=== PATIENT | male | born 1985 | race Hispanic/Latino ===

== ENCOUNTER 2019-10-17 06:56 | Emergency (ER) | payer SELFPAY ==
[2019-10-17 07:05] VITALS: BP 206/115; PULSE 88; RESP 15; TEMP 36.9; O2SAT 97; BMI 40.3
--- NOTE | 2019-10-17 07:18 | ED.DENTAL ---
HPI - Dental/Oral General Chief complaint: Dental/Oral Stated complaint: GUM INFECTION Time Seen by Provider: 10/17/19 07:00 Source: patient Mode of arrival: Ambulatory Limitations: no limitations History of Present Illness HPI Narrative: 34M nonsmoker, non drinker with history of dental problems with days to weeks of left posterior dental pain and perception of facial swelling. He has no fever or chills nor trouble swallowing or breathing. No N/V/D. Related Data Previous Rx's Medication Instructions Recorded amoxicillin 875 mg-potassium 1 tab PO BID #20 tab 07/20/19 clavulanate 125 mg tablet chlorhexidine gluconate 0.12 % 15 ml BUCCAL BID #118 ml 07/20/19 mouthwash amoxicillin-pot clavulanate 1 tab PO BID #20 tab 10/17/19 [Augmentin] ketorolac 10 mg PO Q6H PRN #14 tab 10/17/19 Allergies Allergy/AdvReac Type Severity Reaction Status Date / Time No Known Drug Allergies Allergy Verified 07/20/19 10:03 Review of Systems Constitutional Constitutional: Denies chills, Denies fatigue, Denies fever(s), Denies frequent falls, Denies lethargy and Denies weakness Eyes Eyes: Denies change in vision, Denies eye discharge, Denies irritation and Denies loss of vision ENT Ears, Nose, Mouth, and Throat: Denies change in voice, Reports dental pain, Denies dizziness, Denies neck pain, Denies sore throat and Denies throat swelling Cardiovascular Cardiovascular: Denies chest pain, Denies irregular heart rhythm, Denies lightheadedness, Denies palpitations, Denies dyspnea, Denies dyspnea on exertion and Denies orthopnea Respiratory Respiratory: Denies cough, Denies dyspnea, Denies dyspnea on exertion and Denies wheezing Gastrointestinal Gastrointestinal: Denies abdominal pain, Denies change in bowel habits, Denies diarrhea, Denies nausea and Denies vomiting Genitourinary Genitourinary: Denies hematuria, Denies flank pain, Denies urinary incontinence and Denies urinary urgency Musculoskeletal Musculoskeletal: Denies back pain, Denies muscle weakness, Denies neck pain, Denies numbness and Denies tingling Integumentary/Breasts Skin/Breast: Denies pruritus, Denies erythema, Denies rash and Denies wounds Neurologic Neurologic: Denies behavioral changes, Denies confusion, Denies dizziness, Denies frequent falls, Denies loss of vision, Denies numbness, Denies tingling and Denies weakness Psychiatric Psychiatric: Denies anxiety, Denies behavioral changes, Denies confusion, Denies depression, Denies homicidal ideation and Denies suicidal ideation Endocrine Endocrine: Denies fatigue, Denies flushing and Denies palpitations Hematologic/Lymphatic Hematologic/Lymphatic: Denies easy bruising Allergic/Immunologic Allergic/Immunologic: Denies urticaria, Denies throat swelling and Denies wheezing Patient History Social History Smoking Status: Never smoker Exam Narrative Exam Narrative: GEN: AOx3 and in mild distress, rubbing his left side jaw, and pain EYES: Pupils are equal, round, and reactive to light and accommodation. Extraoccular muscles are intact bilaterally. There is no subconjunctival hemorrhage or exudate. HEAD/FACE: No obvious swelling. Poor dentition throughout, NO fluctuance or induration. No obvious swelling. Partially fractured left lower molar. CHEST: Lungs are clear to auscultation bilaterally and free of wheezes, rales, or rhonchi. Heart rate is regular rhythm, there are no murmurs, clicks, rubs, or gallops. There is no chest wall tenderness. ABD: Abdomen is soft and nontender. There is no guarding or rebound. Bowel sounds are normal in all 4 quadrants. There is no mass or organomegaly. EXT: Full painless ROM of all extremities with no loss of sensation or strength. SKIN: Warm, pink, and dry. No erythema or rash Initial Vital Signs Initial Vital Signs: Vital Signs Temperature 98.4 F 10/17/19 07:05 Pulse Rate 88 10/17/19 07:05 Respiratory Rate 15 10/17/19 07:05 Blood Pressure 206/115 H 10/17/19 07:05 Pulse Oximetry 97 10/17/19 07:05 Procedures Nerve Block Nerve Block 1: Time out performed: Yes Local Anesthetic: bupivacaine 0.25% and with epi Side: left Intraoral Nerve Block: inferior alveolar Procedure Successful: Yes Patient Tolerated Procedure: Well Complications: none Course Orders Ordered: Discontinued Medications Bupivacaine HCl/Epinephrine Bitart (Sensorcaine 0.5% W/ Epi (Pf)) 5 ml SUBCUT NOW ONE Stop: 10/17/19 07:28 Last Admin: 10/17/19 07:39 Dose: 5 ml Documented by: BTONER Vital Signs Vital signs: Vital Signs - 8 hr 10/17/19 07:05 10/17/19 07:30 10/17/19 07:51 Temperature 98.4 F Pulse Rate 88 73 72 Respiratory Rate 15 14 15 Blood Pressure 206/115 H Blood Pressure [Left Arm] 177/97 H 159/93 H Pulse Oximetry 97 98 Discharge Plan Departure Patient Disposition: Home Clinical Impression: Toothache, Dental caries, Dental abscess Discharge Date/Time: 10/17/19 07:53 Instructions: DI for Dental Pain Activity Restrictions/Additional Instructions: *You have been diagnosed with [dental pain from early abscess] *What to do: *Take medications as directed *Follow up with your primary care provider in 2-3 days, call for an appointment. Let them know you were seen in the Emergency Department and that we ask that you be seen in follow up *Return to ER if you should have any new, worsening or concerning symptoms Prescriptions: New ketorolac 10 mg tablet 10 mg PO Q6H PRN (Reason: pain) Qty: 14 RF: 0 amoxicillin-pot clavulanate [Augmentin] 875-125 mg tablet 1 tab PO BID Qty: 20 RF: 0 No Action amoxicillin-pot clavulanate [Augmentin] 875-125 mg tablet 1 tab PO BID Qty: 20 RF: 0 chlorhexidine gluconate 0.12 % mouthwash 15 ml BUCCAL BID Qty: 118 RF: 0 ED Sign-out Cosign ED Attending Cosignature Attestation: I was immediately available in the department for consultation. This documentation has been reviewed and I agree with assessment and plan. Supervised by Michel Steve DO
[2019-10-17 07:30] VITALS: BP 177/97; PULSE 73; RESP 14
[2019-10-17] MEDS: BUPIVACAINE 0.5% W/ EPI (PF) 30 ML VIAL 5 ML SUBCUT (07:39)
[2019-10-17 07:51] VITALS: BP 159/93; PULSE 72; RESP 15; O2SAT 98
== END 2019-10-17 07:53 | disposition home or self-care (01) ==
PROVIDERS: Emergency Provider Emergency Medicine
DX: K04.7 Periapical abscess without sinus (principal); K08.89 Other specified disorders of teeth and supporting structures; K02.9 Dental caries, unspecified
CPT/HCPCS: 64450; 99281; 99283

== ENCOUNTER → 2020-05-23 08:55 | Outpatient (CLI) | payer OTHER, SELFPAY | PROVIDERS: Referring Provider Internal Medicine; Visit Provider Internal Medicine | DX: Z23 Encounter for immunization (principal) | CPT/HCPCS: 90471; 90686 ==

== ENCOUNTER 2021-03-15 23:55 | Emergency (ER) | payer OTHER, SELFPAY ==
[2021-03-16 00:31] VITALS: BP 159/103; PULSE 101; RESP 20; TEMP 36.3; O2SAT 97; BMI 41.1
--- NOTE | 2021-03-16 02:10 | ED.EXTPRO ---
HPI - Extremity Problem General Chief complaint: Extremity Problem,Nontraumatic Stated complaint: right foot pain Time Seen by Provider: 03/16/21 01:40 Source: patient Mode of arrival: Ambulatory Limitations: no limitations History of Present Illness HPI Narrative: The patient is a healthy 35-year-old male who presents with right heel pain ongoing for 1 week. His he states that it he can sleep okay but it does hurt while walking. It is in 1 spot at the base of his heel where the Achilles tendon inserts. He denies any calf pain no popping sensation. He is able to flex and extend his foot without difficulty. He says it does hurt when he flexes his foot. He has been taking ibuprofen 600 mg every 12 hours. 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 He works Friday through Friday and has been walking a lot. Related Data Previous Rx's Medication Instructions Recorded amoxicillin 875 mg-potassium 1 tab PO BID #20 tab 07/20/19 clavulanate 125 mg tablet (Augmentin) chlorhexidine gluconate 0.12 % 15 ml BUCCAL BID #118 ml 07/20/19 mouthwash amoxicillin 875 mg-potassium 1 tab PO BID #20 tab 10/17/19 clavulanate 125 mg tablet (Augmentin) ketorolac 10 mg tablet 10 mg PO Q6H PRN #14 tab 10/17/19 Allergies Allergy/AdvReac Type Severity Reaction Status Date / Time No Known Drug Allergies Allergy Verified 07/20/19 10:03 Review of Systems Review of Systems Narrative: GENERAL: Denies chills,fever HEENT: Denies throat pain RESPIRATORY: Denies dyspnea, cough, wheezing CARDIOVASCULAR: Denies chest pain, palpitations GASTROINTESTINAL: Denies nausea, vomiting MUSCULOSKELETAL see HPI SKIN: No rash, no laceration, no pruritus NEUROLOGIC: Denies weakness, dizziness, headache, numbness 8 point review of systems is negative except for those stated above and HPI Patient History Social History Smoking Status: Never smoker Smoking Status: Never smoker alcohol intake frequency: holidays/special occasions only Substance Use Type: does not use Exam Initial Vital Signs Initial Vital Signs: Vital Signs Temperature 97.3 F L 03/16/21 00:31 Pulse Rate 101 H 03/16/21 00:31 Respiratory Rate 20 03/16/21 00:31 Blood Pressure 159/103 H 03/16/21 00:31 Pulse Oximetry 97 03/16/21 00:31 GENERAL: Alert well-appearing 35-year-old male CARDIOVASCULAR: peripheral pulses in tact, cap refill <2 sec RESPIRATORY: No respiratory distress, speaks in full sentences without difficulty EXTREMITIES: Normal range of motion, no clubbing or edema. Neurovascularly intact Right lower extremity Achilles tendon intact calf is soft able flex and extend foot without difficulty. Tender right around insertion of Achilles tendon. Calf is soft NEUROLOGICAL: Cranial nerves II through XII grossly intact. Normal gait and speech. SKIN: Warm, dry, no petechiae, no rashes or lesions. Course Orders Ordered: Discontinued Medications Ibuprofen (Ibuprofen 400 Mg Tablet) 800 mg PO NOW ONE Stop: 03/16/21 02:20 Last Admin: 03/16/21 02:31 Dose: 800 mg Documented by: MAGDA Vital Signs Vital signs: Vital Signs - 8 hr 03/16/21 00:31 03/16/21 02:36 Temperature 97.3 F L Pulse Rate 101 H 68 Respiratory Rate 20 16 Blood Pressure 159/103 H 165/101 H Pulse Oximetry 97 99 MDM - Extremity (Nontraumatic) MDM Narrative Medical decision making narrative: Patient has signs symptoms are most consistent with an Achilles tendinopathy. No sign of rupture. Not consistent with a plantar fasciitis. At this time recommend Motrin more frequently and rest from work. Discharge Plan Departure Patient Disposition: Home Clinical Impression: Achilles tendinitis Qualifiers: Laterality: right Qualified Code(s): M76.61 - Achilles tendinitis, right leg Instructions: DI for Tendinitis Activity Restrictions/Additional Instructions: *You have been diagnosed with Achilles tendon *What to do: At this time you likely have inflammation of your Achilles tendon. A few days of rest and ibuprofen should help improve your symptoms. *Continue to take medications as directed Motrin 600 mg every 6 hours for the next 1 week with food do not take antibiotics including ciprofloxacin or levofloxacin, this can increase risk of rupture *Follow up with your primary care provider in 2-3 days *Return to ER if you should have increasing pain, worsening symptoms, rupture or pop or any new, worsening or concerning symptoms Prescriptions: No Action amoxicillin-pot clavulanate [Augmentin] 875-125 mg tablet 1 tab PO BID Qty: 20 RF: 0 chlorhexidine gluconate 0.12 % mouthwash 15 ml BUCCAL BID Qty: 118 RF: 0 ketorolac 10 mg tablet 10 mg PO Q6H PRN (Reason: pain) Qty: 14 RF: 0 amoxicillin-pot clavulanate [Augmentin] 875-125 mg tablet 1 tab PO BID Qty: 20 RF: 0 Referrals: [facility] [Outside] Stand Alone Forms: Work Release Note
[2021-03-16] MEDS: IBUPROFEN 400 MG TABLET 800 MG PO (02:31)
[2021-03-16 02:36] VITALS: BP 165/101; PULSE 68; RESP 16; O2SAT 99
== END 2021-03-16 02:37 | disposition home or self-care (01) ==
PROVIDERS: Emergency Provider Emergency Medicine
DX: M76.61 Achilles tendinitis, right leg (principal)
CPT/HCPCS: 99282; 99283

== ENCOUNTER 2021-09-02 17:00 | Emergency (ER) | payer OTHER, SELFPAY ==
[2021-09-02 17:11] VITALS: BP 191/105; PULSE 105; RESP 18; TEMP 36.7; O2SAT 96; BMI 37.9
--- NOTE | 2021-09-02 17:31 | ED_ITS ---
HPI - Dental/Oral <Garcia Hernandez PA-C - Last Filed: 09/02/21 19:58> General Chief complaint: Dental/Oral Stated complaint: Gum Infection Time Seen by Provider: 09/02/21 17:10 Source: patient Mode of arrival: Ambulatory History of Present Illness HPI Narrative: Patient is a 35-year-old male presenting to the emergency department today for evaluation a gingival infection. Patient states that he has an appointment on Friday with his dentist, however he is concerned that his appointment will be canceled if he is not on an antibiotic for his current infection. He states that he has had these infections in the past and his dentist as required that he be on an antibiotic prior to any procedure all work. Patient states that he has experiences infection for the past couple of days. No fever, chills, chest pain, cough, shortness of breath, nausea, vomiting, diarrhea, abdominal pain, dysuria, hematuria, sore throat, earache, or any other concerning symptoms reported. No further concerns were voiced at this time. Related Data Previous Rx's Medication Instructions Recorded amoxicillin 875 mg-potassium 1 tab PO BID #20 tab 07/20/19 clavulanate 125 mg tablet (Augmentin) chlorhexidine gluconate 0.12 % 15 ml BUCCAL BID #118 ml 07/20/19 mouthwash amoxicillin 875 mg-potassium 1 tab PO BID #20 tab 10/17/19 clavulanate 125 mg tablet (Augmentin) ketorolac 10 mg tablet 10 mg PO Q6H PRN #14 tab 10/17/19 amoxicillin 500 mg tablet 500 mg PO BID #14 tab 09/02/21 Allergies Allergy/AdvReac Type Severity Reaction Status Date / Time No Known Drug Allergies Allergy Verified 07/20/19 10:03 Review of Systems <Garcia Hernandez PA-C - Last Filed: 09/02/21 19:58> Constitutional Constitutional: Denies chills, Denies fatigue, Denies fever(s), Denies frequent falls, Denies lethargy and Denies weakness ENT Ears, Nose, Mouth, and Throat: Denies change in voice, Denies dizziness, Denies neck pain, Denies sore throat, Denies throat swelling and Reports other (Digital swelling, infection) Cardiovascular Cardiovascular: Denies chest pain, Denies irregular heart rhythm, Denies lightheadedness, Denies palpitations, Denies dyspnea, Denies dyspnea on exertion and Denies orthopnea Respiratory Respiratory: Denies cough, Denies dyspnea, Denies dyspnea on exertion and Denies wheezing Gastrointestinal Gastrointestinal: Denies abdominal pain, Denies change in bowel habits, Denies diarrhea, Denies nausea and Denies vomiting Genitourinary Genitourinary: Denies hematuria, Denies flank pain, Denies urinary incontinence and Denies urinary urgency Musculoskeletal Musculoskeletal: Denies back pain, Denies muscle weakness, Denies neck pain, Denies numbness and Denies tingling Integumentary/Breasts Skin/Breast: Denies pruritus, Denies erythema, Denies rash and Denies wounds Neurologic Neurologic: Denies dizziness, Denies frequent falls, Denies numbness, Denies tingling and Denies weakness Endocrine Endocrine: Denies fatigue and Denies palpitations Allergic/Immunologic Allergic/Immunologic: Denies throat swelling and Denies wheezing Patient History <Garcia Hernandez PA-C - Last Filed: 09/02/21 19:58> Social History Smoking Status: Never smoker Smoking Status: Never smoker alcohol intake frequency: holidays/special occasions only Substance Use Type: does not use Exam <Garcia Hernandez PA-C - Last Filed: 09/02/21 19:58> Narrative Exam Narrative: GENERAL: 35 year old patient appears stated age. Well-developed patient, in no acute distress. HEAD: Atraumatic. Normocephalic. EYES: Pupils equal round and reactive. Extraocular motions intact. No scleral icterus. No injection or drainage. ENT: Nose without bleeding, purulent drainage. Throat without erythema, tonsillar hypertrophy or exudate. Airway patent. Left lower molar with surrounding gingival inflammation and erythema. No appreciable abscess formation noted. Borderline dentition. NECK: Trachea midline. Non tender CARDIOVASCULAR: Regular rate and rhythm without murmurs, gallops, or rubs. RESPIRATORY: Clear to auscultation. Breath sounds equal bilaterally. No wheezes, rales, or rhonchi. GASTROINTESTINAL: Abdomen soft, non-tender, nondistended. EXTREMITIES: No edema or joint tenderness. BACK: Nontender without deformity or crepitance. No flank tenderness. NEURO: AOx3. SKIN: No rash or erythema of visible areas Initial Vital Signs Initial Vital Signs: Vital Signs Temperature 98.0 F 09/02/21 17:11 Pulse Rate 105 H 09/02/21 17:11 Respiratory Rate 18 09/02/21 17:11 Blood Pressure 191/105 H 09/02/21 17:11 Pulse Oximetry 96 09/02/21 17:11 <Maria E Joseph DO - Last Filed: 09/03/21 07:50> Initial Vital Signs Initial Vital Signs: Vital Signs Temperature 98.0 F 09/02/21 17:11 Pulse Rate 105 H 09/02/21 17:11 Respiratory Rate 18 09/02/21 17:11 Blood Pressure 191/105 H 09/02/21 17:11 Pulse Oximetry 96 09/02/21 17:11 Course <Garcia Hernandez PA-C - Last Filed: 09/02/21 19:58> Course Course Narrative: 500 mg amoxicillin administered in the emergency department. Orders Ordered: Discontinued Medications Amoxicillin (Amoxicillin 250 Mg Capsule) 500 mg PO NOW ONE Stop: 09/02/21 17:35 Last Admin: 09/02/21 17:46 Dose: 500 mg Documented by: LUBA Vital Signs Vital signs: Vital Signs - 8 hr 09/02/21 17:11 09/02/21 17:51 Temperature 98.0 F Pulse Rate 105 H 100 H Respiratory Rate 18 18 Blood Pressure 191/105 H 195/102 H Pulse Oximetry 96 97 <Maria E Joseph DO - Last Filed: 09/03/21 07:50> Orders Ordered: Discontinued Medications Amoxicillin (Amoxicillin 250 Mg Capsule) 500 mg PO NOW ONE Stop: 09/02/21 17:35 Last Admin: 09/02/21 17:46 Dose: 500 mg Documented by: LUBA Vital Signs Vital signs: Vital Signs - 8 hr 09/02/21 17:11 09/02/21 17:51 Temperature 98.0 F Pulse Rate 105 H 100 H Respiratory Rate 18 18 Blood Pressure 191/105 H 195/102 H Pulse Oximetry 96 97 MDM - Dental/Oral <Garcia Hernandez PA-C - Last Filed: 09/02/21 19:58> MDM Narrative Medical decision making narrative: To consider dental abscess versus dental caries versus peritonsillar abscess versus retropharyngeal abscess. Overall, physical examination history reassuring. Patient was administered 500 mg of amoxicillin in the emergency department with remaining course sent to his preferred pharmacy. Discussed this plan with the patient he agrees. Patient states he will follow-up with his dentist on Friday for further evaluation. At this time patient states he feels comfortable being discharged home and is stable for discharge. Strict return precautions were discussed prior to discharge. Patient states that his blood pressure and heart rate are chronically high despite previous treatment. Discussed with patient options regarding treatment, however he states that he does not want to pursue treatment options at this time. I urged the importance of following up with his primary care provider to seek resolution for his hypertension and chronic tachycardia. Discharge Plan Departure Patient Disposition: Home Clinical Impression: Toothache, Dental abscess Instructions: DI for Dental Pain Activity Restrictions/Additional Instructions: *You have been diagnosed with toothache, dental abscess *What to do: *Please continue to take your regular medications as directed. [X] New medication prescriptions sent to your pharmacy: [facility] - Amoxicllin [ ] New medication written as a paper prescription [ ] No new medications given A course amoxicillin has been sent to your preferred pharmacy. Please take this antibiotic as directed and complete the full course. It is reassuring that you have an appointment with your dentist on this upcoming Friday. I recommend following up with the primary care provider within the week for further evalua tion. Do not hesitate to return to the emergency department if you experience worsening pain, swelling, fever, or any other concerning symptoms. *Please follow up with your primary care provider in 2-3 days, call for an appointment. Let them know you were seen in the Emergency Department and that we ask that you be seen in follow up. We will electronically transmit a record of today's note if your PCP is in our system *If you do not have a primary care provider please contact the [facility] Resource line at [phone]. They will ask some questions about your medical history and help get you set up with a doctor in the community. *Return to Emergency Department if you should have any new, worsening or concerning symptoms, such as fever greater than 101 F, shaking chills, worsening pain, persistent vomiting or other bothersome symptoms. Prescriptions: New amoxicillin 500 mg tablet 500 mg PO BID Qty: 14 0RF No Action amoxicillin-pot clavulanate [Augmentin] 875-125 mg tablet 1 tab PO BID Qty: 20 0RF chlorhexidine gluconate 0.12 % mouthwash 15 ml BUCCAL BID Qty: 118 0RF ketorolac 10 mg tablet 10 mg PO Q6H PRN (Reason: pain) Qty: 14 0RF amoxicillin-pot clavulanate [Augmentin] 875-125 mg tablet 1 tab PO BID Qty: 20 0RF <Maria E Joseph DO - Last Filed: 09/03/21 07:50> Cosign ED Attending Cosissaature Attestation: I was immediately available in the department for consultation. Documentation has been reviewed.
[2021-09-02] MEDS: AMOXICILLIN 250 MG CAPSULE 500 MG PO (17:46)
[2021-09-02 17:51] VITALS: BP 195/102; PULSE 100; RESP 18; O2SAT 97
--- NOTE | 2021-09-02 17:51 | PC.NURSE ---
Spoke with pt re: his BP 195/105. Pt states his blood pressure typically runs very high. He sought care for BP 10+ yrs ago but unsuccessful in maintaining meds for improvement.
== END 2021-09-02 17:53 | disposition home or self-care (01) ==
PROVIDERS: Emergency Provider Physician Assistant
DX: K04.7 Periapical abscess without sinus (principal); K08.89 Other specified disorders of teeth and supporting structures
CPT/HCPCS: 99283

== ENCOUNTER 2021-11-14 10:18 | Emergency (ER) | payer OTHER, SELFPAY ==
[2021-11-14 10:20] VITALS: BP 178/106; PULSE 117; RESP 15; TEMP 37; O2SAT 98; BMI 40.7
--- NOTE | 2021-11-14 10:44 | DI.US.S_ITS ---
PROCEDURE: US SCROTUM INDICATIONS: Suspect scrotal abscess TECHNIQUE: Real-time scanning was performed of the scrotum and testicles, with image documentation. Color and pulse Doppler interrogation was performed of both testicles. COMPARISON: None. FINDINGS: Right: Testicle is normal in size at 4.9 x 2.5 x 2.9 cm, and homogenous in echotexture. A few scattered echogenic foci are seen, compatible with microlithiasis. Hypoechoic lesions within the epididymis, measuring up to 4.1 mm, compatible with cysts. Epididymis is otherwise normal in overall size and morphology. No hydrocele or varicoceles. Overlying scrotal skin is normal in thickness. A 1.2 x 2.3 x 1.1 cm hypoechoic lesion with internal echoes is seen within the scrotum, which may reflect phlegmon. Left: Testicle is normal in size at 4.8 x 2.8 x 3 cm, and homogeneous in echotexture. The epididymis is not well seen. No hydrocele or varicoceles. Thickening of the scrotal skin. Doppler: Color and pulse Doppler demonstrate normal and symmetric arterial flow in both testicles. IMPRESSION: 1. Right microlithiasis. 2. Thickening of the left scrotum with hypoechoic lesion, which may reflect phlegmon. Dictated by: Tacos Saravia M.D. on 11/14/2021 at 11:41 Approved by: Tacos Saravia M.D. on 11/14/2021 at 11:46
--- NOTE | 2021-11-14 10:45 | ED.SKABFB ---
HPI - Skin/Abscess/Foreign Bdy General Chief complaint: Skin/Abscess/Foreign Body Stated complaint: spider bites on genital Time Seen by Provider: 11/14/21 10:37 Source: patient Mode of arrival: Ambulatory Limitations: no limitations History of Present Illness HPI narrative: The patient developed pain and swelling to the left hemiscrotum 3 days ago. The amount of swelling has increased a bit. There is no drainage from the site. He has think he may have been bitten by spider, he did not see a spider. He has no associated dysuria or hematuria. He has thickening to the left hemiscrotum. There is slight swelling. He has pain in the left inguinal region. He is borderline diabetic. Related Data Previous Rx's Medication Instructions Recorded amoxicillin 875 mg-potassium 1 tab PO BID #20 tab 07/20/19 clavulanate 125 mg tablet (Augmentin) chlorhexidine gluconate 0.12 % 15 ml BUCCAL BID #118 ml 07/20/19 mouthwash amoxicillin 875 mg-potassium 1 tab PO BID #20 tab 10/17/19 clavulanate 125 mg tablet (Augmentin) ketorolac 10 mg tablet 10 mg PO Q6H PRN #14 tab 10/17/19 amoxicillin 500 mg tablet 500 mg PO BID #14 tab 09/02/21 doxycycline hyclate 100 mg tablet 100 mg PO BID 10 Days #20 tab 11/14/21 Allergies Allergy/AdvReac Type Severity Reaction Status Date / Time No Known Drug Allergies Allergy Verified 11/14/21 10:26 Review of Systems Constitutional Constitutional: Denies chills and Denies fever(s) ENT Ears, Nose, Mouth, and Throat: Denies vertigo and Denies dizziness Gastrointestinal Gastrointestinal: Denies abdominal pain and Denies nausea Comments: Left inguinal pain. Genitourinary Genitourinary: Reports as per HPI Musculoskeletal Musculoskeletal: Denies arthralgias and Denies back pain Integumentary/Breasts Comments: Skin changes on the scrotum as noted in HPI. Neurologic Neurologic: Denies abnormal movements, Denies confusion, Denies vertigo and Denies dizziness Psychiatric Psychiatric: Denies confusion Hematologic/Lymphatic On Anticoagulants: No Patient History Medical History (Updated 11/14/21 @ 12:16 by Ladarius Washburn MD) Prediabetes Social History Smoking Status: Never smoker Smoking Status: Never smoker alcohol intake frequency: holidays/special occasions only Substance Use Type: does not use Exam Initial Vital Signs Initial Vital Signs: Vital Signs Temperature 98.6 F 11/14/21 10:20 Pulse Rate 117 H 11/14/21 10:20 Respiratory Rate 15 11/14/21 10:20 Blood Pressure 178/106 H 11/14/21 10:20 Pulse Oximetry 98 11/14/21 10:20 Const General: cooperative, healthy appearing and comfortable [facility] [place] Head: normocephalic and atraumatic GI Palpation: soft Other: Nontender other than left inguinal adenopathy. Penis: normal penis Other: Two small areas of erythema and warmth on the left hemiscrotum, with some continues induration, no fluctuance. Testes are normal in size without masses. Back/Spine/Pelvis Back: No CVA tenderness Course Course Course Narrative: Ultrasound revealed a phlegmon on the scrotal wall, no abscess. Testicles were normal, there were no other significant findings. The patient was started on doxycycline. A follow-up urology appointment has been made prior to disposition. Orders Ordered: ED Orders 11/14/21 10:44 US scrotum Stat Vital Signs Vital signs: Vital Signs - 8 hr 11/14/21 10:20 Temperature 98.6 F Pulse Rate 117 H Respiratory Rate 15 Blood Pressure 178/106 H Pulse Oximetry 98 MDM - Skin/Abscess/Foreign Bdy Imaging Data Scrotal ultrasound: Radiologist's Impression: [address] [address] Ultrasound Report Signed Patient: Dom Wise MR#: [id number] : 1985 Acct:[id number] Age/Sex: 36 / M Date of Service: 11/14/21 Loc: ED Accession Number: [id number] ?? Procedure: US scrotum Ordering Provider: Ladarius Washburn MD PROCEDURE:? US SCROTUM ? INDICATIONS:? Suspect scrotal abscess ? TECHNIQUE:? Real-time scanning was performed of the scrotum and testicles, with image documentation.? Color and pulse Doppler interrogation was performed of both testicles.? ? COMPARISON:? None. ? FINDINGS:? ? Right:? Testicle is normal in size at 4.9 x 2.5 x 2.9 cm, and homogenous in echotexture.? A few scattered echogenic foci are seen, compatible with microlithiasis.? Hypoechoic lesions within the epididymis, measuring up to 4.1 mm, compatible with cysts.? Epididymis is otherwise normal in overall size and morphology.? No hydrocele or varicoceles.? Overlying scrotal skin is normal in thickness.? A 1.2 x 2.3 x 1.1 cm hypoechoic lesion with internal echoes is seen within the scrotum, which may reflect phlegmon. ? Left:? Testicle is normal in size at 4.8 x 2.8 x 3 cm, and homogeneous in echotexture.? The epididymis is not well seen.? No hydrocele or varicoceles.? Thickening of the scrotal skin.? ? Doppler:? Color and pulse Doppler demonstrate normal and symmetric arterial flow in both testicles.? ? IMPRESSION:? 1. Right microlithiasis. 2. Thickening of the left scrotum with hypoechoic lesion, which may reflect phlegmon.? ? ? Dictated by: Tacos Saravia M.D. on 11/14/2021 at 11:41 ? ? Approved by: Tacos Saravia M.D. on 11/14/2021 at 11:46?? Discharge Plan Departure Patient Disposition: Home Clinical Impression: Phlegmon Instructions: DI for Skin Abscess Activity Restrictions/Additional Instructions: You have a skin infection on the surface the scrotum. The internal contents of the scrotum are okay. Doxycycline 2 times daily for 10 days. Follow-up with Urology, I will give you contact information for Dr. Narvaez. We caught in an appointment 11/29/21 at 12:30 PM. Prescriptions: New doxycycline hyclate 100 mg tablet 100 mg PO BID 10 Days Qty: 20 0RF No Action amoxicillin-pot clavulanate [Augmentin] 875-125 mg tablet 1 tab PO BID Qty: 20 0RF chlorhexidine gluconate 0.12 % mouthwash 15 ml BUCCAL BID Qty: 118 0RF ketorolac 10 mg tablet 10 mg PO Q6H PRN (Reason: pain) Qty: 14 0RF amoxicillin-pot clavulanate [Augmentin] 875-125 mg tablet 1 tab PO BID Qty: 20 0RF amoxicillin 500 mg tablet 500 mg PO BID Qty: 14 0RF Referrals: Marsha Narvaez MD [Physician] - Stand Alone Forms: Work Release Note
[2021-11-14 12:34] VITALS: BP 161/98; PULSE 111; RESP 18; O2SAT 95
== END 2021-11-14 12:35 | disposition home or self-care (01) ==
PROVIDERS: Emergency Provider Emergency Medicine
DX: N49.2 Inflammatory disorders of scrotum (principal)
CPT/HCPCS: 76870; 99281; 99283

== ENCOUNTER 2021-11-16 21:37 | Inpatient (IN) | payer OTHER, SELFPAY ==
[2021-11-16 21:41] VITALS: BP 185/99; PULSE 133; RESP 24; TEMP 38; O2SAT 96; BMI 40.7
[2021-11-16 22:15] LABS: INR 1.2 (0.9-1.3); Prothrombin Time 13.9 SECONDS (10.1-12.7)
[2021-11-16 22:18] LABS: PTT Partial Thromboplastin Tim 36 SECONDS (26.4-36.2)
[2021-11-16 22:19] LABS: Add Manual Diff / Slide Review NO; Basophils Absolute Auto 100 /uL (0-100); Basophils Percent Auto 0.5 % (0-2); Eosinophils Absolute Auto 100 /uL (0-450); Eosinophils Percent Auto 0.3 % (2-4); Hematocrit 45.3 % (41-53); Hemoglobin 15.4 g/dL (13.5-17.5); Lactate (Lactic Acid) 2.8 mmol/L (0.7-2.1); Lymphocytes Absolute Auto 2000 /uL (1100-4500); Lymphocytes Percent Auto 12.7 % (25-40); Mean Corpuscular Hemoglobin 26.1 PG (26-34); Mean Corpuscular Volume 76.8 fL (80-100); Monocytes Absolute Auto 1400 /uL (0-900); Monocytes Percent Auto 8.8 % (3-14); Neutrophils Absolute Auto 12500 /uL (1500-7000); Neutrophils Percent Auto 77.7 % (50-75); Platelet Count 228 X10^3/uL (150-400); Red Cell Distribution Width 13.7 % (11.6-14.8)
[2021-11-16 22:20] LABS: Alanine Aminotransferase 23 IU/L (<50); Albumin Globulin Ratio 1.1 (1.0-2.8); Alkaline Phosphatase 74 U/L (38-126); Aspartate Aminotransferase 18 IU/L (17-59); BUN Creatinine Ratio 13.6 (6-22); Bilirubin Total 0.8 mg/dL (0.2-1.3); Blood Urea Nitrogen 11 mg/dL (9-20); Calcium 9.1 mg/dL (8.4-10.2); Carbon Dioxide 25 mmol/L (22-32); Chloride 98 mmol/L (98-107); Estimated Glomerular Filt Rate > 60 mL/min (>60); Globulin 3.6 g/dL (1.7-4.1); Glucose 440 mg/dL (70-100); HEMOLYSIS < 15 (0-50); Lipase 117 U/L (23-300); Sodium 135 mmol/L (137-145); Total Protein 7.6 g/dL (6.3-8.2)
[2021-11-16 22:37] LABS: Procalcitonin 0.32 ng/mL (<0.5)
--- NOTE | 2021-11-16 22:40 | DI.US.S_ITS ---
PROCEDURE: US SCROTUM INDICATIONS: eval for abscess TECHNIQUE: Real-time scanning was performed of the scrotum and testicles, with image documentation. Color and pulse Doppler interrogation was performed of both testicles. COMPARISON: [facility], , US SCROTUM, 11/14/2021, 10:56. FINDINGS: Right: Testicle is normal in size at 5.1 x 2.8 x 2.4 cm, and homogenous in echotexture. Microlithiasis. Epididymis is normal in overall size and morphology. No hydrocele or varicoceles. Overlying scrotal skin is normal in thickness. Left: Testicle is normal in size at 4.7 x 2.9 x 2.3 cm, and homogeneous in echotexture. Epididymis is normal in overall size and morphology. No hydrocele or varicoceles. Scrotal wall thickening with an irregular hypoechoic area measuring 4.7 x 3.5 x 1.7 cm (previously 2.3 x 1.2 x 1.1 cm on 11/14/2021). There is surrounding hyperemia. This does not appear liquid at this time. Doppler: Color and pulse Doppler demonstrate normal and symmetric arterial flow in both testicles. IMPRESSION: 1. Marked left scrotal wall thickening with a large irregular hypoechoic area with surrounding hyperemia measuring 4.7 cm which is increased in size in the short-term interval. This is concerning for phlegmon or developing abscess or hematoma. 2. No testicular mass. Incidental right microlithiasis. 3. No hydrocele. No varicocele. Dictated by: Ayan Zuniga M.D. on 11/17/2021 at 0:07 Approved by: Ayan Zuniga M.D. on 11/17/2021 at 0:13
[2021-11-16] MEDS: VANCOMYCIN 1,000 MG/200 ML PIGGYBACK 200 MG IV (22:45)
[2021-11-16] MEDS: SODIUM CHLORIDE 0.9% 1,000 ML 1000 ML IV (22:45)
--- NOTE | 2021-11-16 22:49 | ED.GENADULT ---
HPI - General Adult General Chief complaint: Urogenital-Male Stated complaint: Infection Time Seen by Provider: 11/16/21 22:39 Source: patient and family Mode of arrival: Ambulatory History of Present Illness HPI narrative: 36-year-old male. Was seen here in the emergency department a couple days ago for redness and swelling of his testicle. Had an ultrasound performed. No abscess was identified. Was sent home on doxycycline. He has been taking his medication as directed however since that time he reports increased redness and pain and generally feeling very poorly. He denies any urinary symptoms. No abdominal pain. Related Data Previous Rx's Medication Instructions Recorded amoxicillin 875 mg-potassium 1 tab PO BID #20 tab 07/20/19 clavulanate 125 mg tablet (Augmentin) chlorhexidine gluconate 0.12 % 15 ml BUCCAL BID #118 ml 07/20/19 mouthwash amoxicillin 875 mg-potassium 1 tab PO BID #20 tab 10/17/19 clavulanate 125 mg tablet (Augmentin) ketorolac 10 mg tablet 10 mg PO Q6H PRN #14 tab 10/17/19 amoxicillin 500 mg tablet 500 mg PO BID #14 tab 09/02/21 doxycycline hyclate 100 mg tablet 100 mg PO BID 10 Days #20 tab 11/14/21 Allergies Allergy/AdvReac Type Severity Reaction Status Date / Time No Known Drug Allergies Allergy Verified 11/14/21 10:26 Review of Systems Review of Systems ROS Unobtainable: All systems reviewed & are unremarkable except as noted in HPI and below Patient History Medical History Prediabetes Social History Smoking Status: Current every day smoker Smoking Status: Current every day smoker tobacco type: vaping alcohol intake frequency: holidays/special occasions only Substance Use Type: does not use Exam Initial Vital Signs Initial Vital Signs: Vital Signs Temperature 100.4 F H 11/16/21 21:41 Pulse Rate 133 H 11/16/21 21:41 Respiratory Rate 24 11/16/21 21:41 Blood Pressure 185/99 H 11/16/21 21:41 Pulse Oximetry 96 11/16/21 21:41 Const General: cooperative, comfortable and well developed HENIN Head: normal to inspection and normocephalic Resp Effort & Inspection: normal respiratory effort Auscultation: clear to auscultation bilaterally Cardio Rate: tachycardic Rhythm: regular rhythm GI Inspection: normal to inspection Other: Patient with a red addendum a scrotum. Left appears worse than right. Uncircumcised penis unremarkable. No vesicles. No pustules. Tender to palpation. Given the extent of the swelling unable to palpate testicles secondary to discomfort as well. Skin Other: Redness of the scrotum. Left being greater than right. No swelling/redness on the inner thighs. Swelling does not extend up into the abdomen. There is no crepitus felt. Neuro General: patient alert, patient awake and moves all extremities Extrem General: normal to inspection and capillary refill normal Psych Appearance: grossly normal Course Orders Ordered: ED Orders 11/16/21 22:00 Complete Blood Count AUTO DIFF Stat Comprehensive Metabolic Panel Stat Lactate (Lactic Acid) Stat Lipase Stat Partial Thromboplastin Time Stat Procalcitonin Stat Prothrombin Time INR Stat 11/16/21 22:08 EKG-12 Lead Stat RT Consult Eval and Treat NOW 11/16/21 22:25 Blood Culture Stat 11/16/21 22:40 US scrotum Stat 11/16/21 23:30 Urine Microscopic Stat 11/17/21 01:54 CT pelvis w con Stat 11/17/21 04:40 Wound Culture and Gram Stain Stat Acetaminophen (Acetaminophen 325 Mg Tablet) 650 mg PO Q6HR HANG Dextrose (Dextrose 50 % In Water 25 Gm/50 Ml Syringe) 25 gm IV PRN PRN PRN Reason: Hypoglycemia Docusate Sodium (Docusate 100 Mg Capsule) 100 mg PO BID [facility] Enoxaparin Sodium (Enoxaparin 40 Mg/0.4 Ml Syringe) 40 mg SUBCUT DAILY [facility] Ceftriaxone Sodium 1,000 mg/ (Sodium Chloride) 100 mls @ 200 mls/hr IV Q24H [facility] Insulin Human Lispro (Insulin Lispro 100 Unit/Ml 3ml Vial) 0 unit SUBCUT ACHS HNAG; Protocol Morphine Sulfate (Morphine 2 Mg/Ml Inj) 2 mg IV Q3H PRN PRN Reason: Breakthrough pain only (8-10) Naloxone HCl (Naloxone 0.4 Mg/Ml Vial) 0.2 mg IV Q2MIN PRN PRN Reason: Opiate Reversal Ondansetron HCl (Ondansetron 4 Mg/2 Ml Inj) 4 mg IV Q6HR PRN PRN Reason: Nausea And Vomiting Oxycodone HCl (Oxycodone Ir 10 Mg Tablet) 10 mg PO Q4HR PRN PRN Reason: Pain, Severe (7-10) Tramadol HCl (Tramadol 50 Mg Tablet) 50 mg PO Q4H PRN PRN Reason: Pain, Moderate (4-6) Vancomycin HCl (Vancomycin Per Pharmacy) 1 request MISC NOW ONE Stop: 11/17/21 05:03 Discontinued Medications Acetaminophen (Acetaminophen 325 Mg Tablet) 650 mg PO NOW ONE Stop: 11/17/21 02:27 Last Admin: 11/17/21 02:38 Dose: 650 mg Documented by: ERLINDA Sodium Chloride (Normal Saline 0.9%) 1,000 mls @ 1,000 mls/hr IV BOLUS ONE Stop: 11/16/21 23:07 Last Infusion: 11/17/21 00:08 Dose: 0 mls/hr Documented by: Admin: 11/16/21 22:45 Dose: 1,000 mls/hr Documented by: ERLINDA Ceftriaxone Sodium 1,000 mg/ (Sodium Chloride) 100 mls @ 200 mls/hr IV NOW ONE Stop: 11/16/21 22:40 Last Infusion: 11/17/21 00:57 Dose: 0 mls/hr Documented by: Admin: 11/17/21 00:09 Dose: 200 mls/hr Documented by: ERLINDA Vancomycin HCl (Vancomycin) 1,000 mg in 200 mls @ 200 mls/hr IV NOW ONE Stop: 11/16/21 23:38 Last Infusion: 11/17/21 00:08 Dose: 0 mls/hr Documented by: Admin: 11/16/21 22:45 Dose: 200 mls/hr Documented by: ERLINDA Morphine Sulfate (Morphine 4 Mg/Ml Inj) 4 mg IV NOW ONE Stop: 11/16/21 22:50 Last Admin: 11/16/21 23:10 Dose: 4 mg Documented by: ERLINDA Morphine Sulfate (Morphine 4 Mg/Ml Inj) 4 mg IV NOW ONE Stop: 11/17/21 02:28 Last Admin: 11/17/21 02:39 Dose: 4 mg Documented by: ERLINDA Vital Signs Vital signs: Vital Signs - 8 hr 11/16/21 21:41 11/17/21 02:23 11/17/21 02:24 Temperature 100.4 F H 102.3 F H Pulse Rate 133 H 118 H Respiratory Rate 24 Blood Pressure 185/99 H 158/88 H Pulse Oximetry 96 96 11/17/21 02:42 11/17/21 02:43 11/17/21 03:00 Temperature Pulse Rate 119 H 119 H 125 H Respiratory Rate Blood Pressure 146/82 H Pulse Oximetry 96 93 93 11/17/21 03:30 11/17/21 03:32 11/17/21 04:00 Temperature 101.1 F H 101.1 F H Pulse Rate 119 H 116 H Respiratory Rate Blood Pressure Pulse Oximetry 94 90 L 11/17/21 04:30 Temperature Pulse Rate 111 H Respiratory Rate Blood Pressure Pulse Oximetry 91 Medical Decision Making Lab Data Lab results reviewed: Yes I reviewed the patient's lab results. Result diagrams: 11/16/21 22:00 11/16/21 22:00 Labs: Lab Results 11/16/21 11/16/21 11/16/21 Range/Units 22:00 22:00 22:00 WBC 16.0 H (4.5-11.0) X10^3/uL RBC 5.90 (4.5-5.9) X10^6/uL Hgb 15.4 (13.5-17.5) g/dL Hct 45.3 (41-53) % MCV 76.8 L (80-100) fL MCH 26.1 (26-34) PG MCHC 34.0 (30-36) % RDW 13.7 (11.6-14.8) % Plt Count 228 (150-400) X10^3/uL Neut % (Auto) 77.7 H (50-75) % Lymph % (Auto) 12.7 L (25-40) % [place] % (Auto) 8.8 (3-14) % Eos % (Auto) 0.3 L (2-4) % Baso % (Auto) 0.5 (0-2) % Neut # (Auto) 34273 H (8884-3551) /uL Lymph # (Auto) 2000 (0260-1850) /uL [place] # (Auto) 1400 H (0-900) /uL Eos # (Auto) 100 (0-450) /uL Baso # (Auto) 100 (0-100) /uL PT 13.9 H (10.1-12.7) SECONDS INR 1.2 (0.9-1.3) APTT 36 (26.4-36.2) SECONDS Sodium 135 L (137-145) mmol/L Potassium 4.0 (3.4-5.1) mmol/L Chloride 98 (98-107) mmol/L Carbon Dioxide 25 (22-32) mmol/L BUN 11 (9-20) mg/dL Creatinine 0.81 (0.66-1.25) mg/dL Estimated GFR > 60 (>60) mL/min BUN/Creatinine Ratio 13.6 (6-22) Glucose 440 H (70-100) mg/dL Lactate (0.7-2.1) mmol/L Calcium 9.1 (8.4-10.2) mg/dL Total Bilirubin 0.8 (0.2-1.3) mg/dL AST 18 (17-59) IU/L ALT 23 (<50) IU/L Alkaline Phosphatase 74 (38-126) U/L Total Protein 7.6 (6.3-8.2) g/dL Albumin 4.0 (3.5-5.0) g/dL Globulin 3.6 (1.7-4.1) g/dL Albumin/Globulin Ratio 1.1 (1.0-2.8) Lipase 117 (23-300) U/L Procalcitonin 0.32 (<0.5) ng/mL Urine RBC (0-5/HPF) Urine WBC (0-5/HPF) Urine Bacteria (None) Ur Culture Indicated? 11/16/21 11/16/21 11/17/21 Range/Units 22:00 23:30 00:20 WBC (4.5-11.0) X10^3/uL RBC (4.5-5.9) X10^6/uL Hgb (13.5-17.5) g/dL Hct (41-53) % MCV (80-100) fL MCH (26-34) PG MCHC (30-36) % RDW (11.6-14.8) % Plt Count (150-400) X10^3/uL Neut % (Auto) (50-75) % Lymph % (Auto) (25-40) % [place] % (Auto) (3-14) % Eos % (Auto) (2-4) % Baso % (Auto) (0-2) % Neut # (Auto) (2847-7282) /uL Lymph # (Auto) (0614-1856) /uL [place] # (Auto) (0-900) /uL Eos # (Auto) (0-450) /uL Baso # (Auto) (0-100) /uL PT (10.1-12.7) SECONDS INR (0.9-1.3) APTT (26.4-36.2) SECONDS Sodium (137-145) mmol/L Potassium (3.4-5.1) mmol/L Chloride (98-107) mmol/L Carbon Dioxide (22-32) mmol/L BUN (9-20) mg/dL Creatinine (0.66-1.25) mg/dL Estimated GFR (>60) mL/min BUN/Creatinine Ratio (6-22) Glucose (70-100) mg/dL Lactate 2.8 H 1.6 (0.7-2.1) mmol/L Calcium (8.4-10.2) mg/dL Total Bilirubin (0.2-1.3) mg/dL AST (17-59) IU/L ALT (<50) IU/L Alkaline Phosphatase (38-126) U/L Total Protein (6.3-8.2) g/dL Albumin (3.5-5.0) g/dL Globulin (1.7-4.1) g/dL Albumin/Globulin Ratio (1.0-2.8) Lipase (23-300) U/L Procalcitonin (<0.5) ng/mL Urine RBC 0-1/hpf (0-5/HPF) Urine WBC None seen (0-5/HPF) Urine Bacteria None seen (None) Ur Culture Indicated? Cult not indicated Urine Dip Bedside Urine Glucose 1000 mg/dl Bedside Urine Bilirubin - Negative Bedside Urine Ketone - Negative Urine Specific [place] 1.015 Bedside Urine Occult Blood +/- Bedside Urine pH 6.0 Bedside Urine Protein ++ 100 Bedside Urine Urobilinogen - Negative Bedside Urine Nitrite - Negative Bedside Urine Leukocytes - Negative Esterase Point of care testing: Urine Dip Bedside Urine Glucose 1000 mg/dl Bedside Urine Bilirubin - Negative Bedside Urine Ketone - Negative Urine Specific [place] 1.015 Bedside Urine Occult Blood +/- Bedside Urine pH 6.0 Bedside Urine Protein ++ 100 Bedside Urine Urobilinogen - Negative Bedside Urine Nitrite - Negative Bedside Urine Leukocytes - Negative Esterase Imaging Data Scrotal ultrasound: Radiologist's Impression: [address] [address] Ultrasound Report Signed Patient: Dom Wise MR#: [id number] : 1985 Acct:[id number] Age/Sex: 36 / M Date of Service: 11/16/21 Loc: ED Accession Number: [id number] ?? Procedure: US scrotum Ordering Provider: Santino Shaw D.O. PROCEDURE:? US SCROTUM ? INDICATIONS:? eval for abscess ? TECHNIQUE:? Real-time scanning was performed of the scrotum and testicles, with image documentation.? Color and pulse Doppler interrogation was performed of both testicles.? ? COMPARISON:? [facility], , US SCROTUM, 11/14/2021, 10:56. ? FINDINGS:? ? Right:? Testicle is normal in size at 5.1 x 2.8 x 2.4 cm, and homogenous in echotexture.? Microlithiasis.? Epididymis is normal in overall size and morphology.? No hydrocele or varicoceles.? Overlying scrotal skin is normal in thickness.? ? Left:? Testicle is normal in size at 4.7 x 2.9 x 2.3 cm, and homogeneous in echotexture.? Epididymis is normal in overall size and morphology.? No hydrocele or varicoceles.? ? Scrotal wall thickening with an irregular hypoechoic area measuring 4.7 x 3.5 x 1.7 cm (previously 2.3 x 1.2 x 1.1 cm on 11/14/2021).? There is surrounding hyperemia.? This does not appear liquid at this time. ? Doppler:? Color and pulse Doppler demonstrate normal and symmetric arterial flow in both testicles.? ? IMPRESSION:? 1. Marked left scrotal wall thickening with a large irregular hypoechoic area with surrounding hyperemia measuring 4.7 cm which is increased in size in the short-term interval.? This is concerning for phlegmon or developing abscess or hematoma. ? 2. No testicular mass.? Incidental right microlithiasis. ? 3. No hydrocele.? No varicocele.? ? Dictated by: Ayan Zuniga M.D. on 11/17/2021 at 0:07 ? ? Approved by: Ayan Zuniga M.D. on 11/17/2021 at 0:13?? Pelvis CT: Radiologist's Impression: Bilateral scrotal hydroceles. The hydroceles larger on the left than the right. Bilateral testicles are visualized and are homogeneous in density. No air identified within the scrotal sac. He see accompanying scrotal ultrasound to exclude abscess. No extensive scrotal skin thickening. MDM Narrative Medical decision making narrative: Patient arrives febrile tachycardic. Does have leukocytosis. Antibiotics administered upon my initial evaluation when the patient arrived to the exam room. Blood cultures obtained. 30 cc/kilogram of fluid not administered secondary to patient not being dehydrated, tolerating oral fluids, not being hypotensive. Lactate improved with the above-stated therapies. Ultrasound repeated today did not show any signs of abscess. Also no signs of testicular torsion. Patient has no crepitus over the area. Given his elevated blood sugar there is concern about Hailee's. CT scan of the pelvis ordered shows no free air and again no abscess. The cellulitis appears to be isolated to the scrotum and it does not extend into the upper inner thighs or into the abdomen. Upon evaluation when the patient was being admitted to the hospital there was spontaneous drainage from a small area on the left side of the scrotum. I was able to express a small amount of purulent material from this area. Culture was obtained. Discussed the case with LUPE Rhodes the [facility] provider who will admit for further evaluation and treatment. I did discuss the need for admission with the patient secondary to failure of outpatient therapy. He expressed understanding and agreement. Discharge Plan Departure Patient Disposition: Admitted as Observation Clinical Impression: Cellulitis Admit Date/Time: 11/17/21 04:54 Admit Provider: Amanda Rhodes
[2021-11-16] MEDS: MORPHINE 4 MG/ML INJ IV (23:10)
[2021-11-17] VITALS (29 sets, daily range): BP systolic 103–158; BP diastolic 65–94; PULSE 94–125; RESP 14–25; TEMP 36.8–39.1; O2SAT 90–100; BMI 40.7; BMI 39.8
--- NOTE | 2021-11-17 | PATH_ITS ---
[facility] Accession Number: [id number] . 01 Material submitted: . scrotum - SCROTAL TISSUE . 01 Diagnosis: Scrotal, Excision: Abscess with surrounding reactive changes and inflammation. . Note: The findings are nonspecific. PAS stain is negative for fungal hyphae. However, special stains are not sensitive. Tissue cultures may be of help if infection is a persistent clinical concern. Clinicopathological correlation is advised. [facility] 11/26/2021 1547 Local . 01 Comment: The histologic material was reviewed with Dr. Kasia Villalobos, who concurs. . 01 Electronically signed: . Erica Polk MD, Dermatopathologist NPI- [id number] . 01 Gross description: . The specimen is received in formalin, labeled scrotal tissue, and consists of four unoriented excisions of skin ranging in size from 0.8 x 0.5 cm, excised to a depth of 0.3 cm, to 2.2 x 0.9 cm, excised to a depth of 1.0 cm. The tissue is sectioned and entirely submitted as follows: A1: One skin fragment, serially sectioned (not inked). A2: One skin fragment, serially sectioned (inked blue). A3: One skin fragment, serially sectioned (inked green). A4-A5: One skin fragment, serially sectioned (inked black). ([id number]) /CÉSAR 11/26/2021 1750 Local . 01 Pathologist provided ICD-10: L98.9 . 01 CPT . 176534, [id number] Specimen Comment: A courtesy copy of this report has been sent to [phone] Performed at: 01 [facility] [address] [id number] MD Terry Bentley MD Phone: [phone]
[2021-11-17] MEDS: cefTRIAXone 1,000 MG in SODIUM CHLORIDE 0.9% 100 ML 200 ML IV (00:09)
[2021-11-17 00:10] LABS: Reflexed Lactate in 2 Hours Y
[2021-11-17 00:44] LABS: Lactate 2HR (Lactic Acid Rflx) 1.6 mmol/L (0.7-2.1)
[2021-11-17 01:01] LABS: Bacteria Urine None Seen; Culture Indicated Urine Cult Not Indicated; RBC Urine 0-1/HPF (0-5/HPF); WBC Urine None Seen (0-5/HPF)
--- NOTE | 2021-11-17 01:54 | DI.CT.S_ITS ---
PROCEDURE: CT PELVIS W CON INDICATIONS: scrotal infection eval for deep infection/fee air TECHNIQUE: After the administration of intravenous contrast, 5 mm thick sections acquired from the iliac crests to the symphysis. 5 mm coronal and sagittal reformats were acquired. For radiation dose reduction, the following was used: automated exposure control, adjustment of mA and/or kV according to patient size. COMPARISON: None. FINDINGS: Image quality: Excellent. Peritoneum and bowel: Bowel loops demonstrate normal wall thickness and caliber. No free fluid or air. Genitourinary: Bladder wall thickness is normal. Nodes and vessels: No iliac, pelvic, or inguinal adenopathy by size criteria. Iliac vessels demonstrate normal size and enhancement. Bones: No suspicious bony lesions. Miscellaneous: Bilateral scrotal hydroceles. No evidence of soft tissue air. Incidental right inguinal hernia containing fat without bowel involvement IMPRESSION: Bilateral scrotal hydroceles. No evidence of soft tissue air Note: Final report is concordant with preliminary interpretation by [employer] Approved by: Simon Hinkle M.D. on 11/17/2021 at 6:18
--- NOTE | 2021-11-17 02:00 | PC.NURSE ---
no change in condition
[2021-11-17] MEDS: ACETAMINOPHEN 325 MG TABLET 650 MG PO ×2 (02:38→08:18)
[2021-11-17] MEDS: MORPHINE 4 MG/ML INJ IV (02:39)
--- NOTE | 2021-11-17 03:30 | PC.NURSE ---
pt resting on stretcher without any c/o at this time
--- NOTE | 2021-11-17 05:05 | P.HP_ITS ---
History of Present Illness History of Present Illness Date Patient Seen: 11/17/21 Time Patient Seen: 05:05 Chief complaint: Scrotal infection Narrative: Dom Wise is a 36 y.o. male with pre-diabetes that developed a painful scrotum that he initially thought was a spider bite. He was initially seen on 11/14, diagnosed with a phlegmon found on ultrasound and discharged on doxycyline. He returned today with fevers and chills and continued pain and swelling of his scrotum. He is now having a headache, still sweating, denies nausea or vomiting, abdominal pain, he does endorse when he urinates, it puts pressure on his testicles and scrotum worsening the pain, denies diarrhea or constipation. Denies any numbing or tingling of his upper or lower extremities. Ultrasound indicated: 1. Marked left scrotal wall thickening with a large irregular hypoechoic area with surrounding hyperemia measuring 4.7 cm which is increased in size in the short-term interval.? This is concerning for phlegmon or developing abscess or hematoma.. CT of the pelvis noted bilateral hydroceles, left larger than right, did not identify fluid or air collections. Patient's T-max was 102.3? and it is currently 101.1, blood pressure 142/82, heart rate 111, respiratory rate 24, oxygen saturation of 91% on room air, he weighs 111 kg with a BMI of 40.8. WBC is markedly elevated at 16, has a left shift, sodium 135, glucose is 440, lactate was 2.8 and is now 1.6, procalcitonin 0.32, A1c is pending, COVID-19 PCR is pending. Blood and wound cultures are pending. Patient History Medical History Prediabetes Family & Social History Family history unavailable: Yes (Raised in foster care and children's home) Safety & Behavioral: Feels Safe in Current Yes Environment Been Physically Hurt or No Threatened By a Person Tobacco & Substance use: Smoking Status Current every day smoker, vapes daily alcohol intake frequency holiday/special occasion Substance Use Type does not use Meds Home Medications and Allergies Home Medications Medication Instructions Recorded Confirmed Type amoxicillin 875 mg-potassium 1 tab PO BID #20 tab 12/24/19 12/24/19 Rx clavulanate 125 mg tablet (Augmentin) chlorhexidine gluconate 0.12 % 15 ml BUCCAL BID #118 ml 07/20/19 07/20/19 Rx mouthwash amoxicillin 875 mg-potassium 1 tab PO BID #20 tab 10/17/19 Rx clavulanate 125 mg tablet (Augmentin) ketorolac 10 mg tablet 10 mg PO Q6H PRN #14 tab 10/17/19 Rx amoxicillin 500 mg tablet 500 mg PO BID #14 tab 09/02/21 Rx doxycycline hyclate 100 mg tablet 100 mg PO BID 10 Days #20 tab 11/14/21 Rx Allergies Allergy/AdvReac Type Severity Reaction Status Date / Time No Known Drug Allergies Allergy Verified 11/14/21 10:26 Review of Systems Review of Systems ROS: Yes All systems reviewed with the patient and are negative except as otherw ise documented Exam Vital Signs (past 8 hours): - 11/16/21 21:41 11/17/21 02:23 11/17/21 02:24 Temperature 100.4 F H 102.3 F H Pulse Rate 133 H 118 H Respiratory Rate 24 Blood Pressure 185/99 H 158/88 H Pulse Oximetry 96 96 11/17/21 02:42 11/17/21 02:43 11/17/21 03:00 Temperature Pulse Rate 119 H 119 H 125 H Respiratory Rate Blood Pressure 146/82 H Pulse Oximetry 96 93 93 11/17/21 03:30 11/17/21 03:32 11/17/21 04:00 Temperature 101.1 F H 101.1 F H Pulse Rate 119 H 116 H Respiratory Rate Blood Pressure Pulse Oximetry 94 90 L 11/17/21 04:30 Temperature Pulse Rate 111 H Respiratory Rate Blood Pressure Pulse Oximetry 91 Oxygen Delivery Method Room Air Narrative Exam Narrative: Gen: Alert, oriented, morbidly obese 36 y.o. male, sleeping but arousable HEENT: normocephalic, atraumatic, conjunctiva clear, sclera non-icteric, oral mucosa pink and moist Neck: supple, full ROM, no JVD, trachea is midline Resp: Lungs CTA, non-labored breathing CV: tachy, no murmur or rubs Abd: soft, non-tender, normoactive BTs : Testicle is markedly swollen, has an open tract initially draining white discharge and followed by blood Skin: no lesions or rashes, dry and intact Neuro: Alert and oriented X 4 w/no focal deficits. Speech clear and coherent. Extremities: moves all 4 extremities, is ambulatory, negative Maxim?s sign Psyche: normal mood and affect. Objective Labs Result Diagrams: 11/17/21 06:05 11/17/21 06:05 Labs: Laboratory Results - last 24 hr 11/16/21 11/16/21 11/16/21 22:00 22:00 22:00 WBC 16.0 H RBC 5.90 Hgb 15.4 Hct 45.3 MCV 76.8 L MCH 26.1 MCHC 34.0 RDW 13.7 Plt Count 228 Neut % (Auto) 77.7 H Lymph % (Auto) 12.7 L [place] % (Auto) 8.8 Eos % (Auto) 0.3 L Baso % (Auto) 0.5 Neut # (Auto) 09417 H Lymph # (Auto) 2000 [place] # (Auto) 1400 H Eos # (Auto) 100 Baso # (Auto) 100 PT 13.9 H INR 1.2 APTT 36 Sodium 135 L Potassium 4.0 Chloride 98 Carbon Dioxide 25 BUN 11 Creatinine 0.81 Estimated GFR > 60 BUN/Creatinine Ratio 13.6 Glucose 440 H Lactate Calcium 9.1 Total Bilirubin 0.8 AST 18 ALT 23 Alkaline Phosphatase 74 Total Protein 7.6 Albumin 4.0 Globulin 3.6 Albumin/Globulin Ratio 1.1 Lipase 117 Procalcitonin 0.32 Urine RBC Urine WBC Urine Bacteria Ur Culture Indicated? 11/16/21 11/16/21 11/17/21 22:00 23:30 00:20 WBC RBC Hgb Hct MCV MCH MCHC RDW Plt Count Neut % (Auto) Lymph % (Auto) [place] % (Auto) Eos % (Auto) Baso % (Auto) Neut # (Auto) Lymph # (Auto) [place] # (Auto) Eos # (Auto) Baso # (Auto) PT INR APTT Sodium Potassium Chloride Carbon Dioxide BUN Creatinine Estimated GFR BUN/Creatinine Ratio Glucose Lactate 2.8 H 1.6 Calcium Total Bilirubin AST ALT Alkaline Phosphatase Total Protein Albumin Globulin Albumin/Globulin Ratio Lipase Procalcitonin Urine RBC 0-1/hpf Urine WBC None seen Urine Bacteria None seen Ur Culture Indicated? Cult not indicated Assessment & Plan Assessment & Plan narrative: Dom Wise is placed into observation for further antibiotic treatment of a scrotal abscess. 1. Sepsis associated with scrotal abscess, acute, present on admission * Patient presents with a fever, elevated heart rate, and elevated lactate on admission * He received one dose of IV ceftriaxone and vancomycin which will be continued * Scheduled tylenol for fever until fever curve comes down * PO tramadol, oxycodone and IV morphine for pain control 2. History of pre-diabetes, now diabetic with an A1c of 12.5 * Patient's current blood glucose is 440 * Initiate glargine 10 units now with medium dose insulin correctional scale and carb control diet. * He will need diabetic education. 3. Morbid obesity with a BMI of 41 * Patient was previously over 150kg and has lost approximately 25 kg * He will need dietary counseling along with diabetic education VTE Prophylaxis: Wells risk score 1.5 Enoxaparin 40 mg subQ once daily Bilateral SCDs Patient is placed into observation as his stay is not expected to exceed 2 midnights. FEN: IV fluids: saline lock, diet: carb controlled diet, labs: CBC, C/BMP, liver enzymes, Mag, PT/INR Consultants None. May require urology consult Dispo: eventual d/c to home Code status: Full code as discussed with the patient. [X] I have utilized all available immediate resources to obtain, update, or review of the patient's current medications COVID-19 COVID-19 status: Negative Result date/Date tested (Pos, Neg/Pending): 11/17/21 Scores Wells' Criteria for PE Clinical signs and symptoms of DVT: No PE is #1 Dx or equally likely: No Heart rate > 100: Yes Immobilization at least 3 days or surg in previous 4 weeks: No History of PE or DVT: No Hemoptysis: No Malignancy w/Treatment within 6 months or palliative: No Wells' PE Score total: 1.5 Quality VTE Deep Vein Thrombosis/Pulmonary Embolism Present on Admission: No MIPS - Admit I confirm the patient?s Advance Care Plan is present, Code status is documented, Surrogate decision maker is in patient?s record [If Yes, STOP here]: Yes MIPS - DC The patient has current or prior documentation of left ventricular ejection fraction (LVEF) less than 40%, or moderate or severely depressed left v entricular systolic function.: No
[2021-11-17 05:41] LABS: Hemoglobin A1C% w Est Avg Glu 12.5 % (4.0-6.0)
[2021-11-17 06:22] LABS: Add Manual Diff / Slide Review NO; Basophils Absolute Auto 100 /uL (0-100); Basophils Percent Auto 0.4 % (0-2); Eosinophils Absolute Auto 0 /uL (0-450); Eosinophils Percent Auto 0.2 % (2-4); Hematocrit 42.4 % (41-53); Hemoglobin 14.1 g/dL (13.5-17.5); Lymphocytes Absolute Auto 2300 /uL (1100-4500); Lymphocytes Percent Auto 14.7 % (25-40); Mean Corpuscular HGB Conc 33.2 % (30-36); Mean Corpuscular Hemoglobin 25.7 PG (26-34); Mean Corpuscular Volume 77.3 fL (80-100); Monocytes Absolute Auto 1800 /uL (0-900); Monocytes Percent Auto 11.2 % (3-14); Neutrophils Absolute Auto 11600 /uL (1500-7000); Neutrophils Percent Auto 73.5 % (50-75); Platelet Count 214 X10^3/uL (150-400); Red Blood Cell Count 5.48 X10^6/uL (4.5-5.9); Red Cell Distribution Width 13.4 % (11.6-14.8); White Blood Cell Count 15.9 X10^3/uL (4.5-11.0)
[2021-11-17 06:27] LABS: BUN Creatinine Ratio 14.1 (6-22); Blood Urea Nitrogen 10 mg/dL (9-20); Calcium 8.4 mg/dL (8.4-10.2); Carbon Dioxide 23 mmol/L (22-32); Chloride 101 mmol/L (98-107); Estimated Glomerular Filt Rate > 60 mL/min (>60); Glucose 305 mg/dL (70-100); HEMOLYSIS < 15 (0-50); Potassium 3.6 mmol/L (3.4-5.1); Sodium 135 mmol/L (137-145)
[2021-11-17 06:28] LABS: Alanine Aminotransferase 18 IU/L (<50); Albumin 3.3 g/dL (3.5-5.0); Albumin Globulin Ratio 1.1 (1.0-2.8); Alkaline Phosphatase 64 U/L (38-126); Aspartate Aminotransferase 26 IU/L (17-59); Bilirubin Total 0.6 mg/dL (0.2-1.3); Bilirubin Unconjugated 0.6 mg/dL (0.0-1.1); Globulin 2.9 g/dL (1.7-4.1); HEMOLYSIS 26 (0-50); Total Protein 6.2 g/dL (6.3-8.2)
[2021-11-17 06:46] LABS: COVID19 -Nasal RAPID Negative (Negative)
[2021-11-17] MEDS: VANCOMYCIN 1,500 MG/300 ML PIGGYBACK 150 MG IV (08:32)
[2021-11-17] MEDS: MORPHINE 2 MG/ML INJ IV (08:33)
--- NOTE | 2021-11-17 08:43 | PC.NURSE ---
patient refused insulin. Education is being given to him about the importance of insulin in relation to blood sugar. No medication given.
--- NOTE | 2021-11-17 08:54 | P.CONS_ITS ---
History of Present Illness Consult details Date Patient Seen: 11/17/21 Time Patient Seen: 08:55 Chief complaint: Scrotal infection Narrative: Dom is a 36-year-old man who is borderline diabetic who presents with about a week of scrotal erythema and inflammation. About 3 days ago he was seen and prescribed doxycycline but his inflammation and edema only continued to intensify. He has some pain but not substantial amount pain. When he came to the ER last night a small area on the left hemiscrotum started drain some purulent fluid. He has been told he was ?prediabetic? has been on metformin. Meds Home Medications and Allergies Home Medications Medication Instructions Recorded Confirmed Type amoxicillin 875 mg-potassium 1 tab PO BID #20 tab 07/20/19 07/20/19 Rx clavulanate 125 mg tablet (Augmentin) chlorhexidine gluconate 0.12 % 15 ml BUCCAL BID #118 ml 07/20/19 07/20/19 Rx mouthwash amoxicillin 875 mg-potassium 1 tab PO BID #20 tab 10/17/19 Rx clavulanate 125 mg tablet (Augmentin) ketorolac 10 mg tablet 10 mg PO Q6H PRN #14 tab 10/17/19 Rx amoxicillin 500 mg tablet 500 mg PO BID #14 tab 09/02/21 Rx doxycycline hyclate 100 mg tablet 100 mg PO BID 10 Days #20 tab 11/14/21 Rx Allergies Allergy/AdvReac Type Severity Reaction Status Date / Time No Known Drug Allergies Allergy Verified 11/14/21 10:26 Exam Vital Signs (past 8 hours): - 11/17/21 02:23 11/17/21 02:24 11/17/21 02:42 Temperature 102.3 F H Pulse Rate 118 H 119 H Blood Pressure 158/88 H Pulse Oximetry 96 96 11/17/21 02:43 11/17/21 03:00 11/17/21 03:30 Temperature 101.1 F H Pulse Rate 119 H 125 H 119 H Blood Pressure 146/82 H Pulse Oximetry 93 93 94 11/17/21 03:32 11/17/21 04:00 11/17/21 04:30 Temperature 101.1 F H Pulse Rate 116 H 111 H Blood Pressure Pulse Oximetry 90 L 91 Oxygen Delivery Method Room Air Const Orientation: alert and awake Resp Effort & Inspection: normal respiratory effort GI Palpation: soft Other: The skin of the entire scrotum is moderately erythematous and edematous. There is a pinpoint open wound of the anterior left hemiscrotum which drains a small amount of clear to slightly purulent fluid. There is moderate tenderness to palpation. There is no visible necrotic tissue Objective Labs Result Diagrams: 11/17/21 06:05 11/17/21 06:05 Labs: Laboratory Results - last 24 hr 11/16/21 11/16/21 11/16/21 22:00 22:00 22:00 WBC 16.0 H RBC 5.90 Hgb 15.4 Hct 45.3 MCV 76.8 L MCH 26.1 MCHC 34.0 RDW 13.7 Plt Count 228 Neut % (Auto) 77.7 H Lymph % (Auto) 12.7 L [place] % (Auto) 8.8 Eos % (Auto) 0.3 L Baso % (Auto) 0.5 Neut # (Auto) 21406 H Lymph # (Auto) 2000 [place] # (Auto) 1400 H Eos # (Auto) 100 Baso # (Auto) 100 PT 13.9 H INR 1.2 APTT 36 Sodium 135 L Potassium 4.0 Chloride 98 Carbon Dioxide 25 BUN 11 Creatinine 0.81 Estimated GFR > 60 BUN/Creatinine Ratio 13.6 Glucose 440 H Hemoglobin A1c Lactate Calcium 9.1 Total Bilirubin 0.8 Conjugated Bilirubin Unconjugated Bilirubin AST 18 ALT 23 Alkaline Phosphatase 74 Total Protein 7.6 Albumin 4.0 Globulin 3.6 Albumin/Globulin Ratio 1.1 Lipase 117 Procalcitonin 0.32 Urine RBC Urine WBC Urine Bacteria Ur Culture Indicated? SARS-CoV-2 (PCR) 11/16/21 11/16/21 11/16/21 22:00 22:00 23:30 WBC RBC Hgb Hct MCV MCH MCHC RDW Plt Count Neut % (Auto) Lymph % (Auto) [place] % (Auto) Eos % (Auto) Baso % (Auto) Neut # (Auto) Lymph # (Auto) [place] # (Auto) Eos # (Auto) Baso # (Auto) PT INR APTT Sodium Potassium Chloride Carbon Dioxide BUN Creatinine Estimated GFR BUN/Creatinine Ratio Glucose Hemoglobin A1c 12.5 H Lactate 2.8 H Calcium Total Bilirubin Conjugated Bilirubin Unconjugated Bilirubin AST ALT Alkaline Phosphatase Total Protein Albumin Globulin Albumin/Globulin Ratio Lipase Procalcitonin Urine RBC 0-1/hpf Urine WBC None seen Urine Bacteria None seen Ur Culture Indicated? Cult not indicated SARS-CoV-2 (PCR) 11/17/21 11/17/21 11/17/21 00:20 06:05 06:05 WBC 15.9 H RBC 5.48 Hgb 14.1 Hct 42.4 MCV 77.3 L MCH 25.7 L MCHC 33.2 RDW 13.4 Plt Count 214 Neut % (Auto) 73.5 Lymph % (Auto) 14.7 L [place] % (Auto) 11.2 Eos % (Auto) 0.2 L Baso % (Auto) 0.4 Neut # (Auto) 26326 H Lymph # (Auto) 2300 [place] # (Auto) 1800 H Eos # (Auto) 0 Baso # (Auto) 100 PT INR APTT Sodium 135 L Potassium 3.6 Chloride 101 Carbon Dioxide 23 BUN 10 Creatinine 0.71 Estimated GFR > 60 BUN/Creatinine Ratio 14.1 Glucose 305 H D Hemoglobin A1c Lactate 1.6 Calcium 8.4 Total Bilirubin Conjugated Bilirubin Unconjugated Bilirubin AST ALT Alkaline Phosphatase Total Protein Albumin Globulin Albumin/Globulin Ratio Lipase Procalcitonin Urine RBC Urine WBC Urine Bacteria Ur Culture Indicated? SARS-CoV-2 (PCR) 11/17/21 11/17/21 06:05 06:05 WBC RBC Hgb Hct MCV MCH MCHC RDW Plt Count Neut % (Auto) Lymph % (Auto) [place] % (Auto) Eos % (Auto) Baso % (Auto) Neut # (Auto) Lymph # (Auto) [place] # (Auto) Eos # (Auto) Baso # (Auto) PT INR APTT Sodium Potassium Chloride Carbon Dioxide BUN Creatinine Estimated GFR BUN/Creatinine Ratio Glucose Hemoglobin A1c Lactate Calcium Total Bilirubin 0.6 Conjugated Bilirubin 0.0 Unconjugated Bilirubin 0.6 AST 26 ALT 18 Alkaline Phosphatase 64 Total Protein 6.2 L Albumin 3.3 L Globulin 2.9 Albumin/Globulin Ratio 1.1 Lipase Procalcitonin Urine RBC Urine WBC Urine Bacteria Ur Culture Indicated? SARS-CoV-2 (PCR) Negative [facility] Medical History Prediabetes Tobacco & Substance Use Smoking Status: Current every day smoker Assessment & Plan Assessment and plan (1) Scrotal abscess: Status: Acute Plan Based on examination there is a draining scrotal abscess which is a source for his sepsis. There is no evidence for a necrotizing soft tissue infection however his white blood cell count, sodium, lactate and glucose levels are concerning for a severe infection. Recommend incision and drainage in the operating room, possible debridement. If the infection continues to worsen he would benefit from a transfer to a facility with emergency urology services. He has been started on vancomycin and ceftriaxone in the ER. He was resistant to receiving insulin for his blood sugar but he appears to have consented to insulin treatment for now. Time Spent With Patient Critical Care time: I spent a total of [] minutes of critical care time on this patient's care today; this time is exclusive of procedural time.
[2021-11-17] MEDS: INSULIN LISPRO 100 UNIT/ML 3ML VIAL SUBCUT ×2 (09:03→10:50)
--- NOTE | 2021-11-17 09:05 | PC.NURSE ---
Error in note. Admitting DrSameera Fountain.
[2021-11-17] MEDS: INSULIN GLARGINE 100 UNIT/ML 3ML PEN 10 UNIT SUBCUT (09:19)
[2021-11-17] MEDS: LACTATED RINGERS 1,000 ML 42 ML IV (09:41)
--- NOTE | 2021-11-17 10:15 | SUR.OPER ---
Lithotomy on padded OR bed, head on pillow, arms secured on padded arm boards at <90 degrees abduction. Legs secured in padded yellow fins stirrups.
[2021-11-17] MEDS: LIDOCAINE 1% W/EPI 20 ML INJ (10:28)
--- NOTE | 2021-11-17 10:53 | PM.OP.1 ---
Operative Date/Time/Diagnoses Date of procedure: 11/17/21 Time of procedure: 10:53 Pre-op diagnosis: Left scrotal abscess Post-op diagnosis: other (Left scrotal necrotizing soft tissue infection) Procedure & Clinicians Procedure: Debridement of portion of left hemiscrotum Same procedure as scheduled: Yes Surgeon: Kristofer Dao Click Yes if Unassisted: Yes Anesthesia Type: General Operative Notes Procedure in detail: The patient was consented for an incision and drainage and possible debridement of left scrotum. Patient had received Rocephin and vancomycin. Consent was obtained. The patient was brought to the operating room placed on the table in the supine position. General anesthesia was induced via LMA. The legs were placed in high lithotomy position. The scrotum and perineum were prepped and draped in the usual fashion. A time-out was performed. There was a small opening in the left anterior scrotum draining some clear fluid. The skin of the entire scrotum appeared viable. Initially, a 2 cm incision was created at the small open wound. More purulence fluid was expressed from the layer deep to the dermis. At this point a decision was made to excise a small patch of skin in the lateral and superior direction. The tissue deep to the skin appeared devitalized raising concern for a necrotizing soft tissue infection. Cultures were taken from the deep portion of the wound and portions of skin and underlying devitalized connective tissue were excised and sent for pathological evaluation as well as to microbiology. The purulent fluid seemed to track from between the skin and dartos muscle layer and seem to be coming from a lateral and superior direction. Additional skin from the scrotum was excised. At this point the decision was made to pack the open portion of the wound in initiated transfer to a facility with urological services. A few points were cauterized along the skin edge near the original incision. Some lidocaine with epinephrine were injected into the dermis and deeper tissue in the area. The wound was packed with 2 in Kerlix gauze and an ABD pad was applied. EBL: 15 mL Post-operative Condition: critical Disposition: PACU
--- NOTE | 2021-11-17 11:10 | SUR.PHASEI ---
Pt arrived with oral airway, simple mask at 7/L appled by Dr. Bettencourt. Pt gradually awake and O2 weaned to 2/l per nasal cannula.
[2021-11-17] MEDS: OXYCODONE IR 5 MG TABLET PO (11:16)
--- NOTE | 2021-11-17 11:38 | SUR.PHASEI ---
Dr. Dao spoke with pt made aware of possible transfer to another facility. Pt weaned off o2 and after report called to [facility] pt transported pt up stairs and left in stable condition.
--- NOTE | 2021-11-17 12:39 | PM.DS.1 ---
History of Present Illness History of Present Illness Date Patient Seen: 11/17/21 Time Patient Seen: 12:39 Chief complaint: Scrotal infection Narrative: Per SERGIO Salter: Dom Wise is a 36 y.o. male with pre-diabetes that developed a painful scrotum that he initially thought was a spider bite. He was initially seen on 11/14, diagnosed with a phlegmon found on ultrasound and discharged on doxycyline. He returned today with fevers and chills and continued pain and swelling of his scrotum. He is now having a headache, still sweating, denies nausea or vomiting, abdominal pain, he does endorse when he urinates, it puts pressure on his testicles and scrotum worsening the pain, denies diarrhea or constipation. Denies any numbing or tingling of his upper or lower extremities. Ultrasound indicated: 1. Marked left scrotal wall thickening with a large irregular hypoechoic area with surrounding hyperemia measuring 4.7 cm which is increased in size in the short-term interval.? This is concerning for phlegmon or developing abscess or hematoma.. CT of the pelvis noted bilateral hydroceles, left larger than right, did not identify fluid or air collections.? Patient's T-max was 102.3? and it is currently 101.1, blood pressure 142/82, heart rate 111, respiratory rate 24, oxygen saturation of 91% on room air, he weighs 111 kg with a BMI of 40.8.? WBC is markedly elevated at 16, has a left shift, sodium 135, glucose is 440, lactate was 2.8 and is now 1.6, procalcitonin 0.32, A1c is pending, COVID-19 PCR is pending. Blood and wound cultures are pending. Discharge Providers Provider Date of admission: 11/17/21 04:54 Discharge Date: 11/17/21 Consults: 11/17/21 07:08 Consult to Physician Routine Comment: Consulting Provider: Kristofer Dao Reason for consultation: large cellulitic wall thickening poss phlegmon, abcess, hematoma of left sc Has provider been notified: Yes 11/17/21 09:40 Consult to Respiratory Therapy Evaluate & Treat Comment: Physician Instructions: Evaluate and treat Discharge provider: Kar Fountain DO Summary Hospital Course Discharge Diagnosis: 1. Necrotizing skin and soft tissue infection 2. diabetes, type 2 3. Obesity Hospital Course: This is a 36-year-old male who presented with worsening skin and soft tissue infection over the past 5 days. He had been previously seen in the emergency room and there was a phlegmon noted. The patient was discharged on oral doxycycline but returned with continued fevers and chills early this morning. Repeat ultrasound showed an enlarging phlegmon or abscess, although CT scan did not show a discrete collection. Surgery consultation was obtained given his high fever and elevated white count. The patient was taken to the operating room and an extensive infection was noted, and the surgeon recommended transfer to a higher level of care with Urology management. Antibiotics were changed given this finding to meropenem, vancomycin, and clindamycin. The patient was transferred to [facility] after being arranged by surgeon Dr. Dao for further surgical management, for which his time is greatly appreciated. Patient's obesity contributes to increase surgical complication risk and increased morbidity and mortality risk in setting of a necrotizing skin and soft tissue infection. Time Spent with Patient Time spent: Greater than 30 minutes Exam Vital Signs (past 8 hours): - 11/17/21 05:00 11/17/21 05:30 11/17/21 06:00 Temperature Pulse Rate 110 H 111 H 108 H Respiratory Rate Blood Pressure Pulse Oximetry 93 92 92 11/17/21 06:30 11/17/21 07:00 11/17/21 07:30 Temperature Pulse Rate 113 H 104 H 123 H Respiratory Rate 24 Blood Pressure Pulse Oximetry 94 92 91 11/17/21 07:37 11/17/21 08:00 11/17/21 08:24 Temperature Pulse Rate 107 H 104 H 114 H Respiratory Rate 20 Blood Pressure 147/82 H 148/88 H Pulse Oximetry 95 92 95 11/17/21 08:30 11/17/21 09:15 11/17/21 09:16 Temperature Pulse Rate 110 H 114 H 113 H Respiratory Rate 20 Blood Pressure 158/94 H Pulse Oximetry 95 96 96 11/17/21 09:34 11/17/21 10:43 11/17/21 10:48 Temperature 98.2 F 98.8 F Pulse Rate 101 H 96 H 98 H Respiratory Rate 20 17 18 Blood Pressure 138/87 103/65 124/77 Pulse Oximetry 100 95 98 11/17/21 10:53 11/17/21 11:00 11/17/21 11:13 Temperature 98.2 F Pulse Rate 99 H 100 H 100 H Respiratory Rate 25 H 24 25 H Blood Pressure 122/76 126/74 130/89 Pulse Oximetry 99 99 99 11/17/21 11:32 11/17/21 12:03 Temperature 98.2 F Pulse Rate 99 H 94 H Respiratory Rate 16 14 Blood Pressure 141/87 H Pulse Oximetry 96 98 Oxygen Delivery Method Room Air Oxygen Flow Rate 2 Narrative Exam Narrative: Gen: Alert obese 36 y.o. male, appears ill but no acute distress. Objective Labs Result Diagrams: 11/17/21 06:05 11/17/21 06:05 Labs: Laboratory Results - last 24 hr 11/16/21 11/16/21 11/16/21 22:00 22:00 22:00 WBC 16.0 H RBC 5.90 Hgb 15.4 Hct 45.3 MCV 76.8 L MCH 26.1 MCHC 34.0 RDW 13.7 Plt Count 228 Neut % (Auto) 77.7 H Lymph % (Auto) 12.7 L [place] % (Auto) 8.8 Eos % (Auto) 0.3 L Baso % (Auto) 0.5 Neut # (Auto) 66192 H Lymph # (Auto) 2000 [place] # (Auto) 1400 H Eos # (Auto) 100 Baso # (Auto) 100 PT 13.9 H INR 1.2 APTT 36 Sodium 135 L Potassium 4.0 Chloride 98 Carbon Dioxide 25 BUN 11 Creatinine 0.81 Estimated GFR > 60 BUN/Creatinine Ratio 13.6 Glucose 440 H Hemoglobin A1c Lactate Calcium 9.1 Total Bilirubin 0.8 Conjugated Bilirubin Unconjugated Bilirubin AST 18 ALT 23 Alkaline Phosphatase 74 Total Protein 7.6 Albumin 4.0 Globulin 3.6 Albumin/Globulin Ratio 1.1 Lipase 117 Procalcitonin 0.32 Urine RBC Urine WBC Urine Bacteria Ur Culture Indicated? SARS-CoV-2 (PCR) 11/16/21 11/16/21 11/16/21 22:00 22:00 23:30 WBC RBC Hgb Hct MCV MCH MCHC RDW Plt Count Neut % (Auto) Lymph % (Auto) [place] % (Auto) Eos % (Auto) Baso % (Auto) Neut # (Auto) Lymph # (Auto) [place] # (Auto) Eos # (Auto) Baso # (Auto) PT INR APTT Sodium Potassium Chloride Carbon Dioxide BUN Creatinine Estimated GFR BUN/Creatinine Ratio Glucose Hemoglobin A1c 12.5 H Lactate 2.8 H Calcium Total Bilirubin Conjugated Bilirubin Unconjugated Bilirubin AST ALT Alkaline Phosphatase Total Protein Albumin Globulin Albumin/Globulin Ratio Lipase Procalcitonin Urine RBC 0-1/hpf Urine WBC None seen Urine Bacteria None seen Ur Culture Indicated? Cult not indicated SARS-CoV-2 (PCR) 11/17/21 11/17/21 11/17/21 00:20 06:05 06:05 WBC 15.9 H RBC 5.48 Hgb 14.1 Hct 42.4 MCV 77.3 L MCH 25.7 L MCHC 33.2 RDW 13.4 Plt Count 214 Neut % (Auto) 73.5 Lymph % (Auto) 14.7 L [place] % (Auto) 11.2 Eos % (Auto) 0.2 L Baso % (Auto) 0.4 Neut # (Auto) 66191 H Lymph # (Auto) 2300 [place] # (Auto) 1800 H Eos # (Auto) 0 Baso # (Auto) 100 PT INR APTT Sodium 135 L Potassium 3.6 Chloride 101 Carbon Dioxide 23 BUN 10 Creatinine 0.71 Estimated GFR > 60 BUN/Creatinine Ratio 14.1 Glucose 305 H D Hemoglobin A1c Lactate 1.6 Calcium 8.4 Total Bilirubin Conjugated Bilirubin Unconjugated Bilirubin AST ALT Alkaline Phosphatase Total Protein Albumin Globulin Albumin/Globulin Ratio Lipase Procalcitonin Urine RBC Urine WBC Urine Bacteria Ur Culture Indicated? SARS-CoV-2 (PCR) 11/17/21 11/17/21 06:05 06:05 WBC RBC Hgb Hct MCV MCH MCHC RDW Plt Count Neut % (Auto) Lymph % (Auto) [place] % (Auto) Eos % (Auto) Baso % (Auto) Neut # (Auto) Lymph # (Auto) [place] # (Auto) Eos # (Auto) Baso # (Auto) PT INR APTT Sodium Potassium Chloride Carbon Dioxide BUN Creatinine Estimated GFR BUN/Creatinine Ratio Glucose Hemoglobin A1c Lactate Calcium Total Bilirubin 0.6 Conjugated Bilirubin 0.0 Unconjugated Bilirubin 0.6 AST 26 ALT 18 Alkaline Phosphatase 64 Total Protein 6.2 L Albumin 3.3 L Globulin 2.9 Albumin/Globulin Ratio 1.1 Lipase Procalcitonin Urine RBC Urine WBC Urine Bacteria Ur Culture Indicated? SARS-CoV-2 (PCR) Negative [facility] Medical History Prediabetes Social History household members: significant other Smoking Status: Never smoker alcohol intake: never Discharge Plan Discharge Plan Disposition: Xfer [facility] Discharge Data Attending Provider: Amanda Rhodes VTE Deep Vein Thrombosis/Pulmonary Embolism Present on Admission: No
== END 2021-11-17 12:24 | disposition short-term general hospital (02) | DRG 717 ==
LOC: ED 11-17 04:54 → AC 11-17 05:08
PROVIDERS: Surgery; Admitting Provider Nurse Practitioner Family; Emergency Provider Emergency Medicine; Visit Provider Nurse Practitioner Family
PROC: 0VB50ZZ Excision of Scrotum, Open Approach (ICD-10-PCS; principal; 2021-11-17 09:30)
DX: N49.2 Inflammatory disorders of scrotum (principal); M72.6 Necrotizing fasciitis; Z68.41 Body mass index [BMI] 40.0-44.9, adult; E66.01 Morbid (severe) obesity due to excess calories; E11.65 Type 2 diabetes mellitus with hyperglycemia; R00.0 Tachycardia, unspecified; F17.290 Nicotine dependence, other tobacco product, uncomplicated; Z79.84 Long term (current) use of oral hypoglycemic drugs; Z20.822 Contact with and (suspected) exposure to COVID-19
CPT/HCPCS: 11004; 36415; 54700; 72193; 76870; 80048; 80053; 80076; 81003; 81015; 82962; 83036; 83605; 83690; 84145; 85025; 85610; 85730; 87040; 87070; 87075; 87077; 87176; 87186; 87205; 87635; 93005; 96365; 96366; 96367; 96372; 96375; 96376; 99221; 99222; 99284; C9803; G0378; J0696; J1815; J2250; J2270; J2405; J2704; J2765; J3010; Q9967

== ENCOUNTER → 2021-11-21 14:42 | Outpatient (CLI) | payer OTHER, SELFPAY ==
[2021-11-17 12:10] VITALS: BMI 39.8
== END ==
PROVIDERS: Referring Provider Urology; Visit Provider Urology
DX: N49.2 Inflammatory disorders of scrotum (principal)
CPT/HCPCS: 36415; 87040

== ENCOUNTER 2022-01-13 13:40 | Emergency (ER) | payer OTHER, SELFPAY ==
[2021-11-17 12:10] VITALS: BMI 39.8
[2022-01-13 14:20] VITALS: BMI 40.7
--- NOTE | 2022-01-13 15:55 | ED_ITS ---
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 Patient states that he scraped his finger alongside a sharp piece of broken glass, did no glass broke off or could be stuck in his wound. He has a 1 cm laceration on his left lateral 5th digit. Bleeding is controlled with pressure, patient wash off his wound prior to his arrival. States that he had a tetanus vaccination within the last three years. Related Data Previous Rx's Medication Instructions Recorded chlorhexidine gluconate 0.12 % 15 ml buccal BID #118 mL 07/20/19 mouthwash ketorolac 10 mg tablet 10 mg PO Q6H PRN pain #14 tabs 10/17/19 blood sugar diagnostic (Blood #50 ea 12/19/21 Glucose Test strips) glipizide 5 mg tablet 5 mg PO BID #180 tabs 12/19/21 lancets 28 gauge (Acti-Salomón #100 ea 12/26/21 Lancets) Allergies Allergy/AdvReac Type Severity Reaction Status Date / Time No Known Drug Allergies Allergy Verified 01/13/22 14:23 Review of Systems <SERGIO Calero - Last Filed: 01/13/22 16:32> Review of Systems Narrative: General: denies fever, chills, malaise, sweats, fatigue Head/Neck: denies headache, neck pain, dizziness Eyes: denies visual changes, eye pain Cardio: denies chest pain, palpitations, edema Respiratory: denies dyspnea, cough, orthopnea GI: denies abdominal pain, nausea, vomiting, or diarrhea MSK: denies joint pain, muscle weakness Skin: denies rash, itching, has a 1 cm laceration on his left 5th digit over his D IP on the lateral aspect Neuro: denies numbness, tingling Patient History <SERGIO Calero - Last Filed: 01/13/22 16:32> Medical History Prediabetes Social History household members: significant other Smoking Status: Never smoker alcohol intake: never Smoking Status: Never smoker tobacco type: vaping alcohol intake frequency: holidays/special occasions only Substance Use Type: does not use Exam <SERGIO Calero - Last Filed: 01/13/22 16:32> Narrative Exam Narrative: Independently reviewed vitals signs and nursing notes. General: cooperative, comfortable, in no acute distress, well groomed Head: atraumatic, symmetrical facial expressions Neck: supple Eyes: equal round and reactive, EOMI, conjunctiva normal Nose: nares patent, no rhinorrhea Mouth/Throat: moist mucus membranes Cardiovascular: regular rate and rhythm, no peripheral edema, warm extremities Respiratory: normal effort, able to speak in complete sentences, no audible w heezing, stridor, or rales. No retractions or tachypnea. GI: abdomen soft, nontender to palpation, nondistended, no masses, no exquisite tenderness with exam, without guarding or rebound. MSK: moves all extremities, neurovascularly intact, no weakness, normal tone Skin: brisk capillary refill, no rash, no erythema, 1 cm laceration on the lateral aspect of his left 5th digit over the D IP, linear laceration without gross contamination, flexion and extension fully intact without deficit, cap refill is brisk, no sensation changes, no foreign debris visualized on exam Neuro: normal speech and cognition, A&O x3 Psych: mental status is grossly normal, congruent mood, normal affect, pleasant and cooperative Procedures <SERGIO Calero - Last Filed: 01/13/22 16:32> Laceration Repair Laceration 1: Site: hand Side (If applicable): left Size (cm): 1 Description: linear and clean Depth: simple, single layer Local Anesthetic: lidocaine 1% Amount of anesthesia used (mL): 1 Pre-repair: wound explored, irrigated extensively and deep structures intact Skin layer closed with: nylon Skin layer suture size: 5-0 Number of sutures: 2 Technique: horizontal mattress Course <SERGIO Calero - Last Filed: 01/13/22 16:32> Orders Ordered: Discontinued Medications Bacitracin (Bacitracin Oint 0.9 Gm Pckt) 1 applic TOP NOW ONE Stop: 01/13/22 16:12 Last Admin: 01/13/22 16:21 Dose: 1 applic Documented By: RUSLAN Lidocaine/Sodium Bicarbonate (Lido 1%/Sod Bicarb 8.4% (10ml) 10 Ml Syringe) 10 ml INJ NOW ONE Stop: 01/13/22 15:56 Last Admin: 01/13/22 16:10 Dose: Not Given Documented By: CTS <Nicolasa Galvan MD - Last Filed: 01/14/22 18:33> Orders Ordered: Discontinued Medications Bacitracin (Bacitracin Oint 0.9 Gm Pckt) 1 applic TOP NOW ONE Stop: 01/13/22 16:12 Last Admin: 01/13/22 16:21 Dose: 1 applic Documented By: CTS Lidocaine/Sodium Bicarbonate (Lido 1%/Sod Bicarb 8.4% (10ml) 10 Ml Syringe) 10 ml INJ NOW ONE Stop: 01/13/22 15:56 Last Admin: 01/13/22 16:10 Dose: Not Given Documented By: CTS MDM - Wound/Laceration <SERGIO Calero - Last Filed: 01/13/22 16:32> MDM Narrative Medical decision making narrative: This is a 36-year-old male who presents to the emergency department with a left 5th digit laceration he sustained at work just prior to arrival. Patient states that there was broken glass in the room, he accidentally sliced his finger when he brushed up against a broken glass edge. He denies any fragments of glass, states there was only two pieces of broken glass and it did not break when he touched it. Patient's last tetanus was within three years, he has approximately 1 cm laceration over the D IP on the lateral aspect of his 5th digit, wound was cleansed with normal saline and chlorhexidine, bleeding was controlled with some pressure. Wound was irrigated, no foreign body on exam, patient is neurovascularly intact without range of motion deficit or suspicion for tendon injury. Two horizontal mattress sutures were placed to laceration, patient tolerated well, Telfa dressing was applied with bacitracin and used to splint finger in extension. This will reduce tension to the sutures over the joint. Patient understands to have his sutures removed in 10 days, return to the emergency department for any new or worsening signs of infection, worsened pain, swelling, redness or streaking up his hand. His L and I claim number is listed in his discharge instructions, Patient is appropriate and amenable to discharge home. Vital signs are stable on repeat examination is unremarkable. Patient has been informed of results. Patient has been given strict return to ER precautions for any new or worsening symptoms. Patient understands to follow up closely with outpatient providers as instructed. Patient understands plan and agrees to discharge home. All questions and concerns answered at this time. Discharge Plan Departure Patient Disposition: Home Clinical Impression: Work related injury Finger laceration Qualifiers: Encounter type: initial encounter Finger: little finger Damage to nail status: without damage Foreign body presence: without foreign body Laterality: left Qualified Code(s): S61.217A - Laceration without foreign body of left little finger without damage to nail, initial encounter Instructions: DI for Laceration Repair Activity Restrictions/Additional Instructions: *You have been diagnosed with a left 5th finger laceration. Please have the sutures removed in 10 days, please keep your wound covered with a Band-Aid or a dressing at all times while at work, please use a Band-Aid or a dressing to cover the knuckle so that your finger stays straight and splinted in extension. You may use topical antibiotic ointment, please avoid submerging in water, especially dirty water. You may shower as usual, wash her hands with soap and water as usual, take Tylenol or ibuprofen or both for pain as needed. He dev eloped any redness or streaking up your hand, please return to the emergency department for antibiotics. Use a topical antibiotic ointment to help prevent infection. [id number], please have your sutures removed in 10 days and use this claim number as needed for your appointment. You may go to the walk-in clinic to have these removed as well. *What to do: *Please continue to take your regular medications as directed. [ ] New medication prescriptions sent to your pharmacy: [ ] [ ] New medication written as a paper prescription [ x] No new medications given *Please follow up with your primary care provider in 2-3 days, call for an appointment. Let them know you were seen in the Emergency Department and that we asked that you be seen for follow-up. We will electronically transmit a record of today's note if your PCP is in our system *If you do not have a primary care provider please contact [phone] to establish care with one of the [facility] primary care providers. *Return to Emergency Department if you should have any new, worsening or concerning symptoms, such as [fever greater than 101F, chills, worsening pain, persistent vomiting or other bothersome symptoms] Prescriptions: No Action chlorhexidine gluconate 0.12 % mouthwash 15 ml BUCCAL BID Qty: 118 0RF glipizide 5 mg tablet 5 mg PO BID Qty: 180 1RF (DME) Blood Glucose Test Strip See Rx Instructions .Route Qty: 50 3RF Rx Instructions: check blood glucose twice a day (DME) lancets [Acti-Salomón Lancets] 28 gauge misc See Rx Instructions .Route Qty: 100 3RF Rx Instructions: Check blood glucose BID ketorolac 10 mg tablet 10 mg PO Q6H PRN (Reason: pain) Qty: 14 0RF Visit Report Forms: Patient Portal/API <Nicolasa Galvan MD - Last Filed: 01/14/22 18:33> Cosign ED Attending Cosignature Attestation: I was immediately available in the department for consultation throughout this patient's visit. I agree with documentation as above. Nicolasa Galvan MD
[2022-01-13] MEDS: LIDOCAINE 1% (PF) 2 ML (16:11)
[2022-01-13] MEDS: BACITRACIN OINT 0.9 GM PCKT 1 APPLIC TOP (16:21)
== END 2022-01-13 16:29 | disposition home or self-care (01) ==
PROVIDERS: Emergency Provider Nurse Practitioner Critical Care Medicine
DX: S61.217A Laceration without foreign body of left little finger without damage to nail, initial encounter (principal); W25.XXXA Contact with sharp glass, initial encounter; Y99.0 Civilian activity done for income or pay
CPT/HCPCS: 12001; 99283

== ENCOUNTER 2022-07-30 17:30 | Emergency (ER) | payer SELFPAY ==
[2021-11-17 12:10] VITALS: BMI 39.8
[2022-07-30] VITALS (8 sets, daily range): BP systolic 145–175; BP diastolic 83–100; PULSE 103–120; RESP 17–35; TEMP 36.8; O2SAT 95–98; BMI 41.5
--- NOTE | 2022-07-30 17:38 | ED.GENADULT ---
HPI - General Adult <Nicolasa Galvan MD - Last Filed: 08/04/22 18:54> General Chief complaint: Seizure Stated complaint: 1st time seizure Time Seen by Provider: 07/30/22 17:31 History of Present Illness HPI narrative: 36-year-old gentleman with history of type 2 diabetes hypertension, presents with first-time seizure. He was at home, his girlfriend describes approximately 45 minute tonic-clonic seizure. Did fall and hit the left side of his head with a minor abrasion to that. When medics arrived on scene, they described postictal state noted a little bit of blood on the side of his face presumably he bit his lip or his tongue. They note that he is cleared significantly in transport and by the time he is in the emergency department he feels he is close to his baseline. He has no recollection of the events and does not remember any preceding events including are a type symptoms or heart palpitations. He does not have history of cardiac arrhythmias, never had similar findings. He is not changed medications, there is no drug or alcohol use involved. He states he is not taking any weight loss drugs, body building drugs or stimulants of any kind. Describes no recent fevers, cough, chills, vomiting, diarrhea, abdominal pain or headaches. Related Data Home Medications Medication Instructions Recorded Confirmed lancets 33 gauge (OneTouch Delica #100 ea 02/15/22 02/15/22 Plus Lancet) Previous Rx's Medication Instructions Recorded blood sugar diagnostic (Blood #50 ea 12/19/21 Glucose Test strips) lancets 28 gauge (Acti-Salomón #100 ea 12/26/21 Lancets) glipizide 5 mg tablet 5 mg PO DAILY #90 tabs 02/15/22 losartan 50 mg tablet 50 mg PO DAILY #90 tabs 02/15/22 metformin 500 mg tablet 500 mg PO BID #180 tabs 02/15/22 levetiracetam 1,000 mg tablet 1,000 mg PO BID #60 tabs 08/01/22 (Keppra) Allergies Allergy/AdvReac Type Severity Reaction Status Date / Time No Known Drug Allergies Allergy Verified 08/01/22 09:16 Review of Systems <Nicolasa Galvan MD - Last Filed: 08/04/22 18:54> Review of Systems Narrative: Remainder of complete review of systems is otherwise unremarkable except for that included in the HPI. Patient History <Nicolasa Galvan MD - Last Filed: 08/04/22 18:54> Medical History Borderline hyperlipidemia Hypertension Prediabetes Seizure Type 2 diabetes mellitus Surgical History Anesthesia Scrotal abscess (~11/17/21) Social History household members: significant other Smoking Status: Former smoker alcohol intake: never Smoking Status: Former smoker tobacco type: vaping alcohol intake frequency: holidays/special occasions only Substance Use Type: does not use Exam <Nicolasa Galvan MD - Last Filed: 08/04/22 18:54> Initial Vital Signs Initial Vital Signs: Vital Signs Pulse Rate 120 H 07/30/22 17:36 Respiratory Rate 33 H 07/30/22 17:36 Pulse Oximetry 95 07/30/22 17:36 General: Healthy appearing, in no acute distress. Able to give a complete and coherent history. Well-nourished well-developed HEENT: Moist mucous membranes, normal sclera with reactive pupils, able to focus and concentrate. Minor abrasion to the left temporal area. Neck: No midline cervical spine tenderness, supple Respiratory: Lungs are clear to auscultation, no wheezing no rales no rhonchi. Full and symmetrical air movement Cardiac: Regular rate and rhythm no murmurs no bruits Abdomen: Soft, nontender, good bowel tones, no flank pain Skin: Warm and dry, no rashes Neurologic: Grossly neurologically intact with no obvious asymmetries or abnormalities, he is not hyperreflexic, there is no clonus. He has no localizing neurologic signs Extremities: No trauma, well perfused Psych: Cooperative, appropriate insight and affect <Santino Shaw DO - Last Filed: 07/30/22 19:48> Initial Vital Signs Initial Vital Signs: Vital Signs Pulse Rate 120 H 07/30/22 17:36 Respiratory Rate 33 H 07/30/22 17:36 Pulse Oximetry 95 07/30/22 17:36 Course <Nicolasa Galvan MD - Last Filed: 08/04/22 18:54> Orders Ordered: Discontinued Medications Sodium Chloride (Normal Saline 0.9%) 1,000 mls @ 1,000 mls/hr IV BOLUS ONE Stop: 07/30/22 18:44 Last Infusion: 07/30/22 19:39 Dose: 0 mls/hr Documented By: Admin: 07/30/22 18:38 Dose: 1,000 mls/hr Documented By: RUSLAN Vital Signs Vital signs: Vital Signs - 8 hr 07/30/22 17:41 07/30/22 17:36 07/30/22 18:00 Temperature 98.3 F Pulse Rate 120 H 120 H Respiratory Rate 17 33 H Blood Pressure 175/100 H 145/93 H Pulse Oximetry 98 95 Oxygen Delivery Method Room Air 07/30/22 18:00 07/30/22 18:30 07/30/22 18:30 Temperature Pulse Rate 110 H 107 H Respiratory Rate 32 H 35 H Blood Pressure 146/87 H Pulse Oximetry 96 95 Oxygen Delivery Method 07/30/22 19:00 07/30/22 19:00 Temperature Pulse Rate 103 H Respiratory Rate 33 H Blood Pressure 148/83 H Pulse Oximetry 97 Oxygen Delivery Method <Santino Shaw DO - Last Filed: 07/30/22 19:48> Orders Ordered: Discontinued Medications Sodium Chloride (Normal Saline 0.9%) 1,000 mls @ 1,000 mls/hr IV BOLUS ONE Stop: 07/30/22 18:44 Last Infusion: 07/30/22 19:39 Dose: 0 mls/hr Documented By: Admin: 07/30/22 18:38 Dose: 1,000 mls/hr Documented By: CTS Vital Signs Vital signs: Vital Signs - 8 hr 07/30/22 17:41 07/30/22 17:36 07/30/22 18:00 Temperature 98.3 F Pulse Rate 120 H 120 H Respiratory Rate 17 33 H Blood Pressure 175/100 H 145/93 H Pulse Oximetry 98 95 Oxygen Delivery Method Room Air 07/30/22 18:00 07/30/22 18:30 07/30/22 18:30 Temperature Pulse Rate 110 H 107 H Respiratory Rate 32 H 35 H Blood Pressure 146/87 H Pulse Oximetry 96 95 Oxygen Delivery Method 07/30/22 19:00 07/30/22 19:00 Temperature Pulse Rate 103 H Respiratory Rate 33 H Blood Pressure 148/83 H Pulse Oximetry 97 Oxygen Delivery Method Medical Decision Making <Nicolasa Galvan MD - Last Filed: 08/04/22 18:54> Lab Data Result diagrams: 07/30/22 17:32 07/30/22 17:32 Labs: Lab Results 07/30/22 07/30/22 07/30/22 Range/Units 17:32 17:32 17:32 WBC 18.4 H (4.5-11.0) X10^3/uL RBC 6.05 H (4.5-5.9) X10^6/uL Hgb 15.7 (13.5-17.5) g/dL Hct 48.4 (41-53) % MCV 79.9 L (80-100) fL MCH 25.9 L (26-34) PG MCHC 32.4 (30-36) % RDW 14.0 (11.6-14.8) % Plt Count 396 (150-400) X10^3/uL Neut % (Auto) 42.8 L (50-75) % Lymph % (Auto) 46.0 H (25-40) % Coffey % (Auto) 8.2 (3-14) % Eos % (Auto) 2.0 (2-4) % Baso % (Auto) 1.0 (0-2) % Neut # (Auto) 7900 H (0257-0441) /uL Lymph # (Auto) 8500 H (0267-1515) /uL Coffey # (Auto) 1500 H (0-900) /uL Eos # (Auto) 400 (0-450) /uL Baso # (Auto) 200 H (0-100) /uL D-Dimer 227 (<500) ng/ml Sodium (137-145) mmol/L Potassium (3.4-5.1) mmol/L Chloride (98-107) mmol/L Carbon Dioxide (22-32) mmol/L BUN (9-20) mg/dL Creatinine (0.66-1.25) mg/dL Estimated GFR (>60) mL/min BUN/Creatinine Ratio (6-22) Glucose (70-100) mg/dL Calcium (8.4-10.2) mg/dL Magnesium (1.6-2.3) mg/dL Total Bilirubin (0.2-1.3) mg/dL AST (17-59) IU/L ALT (<50) IU/L Alkaline Phosphatase (38-126) U/L Troponin I (0.01-0.034) ng/mL Total Protein (6.3-8.2) g/dL Albumin (3.5-5.0) g/dL Globulin (1.7-4.1) g/dL Albumin/Globulin Ratio (1.0-2.8) Prolactin 56.7 H (3.7-17.9) ng/mL 07/30/22 Range/Units 17:32 WBC (4.5-11.0) X10^3/uL RBC (4.5-5.9) X10^6/uL Hgb (13.5-17.5) g/dL Hct (41-53) % MCV (80-100) fL MCH (26-34) PG MCHC (30-36) % RDW (11.6-14.8) % Plt Count (150-400) X10^3/uL Neut % (Auto) (50-75) % Lymph % (Auto) (25-40) % Coffey % (Auto) (3-14) % Eos % (Auto) (2-4) % Baso % (Auto) (0-2) % Neut # (Auto) (6250-6096) /uL Lymph # (Auto) (6847-7995) /uL Coffey # (Auto) (0-900) /uL Eos # (Auto) (0-450) /uL Baso # (Auto) (0-100) /uL D-Dimer (<500) ng/ml Sodium 145 (137-145) mmol/L Potassium 3.4 (3.4-5.1) mmol/L Chloride 101 (98-107) mmol/L Carbon Dioxide 15 L (22-32) mmol/L BUN 15 (9-20) mg/dL Creatinine 1.00 (0.66-1.25) mg/dL Estimated GFR > 60 (>60) mL/min BUN/Creatinine Ratio 15.0 (6-22) Glucose 137 H (70-100) mg/dL Calcium 9.5 (8.4-10.2) mg/dL Magnesium 1.8 (1.6-2.3) mg/dL Total Bilirubin 0.6 (0.2-1.3) mg/dL AST 48 (17-59) IU/L ALT 37 (<50) IU/L Alkaline Phosphatase 55 (38-126) U/L Troponin I < 0.012 (0.01-0.034) ng/mL Total Protein 8.8 H (6.3-8.2) g/dL Albumin 5.0 (3.5-5.0) g/dL Globulin 3.8 (1.7-4.1) g/dL Albumin/Globulin Ratio 1.3 (1.0-2.8) Prolactin (3.7-17.9) ng/mL ECG Data Interpretation: Sinus tachycardia at 117 Poor R-wave progression, Q-waves inferiorly suggest prior anterior infarct No acute ischemic changes Independently interpreted by me MDM Narrative Medical decision making narrative: 36-year-old gentleman presents with first-time seizure, estimated 4 minute tonic-clonic seizure. Minor blood on the side of his face that is wiped off no obvious trauma appreciated to lips or tongue. Medics do describe significant postictal. . Differential: Seizure, arrhythmia, hypoglycemia (medics report normal blood sugar on arrival), adverse drug reaction, intracranial abnormality Given the 1st say seizure at the age of 36 and minor head trauma will do a head CT. Labs are ordered. Care is turned over to Dr. Shaw at change of shift <Santino Shaw DO - Last Filed: 07/30/22 19:48> Lab Data Labs: Lab Results 07/30/22 07/30/22 07/30/22 Range/Units 17:32 17:32 17:32 WBC 18.4 H (4.5-11.0) X10^3/uL RBC 6.05 H (4.5-5.9) X10^6/uL Hgb 15.7 (13.5-17.5) g/dL Hct 48.4 (41-53) % MCV 79.9 L (80-100) fL MCH 25.9 L (26-34) PG MCHC 32.4 (30-36) % RDW 14.0 (11.6-14.8) % Plt Count 396 (150-400) X10^3/uL Neut % (Auto) 42.8 L (50-75) % Lymph % (Auto) 46.0 H (25-40) % Coffey % (Auto) 8.2 (3-14) % Eos % (Auto) 2.0 (2-4) % Baso % (Auto) 1.0 (0-2) % Neut # (Auto) 7900 H (3595-5618) /uL Lymph # (Auto) 8500 H (7880-0173) /uL Coffey # (Auto) 1500 H (0-900) /uL Eos # (Auto) 400 (0-450) /uL Baso # (Auto) 200 H (0-100) /uL D-Dimer 227 (<500) ng/ml Sodium (137-145) mmol/L Potassium (3.4-5.1) mmol/L Chloride (98-107) mmol/L Carbon Dioxide (22-32) mmol/L BUN (9-20) mg/dL Creatinine (0.66-1.25) mg/dL Estimated GFR (>60) mL/min BUN/Creatinine Ratio (6-22) Glucose (70-100) mg/dL Calcium (8.4-10.2) mg/dL Magnesium (1.6-2.3) mg/dL Total Bilirubin (0.2-1.3) mg/dL AST (17-59) IU/L ALT (<50) IU/L Alkaline Phosphatase (38-126) U/L Troponin I (0.01-0.034) ng/mL Total Protein (6.3-8.2) g/dL Albumin (3.5-5.0) g/dL Globulin (1.7-4.1) g/dL Albumin/Globulin Ratio (1.0-2.8) Prolactin 56.7 H (3.7-17.9) ng/mL 07/30/22 Range/Units 17:32 WBC (4.5-11.0) X10^3/uL RBC (4.5-5.9) X10^6/uL Hgb (13.5-17.5) g/dL Hct (41-53) % MCV (80-100) fL MCH (26-34) PG MCHC (30-36) % RDW (11.6-14.8) % Plt Count (150-400) X10^3/uL Neut % (Auto) (50-75) % Lymph % (Auto) (25-40) % Coffey % (Auto) (3-14) % Eos % (Auto) (2-4) % Baso % (Auto) (0-2) % Neut # (Auto) (6499-1082) /uL Lymph # (Auto) (5152-0941) /uL Coffey # (Auto) (0-900) /uL Eos # (Auto) (0-450) /uL Baso # (Auto) (0-100) /uL D-Dimer (<500) ng/ml Sodium 145 (137-145) mmol/L Potassium 3.4 (3.4-5.1) mmol/L Chloride 101 (98-107) mmol/L Carbon Dioxide 15 L (22-32) mmol/L BUN 15 (9-20) mg/dL Creatinine 1.00 (0.66-1.25) mg/dL Estimated GFR > 60 (>60) mL/min BUN/Creatinine Ratio 15.0 (6-22) Glucose 137 H (70-100) mg/dL Calcium 9.5 (8.4-10.2) mg/dL Magnesium 1.8 (1.6-2.3) mg/dL Total Bilirubin 0.6 (0.2-1.3) mg/dL AST 48 (17-59) IU/L ALT 37 (<50) IU/L Alkaline Phosphatase 55 (38-126) U/L Troponin I < 0.012 (0.01-0.034) ng/mL Total Protein 8.8 H (6.3-8.2) g/dL Albumin 5.0 (3.5-5.0) g/dL Globulin 3.8 (1.7-4.1) g/dL Albumin/Globulin Ratio 1.3 (1.0-2.8) Prolactin (3.7-17.9) ng/mL Imaging Data CT scan - head: Radiologist's Impression: [address] [address] [address] Scan Report Signed Patient: Dom Wise MR#: [id number] : 1985 Acct:[id number] Age/Sex: 36 / M Date of Service: 07/30/22 Loc: ED Accession Number: [id number] ?? Procedure: CT head/brain wo con Ordering Provider: Nicolasa Galvan MD PROCEDURE:? CT HEAD/BRAIN WO CON ? INDICATIONS:? New onset seizure, hit head ? TECHNIQUE:? Noncontrast 4.5 mm thick angled axial sections acquired from the foramen magnum to the vertex, with coronal and sagittal reformats.? For radiation dose reduction, the following was used:? automated exposure control, adjustment of mA and/or kV according to patient size.? ? COMPARISON:? None. ? FINDINGS:? Image quality:? Excellent.? ? CSF spaces:? Basal cisterns are patent.? No extra-axial fluid collections.? Ventricles are normal in size and shape.? ? Brain:? No midline shift.? No intracranial masses or hemorrhage.? Grace-white matter interface is normal.? ? Skull and face:? Calvarium and visualized facial bones are intact, without suspicious lesions.? ? Sinuses:? Frothy fluid is present in the left maxillary sinus. ? IMPRESSION:? ? 1. No acute intracranial process. ? 2. Frothy appearance of fluid in the left maxillary sinus suggestive of sinusitis. ? ? Dictated by: Cele Victor M.D. on 07/30/2022 at 18:08 ? ? Approved by: Cele Victor M.D. on 07/30/2022 at 18:09?? MDM Narrative Medical decision making narrative: 36-year-old gentleman presents with first-time seizure, estimated 4 minute tonic-clonic seizure. Minor blood on the side of his face that is wiped off no obvious trauma appreciated to lips or tongue. Medics do describe significant postictal. . Differential: Seizure, arrhythmia, hypoglycemia (medics report normal blood sugar on arrival), adverse drug reaction, intracranial abnormality Given the 1st say seizure at the age of 36 and minor head trauma will do a head CT. Labs are ordered. Care is turned over to Dr. Shaw at change of shift Dr shaw: Received turned over. If he patient's history physical exam. His head CT is unremarkable. He is alert oriented x3. Labs are unremarkable. He ambulated around the emergency department. Patient has never had a seizure in the past. He was vaping at the time. Had a discussion with him regarding his head CT and his seizure today. Unsure the exact etiology. He was informed that he could not drive for the next 6 months. Was informed that he should contact his primary doctor and follow-up with Neurology. He was given return precautions. He expressed understanding and agreement. Discharge Plan Departure Patient Disposition: Home Clinical Impression: Seizure Contusion of head Qualifiers: Encounter type: initial encounter Contusion of head detail: scalp Qualified Code(s): S00.03XA - Contusion of scalp, initial encounter Instructions: Seizure Safety Precautions-Adult Activity Restrictions/Additional Instructions: Unfortunately you should not drive for the next 6 months or until you are cleared by either your primary doctor or a neurologist. Continue all of your medications as directed. Contact your primary doctor for a follow-up. Return to the emergency department for any new or worsening symptoms. Prescriptions: No Action (DME) Blood Glucose Test Strip See Rx Instructions .Route Qty: 50 3RF Rx Instructions: check blood glucose twice a day (DME) lancets [Acti-Salomón Lancets] 28 gauge misc See Rx Instructions .Route Qty: 100 3RF Rx Instructions: Check blood glucose BID (DME) lancets [OneTouch Delica Plus Lancet] 33 gauge misc See Rx Instructions .ROUTE .MEDSUPPLY Qty: 100 Rx Instructions: As directed losartan 50 mg tablet 50 mg PO DAILY Qty: 90 3RF Rx Instructions: Half tablet per day for 6 days then advance to 1 full tablet glipizide 5 mg tablet 5 mg PO DAILY Qty: 90 3RF Rx Instructions: Take with dinner metformin 500 mg tablet 500 mg PO BID Qty: 180 3RF levetiracetam [Keppra] 1,000 mg tablet 1,000 mg PO BID Qty: 60 0RF Referrals: Karl Mckeon, [Primary Care Provider] - Stand Alone Forms: Patient Portal/API, Work Release Note
--- NOTE | 2022-07-30 17:45 | DI.CT.S_ITS ---
PROCEDURE: CT HEAD/BRAIN WO CON INDICATIONS: New onset seizure, hit head TECHNIQUE: Noncontrast 4.5 mm thick angled axial sections acquired from the foramen magnum to the vertex, with coronal and sagittal reformats. For radiation dose reduction, the following was used: automated exposure control, adjustment of mA and/or kV according to patient size. COMPARISON: None. FINDINGS: Image quality: Excellent. CSF spaces: Basal cisterns are patent. No extra-axial fluid collections. Ventricles are normal in size and shape. Brain: No midline shift. No intracranial masses or hemorrhage. Grace-white matter interface is normal. Skull and face: Calvarium and visualized facial bones are intact, without suspicious lesions. Sinuses: Frothy fluid is present in the left maxillary sinus. IMPRESSION: 1. No acute intracranial process. 2. Frothy appearance of fluid in the left maxillary sinus suggestive of sinusitis. Dictated by: Cele Victor M.D. on 07/30/2022 at 18:08 Approved by: Cele Victor M.D. on 07/30/2022 at 18:09
[2022-07-30 17:55] LABS: Add Manual Diff / Slide Review NO; Basophils Absolute Auto 200 /uL (0-100); Eosinophils Absolute Auto 400 /uL (0-450); Hematocrit 48.4 % (41-53); Hemoglobin 15.7 g/dL (13.5-17.5); Lymphocytes Absolute Auto 8500 /uL (1100-4500); Mean Corpuscular HGB Conc 32.4 % (30-36); Mean Corpuscular Hemoglobin 25.9 PG (26-34); Mean Corpuscular Volume 79.9 fL (80-100); Monocytes Absolute Auto 1500 /uL (0-900); Monocytes Percent Auto 8.2 % (3-14); Neutrophils Absolute Auto 7900 /uL (1500-7000); Neutrophils Percent Auto 42.8 % (50-75); Platelet Count 396 X10^3/uL (150-400); Red Blood Cell Count 6.05 X10^6/uL (4.5-5.9); White Blood Cell Count 18.4 X10^3/uL (4.5-11.0)
[2022-07-30 18:11] LABS: D Dimer 227 ng/ml (<500)
[2022-07-30 18:13] LABS: Alanine Aminotransferase 37 IU/L (<50); Albumin Globulin Ratio 1.3 (1.0-2.8); Alkaline Phosphatase 55 U/L (38-126); Aspartate Aminotransferase 48 IU/L (17-59); Bilirubin Total 0.6 mg/dL (0.2-1.3); Blood Urea Nitrogen 15 mg/dL (9-20); Calcium 9.5 mg/dL (8.4-10.2); Carbon Dioxide 15 mmol/L (22-32); Chloride 101 mmol/L (98-107); Estimated Glomerular Filt Rate > 60 mL/min (>60); Globulin 3.8 g/dL (1.7-4.1); Glucose 137 mg/dL (70-100); HEMOLYSIS 19 (0-50); Magnesium 1.8 mg/dL (1.6-2.3); Potassium 3.4 mmol/L (3.4-5.1); Sodium 145 mmol/L (137-145); Total Protein 8.8 g/dL (6.3-8.2)
[2022-07-30 18:25] LABS: Troponin I < 0.012 ng/mL (0.01-0.034)
[2022-07-30 18:29] LABS: Prolactin 56.7 ng/mL (3.7-17.9)
[2022-07-30] MEDS: SODIUM CHLORIDE 0.9% 1,000 ML 1000 ML IV (18:38)
== END 2022-07-30 19:57 | disposition home or self-care (01) ==
PROVIDERS: Emergency Medicine; Emergency Provider Emergency Medicine; PCP Family Medicine
DX: R56.9 Unspecified convulsions (principal); S00.03XA Contusion of scalp, initial encounter; W18.30XA Fall on same level, unspecified, initial encounter
CPT/HCPCS: 36415; 70450; 80053; 83735; 84146; 84484; 85025; 85379; 93005; 93010; 96360; 99284

== ENCOUNTER 2022-08-01 09:08 | Emergency (ER) | payer SELFPAY ==
[2021-11-17 12:10] VITALS: BMI 39.8
[2022-08-01] VITALS (19 sets, daily range): BP systolic 111–155; BP diastolic 64–95; PULSE 100–127; RESP 17–33; TEMP 36.5; O2SAT 92–99; BMI 41.5
--- NOTE | 2022-08-01 09:18 | DI.CT.S_ITS ---
PROCEDURE: CT CERVICAL SPINE WO CON INDICATIONS: found down, head injury, altered TECHNIQUE: Noncontrast 3 mm thick sections acquired from the skull base to the T4 level. Sagittal and coronal reformats were then constructed. For radiation dose reduction, the following was used: automated exposure control, adjustment of mA and/or kV according to patient size. COMPARISON: [facility], CT, CT FACIAL BONES WO CON, 08/01/2022, 9:59. [facility], CT, CT HEAD/BRAIN WO CON, 08/01/2022, 9:59. [facility], CT, CT HEAD/BRAIN WO CON, 07/30/2022, 17:52. FINDINGS: Image quality: This examination is somewhat limited by quantum mottle artifact. Bones: No fractures or dislocations. Visualized superior ribs are intact. 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 Paranasal sinus disease is partially seen. Soft tissues: Prevertebral soft tissues are normal in thickness. No paravertebral hematomas. No apical pneumothoraces. IMPRESSION: Negative for fracture. Additional findings: C2-C3 congenital fusion Paranasal sinus disease Dictated by: Ernesto Morrison M.D. on 08/01/2022 at 10:04 Approved by: Ernesto Morrison M.D. on 08/01/2022 at 10:06
--- NOTE | 2022-08-01 09:18 | DI.CT.S_ITS ---
PROCEDURE: CT FACIAL BONES WO CON INDICATIONS: altered, facial injury TECHNIQUE: Noncontrast 2.5 mm thick axial images acquired from the mandible through the frontal sinuses, with coronal and sagittal reformatting. For radiation dose reduction, the following was used: automated exposure control, adjustment of mA and/or kV according to patient size. COMPARISON: [facility], CT, CT HEAD/BRAIN WO CON, 08/01/2022, 9:59. [facility], CT, CT CERVICAL SPINE WO CON, 08/01/2022, 9:59. [facility], CT, CT HEAD/BRAIN WO CON, 07/30/2022, 17:52. FINDINGS: Image quality: Excellent. Bones and teeth: Remote, stable nasal bone fractures are seen. The nasal septum appears intact. Minimal leftward nasal septal deviation is seen. Orbital paige are intact. Sinus paige show no fracture or deformity. Visualized portions of the mandible demonstrate no fractures or subluxation. Zygomatic arches are intact. Pterygoid plates are intact. Visualized portions of the skull base and auditory canals are intact. Note is made of poor dentition, with several caries. Incidental note is made of congenital fusion of C2-C3. Sinuses: There is moderate mucosal thickening within the left maxillary sinus, with [id number] mucosal thickening within the inferior right maxillary sinus. There is moderate mucosal thickening within the left frontal sinus. There is [id number] mucosal thickening within the left sphenoid sinus. Mastoid air cells are aerated. The ostiomeatal complexes are constitutionally narrowed, with Wendy cells on the left. The ostiomeatal complexes are further narrowed by soft tissue thickening, left worse than right. Soft tissues: Abnormal soft tissue stranding can be seen throughout the right cheek. No enlarged lymph nodes. No soft tissue lacerations or debris. Vascular: Visualized vascular structures appear normal in the absence of contrast. Bony vascular foramina and canals are intact. IMPRESSION: No acute facial bone fracture can be seen. Stable remote nasal bone fractures. Underlying paranasal sinus disease is seen. Extensive right cheek contusion. Additional findings: Narrowed ostiomeatal complexes. Poor dentition Congenital fusion of C2-C3. Dictated by: Ernesto Morrison M.D. on 08/01/2022 at 10:01 Approved by: Ernesto Morrison M.D. on 08/01/2022 at 10:04
--- NOTE | 2022-08-01 09:18 | DI.CT.S_ITS ---
PROCEDURE: CT HEAD/BRAIN WO CON INDICATIONS: head injury, altered TECHNIQUE: Noncontrast 4.5 mm thick angled axial sections acquired from the foramen magnum to the vertex, with coronal and sagittal reformats. For radiation dose reduction, the following was used: automated exposure control, adjustment of mA and/or kV according to patient size. COMPARISON: [facility], CT, CT CERVICAL SPINE WO CON, 08/01/2022, 9:59. [facility], CT, CT FACIAL BONES WO CON, 08/01/2022, 9:59. [facility], CT, CT HEAD/BRAIN WO CON, 07/30/2022, 17:52. FINDINGS: Image quality: Excellent. CSF spaces: Basal cisterns are patent. No extra-axial fluid collections. Ventricles are normal in size and shape. Brain: No midline shift. No intracranial masses or hemorrhage. Grace-white matter interface is normal. Skull and face: There are remote nasal bone fractures seen, stable from the prior. No calvarial abnormality is seen. Sinuses: Moderate mucosal thickening is seen within the left maxillary sinus, with a frothy appearance. There is moderate mucosal thickening within the left frontal sinus. There is mild mucosal thickening within the right sphenoid sinus. The paranasal sinuses otherwise appear clear. No abnormal fluid is seen within the mastoid air cells. IMPRESSION: No acute intracranial hemorrhage is seen. No acute intracranial process is seen. Paranasal sinus disease is again seen, which is worst within the left maxillary sinus. Dictated by: Ernesto Morrison M.D. on 08/01/2022 at 9:58 Approved by: Ernesto Morrison M.D. on 08/01/2022 at 10:01
--- NOTE | 2022-08-01 09:32 | ED_ITS ---
HPI - Seizure General Chief Complaint: Seizure Stated Complaint: seizure, found unresponsive Time Seen by Provider: 08/01/22 09:14 Source: patient Mode of arrival: EMS Limitations: no limitations History of Present Illness HPI Narrative: 36-year-old male former smoker with history of hypertension and diabetes prese nts by EMS for evaluation of an unresponsive episode with head injury. It is unclear who notified EMS but they arrived to find patient on the ground in his shed with an apparent head injury and initially altered but by arrival was at neurologic baseline with GCS of 15. He was seen and evaluated here a few days ago after having first-time seizure. He had an extensive evaluation including head CT without significant findings. As a consequence of today's episode he has a small puncture wound on the back of his head and swelling on the right side of his face. He did bite his tongue and has some minimal intraoral bleeding. He denies any neck pain. He is had no chest pain or shortness of br eath. He denies nausea, vomiting or diarrhea. He denies any urinary complaints. He denies the use of street drugs and has never been a drinker. Prior to this he denies any headaches, trauma, neck pain or fever. He denies any change in medications or diet. Related Data Home Medications Medication Instructions Recorded Confirmed lancets 33 gauge (OneTouch Delica #100 ea 02/15/22 02/15/22 Plus Lancet) Previous Rx's Medication Instructions Recorded blood sugar diagnostic (Blood #50 ea 12/19/21 Glucose Test strips) lancets 28 gauge (Acti-Salomón #100 ea 12/26/21 Lancets) glipizide 5 mg tablet 5 mg PO DAILY #90 tabs 02/15/22 losartan 50 mg tablet 50 mg PO DAILY #90 tabs 02/15/22 metformin 500 mg tablet 500 mg PO BID #180 tabs 02/15/22 levetiracetam 1,000 mg tablet 1,000 mg PO BID #60 tabs 08/01/22 ([place]) Allergies Allergy/AdvReac Type Severity Reaction Status Date / Time No Known Drug Allergies Allergy Verified 08/01/22 09:16 Review of Systems Review of Systems Narrative: GENERAL: See HPI HEENT: See HPI RESPIRATORY: Denies dyspnea, cough, wheezing, hemoptysis, sputum. CARDIOVASCULAR: Denies chest pain, palpitations, orthopnea, edema, GASTROINTESTINAL: Denies nausea, vomiting, abdominal pain, diarrhea, constipation, melena. : Denies dysuria, frequency, incontinence, hematuria, urinary retention. MUSCULOSKELETAL: denies weakness, joint pain, or bony pain SKIN: Denies rash, skin lesions, or other NEUROLOGIC: See HPI PSYCHIATRIC: No concerning psychosocial issues. 12 point review of systems is negative except for those stated above Patient History Medical History Borderline hyperlipidemia Hypertension Prediabetes Seizure Type 2 diabetes mellitus Surgical History Anesthesia Scrotal abscess (~11/17/21) Social History household members: significant other Smoking Status: Former smoker alcohol intake: never Smoking Status: Former smoker tobacco type: vaping alcohol intake frequency: holidays/special occasions only Substance Use Type: does not use Exam Narrative Exam Narrative: GENERAL: [36] year old patient appears stated age. Well-developed patient, in mild distress. GCS 15 HEAD: Small puncture wound, not bleeding on right occiput, swelling on right- sided face overlying zygoma, no freely mobile bony segments. No evidence of depressed skull fracture, laceration or active bleeding EYES: Pupils equal round and reactive. No hyphema Extraocular motions intact. No scleral icterus. No injection or drainage. ENT: Nose without bleeding, purulent drainage. No nasal septal hematoma Throat without erythema, tonsillar hypertrophy or exudate. Airway patent. No through and through or serpentine lacerations of the tongue NECK: Trachea midline. Non tender CARDIOVASCULAR: Regular rate and rhythm without murmurs, gallops, or rubs. RESPIRATORY: Clear to auscultation. Breath sounds equal bilaterally. No wheezes, rales, or rhonchi. GASTROINTESTINAL: Abdomen soft, non-tender, nondistended. EXTREMITIES: No edema or joint tenderness. BACK: Nontender without deformity or crepitance. No flank tenderness. NEURO: AOx3. Cranial nerves 2-12 grossly intact SKIN: No rash or erythema of visible areas Initial Vital Signs Initial Vital Signs: Vital Signs Temperature 97.7 F 08/01/22 09:12 Pulse Rate 123 H 08/01/22 09:12 Respiratory Rate 25 H 08/01/22 09:12 Blood Pressure 155/95 H 08/01/22 09:12 Pulse Oximetry 94 08/01/22 09:12 Oxygen Delivery Method 08/01/22 09:12 Course Orders Ordered: Discontinued Medications Levetiracetam 1,000 mg/ Sodium (Chloride) 110 mls @ 440 mls/hr IV NOW ONE Stop: 08/01/22 11:32 Last Infusion: 08/01/22 12:19 Dose: 0 mls/hr Documented By: Admin: 08/01/22 11:52 Dose: 440 mls/hr Documented By: AT Consultations Consultation #1: Discussed with on-call neurology [facility], Dr. Carrera. After discussing the patient's history and physical along with labs and imaging she recommends loading patient with Keppra and then starting him on 1000 mg p.o. b.i.d. with follow-up at her partner's clinic, also recommends MRI without contrast today. Vital Signs Vital signs: Vital Signs - 8 hr 08/01/22 09:12 08/01/22 09:12 08/01/22 09:13 Temperature 97.7 F Pulse Rate 123 H 127 H 123 H Respiratory Rate 25 H 29 H Blood Pressure 155/95 H Pulse Oximetry 94 96 94 Oxygen Delivery Method Room Air 08/01/22 09:13 08/01/22 09:30 08/01/22 09:31 Temperature Pulse Rate 113 H 114 H Respiratory Rate 31 H 27 H Blood Pressure 155/95 H Pulse Oximetry 92 93 Oxygen Delivery Method 08/01/22 09:31 08/01/22 10:05 08/01/22 10:06 Temperature Pulse Rate 113 H 108 H Respiratory Rate 28 H Blood Pressure 138/81 Pulse Oximetry 97 98 Oxygen Delivery Method 08/01/22 10:06 08/01/22 10:30 08/01/22 10:30 Temperature Pulse Rate 107 H Respiratory Rate 33 H Blood Pressure 115/76 111/64 Pulse Oximetry 96 Oxygen Delivery Method 08/01/22 11:00 08/01/22 11:01 08/01/22 11:01 Temperature Pulse Rate 103 H 104 H Respiratory Rate 17 24 Blood Pressure 116/72 Pulse Oximetry 95 96 Oxygen Delivery Method 08/01/22 11:30 08/01/22 11:31 08/01/22 11:31 Temperature Pulse Rate 104 H 107 H Respiratory Rate 25 H 23 Blood Pressure 143/76 H Pulse Oximetry 95 95 Oxygen Delivery Method 08/01/22 12:00 08/01/22 12:00 08/01/22 12:30 Temperature Pulse Rate 101 H Respiratory Rate 20 Blood Pressure 137/71 121/65 Pulse Oximetry 97 Oxygen Delivery Method Room Air 08/01/22 12:30 08/01/22 13:00 08/01/22 13:00 Temperature Pulse Rate 100 H 107 H Respiratory Rate 24 Blood Pressure 125/80 Pulse Oximetry 95 95 Oxygen Delivery Method Room Air 08/01/22 13:30 08/01/22 13:30 08/01/22 14:00 Temperature Pulse Rate 101 H Respiratory Rate 24 Blood Pressure 131/68 133/79 Pulse Oximetry 94 Oxygen Delivery Method 08/01/22 14:00 Temperature Pulse Rate 103 H Respiratory Rate 24 Blood Pressure Pulse Oximetry 96 Oxygen Delivery Method MDM - Seizure Lab Data Result diagrams: 08/01/22 09:40 08/01/22 09:40 Labs: Lab Results 08/01/22 08/01/22 08/01/22 Range/Units 09:40 09:40 09:40 WBC 11.3 H (4.5-11.0) X10^3/uL RBC 5.70 (4.5-5.9) X10^6/uL Hgb 14.4 (13.5-17.5) g/dL Hct 44.9 (41-53) % MCV 78.9 L (80-100) fL MCH 25.4 L (26-34) PG MCHC 32.1 (30-36) % RDW 13.9 (11.6-14.8) % Plt Count 284 (150-400) X10^3/uL Neut % (Auto) 69.6 D (50-75) % Lymph % (Auto) 22.0 L D (25-40) % [place] % (Auto) 6.4 (3-14) % Eos % (Auto) 1.2 L (2-4) % Baso % (Auto) 0.8 (0-2) % Neut # (Auto) 7900 H (6853-6117) /uL Lymph # (Auto) 2500 (4211-2306) /uL [place] # (Auto) 700 (0-900) /uL Eos # (Auto) 100 (0-450) /uL Baso # (Auto) 100 (0-100) /uL Sodium 141 (137-145) mmol/L Potassium 4.1 (3.4-5.1) mmol/L Chloride 103 (98-107) mmol/L Carbon Dioxide 25 (22-32) mmol/L BUN 16 (9-20) mg/dL Creatinine 0.95 (0.66-1.25) mg/dL Estimated GFR > 60 (>60) mL/min BUN/Creatinine Ratio 16.8 (6-22) Glucose 133 H (70-100) mg/dL Hemoglobin A1c (4.0-6.0) % Lactate 3.7 H (0.7-2.1) mmol/L Calcium 9.1 (8.4-10.2) mg/dL Magnesium 1.8 (1.6-2.3) mg/dL Total Bilirubin 0.5 (0.2-1.3) mg/dL AST 26 (17-59) IU/L ALT 33 (<50) IU/L Alkaline Phosphatase 54 (38-126) U/L Total Protein 7.9 (6.3-8.2) g/dL Albumin 4.4 (3.5-5.0) g/dL Globulin 3.5 (1.7-4.1) g/dL Albumin/Globulin Ratio 1.3 (1.0-2.8) Triglycerides (35-150) mg/dL Cholesterol (140-199) mg/dL LDL Cholesterol, Calc (<100) mg/dL HDL Cholesterol (40-60) mg/dL Procalcitonin 0.07 (<0.5) ng/mL Prolactin 20.8 H (3.7-17.9) ng/mL Urine RBC (0-5/HPF) Urine WBC (0-5/HPF) Ur Squamous Epith Cells (0-5/HPF) Urine Bacteria (None) Urine Mucus (Negative) Ur Culture Indicated? U Opiates 300ng/mL cut (Negative) Ur Oxycodone Screen (Negative) Urine Methadone Screen (Negative) Ur Barbiturates Screen (Negative) U Tricyclic Antidepress (Negative) Ur Phencyclidine Scrn (Negative) Ur Amphetamines Screen (Negative) U Methamphetamines Scrn (Negative) Ur MDMA Scrn (Ecstasy) (Negative) U Benzodiazepines Scrn (Negative) Urine Cocaine Screen (Negative) U Marijuana (THC) Screen (Negative) 08/01/22 08/01/22 08/01/22 Range/Units 09:49 09:49 11:59 WBC (4.5-11.0) X10^3/uL RBC (4.5-5.9) X10^6/uL Hgb (13.5-17.5) g/dL Hct (41-53) % MCV (80-100) fL MCH (26-34) PG MCHC (30-36) % RDW (11.6-14.8) % Plt Count (150-400) X10^3/uL Neut % (Auto) (50-75) % Lymph % (Auto) (25-40) % [place] % (Auto) (3-14) % Eos % (Auto) (2-4) % Baso % (Auto) (0-2) % Neut # (Auto) (5324-7353) /uL Lymph # (Auto) (7903-1373) /uL [place] # (Auto) (0-900) /uL Eos # (Auto) (0-450) /uL Baso # (Auto) (0-100) /uL Sodium Cancelled (137-145) mmol/L Potassium Cancelled (3.4-5.1) mmol/L Chloride Cancelled (98-107) mmol/L Carbon Dioxide Cancelled (22-32) mmol/L BUN Cancelled (9-20) mg/dL Creatinine Cancelled (0.66-1.25) mg/dL Estimated GFR Cancelled (>60) mL/min BUN/Creatinine Ratio Cancelled (6-22) Glucose Cancelled (70-100) mg/dL Hemoglobin A1c 6.6 H (4.0-6.0) % Lactate (0.7-2.1) mmol/L Calcium Cancelled (8.4-10.2) mg/dL Magnesium (1.6-2.3) mg/dL Total Bilirubin Cancelled (0.2-1.3) mg/dL AST Cancelled (17-59) IU/L ALT Cancelled (<50) IU/L Alkaline Phosphatase Cancelled (38-126) U/L Total Protein Cancelled (6.3-8.2) g/dL Albumin Cancelled (3.5-5.0) g/dL Globulin Cancelled (1.7-4.1) g/dL Albumin/Globulin Ratio Cancelled (1.0-2.8) Triglycerides 157 H (35-150) mg/dL Cholesterol 152 (140-199) mg/dL LDL Cholesterol, Calc 91 (<100) mg/dL HDL Cholesterol 30 L (40-60) mg/dL Procalcitonin (<0.5) ng/mL Prolactin (3.7-17.9) ng/mL Urine RBC (0-5/HPF) Urine WBC (0-5/HPF) Ur Squamous Epith Cells (0-5/HPF) Urine Bacteria (None) Urine Mucus (Negative) Ur Culture Indicated? U Opiates 300ng/mL cut Negative (Negative) Ur Oxycodone Screen Negative (Negative) Urine Methadone Screen Negative (Negative) Ur Barbiturates Screen Negative (Negative) U Tricyclic Antidepress Negative (Negative) Ur Phencyclidine Scrn Negative (Negative) Ur Amphetamines Screen Negative (Negative) U Methamphetamines Scrn Negative (Negative) Ur MDMA Scrn (Ecstasy) Negative (Negative) U Benzodiazepines Scrn Negative (Negative) Urine Cocaine Screen Negative (Negative) U Marijuana (THC) Screen Negative (Negative) 08/01/22 08/01/22 Range/Units 11:59 13:05 WBC (4.5-11.0) X10^3/uL RBC (4.5-5.9) X10^6/uL Hgb (13.5-17.5) g/dL Hct (41-53) % MCV (80-100) fL MCH (26-34) PG MCHC (30-36) % RDW (11.6-14.8) % Plt Count (150-400) X10^3/uL Neut % (Auto) (50-75) % Lymph % (Auto) (25-40) % [place] % (Auto) (3-14) % Eos % (Auto) (2-4) % Baso % (Auto) (0-2) % Neut # (Auto) (7728-8018) /uL Lymph # (Auto) (8840-7100) /uL [place] # (Auto) (0-900) /uL Eos # (Auto) (0-450) /uL Baso # (Auto) (0-100) /uL Sodium (137-145) mmol/L Potassium (3.4-5.1) mmol/L Chloride (98-107) mmol/L Carbon Dioxide (22-32) mmol/L BUN (9-20) mg/dL Creatinine (0.66-1.25) mg/dL Estimated GFR (>60) mL/min BUN/Creatinine Ratio (6-22) Glucose (70-100) mg/dL Hemoglobin A1c (4.0-6.0) % Lactate 1.6 (0.7-2.1) mmol/L Calcium (8.4-10.2) mg/dL Magnesium (1.6-2.3) mg/dL Total Bilirubin (0.2-1.3) mg/dL AST (17-59) IU/L ALT (<50) IU/L Alkaline Phosphatase (38-126) U/L Total Protein (6.3-8.2) g/dL Albumin (3.5-5.0) g/dL Globulin (1.7-4.1) g/dL Albumin/Globulin Ratio (1.0-2.8) Triglycerides (35-150) mg/dL Cholesterol (140-199) mg/dL LDL Cholesterol, Calc (<100) mg/dL HDL Cholesterol (40-60) mg/dL Procalcitonin (<0.5) ng/mL Prolactin (3.7-17.9) ng/mL Urine RBC 10-30/hpf H (0-5/HPF) Urine WBC 1-5/hpf (0-5/HPF) Ur Squamous Epith Cells 1-5 /hpf (0-5/HPF) Urine Bacteria Few (2-10) H (None) Urine Mucus 1+ H (Negative) Ur Culture Indicated? Cult not indicated U Opiates 300ng/mL cut (Negative) Ur Oxycodone Screen (Negative) Urine Methadone Screen (Negative) Ur Barbiturates Screen (Negative) U Tricyclic Antidepress (Negative) Ur Phencyclidine Scrn (Negative) Ur Amphetamines Screen (Negative) U Methamphetamines Scrn (Negative) Ur MDMA Scrn (Ecstasy) (Negative) U Benzodiazepines Scrn (Negative) Urine Cocaine Screen (Negative) U Marijuana (THC) Screen (Negative) Urine Dip Bedside Urine Glucose Negative Bedside Urine Bilirubin - Negative Bedside Urine Ketone - Negative Urine Specific [place] 1.030 Bedside Urine Occult Blood ++ Bedside Urine pH 6.0 Bedside Urine Protein ++ 100 Bedside Urine Urobilinogen - Negative Bedside Urine Nitrite - Negative Bedside Urine Leukocytes - Negative Esterase Imaging Data MRI : Radiologist's Impression: No acute findings MDM Narrative Medical decision making narrative: [36-year-old male nondrinker with history of diabetes and hypertension presents with 2nd seizure in the past few days] Multiple etiologies for patient's symptoms considered including, but not limited to: [Epilepsy, alcohol withdrawal, other secondary causes including electrolyte abnormality, intracranial hemorrhage, mass versus other] Prior Charts reviewed: Including recent emergency department visit for similar Labs reviewed and interpreted by myself: No significant abnormalities with electrolytes or CBC. Elevated lactate most likely related to seizure, it normalized over the course of his visit. Prolactin nonspecific but consistent with seizure versus syncope Imaging reviewed: Head CT, facial bones and C-spine without evidence of intracranial hemorrhage or fracture. MRI without evidence of mass or other abnormality Consultations: Discussed with Dr. Carrera, neurology at [facility]. Please see elements of discussion above, however she recommends loading with Keppra and prescription for Keppra 1000 mg p.o. b.i.d. close follow-up with primary care provider and referral to neurology clinic Patient's symptoms improved over duration of stay with above-stated therapies. Findings and discharge diagnosis discussed with patient/family followed by verbalization of understanding, including inability to drive for 6 months or sooner if cleared by PCP or Neurology Return precautions discussed with patient/family whom verbalize understanding of diagnosis and plan Discharge Plan Departure Patient Disposition: Home Clinical Impression: Epileptic seizure Instructions: DI for Seizure Disorder -- Adult Activity Restrictions/Additional Instructions: *You have been diagnosed with [new onset seizures. As we discussed your labs, CT scan and MRI are very reassuring. I have been in contact with a local neurologist who recommends starting antiseizure medications and very close follow-up with your primary care provider] *What to do: *Please continue to take your regular medications as directed. [x ] New medication prescriptions sent to your pharmacy: [ [facility]] [ ] New medication written as a paper prescription [ ] No new medications given *Please follow up with your primary care provider in 2-3 days, call for an appointment. Let them know you were seen in the Emergency Department and that we ask that you be seen in follow up. We will electronically transmit a record of today's note if your PCP is in our system * as we discussed, patients with new onset seizures are strongly encouraged not to drive or engage in other high-risk activities for 6 months (or sooner if cleared by PCP or Neurology) *Return to Emergency Department if you should have any new, worsening or concerning symptoms, such as [fever greater than 101 F, shaking chills, worsenin g pain, persistent vomiting or other bothersome symptoms] Prescriptions: New levetiracetam [Keppra] 1,000 mg tablet 1,000 mg PO BID Qty: 60 0RF No Action (DME) Blood Glucose Test Strip See Rx Instructions .Route Qty: 50 3RF Rx Instructions: check blood glucose twice a day (DME) lancets [Acti-Salomón Lancets] 28 gauge misc See Rx Instructions .Route Qty: 100 3RF Rx Instructions: Check blood glucose BID (DME) lancets [OneTouch Delica Plus Lancet] 33 gauge misc See Rx Instructions .ROUTE .MEDSUPPLY Qty: 100 Rx Instructions: As directed losartan 50 mg tablet 50 mg PO DAILY Qty: 90 3RF Rx Instructions: Half tablet per day for 6 days then advance to 1 full tablet glipizide 5 mg tablet 5 mg PO DAILY Qty: 90 3RF Rx Instructions: Take with dinner metformin 500 mg tablet 500 mg PO BID Qty: 180 3RF Referrals: Karl Mckeon DO [Primary Care Provider] - Reilly Luke MD [Non-Staff] - Stand Alone Forms: Patient Portal/API
[2022-08-01 10:01] LABS: Add Manual Diff / Slide Review NO; Basophils Absolute Auto 100 /uL (0-100); Basophils Percent Auto 0.8 % (0-2); Eosinophils Absolute Auto 100 /uL (0-450); Eosinophils Percent Auto 1.2 % (2-4); Hematocrit 44.9 % (41-53); Hemoglobin 14.4 g/dL (13.5-17.5); Lymphocytes Absolute Auto 2500 /uL (1100-4500); Mean Corpuscular HGB Conc 32.1 % (30-36); Mean Corpuscular Hemoglobin 25.4 PG (26-34); Mean Corpuscular Volume 78.9 fL (80-100); Monocytes Absolute Auto 700 /uL (0-900); Monocytes Percent Auto 6.4 % (3-14); Neutrophils Absolute Auto 7900 /uL (1500-7000); Neutrophils Percent Auto 69.6 % (50-75); Platelet Count 284 X10^3/uL (150-400); Red Cell Distribution Width 13.9 % (11.6-14.8); White Blood Cell Count 11.3 X10^3/uL (4.5-11.0)
[2022-08-01 10:14] LABS: Lactate (Lactic Acid) 3.7 mmol/L (0.7-2.1)
[2022-08-01 10:15] LABS: Alanine Aminotransferase 33 IU/L (<50); Albumin 4.4 g/dL (3.5-5.0); Albumin Globulin Ratio 1.3 (1.0-2.8); Alkaline Phosphatase 54 U/L (38-126); Aspartate Aminotransferase 26 IU/L (17-59); BUN Creatinine Ratio 16.8 (6-22); Bilirubin Total 0.5 mg/dL (0.2-1.3); Blood Urea Nitrogen 16 mg/dL (9-20); Calcium 9.1 mg/dL (8.4-10.2); Carbon Dioxide 25 mmol/L (22-32); Chloride 103 mmol/L (98-107); Estimated Glomerular Filt Rate > 60 mL/min (>60); Globulin 3.5 g/dL (1.7-4.1); Glucose 133 mg/dL (70-100); HEMOLYSIS < 15 (0-50); Magnesium 1.8 mg/dL (1.6-2.3); Potassium 4.1 mmol/L (3.4-5.1); Sodium 141 mmol/L (137-145); Total Protein 7.9 g/dL (6.3-8.2)
[2022-08-01 10:18] LABS: Cholesterol 152 mg/dL (140-199); HDL Cholesterol 30 mg/dL (40-60); LDL Cholesterol Calculated 91 mg/dL (<100); Triglycerides 157 mg/dL (35-150)
[2022-08-01 10:19] LABS: Hemoglobin A1C% w Est Avg Glu 6.6 % (4.0-6.0)
[2022-08-01 10:32] LABS: Procalcitonin 0.07 ng/mL (<0.5); Prolactin 20.8 ng/mL (3.7-17.9)
--- NOTE | 2022-08-01 11:31 | DI.MRI.S_ITS ---
PROCEDURE: MR HEAD/BRAIN WO CON INDICATIONS: new onset seizures, per neurology TECHNIQUE: Noncontrast axial T1 spin echo, axial T2 fast spin echo, sagittal and axial FLAIR, coronal T2 fast spin echo, axial gradient echo, axial diffusion and ADC through the brain. COMPARISON: [facility], CT, CT HEAD/BRAIN WO CON, 08/01/2022, 9:59. FINDINGS: Image quality: Excellent. CSF Spaces: Basal cisterns are patent. No extra-axial fluid collections. Ventricles are normal in size and shape. Brain: No intracranial masses or hemorrhage. Grace/white matter interface is normal. Brainstem appears normal. Diffusion-weighted images demonstrate no acute ischemic insult. No chronic ischemic insults. Normal intravascular flow voids are present. Skull and face: Calvarium has normal marrow signal. Orbits appear normal. Sinuses: Scattered ethmoid sinus mucosal thickening as well as bilateral maxillary sinus mucosal thickening. There is moderate mucosal thickening involving the left maxillary sinus. Bilateral mastoid air cells are clear. IMPRESSION: 1. MRI brain without acute intracranial abnormalities. No evidence for mass or mass effect. No evidence for acute ischemia/infarction. 2. Bilateral maxillary and scattered ethmoid sinus disease most severe involving the left maxillary sinus. Dictated by: Hernesto Garcia M.D. on 08/01/2022 at 15:04 Approved by: Hernesto Garcia M.D. on 08/01/2022 at 15:07
[2022-08-01 11:51] LABS: Reflexed Lactate in 2 Hours Y
[2022-08-01] MEDS: levETIRAcetam 1,000 MG in SODIUM CHLORIDE 0.9% 100 ML 440 MG IV (11:52)
[2022-08-01 12:27] LABS: UR Morphine/Opiate cutoff 300 Negative (Negative); Ur Creatinine Normal (Normal); Ur Specific Gravity Normal (Normal); Urine Amphetamines Negative (Negative); Urine Barbiturates Negative (Negative); Urine Benzodiazepines Negative (Negative); Urine Cocaine Negative (Negative); Urine MDMA Negative (Negative); Urine Methadone Negative (Negative); Urine Methamphetamines Negative (Negative); Urine Oxycodone Negative (Negative); Urine Phencyclidine Negative (Negative); Urine Tetrahydrocannabinol Negative (Negative); Urine Tricyclic Antidepressant Negative (Negative); Urine pH Normal (Normal)
--- NOTE | 2022-08-01 12:32 | PC.NURSE ---
Assessed pt tongue, some redness noted to right side. Pt has swelling and redness to right lateral side of head. Pt alert and oriented x4/4, speaking in clear and coherent sentences, reports fatigue. Breathing even and unlabored.
[2022-08-01 12:33] LABS: Bacteria Urine Few (2-10); RBC Urine 10-30/HPF (0-5/HPF); Squamous Epithelial Cell Urine 1-5 /HPF (0-5/HPF); WBC Urine 1-5/HPF (0-5/HPF)
[2022-08-01 12:34] LABS: Culture Indicated Urine Cult Not Indicated; Mucus Urine 1+ (Negative)
[2022-08-01 13:25] LABS: Lactate 2HR (Lactic Acid Rflx) 1.6 mmol/L (0.7-2.1)
== END 2022-08-01 16:15 | disposition home or self-care (01) ==
PROVIDERS: Emergency Provider Emergency Medicine; PCP Family Medicine
DX: G40.909 Epilepsy, unspecified, not intractable, without status epilepticus (principal); S09.90XA Unspecified injury of head, initial encounter; E11.9 Type 2 diabetes mellitus without complications; E78.5 Hyperlipidemia, unspecified; I10 Essential (primary) hypertension; W19.XXXA Unspecified fall, initial encounter
CPT/HCPCS: 36415; 70450; 70486; 70551; 72125; 80053; 80061; 80305; 81003; 81015; 83036; 83605; 83735; 84145; 84146; 85025; 93005; 93010; 96365; 99284; J1953

== ENCOUNTER 2022-08-17 08:48 | Emergency (ER) | payer SELFPAY ==
[2021-11-17 12:10] VITALS: BMI 39.8
[2022-08-17] VITALS (12 sets, daily range): BP systolic 135–165; BP diastolic 87–105; PULSE 98–120; RESP 20–26; TEMP 36.6; O2SAT 95–98; BMI 48.9
--- NOTE | 2022-08-17 09:15 | ED.SEIZURE ---
HPI - Seizure General Chief Complaint: Seizure Stated Complaint: Seizure Time Seen by Provider: 08/17/22 08:51 Source: patient, EMS, RN notes reviewed and old records reviewed Mode of arrival: EMS Limitations: no limitations History of Present Illness HPI Narrative: This is a 36-year-old male with history of type 2 diabetes, hypertension with new seizure disorder. Patient had his 1st seizure on July with 2nd on the 01 of August. Patient today had witnessed seizure-like activity by his girlfriend. She states last about 1 minute she states he seemed to have sort of blank stare was not really responding to her she held onto him and he started to fall so she laid him on the ground had about 1-2 minutes of extending his arms tonic-clonic shaking and then slowly returned to normal baseline afterwards. Patient was started on Keppra 1000 mg b.i.d. starting August 01 after consultation with Neurology in [place], he would not had any additional seizure type activity since then. He states he felt normal today, he took his normal metformin, glipizide and Keppra this morning he is supposed to increase his losartan from once to twice daily but had not started yet today. This is recommended by his primary care physician after seeing them yesterday. He is a consult to Neurology in place but has not seen them [id number]. Patient denies headache, no fevers or chills, no cold cough or congestion. Denies chest pain or shortness of breath. He states he was nauseated immediately afterward but did not vomit. He states nausea has resolved. Denies any abdominal back flank pain. Denies any bowel or bladder incontinence. No diarrhea, no constipation, no other urinary symptoms. Patient denies any other recent issues. He vapes, denies any alcohol, denies any illicit. Denies any prior surgeries. States he has been on his diabetic medications for several months. Dr. Mckeon is his primary care physician. Patient states he has been getting 7+ hours asleep most night, states he has been drinking lots of fluids. Patient states his family history is unknown. Related Data Home Medications Medication Instructions Recorded Confirmed lancets 33 gauge (OneTouch Delica #100 ea 02/15/22 08/16/22 Plus Lancet) Previous Rx's Medication Instructions Recorded blood sugar diagnostic (Blood #50 ea 12/19/21 Glucose Test strips) lancets 28 gauge (Acti-Salomón #100 ea 12/26/21 Lancets) glipizide 5 mg tablet 5 mg PO DAILY #90 tabs 02/15/22 metformin 500 mg tablet 500 mg PO BID #180 tabs 02/15/22 levetiracetam 1,000 mg tablet 1,000 mg PO BID #60 tabs 08/01/22 (Keppra) losartan 50 mg tablet 50 mg PO BID #180 tabs 08/16/22 levetiracetam 500 mg tablet 1,500 mg PO BID #60 tabs 08/17/22 (Keppra) Allergies Allergy/AdvReac Type Severity Reaction Status Date / Time No Known Drug Allergies Allergy Verified 08/16/22 16:59 Review of Systems Review of Systems ROS Unobtainable: All systems reviewed & are unremarkable except as noted in HPI and below Patient History Medical History Borderline hyperlipidemia Epilepsy Hypertension Prediabetes Seizure Type 2 diabetes mellitus Surgical History Anesthesia Scrotal abscess (~11/17/21) Social History household members: significant other Smoking Status: Former smoker alcohol intake: never Smoking Status: Former smoker tobacco type: vaping alcohol intake frequency: holidays/special occasions only Substance Use Type: does not use Exam Narrative Exam Narrative: GEN: Obese male, alert and oriented x 3, patient appears to be in mild distress. HEENT: Atraumatic, pupils are equal round reactive to light, extraocular movements are intact, nares are clear, TMs are clear with no fluid, there is no conjunctival pallor. Throat is clear without any exudates, erythema, tonsillar enlargement or uvular deviation, no laceration to tongue or lips. HEART: Regular rate and rhythm without murmur, clicks, rubs. Pulses are equal in upper and lower extremities LUNGS:Lungs clear to auscultation, no wheezes, rales, crackles, chest moves symmetrically ABD:bowel sounds normal, soft, non-tender, no guarding, rebound, rigidity, no masses noted, no hepatosplenomegaly :No CVA tenderness MSCL: Non-tender, no muscle atrophy, muscles strength 5/5 upper and lower extremities, full range of motion, NEURO:CN 2-12 intact, sensation normal, reflexes 2/4 upper and lower extremities. finger nose finger test normal, heel holland test normal SKIN: No rash, erythema or other skin changes noted. Initial Vital Signs Initial Vital Signs: Vital Signs Pulse Rate 120 H 08/17/22 08:52 Scores GCS Martha coma scale eye opening: Spontaneous Mratha coma scale verbal response: Orientated [place] coma scale motor response: Obey commands Martha coma scale total score: 15 Course Orders Ordered: Discontinued Medications Levetiracetam 500 mg/ Sodium (Chloride) 105 mls @ 420 mls/hr IV NOW ONE Stop: 08/17/22 09:13 Last Infusion: 08/17/22 10:29 Dose: 0 mls/hr Documented By: Admin: 08/17/22 09:44 Dose: 420 mls/hr Documented By: MAURIZIO Sodium Chloride (Normal Saline 0.9%) 1,000 mls @ 1,000 mls/hr IV BOLUS ONE Stop: 08/17/22 10:13 Last Infusion: 08/17/22 10:30 Dose: 0 mls/hr Documented By: Admin: 08/17/22 09:45 Dose: 1,000 mls/hr Documented By: MAURIZIO Consultations Consultation #1: Dr. Luke, neurology discussed patient's is 129 kg, he would recommend increasing Keppra to 1500 mg b.i.d.. Discussed that we did send a Keppra level today before receiving any medication. Reviewed patient had an MR on the which was negative except for ethmoid disease and no other clear changes although UDS has not been obtained yet/ Time: 12:02 Vital Signs Vital signs: Vital Signs - 8 hr 08/17/22 08:55 08/17/22 08:52 08/17/22 08:53 Temperature 97.9 F Pulse Rate 116 H 120 H Respiratory Rate 20 Blood Pressure 165/105 H 165/105 H Pulse Oximetry 97 Oxygen Delivery Method Room Air 08/17/22 08:53 08/17/22 09:00 08/17/22 09:00 Temperature Pulse Rate 120 H 118 H Respiratory Rate Blood Pressure 163/105 H Pulse Oximetry 98 97 Oxygen Delivery Method 08/17/22 09:30 08/17/22 09:30 08/17/22 10:00 Temperature Pulse Rate 111 H Respiratory Rate Blood Pressure 162/97 H 160/90 H Pulse Oximetry 95 Oxygen Delivery Method 08/17/22 10:00 08/17/22 10:30 08/17/22 10:30 Temperature Pulse Rate 101 H 100 H Respiratory Rate Blood Pressure 157/90 H Pulse Oximetry 95 97 Oxygen Delivery Method 08/17/22 11:00 08/17/22 11:00 08/17/22 11:30 Temperature Pulse Rate 102 H Respiratory Rate Blood Pressure 160/91 H 157/87 H Pulse Oximetry 95 Oxygen Delivery Method 08/17/22 11:30 Temperature Pulse Rate 98 H Respiratory Rate Blood Pressure Pulse Oximetry 95 Oxygen Delivery Method MDM - Seizure Lab Data Result diagrams: 08/17/22 09:05 08/17/22 09:05 Labs: Lab Results 08/17/22 08/17/22 08/17/22 Range/Units 09:05 09:05 09:05 WBC 18.9 H (4.5-11.0) X10^3/uL RBC 6.33 H (4.5-5.9) X10^6/uL Hgb 16.6 (13.5-17.5) g/dL Hct 50.3 (41-53) % MCV 79.4 L (80-100) fL MCH 26.2 (26-34) PG MCHC 33.0 (30-36) % RDW 14.1 (11.6-14.8) % Plt Count 352 (150-400) X10^3/uL Neut % (Auto) 52.1 (50-75) % Lymph % (Auto) 38.8 (25-40) % [place] % (Auto) 6.3 (3-14) % Eos % (Auto) 1.8 L (2-4) % Baso % (Auto) 1.0 (0-2) % Neut # (Auto) 9900 H (2366-3894) /uL Lymph # (Auto) 7400 H (8991-6398) /uL [place] # (Auto) 1200 H (0-900) /uL Eos # (Auto) 300 (0-450) /uL Baso # (Auto) 200 H (0-100) /uL Sodium 143 (137-145) mmol/L Potassium 4.7 (3.4-5.1) mmol/L Chloride 98 (98-107) mmol/L Carbon Dioxide 17 L (22-32) mmol/L BUN 16 (9-20) mg/dL Creatinine 1.07 (0.66-1.25) mg/dL Estimated GFR > 60 (>60) mL/min BUN/Creatinine Ratio 15.0 (6-22) Glucose 167 H (70-100) mg/dL Calcium 9.4 (8.4-10.2) mg/dL Magnesium 1.6 (1.6-2.3) mg/dL Total Bilirubin 1.1 (0.2-1.3) mg/dL AST 61 H (17-59) IU/L ALT 43 (<50) IU/L Alkaline Phosphatase 75 (38-126) U/L Total Creatine Kinase 107 (55-170) U/L CK-MB (CK-2) 0.53 (<2.37) ng/mL CK-MB (CK-2) Rel Index 0.5 L (1.5-5.0) % Troponin I 0.015 (0.01-0.034) ng/mL Total Protein 9.1 H (6.3-8.2) g/dL Albumin 5.0 (3.5-5.0) g/dL Globulin 4.1 (1.7-4.1) g/dL Albumin/Globulin Ratio 1.2 (1.0-2.8) Lipase 232 (23-300) U/L Urine Color Urine Appearance Urine pH (4.5-8.0) Ur Specific [place] (1.000-1.035) Urine Protein (Negative) Urine Glucose (UA) (Negative) g/dL Urine Ketones (NEGATIVE) Urine Occult Blood (Negative) Urine Nitrate (Negative) Urine Bilirubin (NEGATIVE) Urine Urobilinogen (0.2) E.U./dL Ur Leukocyte Esterase (NEGATIVE) Urine RBC (0-5/HPF) Urine WBC (0-5/HPF) Urine Bacteria (None) Ur Culture Indicated? U Opiates 300ng/mL cut (Negative) Ur Oxycodone Screen (Negative) Urine Methadone Screen (Negative) Ur Barbiturates Screen (Negative) U Tricyclic Antidepress (Negative) Ur Phencyclidine Scrn (Negative) Ur Amphetamines Screen (Negative) U Methamphetamines Scrn (Negative) Ur MDMA Scrn (Ecstasy) (Negative) U Benzodiazepines Scrn (Negative) Urine Cocaine Screen (Negative) U Marijuana (THC) Screen (Negative) Ethyl Alcohol < 10 ( - 10) mg/dL SARS-CoV-2 (PCR) (Negative) Influenza A (RT-PCR) (NEGATIVE) Influenza B (RT-PCR) (NEGATIVE) RSV (PCR) (Negative) 08/17/22 08/17/22 08/17/22 Range/Units 10:20 11:55 12:13 WBC (4.5-11.0) X10^3/uL RBC (4.5-5.9) X10^6/uL Hgb (13.5-17.5) g/dL Hct (41-53) % MCV (80-100) fL MCH (26-34) PG MCHC (30-36) % RDW (11.6-14.8) % Plt Count (150-400) X10^3/uL Neut % (Auto) (50-75) % Lymph % (Auto) (25-40) % [place] % (Auto) (3-14) % Eos % (Auto) (2-4) % Baso % (Auto) (0-2) % Neut # (Auto) (0663-2103) /uL Lymph # (Auto) (7484-8919) /uL [place] # (Auto) (0-900) /uL Eos # (Auto) (0-450) /uL Baso # (Auto) (0-100) /uL Sodium (137-145) mmol/L Potassium (3.4-5.1) mmol/L Chloride (98-107) mmol/L Carbon Dioxide (22-32) mmol/L BUN (9-20) mg/dL Creatinine (0.66-1.25) mg/dL Estimated GFR (>60) mL/min BUN/Creatinine Ratio (6-22) Glucose (70-100) mg/dL Calcium (8.4-10.2) mg/dL Magnesium (1.6-2.3) mg/dL Total Bilirubin (0.2-1.3) mg/dL AST (17-59) IU/L ALT (<50) IU/L Alkaline Phosphatase (38-126) U/L Total Creatine Kinase (55-170) U/L CK-MB (CK-2) (<2.37) ng/mL CK-MB (CK-2) Rel Index (1.5-5.0) % Troponin I (0.01-0.034) ng/mL Total Protein (6.3-8.2) g/dL Albumin (3.5-5.0) g/dL Globulin (1.7-4.1) g/dL Albumin/Globulin Ratio (1.0-2.8) Lipase (23-300) U/L Urine Color Lt. yellow Urine Appearance Clear Urine pH 5.5 (4.5-8.0) Ur Specific [place] 1.025 (1.000-1.035) Urine Protein 1+ H (Negative) Urine Glucose (UA) Negative (Negative) g/dL Urine Ketones Negative (NEGATIVE) Urine Occult Blood 3+ H (Negative) Urine Nitrate Negative (Negative) Urine Bilirubin Negative (NEGATIVE) Urine Urobilinogen 0.2 (0.2) E.U./dL Ur Leukocyte Esterase Negative (NEGATIVE) Urine RBC 10-30/hpf H (0-5/HPF) Urine WBC 0-1/hpf (0-5/HPF) Urine Bacteria None seen (None) Ur Culture Indicated? Cult not indicated U Opiates 300ng/mL cut Positive H (Negative) Ur Oxycodone Screen Negative (Negative) Urine Methadone Screen Negative (Negative) Ur Barbiturates Screen Negative (Negative) U Tricyclic Antidepress Negative (Negative) Ur Phencyclidine Scrn Negative (Negative) Ur Amphetamines Screen Negative (Negative) U Methamphetamines Scrn Negative (Negative) Ur MDMA Scrn (Ecstasy) Negative (Negative) U Benzodiazepines Scrn Negative (Negative) Urine Cocaine Screen Negative (Negative) U Marijuana (THC) Screen Negative (Negative) Ethyl Alcohol ( - 10) mg/dL SARS-CoV-2 (PCR) Negative (Negative) Influenza A (RT-PCR) Flu a negative (NEGATIVE) Influenza B (RT-PCR) Flu b negative (NEGATIVE) RSV (PCR) Negative (Negative) Urine Dip Bedside Urine Glucose Negative Bedside Urine Bilirubin - Negative Bedside Urine Ketone - Negative Urine Specific [place] 1.020 Bedside Urine Occult Blood +++ Bedside Urine pH 6.0 Bedside Urine Protein + 30 Bedside Urine Urobilinogen - Negative Bedside Urine Nitrite - Negative Bedside Urine Leukocytes - Negative Esterase ECG Data Attestation: I personally reviewed and interpreted this ECG as follows: Prior ECG tracings: available for review Interpretation: Sinus tachycardia rate of 114 NV 152 QRS 92 and QTC of 449. No acute ST elevation noted. Patient has prior 08/01/2022 which appears similar. [facility] Narrative Medical decision making narrative: This is a 36-year-old male who presents with seizure-like activity, this is the 3rd episode in the past month he is about 16 days without any seizure activity since started on Keppra 1000 mg twice daily. He had head CT initially, patient appears to return his baseline. Plan for labs, urine, EKG this time does not felt needed to repeat head CT unless changes in his mentation recurrent seizure. Patient is hypertensive initially on arrival slightly tachycardic, was loaded with additional 500 mg of Keppra he took his oral Keppra 1000 mg today. On recheck patient continues to feel much better. He is not had any additional seizure activity. Did have MRI on the August 01 which was negative, patient is a little bit leukocytosis but no other clear infectious changes. Labs reviewed. I spoke with Neurology, Dr. Luke who recommends increasing him to 1500 mg b.i.d. from a 1000 mg and have patient follow-up. We did send a Keppra level which was obtained prior to receiving his IV Keppra. Discussed with patient return precautions. 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 Discussed if they are not able to provide seizure precautions I would not clear him for work. Patient still has plenty of a 1000 mg tablets so will add 500 mg tablet prescription so they can adjust as needed. Patient has referral in place to neurology already through primary care, they have not been given a appointment yet. Discharge Plan Departure Patient Disposition: Home Clinical Impression: Seizure Instructions: DI for Seizure Disorder -- Adult Activity Restrictions/Additional Instructions: Follow-up with neurology. I did speak with Dr. Luke with [facility] neurology he recommends we increase her Keppra to 1500 mg twice daily No driving until you are cleared by Neurology. Please increase your Keppra from a 1000 mg twice daily to 1500 mg twice daily. I would recommend taking one 1000 mg tablets +500 mg tablet twice daily. Prescription for additional was sent to [facility] in [place]. Please return for new recurrent seizure-like activity, altered mental, fevers, new chest pain, shortness of breath, passing out, persistent vomiting or other new or concerning changes. Prescriptions: New levetiracetam [Keppra] 500 mg tablet 1,500 mg PO BID Qty: 60 0RF Rx Instructions: You can take 1000mg tablet +500mg tablet po BID No Action (DME) Blood Glucose Test Strip See Rx Instructions .Route Qty: 50 3RF Rx Instructions: check blood glucose twice a day (DME) lancets [Acti-Salomón Lancets] 28 gauge misc See Rx Instructions .Route Qty: 100 3RF Rx Instructions: Check blood glucose BID losartan 50 mg tablet 50 mg PO BID Qty: 180 3RF Rx Instructions: Half tablet per day for 6 days then advance to 1 full tablet (DME) lancets [OneTouch Delica Plus Lancet] 33 gauge misc See Rx Instructions .ROUTE .MEDSUPPLY Qty: 100 Rx Instructions: As directed glipizide 5 mg tablet 5 mg PO DAILY Qty: 90 3RF Rx Instructions: Take with dinner metformin 500 mg tablet 500 mg PO BID Qty: 180 3RF levetiracetam [Keppra] 1,000 mg tablet 1,000 mg PO BID Qty: 60 0RF Referrals: Karl Mckeon DO [Primary Care Provider] - Reilly Luke MD [Non-Staff] - Stand Alone Forms: Patient Portal/API, Work Release Note
[2022-08-17 09:30] LABS: Add Manual Diff / Slide Review NO; Basophils Absolute Auto 200 /uL (0-100); Eosinophils Absolute Auto 300 /uL (0-450); Eosinophils Percent Auto 1.8 % (2-4); Hematocrit 50.3 % (41-53); Hemoglobin 16.6 g/dL (13.5-17.5); Lymphocytes Absolute Auto 7400 /uL (1100-4500); Lymphocytes Percent Auto 38.8 % (25-40); Mean Corpuscular Hemoglobin 26.2 PG (26-34); Mean Corpuscular Volume 79.4 fL (80-100); Monocytes Absolute Auto 1200 /uL (0-900); Monocytes Percent Auto 6.3 % (3-14); Neutrophils Absolute Auto 9900 /uL (1500-7000); Neutrophils Percent Auto 52.1 % (50-75); Platelet Count 352 X10^3/uL (150-400); Red Blood Cell Count 6.33 X10^6/uL (4.5-5.9); Red Cell Distribution Width 14.1 % (11.6-14.8); White Blood Cell Count 18.9 X10^3/uL (4.5-11.0)
[2022-08-17 09:35] LABS: Alanine Aminotransferase 43 IU/L (<50); Albumin Globulin Ratio 1.2 (1.0-2.8); Alkaline Phosphatase 75 U/L (38-126); Aspartate Aminotransferase 61 IU/L (17-59); Bilirubin Total 1.1 mg/dL (0.2-1.3); Blood Urea Nitrogen 16 mg/dL (9-20); Calcium 9.4 mg/dL (8.4-10.2); Carbon Dioxide 17 mmol/L (22-32); Chloride 98 mmol/L (98-107); Creatine Kinase 107 U/L (55-170); Estimated Glomerular Filt Rate > 60 mL/min (>60); Ethanol (ETOH) < 10 mg/dL; Globulin 4.1 g/dL (1.7-4.1); Glucose 167 mg/dL (70-100); HEMOLYSIS 186 (0-50); Lipase 232 U/L (23-300); Magnesium 1.6 mg/dL (1.6-2.3); Potassium 4.7 mmol/L (3.4-5.1); Sodium 143 mmol/L (137-145); Total Protein 9.1 g/dL (6.3-8.2)
[2022-08-17] MEDS: levETIRAcetam 500 MG in SODIUM CHLORIDE 0.9% 100 ML 420 MG IV (09:44)
[2022-08-17 09:45] LABS: Troponin I 0.015 ng/mL (0.01-0.034)
[2022-08-17] MEDS: SODIUM CHLORIDE 0.9% 1,000 ML 1000 ML IV (09:45)
[2022-08-17 09:50] LABS: CKMB % Relative Index 0.5 % (1.5-5.0); Creatine Kinase MB 0.53 ng/mL (<2.37)
[2022-08-17 11:03] LABS: Influenza A - CEPHEID Flu A NEGATIVE (NEGATIVE); Influenza B - CEPHEID Flu B NEGATIVE (NEGATIVE); Respiratory Syncytial Virus Negative (Negative)
[2022-08-17 11:07] LABS: COVID-19 CEPHEID 4-PLEX PCR Negative (Negative)
[2022-08-17 12:18] LABS: UR Morphine/Opiate cutoff 300 Positive (Negative); Ur Creatinine Normal (Normal); Ur Specific Gravity Normal (Normal); Urine Amphetamines Negative (Negative); Urine Barbiturates Negative (Negative); Urine Benzodiazepines Negative (Negative); Urine Cocaine Negative (Negative); Urine MDMA Negative (Negative); Urine Methadone Negative (Negative); Urine Methamphetamines Negative (Negative); Urine Oxycodone Negative (Negative); Urine Phencyclidine Negative (Negative); Urine Tetrahydrocannabinol Negative (Negative); Urine Tricyclic Antidepressant Negative (Negative); Urine pH Normal (Normal)
[2022-08-17 12:18] LABS: Appearance Urine UA CLEAR; Bilirubin Urine UA NEGATIVE (NEGATIVE); Color Urine UA LT. YELLOW; Glucose Urine UA NEGATIVE (Negative); Ketones Urine UA NEGATIVE (NEGATIVE); Leukocyte Esterase Urine UA NEGATIVE (NEGATIVE); Nitrite Urine UA NEGATIVE (Negative); Occult Blood Urine UA 3+ (Negative); Protein Urine UA 1+ (Negative); Specific Gravity Urine UA 1.025 (1.000-1.035); Urobilinogen Urine UA 0.2 E.U./dL (0.2); pH Urine UA 5.5 (4.5-8.0)
[2022-08-17 12:24] LABS: Bacteria Urine None Seen; Culture Indicated Urine Cult Not Indicated; RBC Urine 10-30/HPF (0-5/HPF); WBC Urine 0-1/HPF (0-5/HPF)
[2022-08-20 12:47] LABS: Levetiracetam Keppra 13.4 ug/mL (10.0-40.0)
== END 2022-08-17 12:40 | disposition home or self-care (01) ==
PROVIDERS: Emergency Provider Emergency Medicine; PCP Family Medicine
DX: R56.9 Unspecified convulsions (principal); R00.0 Tachycardia, unspecified; I10 Essential (primary) hypertension; Z87.891 Personal history of nicotine dependence
CPT/HCPCS: 0241U; 36415; 80053; 80177; 80305; 80320; 81001; 81003; 82550; 82553; 83690; 83735; 84484; 85025; 93005; 96365; 99284; J1953

== ENCOUNTER 2022-11-08 01:05 | Emergency (ER) | payer OTHER, MEDICAID, SELFPAY ==
[2021-11-17 12:10] VITALS: BMI 39.8
[2022-11-08] VITALS (8 sets, daily range): BP systolic 125–187; BP diastolic 79–107; PULSE 101–119; RESP 16–18; TEMP 36.3–36.7; O2SAT 92–100; BMI 40.7
--- NOTE | 2022-11-08 01:33 | ED_ITS ---
HPI - Back Pain/Injury General Chief Complaint: Back Pain/Injury Stated Complaint: KIDNEY STONE Time Seen by Provider: 11/08/22 01:33 Source: patient History of Present Illness HPI Narrative: This is a 37-year-old male with seizure disorder, diabetes and history of kidney stones who presents with complaint of sudden onset of right flank pain this morning. Patient states he would gotten up was urinating felt a little bit discomfort in his flank and then became over a short period of time much more intense. Patient states sort of on the right lateral side of his abdomen. It radiates a little bit around to the front. He does not have any testicular pain. Patient denies any fevers. He did states he got nauseated and started vomiting when the pain was at its most intense. He states nausea has improved. States he is having normal bowel movements up until this evening. No black or bloody stools. He did not appreciate any hematuria, dysuria, urgency or frequency. Patient has not had any skin changes. Patient notes they have had prior lithotripsy and stent placement in the past several times. They state this feels very similar. They are currently on medications including Keppra for seizure. No seizure activity since last July. Patient denies any other surgeries although noted patient had a scrotal abscess that was drained operatively in October of 2021. Patient denies any skin changes. Used to vape tobacco, occasional alcohol, no illicit. Patient is accompanied by his life partner. Related Data Home Medications Medication Instructions Recorded Confirmed lancets 33 gauge (OneTouch Delica #100 ea 02/15/22 08/16/22 Plus Lancet) Previous Rx's Medication Instructions Recorded lancets 28 gauge (Acti-Salomón #100 ea 12/26/21 Lancets) glipizide 5 mg tablet 5 mg PO DAILY #90 tabs 02/15/22 metformin 500 mg tablet 500 mg PO BID #180 tabs 02/15/22 levetiracetam 1,000 mg tablet 1,000 mg PO BID #60 tabs 08/01/22 (Keppra) losartan 50 mg tablet 50 mg PO BID #180 tabs 08/16/22 levetiracetam 500 mg tablet 1,500 mg PO BID #60 tabs 09/11/22 (Keppra) blood sugar diagnostic (Blood #50 ea 10/24/22 Glucose Test strips) oxycodone 5 mg tablet 5 mg PO Q6H PRN pain #10 tabs 11/08/22 tamsulosin 0.4 mg capsule (Flomax) 0.4 mg PO DAILY #7 caps 11/08/22 Allergies Allergy/AdvReac Type Severity Reaction Status Date / Time No Known Drug Allergies Allergy Verified 08/16/22 16:59 Review of Systems Review of Systems ROS Unobtainable: All systems reviewed & are unremarkable except as noted in HPI and below Patient History Medical History Borderline hyperlipidemia Epilepsy Hypertension Prediabetes Seizure Type 2 diabetes mellitus Surgical History Anesthesia Scrotal abscess (~11/17/21) Social History household members: significant other Smoking Status: Former smoker alcohol intake: never Smoking Status: Former smoker tobacco type: vaping alcohol intake frequency: holidays/special occasions only Substance Use Type: does not use Exam Narrative Exam Narrative: GENERAL: Alert and oriented x three, obese male in moderate distress. Patient appears uncomfortable. HEENT: Head normocephalic, atraumatic, EOMI, pupils reactive, face symmetric, moist mucous membranes NECK: Supple, full range of motion CARDIOVASCULAR: Regular rate and rhythm without murmurs, rubs or gallops. RESPIRATORY: Breath sounds equal bilaterally, no wheezes rales or rhonchi. ABDOMEN: Soft, nontender. Normoactive bowel sounds all 4 quadrants. No guarding or rebound, rigidity, no mass : No CVA tenderness. EXTREMITIES: Normal range of motion, no clubbing or edema. Neurovascularly intact NEUROLOGICAL: Cranial nerves II through XII grossly intact. Moving all extremities SKIN: Warm, dry, no petechiae, no rashes or lesions, erythema or vesicles or other skin changes. Initial Vital Signs Initial Vital Signs: Vital Signs Pulse Rate 114 H 11/08/22 01:11 Pulse Oximetry 100 11/08/22 01:11 Course Orders Ordered: ED Orders 11/08/22 01:30 Complete Blood Count AUTO DIFF Stat Comprehensive Metabolic Panel Stat Lipase Stat 11/08/22 01:44 CT kidney ureter bladder (KUB) Stat 11/08/22 02:45 Urine Microscopic Stat Sodium Chloride (Normal Saline 0.9%) 1,000 mls @ 150 mls/hr IV CONT HANG Last Admin: 11/08/22 02:00 Dose: 150 mls/hr Documented By: CYNTHIA Discontinued Medications Hydromorphone HCl (Hydromorphone 0.5 Mg Inj) 0.5 mg IV NOW ONE Stop: 11/08/22 02:21 Last Admin: 11/08/22 02:26 Dose: 0.5 mg Documented By: CYNTHIA Hydromorphone HCl (Hydromorphone 0.5 Mg Inj) 0.5 mg IV NOW ONE Stop: 11/08/22 03:29 Ketorolac Tromethamine (Ketorolac 30 Mg/Ml Vial) 15 mg IV NOW ONE Stop: 11/08/22 01:45 Last Admin: 11/08/22 01:59 Dose: 15 mg Documented By: CYNTHIA Ondansetron HCl (Ondansetron 4 Mg/2 Ml Inj) 4 mg IV NOW ONE Stop: 11/08/22 01:45 Last Admin: 11/08/22 02:00 Dose: 4 mg Documented By: CYNTHIA Vital Signs Vital signs: Vital Signs - 8 hr 11/08/22 01:14 11/08/22 01:11 11/08/22 01:30 Temperature 98.1 F Pulse Rate 112 H 114 H 119 H Respiratory Rate 18 Blood Pressure 187/107 H Pulse Oximetry 97 100 97 Oxygen Delivery Method Room Air 11/08/22 01:35 11/08/22 01:35 11/08/22 02:00 Temperature Pulse Rate 106 H Respiratory Rate Blood Pressure 165/98 H 164/87 H Pulse Oximetry 97 Oxygen Delivery Method 11/08/22 02:00 11/08/22 02:30 11/08/22 03:00 Temperature Pulse Rate 115 H 116 H 108 H Respiratory Rate Blood Pressure Pulse Oximetry 95 94 92 Oxygen Delivery Method MDM - Back Pain/Injury Lab Data 11/08/22 01:30 11/08/22 01:30 Labs: Lab Results 11/08/22 11/08/22 11/08/22 Range/Units 01:30 01:30 02:45 WBC 10.0 (4.5-11.0) X10^3/uL RBC 5.81 (4.5-5.9) X10^6/uL Hgb 15.2 (13.5-17.5) g/dL Hct 44.8 (41-53) % MCV 77.1 L (80-100) fL MCH 26.1 (26-34) PG MCHC 33.9 (30-36) % RDW 14.5 (11.6-14.8) % Plt Count 198 (150-400) X10^3/uL Neut % (Auto) 63.3 (50-75) % Lymph % (Auto) 26.6 (25-40) % [place] % (Auto) 7.1 (3-14) % Eos % (Auto) 2.0 (2-4) % Baso % (Auto) 1.0 (0-2) % Neut # (Auto) 6400 (7756-9763) /uL Lymph # (Auto) 2700 (8096-4915) /uL [place] # (Auto) 700 (0-900) /uL Eos # (Auto) 200 (0-450) /uL Baso # (Auto) 100 (0-100) /uL Sodium 135 L (137-145) mmol/L Potassium 4.5 (3.4-5.1) mmol/L Chloride 100 (98-107) mmol/L Carbon Dioxide 25 (22-32) mmol/L BUN 16 (9-20) mg/dL Creatinine 1.07 (0.66-1.25) mg/dL Estimated GFR > 60 (>60) mL/min BUN/Creatinine Ratio 15.0 (6-22) Glucose 324 H (70-100) mg/dL Calcium 9.2 (8.4-10.2) mg/dL Total Bilirubin 0.6 (0.2-1.3) mg/dL AST 35 (17-59) IU/L ALT 69 H (<50) IU/L Alkaline Phosphatase 50 (38-126) U/L Total Protein 7.5 (6.3-8.2) g/dL Albumin 4.3 (3.5-5.0) g/dL Globulin 3.2 (1.7-4.1) g/dL Albumin/Globulin Ratio 1.3 (1.0-2.8) Lipase 212 (23-300) U/L Urine RBC 30-100/hpf H (0-5/HPF) Urine WBC 0-1/hpf (0-5/HPF) Ur Squamous Epith Cells 0-1 /hpf (0-5/HPF) Ur Transition Epith Cell 0-1/hpf (0-5/HPF) Urine Bacteria None seen (None) Hyaline Casts 0-1/lpf (None) Urine Mucus 1+ H (Negative) Ur Culture Indicated? Cult not indicated Urine Dip Bedside Urine Glucose 1000 mg/dl Bedside Urine Bilirubin - Negative Bedside Urine Ketone - Negative Urine Specific [place] 1.020 Bedside Urine Occult Blood +++ Bedside Urine pH 6.0 Bedside Urine Protein + 30 Bedside Urine Urobilinogen - Negative Bedside Urine Nitrite - Negative Bedside Urine Leukocytes - Negative Esterase Imaging Data CT scan - abdomen/pelvis: Radiologist's Impression: 2.5 mm pleural-based nodular density right lower lobe. 24.2 cm hepatomegaly with fatty infiltration. Pericholecystic focal fatty sparing. 2.2 cm ovoid mildly hyperdense lesion via by inferior right lobe of liver maybe focal fatty sparing as well true lesion not excluded, comparison with prior imaging adjusted. Upon normal-sized spleen. Bilateral intrarenal calculi largest 1.2 cm on the left. Mild right hydro and slight perinephric stranding compatible with obstructive uropathy secondary to 7.5 mm ureteropelvic junction calculus. Patulous inguinal canals with no herniated bowel. [id number] fecal retention. Upper normal diameter gas containing retrocecal appendix with no stranding. T11 through L1 vertebral body compression deformities age uncertain. [facility] Narrative Medical decision making narrative: This is 37-year-old male with history of diabetes, prior kidney stones, seizure disorder who presents with sudden onset right flank pain which has been persistent patient is afebrile nontoxic appearing. Patient had nausea and vomiting and was given Zofran, Toradol minimal improvement additional dosage Dilaudid which was much more helpful. Patient's imaging does show right obs tructive uropathy to 7.5 mm UVJ calculus as well as some additional other findings. Patient has normal white count, sodium 135 normal renal function glucose is 324 with normal LFTs. Point of care urine shows glucose, occult blood, protein but with no nitrates or leukocyte esterase. Urine micro show 30- 100RBC, 1 WBC, no bacteria. Patient is currently feeling improved, patient pain is 3/10 at this time, he does request one more dose of pain medication but is comfortable with plan for d/c home and follow up with urology. Case discussed with Dr. Hernandez from Urology, he is happy to see the patient. Asked if he can keep himself NPO as they are going to reach out to him today and if he is not doing well may try to take him to the OR during daytime hours. If patient is tolerating well we will continue with outpatient follow up later in the week. Discharge Plan Departure Patient Disposition: Home Clinical Impression: Right kidney stone Instructions: Kidney Stones -- Adult Activity Restrictions/Additional Instructions: Follow up with Dr. Hernandez for your kidney stone. The office should reach out to you if you have not heard from them by 10am today please call. Dr. Hernandez asks that you stay NPO (you can take oral medications with sips of water) for potential treatment later today. It may not pass and may require lithostripsy or stent. Take flomax once daily until gone. Continue with tylenol up to a 1000 mg every 6 hours. You may also take ibuprofen up to 600mg every 6 hours. Prescriptions included for oxycodone 1-2 tablets every 6 hours as needed for pain. This medication can make you sleepy do not drive, perform hazardous activities or make any major decisions while taking it. This medication will make you constipated please take a stool softener once to twice daily until stools are soft and regular. Prescription sent to [facility] in [place]. Please return for fevers, rapidly worsening or intractable abdominal, back or flank pain, persistent vomiting, inability urinate or other new or concerning symptoms. Prescriptions: New tamsulosin [Flomax] 0.4 mg capsule 0.4 mg PO DAILY Qty: 7 0RF oxycodone 5 mg tablet 5 mg PO Q6H PRN (Reason: pain) Qty: 10 0RF No Action (DME) lancets [Acti-Salomón Lancets] 28 gauge misc See Rx Instructions .Route Qty: 100 3RF Rx Instructions: Check blood glucose BID levetiracetam [Keppra] 500 mg tablet 1,500 mg PO BID Qty: 60 0RF Rx Instructions: You can take 1000mg tablet +500mg tablet po BID (DME) Blood Glucose Test Strip See Rx Instructions .Route Qty: 50 5RF Rx Instructions: check blood glucose twice a day losartan 50 mg tablet 50 mg PO BID Qty: 180 3RF Rx Instructions: Half tablet per day for 6 days then advance to 1 full tablet (DME) lancets [OneTouch Delica Plus Lancet] 33 gauge misc See Rx Instructions .ROUTE .MEDSUPPLY Qty: 100 Rx Instructions: As directed glipizide 5 mg tablet 5 mg PO DAILY Qty: 90 3RF Rx Instructions: Take with dinner metformin 500 mg tablet 500 mg PO BID Qty: 180 3RF levetiracetam [Keppra] 1,000 mg tablet 1,000 mg PO BID Qty: 60 0RF Referrals: Karl Mckeon DO [Primary Care Provider] - Peter Hernandez MD [Physician] - Stand Alone Forms: Patient Portal/API
--- NOTE | 2022-11-08 01:44 | DI.CT.S_ITS ---
PROCEDURE: CT KIDNEY URETER BLADDER (KUB) INDICATIONS: right flank/abd pain TECHNIQUE: Axial sections were acquired from the lung bases to the pubic symphysis. Coronal and sagittal reformats were performed. For radiation dose reduction, the following was used: automated exposure control, adjustment of mA and/or kV according to patient size. COMPARISON: None. FINDINGS: Image quality: Good Lower chest: Unremarkable Solid organs: Hepatic steatosis. There is a 1.7 centimeter segment 5 liver lesion (2/40). Other areas of focal fatty sparing are present. Gallbladder is unremarkable. No pathologic dilation of the biliary tree or pancreatic duct. No splenomegaly. No adrenal nodules. Mild right pelvocaliectasis, within obstructing stone at the renal pelvis measuring 10 x 8 by 7 millimeters, over 450 Hounsfield units. Other stones are present within the calices, for example in the right lower pole measuring 9 x 6 by 8 millimeters also over 450 Hounsfield units. Fewer burden of stones in the left kidney, largest in the left upper pole measuring 13 by 7 by 8 millimeters, also over 450 Hounsfield units. Suspected cysts are also present. Vessels and lymph nodes: No abdominal aortic aneurysm. No pathologic adenopathy by size criteria. Bowel and peritoneum: No evidence of small bowel obstruction or pathologic ascites. Normal appendix. Body wall: Unremarkable Pelvis: Bladder is unremarkable. Prostate is not well evaluated on CT, unremarkable Bones: No suspicious osseous finding. There is deformity of the superior endplate of T12 of undetermined chronicity. IMPRESSION: Bilateral renal calculi as described above, including a obstructing stone in the right renal pelvis causing mild pelvocaliectasis. No bladder stones identified. Incidentally noted at least moderate hepatic steatosis. 1.7 centimeter segment 5 liver lesion is indeterminate, consider further evaluation with MRI. Differential includes focal fatty sparing. Deformity of the T12 superior endplate of undetermined chronicity. No discrepancy noted from the prelim report. Dictated by: Gorge Marks M.D. on 11/08/2022 at 7:54 Approved by: Gorge Marks M.D. on 11/08/2022 at 8:02
[2022-11-08 01:48] LABS: Add Manual Diff / Slide Review NO; Basophils Absolute Auto 100 /uL (0-100); Eosinophils Absolute Auto 200 /uL (0-450); Hematocrit 44.8 % (41-53); Hemoglobin 15.2 g/dL (13.5-17.5); Lymphocytes Absolute Auto 2700 /uL (1100-4500); Lymphocytes Percent Auto 26.6 % (25-40); Mean Corpuscular HGB Conc 33.9 % (30-36); Mean Corpuscular Hemoglobin 26.1 PG (26-34); Mean Corpuscular Volume 77.1 fL (80-100); Monocytes Absolute Auto 700 /uL (0-900); Monocytes Percent Auto 7.1 % (3-14); Neutrophils Absolute Auto 6400 /uL (1500-7000); Neutrophils Percent Auto 63.3 % (50-75); Platelet Count 198 X10^3/uL (150-400); Red Blood Cell Count 5.81 X10^6/uL (4.5-5.9); Red Cell Distribution Width 14.5 % (11.6-14.8)
[2022-11-08 01:51] LABS: Alanine Aminotransferase 69 IU/L (<50); Albumin 4.3 g/dL (3.5-5.0); Albumin Globulin Ratio 1.3 (1.0-2.8); Alkaline Phosphatase 50 U/L (38-126); Aspartate Aminotransferase 35 IU/L (17-59); Bilirubin Total 0.6 mg/dL (0.2-1.3); Blood Urea Nitrogen 16 mg/dL (9-20); Calcium 9.2 mg/dL (8.4-10.2); Carbon Dioxide 25 mmol/L (22-32); Chloride 100 mmol/L (98-107); Estimated Glomerular Filt Rate > 60 mL/min (>60); Globulin 3.2 g/dL (1.7-4.1); Glucose 324 mg/dL (70-100); HEMOLYSIS 23 (0-50); Lipase 212 U/L (23-300); Potassium 4.5 mmol/L (3.4-5.1); Sodium 135 mmol/L (137-145); Total Protein 7.5 g/dL (6.3-8.2)
[2022-11-08] MEDS: KETOROLAC 30 MG/ML VIAL 15 MG IV (01:59)
[2022-11-08] MEDS: ONDANSETRON 4 MG/2 ML INJ IV (02:00)
[2022-11-08] MEDS: SODIUM CHLORIDE 0.9% 1,000 ML 150 ML IV (02:00)
[2022-11-08] MEDS: HYDROMORPHONE 0.5 MG INJ IV ×2 (02:26→03:41)
[2022-11-08 03:17] LABS: RBC Urine 30-100/HPF (0-5/HPF); Squamous Epithelial Cell Urine 0-1 /HPF (0-5/HPF); Transitional Epi Cells Urine 0-1/HPF (0-5/HPF); WBC Urine 0-1/HPF (0-5/HPF)
[2022-11-08 03:18] LABS: Bacteria Urine None Seen; Culture Indicated Urine Cult Not Indicated; Hyaline Casts Urine 0-1/LPF; Mucus Urine 1+ (Negative)
== END 2022-11-08 03:53 | disposition home or self-care (01) ==
PROVIDERS: Emergency Provider Emergency Medicine; PCP Family Medicine
DX: N20.0 Calculus of kidney (principal)
CPT/HCPCS: 36415; 74176; 80053; 81003; 81015; 83690; 85025; 96361; 96374; 96375; 96376; 99284; J1170; J1885; J2405

== ENCOUNTER → 2022-11-12 16:21 | Outpatient (CLI) | payer OTHER, SELFPAY ==
[2021-11-17 12:10] VITALS: BMI 39.8
--- NOTE | 2022-11-12 16:22 | DI.RAD.S_ITS ---
PROCEDURE: XR KUB INDICATIONS: Kidney stone TECHNIQUE: One view of the abdomen acquired. COMPARISON: None. FINDINGS: Surgical changes and devices: None. Bowel: Bowel gas pattern is normal. Soft tissues: Stable bilateral renal stones. Specifically, the 1 centimeter calcification remains projecting over the extrarenal pelvis on the right. Bones: No suspicious bony lesions. IMPRESSION: Stable bilateral renal stones. Specifically, the 1 centimeter calcification remains projecting over the extrarenal pelvis on the right. Dictated by: Nitish Lorenzo M.D. on 11/12/2022 at 16:45 Approved by: Nitish Lorenzo M.D. on 11/12/2022 at 16:45
== END ==
PROVIDERS: PCP Family Medicine; Referring Provider Urology; Visit Provider Urology
DX: N20.0 Calculus of kidney (principal)
CPT/HCPCS: 74018

== ENCOUNTER 2022-11-12 18:57 | Emergency (ER) | payer OTHER, MEDICAID, SELFPAY ==
[2021-11-17 12:10] VITALS: BMI 39.8
[2022-11-12 19:03] VITALS: BP 209/117; PULSE 99; RESP 16; TEMP 36.6; O2SAT 98; BMI 41.5
[2022-11-12] MEDS: KETOROLAC 30 MG/ML VIAL 15 MG IV (19:32)
[2022-11-12] MEDS: ONDANSETRON 4 MG/2 ML INJ IV (19:32)
[2022-11-12 19:51] LABS: Alanine Aminotransferase 66 IU/L (<50); Albumin 4.2 g/dL (3.5-5.0); Albumin Globulin Ratio 1.2 (1.0-2.8); Alkaline Phosphatase 53 U/L (38-126); Aspartate Aminotransferase 35 IU/L (17-59); Bilirubin Total 0.4 mg/dL (0.2-1.3); Blood Urea Nitrogen 12 mg/dL (9-20); Calcium 8.8 mg/dL (8.4-10.2); Carbon Dioxide 25 mmol/L (22-32); Chloride 100 mmol/L (98-107); Estimated Glomerular Filt Rate > 60 mL/min (>60); Globulin 3.4 g/dL (1.7-4.1); Glucose 298 mg/dL (70-100); HEMOLYSIS < 15 (0-50); Potassium 4.3 mmol/L (3.4-5.1); Sodium 136 mmol/L (137-145); Total Protein 7.6 g/dL (6.3-8.2)
[2022-11-12 19:55] LABS: Add Manual Diff / Slide Review NO; Basophils Absolute Auto 100 /uL (0-100); Basophils Percent Auto 1.1 % (0-2); Eosinophils Absolute Auto 200 /uL (0-450); Eosinophils Percent Auto 2.8 % (2-4); Hematocrit 42.8 % (41-53); Hemoglobin 14.7 g/dL (13.5-17.5); Lymphocytes Absolute Auto 2600 /uL (1100-4500); Lymphocytes Percent Auto 34.5 % (25-40); Mean Corpuscular HGB Conc 34.3 % (30-36); Mean Corpuscular Hemoglobin 26.4 PG (26-34); Monocytes Absolute Auto 400 /uL (0-900); Monocytes Percent Auto 5.5 % (3-14); Neutrophils Absolute Auto 4300 /uL (1500-7000); Neutrophils Percent Auto 56.1 % (50-75); Platelet Count 208 X10^3/uL (150-400); Red Blood Cell Count 5.56 X10^6/uL (4.5-5.9); Red Cell Distribution Width 14.5 % (11.6-14.8); White Blood Cell Count 7.7 X10^3/uL (4.5-11.0)
[2022-11-12 20:10] VITALS: BP 148/74; PULSE 67; RESP 18; O2SAT 99
[2022-11-12] MEDS: HYDROMORPHONE 0.5 MG INJ IV (20:20)
[2022-11-12 20:52] LABS: Bacteria Urine None Seen; Culture Indicated Urine Cult Not Indicated; RBC Urine 30-100/HPF (0-5/HPF); WBC Urine 0-1/HPF (0-5/HPF)
[2022-11-12 22:50] VITALS: BP 149/99; PULSE 90; RESP 18; O2SAT 97
[2022-11-12] MEDS: HYDROMORPHONE 1 MG INJ IV (22:55)
--- NOTE | 2022-11-12 23:28 | ED_ITS ---
HPI - Male Genitourinary General Chief complaint: Urogenital-Male Stated complaint: rt side kidney pain Time Seen by Provider: 11/12/22 20:03 Mode of arrival: Ambulatory History of Present Illness HPI Narrative: Patient 37-year-old male history of diabetes recently diagnosed with large right-sided renal stone presents today with severe right-sided pain. He was seen and evaluated here 4 days ago with right-sided flank pain. CT confirmed 10 x 8 x 7 mm in the right renal pelvis. Reports that he went to urology today Dr. Hernandez where he is now scheduled for lithotripsy next week. However Dr. Hernandez tapped him in the right flank and since then. Denies any vomiting mild nausea. He has pain medication at home however currently his pain is quite out of control. It might be radiating around to his abdomen but very minimally. He is concerned that stone might be. Related Data Home Medications Medication Instructions Recorded Confirmed lancets 33 gauge (OneTouch Delica #100 ea 02/15/22 08/16/22 Plus Lancet) Previous Rx's Medication Instructions Recorded lancets 28 gauge (Acti-Salomón #100 ea 12/26/21 Lancets) glipizide 5 mg tablet 5 mg PO DAILY #90 tabs 02/15/22 metformin 500 mg tablet 500 mg PO BID #180 tabs 02/15/22 levetiracetam 1,000 mg tablet 1,000 mg PO BID #60 tabs 08/01/22 (Keppra) losartan 50 mg tablet 50 mg PO BID #180 tabs 08/16/22 levetiracetam 500 mg tablet 1,500 mg PO BID #60 tabs 09/11/22 (Keppra) blood sugar diagnostic (Blood #50 ea 10/24/22 Glucose Test strips) oxycodone 5 mg tablet 5 mg PO Q6H PRN pain #10 tabs 11/08/22 tamsulosin 0.4 mg capsule (Flomax) 0.4 mg PO DAILY #7 caps 11/08/22 Allergies Allergy/AdvReac Type Severity Reaction Status Date / Time No Known Drug Allergies Allergy Verified 11/12/22 19:07 Review of Systems Review of Systems ROS Unobtainable: All systems reviewed & are unremarkable except as noted in HPI and below Patient History Medical History Bilateral kidney stones Borderline hyperlipidemia Epilepsy Hematuria History of renal colic Hypertension Prediabetes Seizure Type 2 diabetes mellitus Surgical History Anesthesia Hx of cystoscopy Scrotal abscess (~11/17/21) Social History marital status: number of children: 0 household members: significant other occupational status: employed Smoking Status: Never smoker alcohol intake: never caffeine: No Type(s) of exercise: weight lifting frequency: 3-4 times per week duration: > 90 minutes/day Smoking Status: Never smoker tobacco type: vaping alcohol intake frequency: holidays/special occasions only Substance Use Type: does not use Exam Initial Vital Signs Initial Vital Signs: Vital Signs Temperature 97.8 F 11/12/22 19:03 Pulse Rate 99 H 11/12/22 19:03 Respiratory Rate 16 11/12/22 19:03 Blood Pressure 209/117 H 11/12/22 19:03 Pulse Oximetry 98 11/12/22 19:03 Oxygen Delivery Method Room Air 11/12/22 19:03 GENERAL: Alert 37-year-old male appears uncomfortable HEENT: Head atraumatic,EOMI, pupils reactive, face symmetric, moist mucous membranes CARDIOVASCULAR: Regular rate and rhythm without murmurs, rubs or gallops. RESPIRATORY: Breath sounds equal bilaterally, no wheezes rales or rhonchi. ABDOMEN: Soft, nontender. Normoactive bowel sounds all 4 quadrants. No guarding or rebound. : Mild right CVA tenderness EXTREMITIES: Normal range of motion, no clubbing or edema. Neurovascularly intact NEUROLOGICAL: Alert and oriented x4.Normal gait and speech. SKIN: Warm, dry, no laceration, no petechiae, no rashes or lesions. Course Orders Ordered: Discontinued Medications Hydromorphone HCl (Hydromorphone 0.5 Mg Inj) 0.5 mg IV NOW ONE Stop: 11/12/22 20:19 Last Admin: 11/12/22 20:20 Dose: 0.5 mg Documented By: TAMAR Hydromorphone HCl (Hydromorphone 1 Mg Inj) 1 mg IV NOW ONE Stop: 11/12/22 22:45 Last Admin: 11/12/22 22:55 Dose: 1 mg Documented By: TRISTAN Ketorolac Tromethamine (Ketorolac 30 Mg/Ml Vial) 15 mg IV NOW ONE Stop: 11/12/22 19:11 Last Admin: 11/12/22 19:32 Dose: 15 mg Documented By: NASH Ondansetron HCl (Ondansetron 4 Mg/2 Ml Inj) 4 mg IV NOW ONE Stop: 11/12/22 19:11 Last Admin: 11/12/22 19:32 Dose: 4 mg Documented By: NASH Vital Signs Vital signs: Vital Signs - 8 hr 11/12/22 22:50 Pulse Rate 90 Respiratory Rate 18 Blood Pressure 149/99 H Pulse Oximetry 97 Oxygen Delivery Method Room Air MDM - Male Genitourinary Lab Data 11/12/22 19:27 11/12/22 19:27 Labs: Lab Results 11/12/22 11/12/22 11/12/22 Range/Units 19:27 19:27 20:01 WBC 7.7 (4.5-11.0) X10^3/uL RBC 5.56 (4.5-5.9) X10^6/uL Hgb 14.7 (13.5-17.5) g/dL Hct 42.8 (41-53) % MCV 77.0 L (80-100) fL MCH 26.4 (26-34) PG MCHC 34.3 (30-36) % RDW 14.5 (11.6-14.8) % Plt Count 208 (150-400) X10^3/uL Neut % (Auto) 56.1 (50-75) % Lymph % (Auto) 34.5 (25-40) % [place] % (Auto) 5.5 (3-14) % Eos % (Auto) 2.8 (2-4) % Baso % (Auto) 1.1 (0-2) % Neut # (Auto) 4300 (4667-6546) /uL Lymph # (Auto) 2600 (9407-0095) /uL [place] # (Auto) 400 (0-900) /uL Eos # (Auto) 200 (0-450) /uL Baso # (Auto) 100 (0-100) /uL Sodium 136 L (137-145) mmol/L Potassium 4.3 (3.4-5.1) mmol/L Chloride 100 (98-107) mmol/L Carbon Dioxide 25 (22-32) mmol/L BUN 12 (9-20) mg/dL Creatinine 0.92 (0.66-1.25) mg/dL Estimated GFR > 60 (>60) mL/min BUN/Creatinine Ratio 13.0 (6-22) Glucose 298 H (70-100) mg/dL Calcium 8.8 (8.4-10.2) mg/dL Total Bilirubin 0.4 (0.2-1.3) mg/dL AST 35 (17-59) IU/L ALT 66 H (<50) IU/L Alkaline Phosphatase 53 (38-126) U/L Total Protein 7.6 (6.3-8.2) g/dL Albumin 4.2 (3.5-5.0) g/dL Globulin 3.4 (1.7-4.1) g/dL Albumin/Globulin Ratio 1.2 (1.0-2.8) Urine RBC 30-100/hpf H (0-5/HPF) Urine WBC 0-1/hpf (0-5/HPF) Urine Bacteria None seen (None) Ur Culture Indicated? Cult not indicated Urine Dip Bedside Urine Glucose 1000 mg/dl Bedside Urine Bilirubin - Negative Bedside Urine Ketone - Negative Urine Specific [place] 1.02 Bedside Urine Occult Blood +++ Bedside Urine pH 6 Bedside Urine Protein + 30 Bedside Urine Urobilinogen - Negative Bedside Urine Nitrite - Negative Bedside Urine Leukocytes - Negative Esterase Imaging Data Abdominal x-ray: Radiologist's Impression: PROCEDURE:? XR KUB ? INDICATIONS:? Kidney stone ? TECHNIQUE:? One view of the abdomen acquired.? ? COMPARISON:? None. ? FINDINGS:? ? Surgical changes and devices:? None.? ? Bowel:? Bowel gas pattern is normal.? ? Soft tissues:? Stable bilateral renal stones.? Specifically, the 1 centimeter calcification remains projecting over the extrarenal pelvis on the right. ? Bones:? No suspicious bony lesions.? ? IMPRESSION:? Stable bilateral renal stones.? Specifically, the 1 centimeter calcification remains projecting over the extrarenal pelvis on the right. ? ? Dictated by: Nitish Lorenzo M.D. on 11/12/2022 at 16:45 ? MDM Narrative Medical decision making narrative: Patient he 7-year-old male has known large renal stone presenting today with right-sided flank. Blood work is overall reassuring without evidence of infection or acute kidney injury. Pain is better controlled after Toradol and Dilaudid. He actually has pain medication at home. He had outpatient x-ray KUB done today just prior to his arrival which showed stable renal stones. At this time I really do not see any need for repeat CT or other imaging. He has scheduled lithotripsy with urology next week. No need for antibiotics at this time no leukocytosis or evidence of UTI. He also no evidence of DKA or diabetic complication. Discharge Plan Departure Patient Disposition: Home Clinical Impression: Kidney stone Instructions: DI for Kidney Stones Activity Restrictions/Additional Instructions: *You have been diagnosed with kidney stone *What to do: At this time please follow-up with Dr. Hernandez. Take medication as directed. *Continue to take medications as directed *Follow up with your primary care provider in 2-3 days or call [phone] Follow-up with Dr. Vyas next week as directed *Return to ER if you should have increasing pain, nausea, vomiting, fever [or] any new, worsening or concerning symptoms Prescriptions: No Action (DME) lancets [Acti-Salomón Lancets] 28 gauge misc See Rx Instructions .Route Qty: 100 3RF Rx Instructions: Check blood glucose BID levetiracetam [Keppra] 500 mg tablet 1,500 mg PO BID Qty: 60 0RF Rx Instructions: You can take 1000mg tablet +500mg tablet po BID (DME) Blood Glucose Test Strip See Rx Instructions .Route Qty: 50 5RF Rx Instructions: check blood glucose twice a day losartan 50 mg tablet 50 mg PO BID Qty: 180 3RF Rx Instructions: Half tablet per day for 6 days then advance to 1 full tablet (DME) lancets [OneTouch Delica Plus Lancet] 33 gauge misc See Rx Instructions .ROUTE .MEDSUPPLY Qty: 100 Rx Instructions: As directed glipizide 5 mg tablet 5 mg PO DAILY Qty: 90 3RF Rx Instructions: Take with dinner metformin 500 mg tablet 500 mg PO BID Qty: 180 3RF levetiracetam [Keppra] 1,000 mg tablet 1,000 mg PO BID Qty: 60 0RF tamsulosin [Flomax] 0.4 mg capsule 0.4 mg PO DAILY Qty: 7 0RF oxycodone 5 mg tablet 5 mg PO Q6H PRN (Reason: pain) Qty: 10 0RF Referrals: Karl Mckeon DO [Primary Care Provider] - Peter Hernandez MD [Physician] - Stand Alone Forms: Patient Portal/API
== END 2022-11-12 23:44 | disposition home or self-care (01) ==
PROVIDERS: Emergency Provider Emergency Medicine; PCP Family Medicine; Referring Provider Urology
DX: N20.0 Calculus of kidney (principal); R31.29 Other microscopic hematuria; R39.9 Unspecified symptoms and signs involving the genitourinary system; Z87.448 Personal history of other diseases of urinary system
CPT/HCPCS: 36415; 74018; 80053; 81002; 81003; 81015; 85025; 96374; 96375; 96376; 99284; J1170; J1885; J2405

== ENCOUNTER 2022-11-18 22:12 | Emergency (ER) | payer OTHER, MEDICAID, SELFPAY ==
[2021-11-17 12:10] VITALS: BMI 39.8
[2022-11-18 22:20] VITALS: BP 187/109; PULSE 111; RESP 18; TEMP 36.3; O2SAT 97; BMI 47.2
--- NOTE | 2022-11-18 22:30 | PC.NURSE ---
pt c/o kidney stone pain states he was told not to take pain mediation a week prior to having a lithotripsy on 11/22, pt states his pain comes and goes with + nausea
--- NOTE | 2022-11-18 22:31 | ED.GENADULT ---
HPI - General Adult General Chief complaint: Urogenital-Male Stated complaint: Kidney stone pain rt Time Seen by Provider: 11/18/22 22:17 Source: patient Mode of arrival: Family Vehicle Limitations: no limitations History of Present Illness HPI narrative: Patient is a 37-year-old male with a known history of kidney stones. He is scheduled for lithotripsy at the end of this week. He is here for evaluation of increasing pain that is consistent with his kidney stone pain. He does have pain medication at home but it has not been controlled with this medication. No fevers. No problems urinating. Skin rashes. Related Data Home Medications Medication Instructions Recorded Confirmed lancets 33 gauge (OneTouch Delica #100 ea 02/15/22 08/16/22 Plus Lancet) Previous Rx's Medication Instructions Recorded lancets 28 gauge (Acti-Salomón #100 ea 12/26/21 Lancets) glipizide 5 mg tablet 5 mg PO DAILY #90 tabs 02/15/22 metformin 500 mg tablet 500 mg PO BID #180 tabs 02/15/22 levetiracetam 1,000 mg tablet 1,000 mg PO BID #60 tabs 08/01/22 (Keppra) losartan 50 mg tablet 50 mg PO BID #180 tabs 08/16/22 levetiracetam 500 mg tablet 1,500 mg PO BID #60 tabs 09/11/22 (Keppra) blood sugar diagnostic (Blood #50 ea 10/24/22 Glucose Test strips) oxycodone 5 mg tablet 5 mg PO Q6H PRN pain #10 tabs 11/08/22 tamsulosin 0.4 mg capsule (Flomax) 0.4 mg PO DAILY #7 caps 11/08/22 ketorolac 10 mg tablet 10 mg PO TID PRN pain #12 tabs 11/19/22 Allergies Allergy/AdvReac Type Severity Reaction Status Date / Time No Known Drug Allergies Allergy Verified 11/12/22 19:07 Review of Systems Constitutional Constitutional: Reports system reviewed and no additional complaints, except as documented Cardiovascular Cardiovascular: Reports system reviewed and no additional complaints, except as documented Respiratory Respiratory: Reports system reviewed and no additional complaints, except as documented Gastrointestinal Gastrointestinal: Reports system reviewed and no additional complaints, except as documented Genitourinary Genitourinary: Reports system reviewed and no additional complaints, except as documented Integumentary/Breasts Skin/Breast: Reports system reviewed and no additional complaints, except as documented Hematologic/Lymphatic On Anticoagulants: No Patient History Medical History Bilateral kidney stones Borderline hyperlipidemia Epilepsy Hematuria History of renal colic Hypertension Prediabetes Seizure Type 2 diabetes mellitus Surgical History Anesthesia Hx of cystoscopy Scrotal abscess (~11/17/21) Social History marital status: number of children: 0 household members: significant other occupational status: employed Smoking Status: Never smoker alcohol intake: never caffeine: No Type(s) of exercise: weight lifting frequency: 3-4 times per week duration: > 90 minutes/day Smoking Status: Never smoker tobacco type: vaping alcohol intake frequency: holidays/special occasions only Substance Use Type: does not use Exam Initial Vital Signs Initial Vital Signs: Vital Signs Temperature 97.3 F L 11/18/22 22:20 Pulse Rate 111 H 11/18/22 22:20 Respiratory Rate 18 11/18/22 22:20 Blood Pressure 187/109 H 11/18/22 22:20 Pulse Oximetry 97 11/18/22 22:20 Oxygen Delivery Method Room Air 11/18/22 22:20 Const General: cooperative and comfortable Resp Effort & Inspection: normal respiratory effort Cardio Rate: regular rate Skin General: no rashes or lesions noted Neuro General: patient alert and patient awake Extrem General: normal to inspection Course Orders Ordered: ED Orders 11/18/22 22:50 Basic Metabolic Panel Stat Complete Blood Count AUTO DIFF Stat 11/18/22 23:34 Urinalysis and Microscopic Stat Discontinued Medications Hydromorphone HCl (Hydromorphone 1 Mg Inj) 1 mg IV NOW ONE Stop: 11/18/22 23:41 Last Admin: 11/18/22 23:44 Dose: 1 mg Documented By: NAIMA Hydromorphone HCl (Hydromorphone 1 Mg Inj) 1 mg IV NOW ONE Stop: 11/19/22 00:54 Last Admin: 11/19/22 00:57 Dose: 1 mg Documented By: NAIMA Hydromorphone HCl (Hydromorphone 0.5 Mg Inj) 0.5 mg IV NOW ONE Stop: 11/19/22 01:39 Ketorolac Tromethamine (Ketorolac 30 Mg/Ml Vial) 30 mg IV NOW ONE Stop: 11/18/22 22:31 Last Admin: 11/18/22 22:58 Dose: 30 mg Documented By: NAIMA Ondansetron HCl (Ondansetron 4 Mg/2 Ml Inj) 4 mg IV NOW ONE Stop: 11/18/22 23:02 Last Admin: 11/18/22 23:04 Dose: 4 mg Documented By: NAIMA Vital Signs Vital signs: Vital Signs - 8 hr 11/18/22 22:20 Temperature 97.3 F L Pulse Rate 111 H Respiratory Rate 18 Blood Pressure 187/109 H Pulse Oximetry 97 Oxygen Delivery Method Room Air Medical Decision Making Lab Data Lab results reviewed: Yes I reviewed the patient's lab results. 11/18/22 22:50 11/18/22 22:50 Labs: Lab Results 11/18/22 11/18/22 11/18/22 Range/Units 22:50 22:50 23:34 WBC 10.9 (4.5-11.0) X10^3/uL RBC 5.72 (4.5-5.9) X10^6/uL Hgb 15.1 (13.5-17.5) g/dL Hct 43.7 (41-53) % MCV 76.4 L (80-100) fL MCH 26.4 (26-34) PG MCHC 34.5 (30-36) % RDW 14.2 (11.6-14.8) % Plt Count 210 (150-400) X10^3/uL Neut % (Auto) 52.7 (50-75) % Lymph % (Auto) 36.9 (25-40) % [place] % (Auto) 6.4 (3-14) % Eos % (Auto) 2.8 (2-4) % Baso % (Auto) 1.2 (0-2) % Neut # (Auto) 5700 (1360-2348) /uL Lymph # (Auto) 4000 (7244-8719) /uL [place] # (Auto) 700 (0-900) /uL Eos # (Auto) 300 (0-450) /uL Baso # (Auto) 100 (0-100) /uL Sodium 136 L (137-145) mmol/L Potassium 4.2 (3.4-5.1) mmol/L Chloride 101 (98-107) mmol/L Carbon Dioxide 22 (22-32) mmol/L BUN 14 (9-20) mg/dL Creatinine 0.85 (0.66-1.25) mg/dL Estimated GFR > 60 (>60) mL/min BUN/Creatinine Ratio 16.5 (6-22) Glucose 355 H (70-100) mg/dL Calcium 8.8 (8.4-10.2) mg/dL Urine Color Yellow Urine Appearance Clear Urine pH 5.5 (4.5-8.0) Ur Specific [place] 1.020 (1.000-1.035) Urine Protein 1+ H (Negative) Urine Glucose (UA) 3+ H (Negative) g/dL Urine Ketones Negative (NEGATIVE) Urine Occult Blood 3+ H (Negative) Urine Nitrate Negative (Negative) Urine Bilirubin Negative (NEGATIVE) Urine Urobilinogen 0.2 (0.2) E.U./dL Ur Leukocyte Esterase Negative (NEGATIVE) Urine RBC 30-100/hpf H (0-5/HPF) Urine WBC 0-1/hpf (0-5/HPF) Urine Bacteria None seen (None) Ur Culture Indicated? Cult not indicated Discharge Plan Departure Patient Disposition: Home Clinical Impression: Renal colic Instructions: DI for Kidney Stones Activity Restrictions/Additional Instructions: I do recommend that you continue to take all of your medications as directed. Keep all of your scheduled medical appointments. Return to the emergency department for any new or worsening symptoms. Prescriptions: New ketorolac 10 mg tablet 10 mg PO TID PRN (Reason: pain) Qty: 12 0RF No Action (DME) lancets [Acti-Salomón Lancets] 28 gauge misc See Rx Instructions .Route Qty: 100 3RF Rx Instructions: Check blood glucose BID levetiracetam [Keppra] 500 mg tablet 1,500 mg PO BID Qty: 60 0RF Rx Instructions: You can take 1000mg tablet +500mg tablet po BID (DME) Blood Glucose Test Strip See Rx Instructions .Route Qty: 50 5RF Rx Instructions: check blood glucose twice a day losartan 50 mg tablet 50 mg PO BID Qty: 180 3RF Rx Instructions: Half tablet per day for 6 days then advance to 1 full tablet (DME) lancets [OneTouch Delica Plus Lancet] 33 gauge misc See Rx Instructions .ROUTE .MEDSUPPLY Qty: 100 Rx Instructions: As directed glipizide 5 mg tablet 5 mg PO DAILY Qty: 90 3RF Rx Instructions: Take with dinner metformin 500 mg tablet 500 mg PO BID Qty: 180 3RF levetiracetam [Keppra] 1,000 mg tablet 1,000 mg PO BID Qty: 60 0RF tamsulosin [Flomax] 0.4 mg capsule 0.4 mg PO DAILY Qty: 7 0RF oxycodone 5 mg tablet 5 mg PO Q6H PRN (Reason: pain) Qty: 10 0RF Referrals: Karl Mckeon, [Primary Care Provider] - Stand Alone Forms: Patient Portal/API
[2022-11-18] MEDS: KETOROLAC 30 MG/ML VIAL IV (22:58)
[2022-11-18] MEDS: ONDANSETRON 4 MG/2 ML INJ IV (23:04)
[2022-11-18 23:12] LABS: BUN Creatinine Ratio 16.5 (6-22); Blood Urea Nitrogen 14 mg/dL (9-20); Calcium 8.8 mg/dL (8.4-10.2); Carbon Dioxide 22 mmol/L (22-32); Chloride 101 mmol/L (98-107); Estimated Glomerular Filt Rate > 60 mL/min (>60); Glucose 355 mg/dL (70-100); HEMOLYSIS 26 (0-50); Potassium 4.2 mmol/L (3.4-5.1); Sodium 136 mmol/L (137-145)
[2022-11-18 23:27] LABS: Add Manual Diff / Slide Review NO; Basophils Absolute Auto 100 /uL (0-100); Basophils Percent Auto 1.2 % (0-2); Eosinophils Absolute Auto 300 /uL (0-450); Eosinophils Percent Auto 2.8 % (2-4); Hematocrit 43.7 % (41-53); Hemoglobin 15.1 g/dL (13.5-17.5); Lymphocytes Absolute Auto 4000 /uL (1100-4500); Lymphocytes Percent Auto 36.9 % (25-40); Mean Corpuscular HGB Conc 34.5 % (30-36); Mean Corpuscular Hemoglobin 26.4 PG (26-34); Mean Corpuscular Volume 76.4 fL (80-100); Monocytes Absolute Auto 700 /uL (0-900); Monocytes Percent Auto 6.4 % (3-14); Neutrophils Absolute Auto 5700 /uL (1500-7000); Neutrophils Percent Auto 52.7 % (50-75); Red Blood Cell Count 5.72 X10^6/uL (4.5-5.9); Red Cell Distribution Width 14.2 % (11.6-14.8); White Blood Cell Count 10.9 X10^3/uL (4.5-11.0)
[2022-11-18 23:40] LABS: Appearance Urine UA CLEAR; Bilirubin Urine UA NEGATIVE (NEGATIVE); Color Urine UA YELLOW; Glucose Urine UA 3+ g/dL (Negative); Ketones Urine UA NEGATIVE (NEGATIVE); Leukocyte Esterase Urine UA NEGATIVE (NEGATIVE); Nitrite Urine UA NEGATIVE (Negative); Occult Blood Urine UA 3+ (Negative); Protein Urine UA 1+ (Negative); Urobilinogen Urine UA 0.2 E.U./dL (0.2); pH Urine UA 5.5 (4.5-8.0)
[2022-11-18 23:41] LABS: Platelet Count 210 X10^3/uL (150-400)
[2022-11-18] MEDS: HYDROMORPHONE 1 MG INJ IV (23:44)
[2022-11-18 23:58] LABS: RBC Urine 30-100/HPF (0-5/HPF); WBC Urine 0-1/HPF (0-5/HPF)
[2022-11-18 23:59] LABS: Bacteria Urine None Seen; Culture Indicated Urine Cult Not Indicated
[2022-11-19] MEDS: HYDROMORPHONE 1 MG INJ IV (00:57)
[2022-11-19] MEDS: HYDROMORPHONE 0.5 MG INJ IV (01:43)
[2022-11-19 01:50] VITALS: BP 152/105; PULSE 106; RESP 18; O2SAT 95
== END 2022-11-19 01:51 | disposition home or self-care (01) ==
PROVIDERS: Emergency Provider Emergency Medicine; PCP Family Medicine
DX: N23 Unspecified renal colic (principal)
CPT/HCPCS: 36415; 80048; 81001; 85025; 96374; 96375; 96376; 99284; J1170; J1885; J2405

== ENCOUNTER 2022-11-22 07:53 | Day surgery (SDC) | payer OTHER, MEDICAID, SELFPAY ==
[2021-11-17 12:10] VITALS: BMI 39.8
[2022-11-22] VITALS (8 sets, daily range): BP systolic 116–161; BP diastolic 80–106; PULSE 86–102; RESP 8–21; TEMP 36–36.6; O2SAT 95–98; BMI 41.5
[2022-11-22] MEDS: LACTATED RINGERS 1,000 ML 21 ML IV (08:51)
--- NOTE | 2022-11-22 09:13 | PM.PREOP ---
Pre-operative Note COVID-19 COVID-19 status: Not tested Criteria for continued procedure: Delay expected to result in less-positive ultimate med/surg outcome and Non-surgical alternatives not available or appropriate per current SOC Interval Note History & Physical reviewed/Exam performed by Physician: Yes Changes to H&P: No
[2022-11-22] MEDS: CEFAZOLIN 2 GM/100 ML PREMIX 100 ML IV (09:20)
--- NOTE | 2022-11-22 09:41 | SUR.OPER ---
Lithotomy on padded OR bed, head on pillow, arms secured on padded arm boards at <90 degrees abduction. Legs secured in padded yellow fins stirrups.
--- NOTE | 2022-11-22 10:21 | P.OP_ITS ---
Procedure & Clinicians Procedure: Right extracorporeal shockwave lithotripsy, cystoscopy, right ureteral stent placement Same procedure as scheduled: Yes Indications: This 37-year-old male presented to the emergency department with complaints of renal colic. Was found to have right-sided stones. He presents this time for the above procedure to begin treating his stones. He does have left-sided stones but they are asymptomatic at present. Patient is aware that we may not be able to treat all the stones in the right side today because of the burden. We will attempt to do so. Surgeon: Peter Hernandez Click Yes if Unassisted: Yes Anesthesia Type: General Operative Notes Findings: Findings: At cystoscopy urethral meatus was normal urethra is normal along its entire length with normal mucosa sphincter was well coapted prostate showed minimal obstructive character. The right and left ureteral orifice with normal position with clear efflux. There were no mucosal lesions or abnormalities in the bladder mucosa or bladder. The stone was noted to be in the UPJ there were 2 other stones observed. The 7 Slovenian by multi length stent was left in good position in the right collecting system without a string. The UPJ stone was treated with 2000 shocks at level 7-7.5 and appeared to fragment well the upper mid stone was treated with 400 shocks and there was some fragmentation. Other stones were not treated Closure Type: not applicable Specimen(s): other Prosthetic devices, grafts, tissues, transplants, or devices: 7 Slovenian by multi length ureteral stent left in the right collecting system without a string Procedure in detail: Procedure in detail: After informed consent was obtained, the patient was identified and brought to the operating room where he was placed on the Lithotripter. He was in the supine position anesthesia was induced and maintained. Ensuring an adequate level of anesthesia the patient was transitioned to the lithotomy position where he was prepped, draped, prepared for Transurethral procedure. After prepping draping time-out in ensuring an adequate level of anesthesia a 22 Slovenian cystoscope was passed through the urethra prostate and in the bladder were cystoscopy is performed. The right ureteral orifice was identified and the guidewire passed up in the collecting system under fluoroscopic visualization. The stent was then passed over the wire positioned in the renal pelvis with fluoroscopic visualization in the bladder under direct vision. Grasping forceps was inserted in the nylon heart is was removed the stent was left in excellent position without a string. The scope was removed after the bladder was drained and the patient was transitioned back to the supine position on the Lithotripter. The UPJ stone was then targeted with the imaging system and received shock waves at level 7-7.5 with periodic reimaging and re localization to ensure maximal energy delivered to the stone. At 2000 shocks the shockwave head was rotated out in the stone appeared to be well fragmented the upper mid stone was then targeted via the imaging system received the remainder of the 400 shocks with periodic Reimaging and re localization again to assure maximal energy delivered to the stone appear to fragment. At 12:00 p.m. shock waves the shockwave head was once again rotated out and for fluoroscopy revealed the UPJ stone to be well fragmented and that there was fragmentation of the upper stone. At this point the procedure was. The patient was awakened having tolerated the procedure well. He will be transitioned to the postanesthesia care for recovery and then to home straining his urine and saving any fragments to bring to follow-up. There were no complications. Complications: none Post-operative Condition: stable Disposition: PACU Plan for aftercare: Patient to be discharged to home to follow up my office in approximately 10-14 days with a KUB is to strain his urine save any fragments caught and bring them so that we can send them for compositional analysis.
[2022-11-22] MEDS: OXYCODONE IR 5 MG TABLET PO (10:39)
[2022-11-22] MEDS: OXYBUTYNIN 5 MG TABLET PO (10:49)
[2022-11-22] MEDS: PHENAZOPYRIDINE 100 MG TABLET 200 MG PO (10:49)
== END 2022-11-22 11:42 | disposition home or self-care (01) ==
PROVIDERS: PCP Family Medicine; Referring Provider Urology; Visit Provider Urology
PROC: (CPT 50590; principal; 2022-11-22 09:15)
PROC: (CPT 50590; 2022-11-22 09:15)
DX: N20.1 Calculus of ureter (principal)
CPT/HCPCS: 50590; 52332; 82962; J0690; J1885; J2250; J2405; J2704; J3010

== ENCOUNTER → 2022-12-03 13:04 | Outpatient (CLI) | payer OTHER, MEDICAID, SELFPAY ==
[2021-11-17 12:10] VITALS: BMI 39.8
--- NOTE | 2022-12-03 13:08 | DI.RAD.S_ITS ---
PROCEDURE: XR KUB INDICATIONS: ureteral stent placement, kidney stones TECHNIQUE: One view of the abdomen acquired. COMPARISON: [facility], , XR KUB, 11/12/2022, 16:20. FINDINGS: Surgical changes and devices: Right ureteral stent. Bowel: Bowel gas pattern is normal. Soft tissues: Multiple right renal stones without significant change compared to prior exam. Visualized solid organ contours appear normal in size. Bones: No suspicious bony lesions. IMPRESSION: Right ureteral stent. Dictated by: Madina Bazan MD, PhD on 12/03/2022 at 13:59 Approved by: Madina Bazan MD, PhD on 12/03/2022 at 13:59
== END ==
PROVIDERS: PCP Family Medicine; Referring Provider Urology; Visit Provider Urology
DX: N20.0 Calculus of kidney (principal); Z96.0 Presence of urogenital implants
CPT/HCPCS: 74018

== ENCOUNTER → 2022-12-10 14:26 | Outpatient (CLI) | payer OTHER, MEDICAID, SELFPAY ==
[2021-11-17 12:10] VITALS: BMI 39.8
--- NOTE | 2022-12-10 14:27 | DI.RAD.S_ITS ---
PROCEDURE: XR KUB INDICATIONS: kidney stones TECHNIQUE: One view of the abdomen acquired. COMPARISON: [facility], CR, XR KUB, 11/12/2022, 16:20. [facility], CR, XR KUB, 12/03/2022, 13:16. FINDINGS: Surgical changes and devices: None. Bowel: Bowel gas pattern is normal. Soft tissues: Stable right ureteral stent. Multiple calcific densities previously identified projecting over the lower pole of the right kidney decreased in size possibly related to ESWL. 1.0 centimeter calcification projects over the midpole of the left kidney. Visualized solid organ contours appear normal in size. Bones: No suspicious bony lesions. IMPRESSION: Bilateral renal stones. Right ureteral stent. Dictated by: Madina Bazan MD, PhD on 12/10/2022 at 16:30 Approved by: Madina Bazan MD, PhD on 12/10/2022 at 16:31
== END ==
PROVIDERS: PCP Family Medicine; Referring Provider Urology; Visit Provider Urology
DX: N20.0 Calculus of kidney (principal); R31.29 Other microscopic hematuria; Z87.448 Personal history of other diseases of urinary system; Z96.0 Presence of urogenital implants
CPT/HCPCS: 74018

== ENCOUNTER → 2022-12-12 09:49 | Outpatient (CLI) | payer OTHER, MEDICAID, SELFPAY ==
[2021-11-17 12:10] VITALS: BMI 39.8
[2022-12-18 20:07] LABS: Ca oxalate monohydr 40 % (.); Uric Acid 60 % (.)
== END ==
PROVIDERS: PCP Family Medicine; Visit Provider Urology
DX: N20.0 Calculus of kidney (principal); R31.9 Hematuria, unspecified; Z96.0 Presence of urogenital implants; Z87.448 Personal history of other diseases of urinary system; R31.29 Other microscopic hematuria
CPT/HCPCS: 82365; 99214

== ENCOUNTER 2022-12-31 07:55 | Day surgery (SDC) | payer OTHER, MEDICAID, SELFPAY ==
[2021-11-17 12:10] VITALS: BMI 39.8
[2022-12-27 10:20] VITALS: BMI 41.5
[2022-12-31] VITALS (7 sets, daily range): BP systolic 117–165; BP diastolic 61–100; PULSE 109–130; RESP 17–29; TEMP 36.4–36.6; O2SAT 90–97; BMI 41.5
[2022-12-31] MEDS: LACTATED RINGERS 1,000 ML 21 ML IV ×3 (08:28→10:56)
--- NOTE | 2022-12-31 09:02 | PM.PREOP ---
Pre-operative Note COVID-19 COVID-19 status: Not tested Criteria for continued procedure: Non-surgical alternatives not available or appropriate per current SOC Interval Note History & Physical reviewed/Exam performed by Physician: Yes Changes to H&P: No
[2022-12-31] MEDS: CEFAZOLIN 2 GM/100 ML PREMIX 100 ML IV (09:30)
--- NOTE | 2022-12-31 10:00 | SUR.OPER ---
Lithotomy on ESWL table, head on pillow, arms padded with gel pads and tucked at sides. Legs secured in padded ESWL stirrups. Warm blankets placed. For ESWL-Pt remained on ESWL table, Legs then placed on padded ESWL table extension with foam wedge under knees.
--- NOTE | 2022-12-31 10:29 | PM.OP.1 ---
Procedure & Clinicians Procedure: Left extracorporeal shockwave lithotripsy, cystoscopy with left stent placement and right stent removal Same procedure as scheduled: Yes Indications: This is a very pleasant 37-year-old male who presented with bilateral stones. He is had his right stones treated and has passed fragments. He presents this time for removal of the stent placed at that treatment and left extracorporeal shockwave lithotripsy with left stent placement to finish the treatment of his stones. Surgeon: Peter Hernandez Click Yes if Unassisted: Yes Anesthesia Type: General Operative Notes Findings: Findings: At cystoscopy urethral meatus was normal urethra is normal along its length with normal mucosa sphincter as well coapted prostate showed nonobstructive character. In the right ureteral orifice there was some bullous edema with the stent with minimal Pyridium tinged encrustation. It was removed in its entirety that is the right ureteral stent and the stent was otherwise unremarkable. The left ureteral orifice was in normal position with clear efflux. The mucosa other than the bullous edema was normal. The stone received 2000 shocks at level 7-1/2 and appeared to fragment quite well. A 7 [place] by multi length stent was left in good position in the left collecting system without a string. Closure Type: not applicable Specimen(s): none sent Prosthetic devices, grafts, tissues, transplants, or devices: Seven Macanese by multi length stent in the left collecting system without a string. The right stent was removed in its entirety. Blood products transfused: none Procedure in detail: Procedure in detail: After informed consent was obtained, the patient was identified and brought to the operating room where he was placed in a supine position Lithotripter. Patient then had anesthesia induced and maintained ensuring an adequate local anesthesia the patient was transitioned to the lithotomy position where he was prepped, draped, prepared for Transurethral procedure. After prepping, draping, time-out and ensuring an adequate level of anesthesia a 22 Macanese cystoscope was passed through the urethra prostate and in the bladder were cystoscopy was performed the left ureteral orifice was identified and a guidewire easily passed up and into the collecting system. Stent was then passed over the wire in a coaxial fashion positioned in the renal pelvis under fluoroscopic visualization and in the bladder under direct vision the nylon harness was removed. Grasping forceps was then used to grasp the right stent and it was removed in its entirety. Cystoscope was once again reinserted and the bladder was drained the scope was removed and the patient was returned to the supine position. Patient then had these stone positioned at F1 via the imaging system and shockwave delivered. At around 100 shocks a pause was held. The shockwave once again resumed and the patient received a total of 2000 shocks at level 7-1/2 with periodic reimaging and re localization to make sure maximal shockwave energy was delivered to the stone. At 2000 shocks the shockwave head was rotated out and fluoroscopy performed this confirmed that the stone had fragmented appearing completely and therefore the patient was awakened, taken to the postanesthesia care unit having tolerated the procedure well. Patient will be discharged to home straining his urine saving any fragments to follow up my office in the next 10-14 days. There were no complications Complications: none Post-operative Condition: stable Disposition: PACU Plan for aftercare: Patient to be discharged to home draining his urine saving any fragments to follow up my office in the next 10-14 days.
[2022-12-31] MEDS: ACETAMINOPHEN 325 MG TABLET 650 MG PO (10:59)
[2022-12-31] MEDS: OXYBUTYNIN 5 MG TABLET PO (10:59)
[2022-12-31] MEDS: OXYCODONE IR 5 MG TABLET PO (10:59)
[2022-12-31] MEDS: PHENAZOPYRIDINE 100 MG TABLET 200 MG PO (11:00)
--- NOTE | 2022-12-31 11:02 | SUR.PHASEI ---
Pt HR in the 130s upon arrival to the PACU. Provider ok with this Hr as pt had a HR of 109 at the start of his procedure. Pt HR in the 110's at end of phase 1.
[2022-12-31] MEDS: hydrOXYzine pamoate 25 MG CAPSULE 50 MG PO (11:18)
== END 2022-12-31 12:42 | disposition home or self-care (01) ==
PROVIDERS: PCP Family Medicine; Referring Provider Urology; Visit Provider Urology
PROC: (CPT 50590; principal; 2022-12-31 09:15)
DX: N20.0 Calculus of kidney (principal)
CPT/HCPCS: 50590; 52332; 52310; 82962; J0690; J1100; J2250; J2405; J2704; J3010

== ENCOUNTER 2023-01-11 21:02 | Emergency (ER) | payer OTHER, MEDICAID, SELFPAY ==
[2021-11-17 12:10] VITALS: BMI 39.8
[2023-01-11 21:04] VITALS: BP 189/102; PULSE 119; RESP 20; TEMP 36.8; O2SAT 98; BMI 43.2
[2023-01-11] MEDS: HYDROMORPHONE 0.5 MG INJ IV ×3 (21:26→23:36)
[2023-01-11] MEDS: ONDANSETRON 4 MG/2 ML INJ IV (21:26)
[2023-01-11] MEDS: SODIUM CHLORIDE 0.9% 1,000 ML 1000 ML IV (21:27)
--- NOTE | 2023-01-11 21:51 | ED_ITS ---
HPI - General Adult General Chief complaint: Abdominal Pain Stated complaint: R kidney pain, Hematemesis Time Seen by Provider: 01/11/23 21:11 Source: patient Mode of arrival: Ambulatory History of Present Illness HPI narrative: 37-year-old gentleman with a history of recurrent kidney stones, seizures, hypertension, hyperlipidemia and type 2 diabetes who presents with acute onset of right sided flank pain associated with fairly violent emesis by description with blood-tinged vomitus appreciated. He is had significant stones is followed by Dr. Hernandez 2 months ago had lithotripsy and a stent placed on the left side. Two weeks ago he had lithotripsy on the right side, left stent removed and new right stent placed. has been doing well and occasionally uses Pyridium for pain control. This evening he had right-sided severe flank pain on the right side. He notes that he went back to work today and had been doing quite a bit of be nding and lifting without any difficulties at work. The right-sided pain was severe, acute and associated with nausea which led to the rather violent emesis. States that this is typically what his kidney stones will do. He denies fever, cough, chills. He has a follow-up appointment with Dr. Hernandez scheduled in 3 days. Related Data Home Medications Medication Instructions Recorded Confirmed lancets 33 gauge (OneTouch Delica #100 ea 02/15/22 12/12/22 Plus Lancet) levetiracetam 500 mg tablet 1,500 mg PO BID 11/22/22 12/31/22 (Keppra) Previous Rx's Medication Instructions Recorded lancets 28 gauge (Acti-Salomón #100 ea 12/26/21 Lancets) glipizide 5 mg tablet 5 mg PO DAILY #90 tabs 02/15/22 metformin 500 mg tablet 500 mg PO BID #180 tabs 02/15/22 losartan 50 mg tablet 50 mg PO BID #180 tabs 08/16/22 blood sugar diagnostic (Blood #50 ea 10/24/22 Glucose Test strips) tamsulosin 0.4 mg capsule (Flomax) 0.4 mg PO DAILY #7 caps 11/08/22 phenazopyridine 200 mg tablet 200 mg PO TID PRN Bladder 12/12/22 (Pyridium) irritation #30 tabs phenazopyridine 200 mg tablet 200 mg PO TID PRN Bladder 12/31/22 (Pyridium) irritation #30 tabs Allergies Allergy/AdvReac Type Severity Reaction Status Date / Time No Known Drug Allergies Allergy Verified 01/11/23 21:04 Review of Systems Review of Systems Narrative: Remainder of complete review of systems is otherwise unremarkable except for that included in the HPI. Patient History Medical History Bilateral kidney stones Borderline hyperlipidemia Epilepsy Hematuria History of renal colic Hypertension Prediabetes Retained ureteral stent Seizure Type 2 diabetes mellitus Surgical History Anesthesia Hx of cystoscopy (2018) Hx of cystoscopy (11/22/22) Scrotal abscess (~11/17/21) Social History marital status: number of children: 0 household members: significant other occupational status: employed Smoking Status: Smoker, status unknown alcohol intake: never caffeine: No Type(s) of exercise: weight lifting frequency: 3-4 times per week duration: > 90 minutes/day Smoking Status: Smoker, status unknown tobacco type: vaping alcohol intake frequency: holidays/special occasions only Substance Use Type: does not use Exam Initial Vital Signs Initial Vital Signs: Vital Signs Temperature 98.3 F 01/11/23 21:04 Pulse Rate 119 H 01/11/23 21:04 Respiratory Rate 20 01/11/23 21:04 Blood Pressure 189/102 H 01/11/23 21:04 Pulse Oximetry 98 01/11/23 21:04 Oxygen Delivery Method Room Air 01/11/23 21:04 General: Healthy appearing, in no acute distress. Able to give a complete and coherent history. Well-nourished well-developed HEENT: Moist mucous membranes, normal sclera with reactive pupils, Respiratory: Lungs are clear to auscultation, no wheezing no rales no rhonchi. Full and symmetrical air movement Cardiac: Regular rate and rhythm no murmurs no bruits Abdomen: Soft, nontender, good bowel tones, no flank pain after initial medications Skin: Warm and dry, no rashes Neurologic: Grossly neurologically intact with no obvious asymmetries or abnormalities Extremities: No trauma, well perfused Psych: Cooperative, appropriate insight and affect Course Orders Ordered: ED Orders 01/11/23 21:32 Comprehensive Metabolic Panel Stat Lipase Stat 01/11/23 21:57 Urine Microscopic Stat 01/11/23 22:05 Complete Blood Count AUTO DIFF Stat Hydromorphone HCl (Hydromorphone 0.5 Mg Inj) 0.5 mg IV Q15MIN PRN PRN Reason: Pain, Last Admin: 01/11/23 22:52 Dose: 0.5 mg Documented By: Admin: 01/11/23 21:26 Dose: 0.5 mg Documented By: NAIMA Ondansetron HCl (Ondansetron 4 Mg Odt) 4 mg PO NOW PRN PRN Reason: Nausea And Vomiting Ondansetron HCl (Ondansetron 4 Mg/2 Ml Inj) 4 mg IV NOW PRN PRN Reason: Nausea And Vomiting Discontinued Medications Hydromorphone HCl (Hydromorphone 1 Mg Inj) 1 mg IV NOW ONE Stop: 01/11/23 21:53 Last Admin: 01/11/23 21:56 Dose: 1 mg Documented By: NAIMA Sodium Chloride (Normal Saline 0.9%) 1,000 mls @ 1,000 mls/hr IV BOLUS ONE Stop: 01/11/23 22:10 Last Infusion: 01/11/23 23:00 Dose: 0 mls/hr Documented By: Admin: 01/11/23 21:27 Dose: 1,000 mls/hr Documented By: NAIMA Ketorolac Tromethamine (Ketorolac 30 Mg/Ml Vial) 15 mg IV NOW ONE Stop: 01/11/23 21:53 Last Admin: 01/11/23 21:55 Dose: 15 mg Documented By: NAIMA Ondansetron HCl (Ondansetron 4 Mg/2 Ml Inj) 4 mg IV NOW ONE Stop: 01/11/23 21:12 Last Admin: 01/11/23 21:26 Dose: 4 mg Documented By: NAIMA Vital Signs Vital signs: Vital Signs - 8 hr 01/11/23 21:04 Temperature 98.3 F Pulse Rate 119 H Respiratory Rate 20 Blood Pressure 189/102 H Pulse Oximetry 98 Oxygen Delivery Method Room Air Medical Decision Making Lab Data 01/11/23 22:05 01/11/23 21:32 Labs: Lab Results 01/11/23 01/11/23 01/11/23 Range/Units 21:32 21:57 22:05 WBC 8.2 (4.5-11.0) X10^3/uL RBC 5.21 (4.5-5.9) X10^6/uL Hgb 13.5 (13.5-17.5) g/dL Hct 41.0 (41-53) % MCV 78.7 L (80-100) fL MCH 25.9 L (26-34) PG MCHC 32.9 (30-36) % RDW 14.3 (11.6-14.8) % Plt Count 185 (150-400) X10^3/uL Neut % (Auto) 63.6 (50-75) % Lymph % (Auto) 26.5 (25-40) % [place] % (Auto) 6.4 (3-14) % Eos % (Auto) 2.3 (2-4) % Baso % (Auto) 1.2 (0-2) % Neut # (Auto) 5200 (4543-2850) /uL Lymph # (Auto) 2200 (2200-8415) /uL [place] # (Auto) 500 (0-900) /uL Eos # (Auto) 200 (0-450) /uL Baso # (Auto) 100 (0-100) /uL Sodium 139 (137-145) mmol/L Potassium 4.2 (3.4-5.1) mmol/L Chloride 100 (98-107) mmol/L Carbon Dioxide 28 (22-32) mmol/L BUN 14 (9-20) mg/dL Creatinine 1.23 (0.66-1.25) mg/dL Estimated GFR > 60 (>60) mL/min BUN/Creatinine Ratio 11.4 (6-22) Glucose 204 H (70-100) mg/dL Calcium 9.2 (8.4-10.2) mg/dL Total Bilirubin 0.6 (0.2-1.3) mg/dL AST 44 (17-59) IU/L ALT 68 H (<50) IU/L Alkaline Phosphatase 55 (38-126) U/L Total Protein 7.7 (6.3-8.2) g/dL Albumin 4.3 (3.5-5.0) g/dL Globulin 3.4 (1.7-4.1) g/dL Albumin/Globulin Ratio 1.3 (1.0-2.8) Lipase 185 (23-300) U/L Urine RBC >100/hpf H (0-5/HPF) Urine WBC 1-5/hpf (0-5/HPF) Ur Squamous Epith Cells None seen (0-5/HPF) Urine Bacteria None seen (None) Ur Culture Indicated? Cult not indicated MDM Narrative Medical decision making narrative: CC: Right flank pain and associated hematemesis, acute issues uncertain prognosis Complicating co-morbidities: Multiple will stones. Recent left-sided lithotripsy and stent and 2 weeks ago left-sided stent removed and right side lithotripsy with stent placement. Data collected from: patient, Medical records reviewed: Outpatient notes from Dr. Hernandez as well as recent surgical intervention and inpatient notes are all reviewed Differential considered: Upper GI bleed, nephrolithiasis with pain secondary to stone movement or stent placement, pyelonephritis, gastroenteritis Exam documented above, pertinent findings include: Awake alert and appropriate. No upper abdominal pain. Hemodynamically stable. After initial dose of pain medications and on my initial exam he has no remaining flank pain. Lab Test results independently reviewed as above. Pertinent findings: CBC shows no leukocytosis, no anemia Chemistries show chronically elevated ALT and glucose remaining labs are unremarkable Lipase is normal at 185 Imaging studies independently reviewed: CT KUB shows stable right ureteral stent bilateral renal stones no other significant abnormalities appreciated Treatments: Fluids, Zofran, Toradol, Dilaudid Discussion: 37-year-old gentleman with multiple kidney stones recent lithotrips y bilaterally currently with a right-sided stent in place. Suspect that the pain that he experienced is related to kidney stones as they are continuing to move. I suspect that that caused the nausea with the severe vomiting and the hematemesis that he describes is most likely trauma related rather than true upper GI bleeding. There is no evidence of persistent blood loss or continuing upper GI concerns at this time. Pain and nausea have both been controlled. Given a prepack of Percocet to use over the next 24 hours if needed. He has a follow-up with his urologist in 72 hours and will ask him to keep that. Is aware of reasons to return to the emergency department. Reviewed imaging as well as lab work with him. Questions are answered and he is safe for discharge home Discharge Plan Departure Patient Disposition: Home Clinical Impression: Bilateral nephrolithiasis, Ureteral stent present, Hematemesis with nausea Instructions: DI for Kidney Stones Activity Restrictions/Additional Instructions: Thank you for coming in today There does not appear to be any acute abnormality that needs further workup or hospitalization today. I am pleased that we were able to get your pain under control. I suspect that the severe pain that you are experienced is from movement of some of your kidney stones. With your description of the severity of the vomiting you are experiencing, I suspect that the blood do noticed his simply from the trauma of vomiting rather than actual bleeding in your stomach. Your lab work is quite reassuring. There does not appear to be any acute severe anemia, infection, pyelonephritis, worsening issues with your kidneys are significant hydronephrosis. I would recommend you continue current regimen as it seems to be working well. I have given you a couple tablets of Percocet that can be used as needed over the next 24 hours. If you develop any fever, persistent abdominal pain, recurrent vomiting, any additional blood in your vomit than it is appropriate to return to the emergency department. Please make sure you do keep your follow-up appointment with Dr. Hernandez early this week. Prescriptions: No Action (DME) lancets [Acti-Salomón Lancets] 28 gauge misc See Rx Instructions .Route Qty: 100 3RF Rx Instructions: Check blood glucose BID (DME) Blood Glucose Test Strip See Rx Instructions .Route Qty: 50 5RF Rx Instructions: check blood glucose twice a day losartan 50 mg tablet 50 mg PO BID Qty: 180 3RF Rx Instructions: Half tablet per day for 6 days then advance to 1 full tablet (DME) lancets [OneTouch Delica Plus Lancet] 33 gauge misc See Rx Instructions .ROUTE .MEDSUPPLY Qty: 100 Rx Instructions: As directed glipizide 5 mg tablet 5 mg PO DAILY Qty: 90 3RF Rx Instructions: Take with dinner metformin 500 mg tablet 500 mg PO BID Qty: 180 3RF levetiracetam [Keppra] 500 mg tablet 1,500 mg PO BID Rx Instructions: You can take 1000mg tablet +500mg tablet po BID phenazopyridine [Pyridium] 200 mg tablet 200 mg PO TID PRN (Reason: Bladder irritation) Qty: 30 1RF tamsulosin [Flomax] 0.4 mg capsule 0.4 mg PO DAILY Qty: 7 0RF phenazopyridine [Pyridium] 200 mg tablet 200 mg PO TID PRN (Reason: Bladder irritation) Qty: 30 0RF Referrals: Karl Mckeon DO [Primary Care Provider] - Stand Alone Forms: Patient Portal/API
[2023-01-11 21:52] LABS: Alanine Aminotransferase 68 IU/L (<50); Albumin 4.3 g/dL (3.5-5.0); Albumin Globulin Ratio 1.3 (1.0-2.8); Alkaline Phosphatase 55 U/L (38-126); Aspartate Aminotransferase 44 IU/L (17-59); BUN Creatinine Ratio 11.4 (6-22); Bilirubin Total 0.6 mg/dL (0.2-1.3); Blood Urea Nitrogen 14 mg/dL (9-20); Calcium 9.2 mg/dL (8.4-10.2); Carbon Dioxide 28 mmol/L (22-32); Chloride 100 mmol/L (98-107); Estimated Glomerular Filt Rate > 60 mL/min (>60); Globulin 3.4 g/dL (1.7-4.1); Glucose 204 mg/dL (70-100); HEMOLYSIS < 15 (0-50); Lipase 185 U/L (23-300); Potassium 4.2 mmol/L (3.4-5.1); Sodium 139 mmol/L (137-145); Total Protein 7.7 g/dL (6.3-8.2)
[2023-01-11] MEDS: KETOROLAC 30 MG/ML VIAL 15 MG IV (21:55)
[2023-01-11] MEDS: HYDROMORPHONE 1 MG INJ IV (21:56)
[2023-01-11 22:19] LABS: Add Manual Diff / Slide Review NO; Basophils Absolute Auto 100 /uL (0-100); Basophils Percent Auto 1.2 % (0-2); Eosinophils Absolute Auto 200 /uL (0-450); Eosinophils Percent Auto 2.3 % (2-4); Hemoglobin 13.5 g/dL (13.5-17.5); Lymphocytes Absolute Auto 2200 /uL (1100-4500); Lymphocytes Percent Auto 26.5 % (25-40); Mean Corpuscular HGB Conc 32.9 % (30-36); Mean Corpuscular Hemoglobin 25.9 PG (26-34); Mean Corpuscular Volume 78.7 fL (80-100); Monocytes Absolute Auto 500 /uL (0-900); Monocytes Percent Auto 6.4 % (3-14); Neutrophils Absolute Auto 5200 /uL (1500-7000); Neutrophils Percent Auto 63.6 % (50-75); Platelet Count 185 X10^3/uL (150-400); Red Blood Cell Count 5.21 X10^6/uL (4.5-5.9); Red Cell Distribution Width 14.3 % (11.6-14.8); White Blood Cell Count 8.2 X10^3/uL (4.5-11.0)
[2023-01-11 22:20] LABS: Bacteria Urine None Seen; Culture Indicated Urine Cult Not Indicated; RBC Urine >100/HPF (0-5/HPF); Squamous Epithelial Cell Urine None Seen (0-5/HPF); WBC Urine 1-5/HPF (0-5/HPF)
[2023-01-11 23:40] VITALS: BP 140/87; PULSE 97; RESP 16; O2SAT 93
[2023-01-11] MEDS: OXYCODONE/APAP 5/325 PREPACK 1 BOTTLE MISC (23:59)
[2023-01-12 00:12] VITALS: BP 139/84
== END 2023-01-12 00:13 | disposition home or self-care (01) ==
PROVIDERS: Emergency Provider Emergency Medicine; PCP Family Medicine
DX: N20.0 Calculus of kidney (principal); K92.0 Hematemesis; Z96.0 Presence of urogenital implants; Z79.899 Other long term (current) drug therapy
CPT/HCPCS: 36415; 80053; 81015; 83690; 85025; 96361; 96374; 96375; 96376; 99284; J1170; J1885; J2405

== ENCOUNTER → 2023-01-13 15:33 | Outpatient (CLI) | payer OTHER, MEDICAID, SELFPAY ==
[2021-11-17 12:10] VITALS: BMI 39.8
[2023-01-17 19:34] LABS: Ca oxalate monohydr 40 % (.); Size 7x6 mm (.); Uric Acid 60 % (.)
== END ==
PROVIDERS: PCP Family Medicine; Visit Provider Urology
DX: N20.0 Calculus of kidney (principal); Z96.0 Presence of urogenital implants
CPT/HCPCS: 82365; 87086

== ENCOUNTER → 2023-01-13 15:47 | Outpatient (CLI) | payer OTHER, MEDICAID, SELFPAY ==
[2021-11-17 12:10] VITALS: BMI 39.8
--- NOTE | 2023-01-13 15:48 | DI.RAD.S_ITS ---
PROCEDURE: XR KUB INDICATIONS: Kidney stones/after right ESWL TECHNIQUE: One view of the abdomen acquired. COMPARISON: [facility], CT, CT KIDNEY URETER BLADDER (KUB), 11/08/2022, 1:55. [facility], CR, XR KUB, 12/03/2022, 13:16. [facility], CR, XR KUB, 12/10/2022, 14:32. FINDINGS: Surgical changes and devices: A left ureteral stent is present. Bowel: Bowel gas pattern is normal. Soft tissues: A 7 mm calcification is seen projecting over the right paraspinal region at the level of L1-2. No definite left renal calculus. Visualized solid organ contours appear normal in size. Bones: No suspicious bony lesions. IMPRESSION: 1. Left ureteral stent. 2. Calculus seen projecting over the right paraspinal region, possibly within the right renal pelvis or proximal ureter. 3. Additional previously seen bilateral renal calculi are not well visualized on this exam. Approved by: Alber Coleman M.D. on 01/13/2023 at 20:52
== END ==
PROVIDERS: PCP Family Medicine; Referring Provider Urology; Visit Provider Urology
DX: N20.0 Calculus of kidney (principal); Z96.0 Presence of urogenital implants
CPT/HCPCS: 74018

== ENCOUNTER 2023-01-13 18:18 | Emergency (ER) | payer OTHER, MEDICAID, SELFPAY ==
[2021-11-17 12:10] VITALS: BMI 39.8
[2023-01-13] VITALS (8 sets, daily range): BP systolic 140–203; BP diastolic 78–115; PULSE 88–99; RESP 18; TEMP 36.8; O2SAT 91–98; BMI 43.2
[2023-01-13 18:59] LABS: Add Manual Diff / Slide Review NO; Basophils Absolute Auto 100 /uL (0-100); Basophils Percent Auto 1.2 % (0-2); Eosinophils Absolute Auto 200 /uL (0-450); Eosinophils Percent Auto 2.1 % (2-4); Hematocrit 42.6 % (41-53); Hemoglobin 14.2 g/dL (13.5-17.5); Lymphocytes Absolute Auto 2500 /uL (1100-4500); Lymphocytes Percent Auto 30.6 % (25-40); Mean Corpuscular HGB Conc 33.3 % (30-36); Mean Corpuscular Volume 78.1 fL (80-100); Monocytes Absolute Auto 400 /uL (0-900); Monocytes Percent Auto 5.4 % (3-14); Neutrophils Absolute Auto 5000 /uL (1500-7000); Neutrophils Percent Auto 60.7 % (50-75); Platelet Count 206 X10^3/uL (150-400); Red Blood Cell Count 5.46 X10^6/uL (4.5-5.9); Red Cell Distribution Width 14.3 % (11.6-14.8); White Blood Cell Count 8.2 X10^3/uL (4.5-11.0)
[2023-01-13] MEDS: KETOROLAC 30 MG/ML VIAL IV (19:16)
[2023-01-13] MEDS: ONDANSETRON 4 MG/2 ML INJ IV (19:16)
--- NOTE | 2023-01-13 19:30 | ED.GENADULT ---
HPI - General Adult General Chief complaint: Abdominal Pain Stated complaint: R side kidney stone pain T-0 Time Seen by Provider: 01/13/23 18:47 Source: patient Mode of arrival: Ambulatory History of Present Illness HPI narrative: Patient is a 37-year-old male. Known history of ureteral stones. Does have a ureteral stent in place. Is followed by Urology. Had a follow-up with the Urology today. Is not currently on any antibiotics. States that he has been passing stones since he had lithotripsy and stent placement. He comes in the emergency department this evening because of fairly sudden onset of right-sided discomfort that he states is consistent with his prior history of stones. No fevers. He is still able to urinate. Does not have pain medicine or nausea medicine at home. Was seen here in the emergency department a couple days ago for similar symptoms and he states he has passed a stone since that visit. Related Data Home Medications Medication Instructions Recorded Confirmed lancets 33 gauge (OneTouch Delica #100 ea 02/15/22 01/13/23 Plus Lancet) levetiracetam 500 mg tablet 1,500 mg PO BID 11/22/22 01/13/23 (Keppra) Previous Rx's Medication Instructions Recorded lancets 28 gauge (Acti-Salomón #100 ea 12/26/21 Lancets) glipizide 5 mg tablet 5 mg PO DAILY #90 tabs 02/15/22 metformin 500 mg tablet 500 mg PO BID #180 tabs 02/15/22 losartan 50 mg tablet 50 mg PO BID #180 tabs 08/16/22 blood sugar diagnostic (Blood #50 ea 10/24/22 Glucose Test strips) tamsulosin 0.4 mg capsule (Flomax) 0.4 mg PO DAILY #7 caps 11/08/22 phenazopyridine 200 mg tablet 200 mg PO TID PRN Bladder 12/12/22 (Pyridium) irritation #30 tabs phenazopyridine 200 mg tablet 200 mg PO TID PRN Bladder 12/31/22 (Pyridium) irritation #30 tabs sulfamethoxazole 800 1 tab PO BID 3 days #6 tabs 01/13/23 mg-trimethoprim 160 mg tablet (Bactrim DS) Allergies Allergy/AdvReac Type Severity Reaction Status Date / Time No Known Drug Allergies Allergy Verified 01/13/23 18:27 Review of Systems Constitutional Constitutional: Reports system reviewed and no additional complaints, except as documented Cardiovascular Cardiovascular: Reports system reviewed and no additional complaints, except as documented Gastrointestinal Gastrointestinal: Reports system reviewed and no additional complaints, except as documented Genitourinary Genitourinary: Reports system reviewed and no additional complaints, except as documented Integumentary/Breasts Skin/Breast: Reports system reviewed and no additional complaints, except as documented Patient History Medical History Bilateral kidney stones Borderline hyperlipidemia Epilepsy Hematuria History of renal colic Hypertension Prediabetes Retained ureteral stent Seizure Type 2 diabetes mellitus Surgical History Anesthesia Hx of cystoscopy (2018) Hx of cystoscopy (11/22/22) Scrotal abscess (~11/17/21) Social History marital status: number of children: 0 household members: significant other occupational status: employed Smoking Status: Smoker, status unknown alcohol intake: never caffeine: No Type(s) of exercise: weight lifting frequency: 3-4 times per week duration: > 90 minutes/day Smoking Status: Smoker, status unknown tobacco type: vaping alcohol intake frequency: holidays/special occasions only Substance Use Type: does not use Exam Initial Vital Signs Initial Vital Signs: Vital Signs Temperature 98.2 F 01/13/23 18:23 Pulse Rate 88 01/13/23 18:23 Respiratory Rate 18 01/13/23 18:23 Blood Pressure 203/115 H 01/13/23 18:23 Pulse Oximetry 98 01/13/23 18:23 Oxygen Delivery Method Room Air 01/13/23 18:23 [facility] Head: normal to inspection and normocephalic Resp Effort & Inspection: normal respiratory effort Cardio Rate: regular rate GI Inspection: normal to inspection and non-distended Neuro General: patient alert, patient awake and moves all extremities Extrem General: normal to inspection Course Orders Ordered: ED Orders 01/13/23 18:50 Complete Blood Count AUTO DIFF Stat 01/13/23 19:20 Basic Metabolic Panel Stat 01/13/23 19:51 Urine Culture Stat Urine Microscopic Stat Discontinued Medications Hydromorphone HCl (Hydromorphone 1 Mg Inj) 1 mg IV NOW ONE Stop: 01/13/23 19:31 Last Admin: 01/13/23 19:32 Dose: 1 mg Documented By: Hydromorphone HCl (Hydromorphone 0.5 Mg Inj) 0.5 mg IV NOW ONE Stop: 01/13/23 20:32 Last Admin: 01/13/23 20:34 Dose: 0.5 mg Documented By: Hydromorphone HCl (Hydromorphone 0.5 Mg Inj) 0.5 mg IV NOW ONE Stop: 01/13/23 21:29 Last Admin: 01/13/23 21:34 Dose: 0.5 mg Documented By: Ketorolac Tromethamine (Ketorolac 30 Mg/Ml Vial) 30 mg IV NOW ONE Stop: 01/13/23 19:08 Last Admin: 01/13/23 19:16 Dose: 30 mg Documented By: Ondansetron HCl (Ondansetron 4 Mg/2 Ml Inj) 4 mg IV NOW ONE Stop: 01/13/23 19:08 Last Admin: 01/13/23 19:16 Dose: 4 mg Documented By: Ondansetron HCl (Ondansetron 4 Mg Odt Prepack) 1 bottle MISC SEEINSTR ONE Stop: 01/13/23 21:29 Last Admin: 01/13/23 21:34 Dose: 1 bottle Documented By: Oxycodone/Acetaminophen (Oxycodone/Apap 5/325 Prepack) 1 bottle MISC SEEINSTR ONE Stop: 01/13/23 21:29 Last Admin: 01/13/23 21:34 Dose: 1 bottle Documented By: Trimethoprim/Sulfamethoxazole (Trimeth/Sulfa 160/800 (Ds) Tablet) 1 tab PO NOW ONE Stop: 01/13/23 21:29 Last Admin: 01/13/23 21:34 Dose: 1 tab Documented By: Vital Signs Vital signs: Vital Signs - 8 hr 01/13/23 18:23 01/13/23 19:55 01/13/23 19:38 Temperature 98.2 F Pulse Rate 88 90 99 H Respiratory Rate 18 Blood Pressure 203/115 H Pulse Oximetry 98 98 91 Oxygen Delivery Method Room Air Room Air 01/13/23 20:00 01/13/23 20:22 01/13/23 20:22 Temperature Pulse Rate 96 H 98 H Respiratory Rate Blood Pressure 140/95 H Pulse Oximetry 92 94 Oxygen Delivery Method 01/13/23 20:30 01/13/23 21:00 01/13/23 21:00 Temperature Pulse Rate 96 H 93 H Respiratory Rate Blood Pressure 149/78 H Pulse Oximetry 92 92 Oxygen Delivery Method 01/13/23 21:30 01/13/23 21:30 Temperature Pulse Rate 88 Respiratory Rate Blood Pressure 152/78 H Pulse Oximetry 92 Oxygen Delivery Method Medical Decision Making Lab Data 01/13/23 18:50 01/13/23 19:20 Labs: Lab Results 01/13/23 01/13/23 01/13/23 Range/Units 18:50 19:20 19:51 WBC 8.2 (4.5-11.0) X10^3/uL RBC 5.46 (4.5-5.9) X10^6/uL Hgb 14.2 (13.5-17.5) g/dL Hct 42.6 (41-53) % MCV 78.1 L (80-100) fL MCH 26.0 (26-34) PG MCHC 33.3 (30-36) % RDW 14.3 (11.6-14.8) % Plt Count 206 (150-400) X10^3/uL Neut % (Auto) 60.7 (50-75) % Lymph % (Auto) 30.6 (25-40) % [place] % (Auto) 5.4 (3-14) % Eos % (Auto) 2.1 (2-4) % Baso % (Auto) 1.2 (0-2) % Neut # (Auto) 5000 (9167-7976) /uL Lymph # (Auto) 2500 (9281-5411) /uL [place] # (Auto) 400 (0-900) /uL Eos # (Auto) 200 (0-450) /uL Baso # (Auto) 100 (0-100) /uL Sodium 137 (137-145) mmol/L Potassium 4.7 (3.4-5.1) mmol/L Chloride 102 (98-107) mmol/L Carbon Dioxide 25 (22-32) mmol/L BUN 17 (9-20) mg/dL Creatinine 1.25 (0.66-1.25) mg/dL Estimated GFR > 60 (>60) mL/min BUN/Creatinine Ratio 13.6 (6-22) Glucose 166 H (70-100) mg/dL Calcium 9.0 (8.4-10.2) mg/dL Urine RBC 10-30/hpf H (0-5/HPF) Urine WBC 1-5/hpf (0-5/HPF) Ur Squamous Epith Cells None seen (0-5/HPF) Urine Bacteria None seen (None) Ur Culture Indicated? Specimen cultured Urine Dip Bedside Urine Glucose Negative Bedside Urine Bilirubin - Negative Bedside Urine Ketone - Negative Urine Specific [place] 1.015 Bedside Urine Occult Blood +++ Bedside Urine pH 6.0 Bedside Urine Protein +/- 15 Bedside Urine Urobilinogen 0.2 mg/dl Bedside Urine Nitrite + Positive Bedside Urine Leukocytes +/- 15 Esterase Point of care testing: Urine Dip Bedside Urine Glucose Negative Bedside Urine Bilirubin - Negative Bedside Urine Ketone - Negative Urine Specific [place] 1.015 Bedside Urine Occult Blood +++ Bedside Urine pH 6.0 Bedside Urine Protein +/- 15 Bedside Urine Urobilinogen 0.2 mg/dl Bedside Urine Nitrite + Positive Bedside Urine Leukocytes +/- 15 Esterase MDM Narrative Medical decision making narrative: Patient is nontoxic appearing. Pain is improved with medications. He is tolerating oral intake. Has no leukocytosis. No fevers. He does have nitrite positive urine although does not have any bacteria or white cells. A urine culture was pending. Because of his history of renal stones and also stent placement in the nitrite positivity we will start him on antibiotics. He was given 1st dose here in the ER and a prescription was sent to the pharmacy of his choice. He is currently under the care of urology. We will discharge home without further workup here in the ER. I do not feel we need any imaging studies based on his presentation today. He was given return precautions and follow-up instructions. He expressed understanding and agreement. Discharge Plan Departure Patient Disposition: Home Clinical Impression: Renal colic on right side, Acute UTI Instructions: DI for Urinary Tract Infection (UTI) Activity Restrictions/Additional Instructions: I do recommend that you follow all the instructions given to you by the urologist. Keep all of your scheduled follow-up appointments. A urine culture was pending at the time of your discharge and we will contact you if we need to change any antibiotics based on this. Antibiotics were sent to [facility] per your request. Return to the emergency department for new or worsening symptoms. Prescriptions: New sulfamethoxazole-trimethoprim [Bactrim DS] 800-160 mg tablet 1 tab PO BID 3 Days Qty: 6 0RF No Action (DME) lancets [Acti-Salomón Lancets] 28 gauge misc See Rx Instructions .Route Qty: 100 3RF Rx Instructions: Check blood glucose BID (DME) Blood Glucose Test Strip See Rx Instructions .Route Qty: 50 5RF Rx Instructions: check blood glucose twice a day losartan 50 mg tablet 50 mg PO BID Qty: 180 3RF Rx Instructions: Half tablet per day for 6 days then advance to 1 full tablet (DME) lancets [OneTouch Delica Plus Lancet] 33 gauge misc See Rx Instructions .ROUTE .MEDSUPPLY Qty: 100 Rx Instructions: As directed glipizide 5 mg tablet 5 mg PO DAILY Qty: 90 3RF Rx Instructions: Take with dinner metformin 500 mg tablet 500 mg PO BID Qty: 180 3RF levetiracetam [Keppra] 500 mg tablet 1,500 mg PO BID Rx Instructions: You can take 1000mg tablet +500mg tablet po BID phenazopyridine [Pyridium] 200 mg tablet 200 mg PO TID PRN (Reason: Bladder irritation) Qty: 30 1RF tamsulosin [Flomax] 0.4 mg capsule 0.4 mg PO DAILY Qty: 7 0RF phenazopyridine [Pyridium] 200 mg tablet 200 mg PO TID PRN (Reason: Bladder irritation) Qty: 30 0RF Referrals: Karl Mckeon, [Primary Care Provider] - Stand Alone Forms: Patient Portal/API
[2023-01-13] MEDS: HYDROMORPHONE 1 MG INJ IV (19:32)
[2023-01-13 19:45] LABS: BUN Creatinine Ratio 13.6 (6-22); Blood Urea Nitrogen 17 mg/dL (9-20); Carbon Dioxide 25 mmol/L (22-32); Chloride 102 mmol/L (98-107); Estimated Glomerular Filt Rate > 60 mL/min (>60); Glucose 166 mg/dL (70-100); HEMOLYSIS < 15 (0-50); Potassium 4.7 mmol/L (3.4-5.1); Sodium 137 mmol/L (137-145)
[2023-01-13 20:17] LABS: Bacteria Urine None Seen; Culture Indicated Urine Specimen Cultured; RBC Urine 10-30/HPF (0-5/HPF); Squamous Epithelial Cell Urine None Seen (0-5/HPF); WBC Urine 1-5/HPF (0-5/HPF)
[2023-01-13] MEDS: HYDROMORPHONE 0.5 MG INJ IV ×2 (20:34→21:34)
[2023-01-13] MEDS: OXYCODONE/APAP 5/325 PREPACK 1 BOTTLE MISC (21:34)
[2023-01-13] MEDS: TRIMETH/SULFA 160/800 (DS) TABLET 1 TAB PO (21:34)
[2023-01-13] MEDS: ONDANSETRON 4 MG ODT PREPACK 1 BOTTLE MISC (21:34)
== END 2023-01-13 22:00 | disposition home or self-care (01) ==
PROVIDERS: Emergency Provider Emergency Medicine; PCP Family Medicine
DX: N20.0 Calculus of kidney (principal); N39.0 Urinary tract infection, site not specified; Z96.0 Presence of urogenital implants; Z87.448 Personal history of other diseases of urinary system
CPT/HCPCS: 74018; 80048; 81002; 81003; 81015; 82365; 85025; 87086; 87186; 96374; 96375; 96376; 99284; J1170; J1885; J2405

== ENCOUNTER 2023-01-14 15:57 | Day surgery (SDC) | payer OTHER, MEDICAID, SELFPAY ==
[2021-11-17 12:10] VITALS: BMI 39.8
[2023-01-14] VITALS (11 sets, daily range): BP systolic 118–180; BP diastolic 60–106; PULSE 80–118; RESP 14–22; TEMP 36.2–36.6; O2SAT 92–99; BMI 43.2
--- NOTE | 2023-01-14 | DI.RAD.S_ITS ---
PROCEDURE: XR ABDOMEN 1V INDICATIONS: STENT PLACEMENT TECHNIQUE: One view of the abdomen acquired. COMPARISON: [facility], CT, CT KIDNEY URETER BLADDER (KUB), 01/14/2023, 18:09. FINDINGS: Single fluoroscopic view of the right abdomen demonstrates a partially visualized right ureteral stent. IMPRESSION: 1. Fluoroscopy provided for right ureteral stent placement. Dictated by: Terry Vargas M.D. on 01/15/2023 at 1:49 Approved by: Terry Vargas M.D. on 01/15/2023 at 1:50
--- NOTE | 2023-01-14 18:03 | DI.CT.S_ITS ---
PROCEDURE: CT KIDNEY URETER BLADDER (KUB) INDICATIONS: eval for inpacted stone TECHNIQUE: Axial sections were acquired from the lung bases to the pubic symphysis. Coronal and sagittal reformats were performed. For radiation dose reduction, the following was used: automated exposure control, adjustment of mA and/or kV according to patient size. COMPARISON: [facility], CT, KUB - CT (PNL), 10/01/2013, 14:46. [facility], CT, CT KIDNEY URETER BLADDER (KUB), 11/08/2022, 1:55. FINDINGS: Image quality: Excellent. Lung bases: There is a 0.4 cm nodule within the right middle lobe on series 3, image 4. Heart: Heart is normal in size. URINARY: Right Kidney and Ureter: There is an obstructing stone within the right ureteropelvic junction measuring up to 0.9 cm with attenuation values of approximately 500-600 Hounsfield units. There is associated moderate right hydronephrosis with perinephric stranding. The ureter is nondistended distal to the UPJ. There are a few, approximately 4-5, additional small nonobstructing right renal stones measuring up to 0.3 cm. Left Kidney and Ureter: There is a left ureteral stent present. No hydronephrosis. There are approximately 5 additional nonobstructing left renal stones measuring up to 0.3 cm. No definite ureteral stone identified. Bladder: Normal wall thickness. No stones. ABDOMEN: Liver: There is diffuse hypoattenuation of the liver consistent with fatty infiltration. There is a nodule laterally in the right hepatic lobe measuring 0.8 cm on series 2, image 26. Inferiorly in right hepatic lobe, there is also a nodule measuring 2.0 cm on series 2, image 40. The findings are similar compared to the prior study of 11/08/2022 a new compared to the prior study of 10/01/2013. Gallbladder: Within normal limits without calcified gallstones. Biliary ducts: No biliary ductal dilatation. Pancreas: Unremarkable. Spleen: Normal in size. Adrenal Glands: No adrenal nodules. Stomach and Bowel: Stomach, small bowel loops, and colon are normal in caliber and wall thickness. The appendix is normal. There is colonic diverticulosis without acute diverticulitis. Peritoneum: No abnormal intraperitoneal fluid. No free air. Ventral Wall: No hernia. Abdominal Nodes: No retroperitoneal or mesenteric adenopathy by size criteria. Vessels: Aorta and inferior vena cava are normal in size. PELVIS: Pelvic Organs: Unremarkable. Pelvic Nodes: No enlarged lymph nodes. Miscellaneous: No inguinal hernias identified. Bones: Visualized osseous structures demonstrate no suspicious focal lesions. IMPRESSION: 1. Obstructing urinary stone at the right UPJ with moderate right hydronephrosis. 2. Multiple additional small bilateral nonobstructing renal stones. 3. Hepatic steatosis with 2 nodules redemonstrated in the right hepatic lobe. The findings are nonspecific and the differential includes neoplastic etiologies or focal fatty sparing. Recommend further evaluation with a liver protocol MRI. Dictated by: Terry Vargas M.D. on 01/14/2023 at 20:12 Approved by: Terry Vargas M.D. on 01/14/2023 at 20:19
[2023-01-14] MEDS: ONDANSETRON 4 MG/2 ML INJ IV (18:29)
[2023-01-14] MEDS: HYDROMORPHONE 1 MG INJ IV ×2 (18:29→19:59)
[2023-01-14 18:32] LABS: Add Manual Diff / Slide Review NO; Basophils Absolute Auto 100 /uL (0-100); Basophils Percent Auto 0.9 % (0-2); Eosinophils Absolute Auto 200 /uL (0-450); Eosinophils Percent Auto 2.2 % (2-4); Hematocrit 41.7 % (41-53); Hemoglobin 13.9 g/dL (13.5-17.5); Lymphocytes Absolute Auto 2500 /uL (1100-4500); Lymphocytes Percent Auto 28.1 % (25-40); Mean Corpuscular HGB Conc 33.3 % (30-36); Mean Corpuscular Volume 78.2 fL (80-100); Monocytes Absolute Auto 500 /uL (0-900); Monocytes Percent Auto 5.5 % (3-14); Neutrophils Absolute Auto 5600 /uL (1500-7000); Neutrophils Percent Auto 63.3 % (50-75); Platelet Count 211 X10^3/uL (150-400); Red Blood Cell Count 5.33 X10^6/uL (4.5-5.9); Red Cell Distribution Width 13.9 % (11.6-14.8); White Blood Cell Count 8.8 X10^3/uL (4.5-11.0)
[2023-01-14 18:43] LABS: BUN Creatinine Ratio 11.1 (6-22); Blood Urea Nitrogen 22 mg/dL (9-20); Carbon Dioxide 24 mmol/L (22-32); Chloride 101 mmol/L (98-107); Estimated Glomerular Filt Rate 44 mL/min (>60); Glucose 200 mg/dL (70-100); HEMOLYSIS 51 (0-50); Potassium 4.7 mmol/L (3.4-5.1); Sodium 137 mmol/L (137-145)
--- NOTE | 2023-01-14 20:31 | ED_ITS ---
HPI - General Adult General Chief complaint: Urogenital-Male Stated complaint: kidney stone pain Time Seen by Provider: 01/14/23 18:02 Source: patient Mode of arrival: Ambulatory History of Present Illness HPI narrative: Patient is a 37-year-old male who I evaluated here in the emergency department last evening. He is a known history renal/ureteral stones. He was seen here yesterday with symptoms that were consistent with this. Discharged home with pain medication. He returns to the emergency department this evening stating that he continues to have right-sided flank discomfort that is actually worsening. No fevers. Is also having nausea. Is having urinary hesitancy and urgency. Medications that he was sent home with last night are not helping his symptoms. Related Data Home Medications Medication Instructions Recorded Confirmed lancets 33 gauge (OneTouch Delica #100 ea 02/15/22 01/13/23 Plus Lancet) levetiracetam 500 mg tablet 1,500 mg PO BID 11/22/22 01/13/23 (Keppra) Previous Rx's Medication Instructions Recorded lancets 28 gauge (Acti-Salomón #100 ea 12/26/21 Lancets) glipizide 5 mg tablet 5 mg PO DAILY #90 tabs 02/15/22 metformin 500 mg tablet 500 mg PO BID #180 tabs 02/15/22 losartan 50 mg tablet 50 mg PO BID #180 tabs 08/16/22 blood sugar diagnostic (Blood #50 ea 10/24/22 Glucose Test strips) tamsulosin 0.4 mg capsule (Flomax) 0.4 mg PO DAILY #7 caps 11/08/22 phenazopyridine 200 mg tablet 200 mg PO TID PRN Bladder 12/12/22 (Pyridium) irritation #30 tabs phenazopyridine 200 mg tablet 200 mg PO TID PRN Bladder 12/31/22 (Pyridium) irritation #30 tabs sulfamethoxazole 800 1 tab PO BID 3 days #6 tabs 01/13/23 mg-trimethoprim 160 mg tablet (Bactrim DS) Allergies Allergy/AdvReac Type Severity Reaction Status Date / Time No Known Drug Allergies Allergy Verified 01/13/23 18:27 Review of Systems Constitutional Constitutional: Reports system reviewed and no additional complaints, except as documented Gastrointestinal Gastrointestinal: Reports system reviewed and no additional complaints, except as documented Genitourinary Genitourinary: Reports system reviewed and no additional complaints, except as documented Musculoskeletal Musculoskeletal: Reports system reviewed and no additional complaints, except as documented Patient History Medical History Bilateral kidney stones Borderline hyperlipidemia Epilepsy Hematuria History of renal colic Hypertension Increase in creatinine Prediabetes Retained ureteral stent Right ureteral calculus Seizure Type 2 diabetes mellitus Surgical History Anesthesia Hx of cystoscopy (2018) Hx of cystoscopy (11/22/22) Scrotal abscess (~11/17/21) Social History marital status: number of children: 0 household members: significant other occupational status: employed Smoking Status: Smoker, status unknown alcohol intake: never caffeine: No Type(s) of exercise: weight lifting frequency: 3-4 times per week duration: > 90 minutes/day Smoking Status: Smoker, status unknown tobacco type: vaping alcohol intake frequency: holidays/special occasions only Substance Use Type: does not use Exam Initial Vital Signs Initial Vital Signs: Vital Signs Temperature 97.8 F 01/14/23 16:43 Pulse Rate 80 01/14/23 16:43 Respiratory Rate 18 01/14/23 16:43 Blood Pressure 150/94 H 01/14/23 16:43 Pulse Oximetry 97 01/14/23 16:43 Oxygen Delivery Method Room Air 01/14/23 16:43 Oxygen Flow Rate 97 01/14/23 16:43 Const General: No ill appearing Other: Uncomfortable appearing HENSC Head: normal to inspection and normocephalic Resp Effort & Inspection: normal respiratory effort Cardio Rate: regular rate GI Inspection: non-distended Neuro General: patient alert, patient awake and moves all extremities Course Orders Ordered: ED Orders 01/14/23 18:03 CT kidney ureter bladder (KUB) Stat 01/14/23 18:24 Basic Metabolic Panel Stat Complete Blood Count AUTO DIFF Stat Discontinued Medications Acetaminophen (Acetaminophen 325 Mg Tablet) 650 mg PO Q4H PRN PRN Reason: Pain, Mild (1-3) Hydrocodone Bitart/Acetaminophen (Hydrocodone/Acet 5/325 Prepack) 1 bottle MISC SEEINSTR ONE Stop: 01/14/23 22:28 Last Admin: 01/14/23 22:34 Dose: 1 bottle Documented By: OCTAVIO Fentanyl (Fentanyl 100 Mcg/2 Ml Inj) 0 mcg IV Q5M PRN PRN Reason: Pain, Moderate (4-6) Hydromorphone HCl (Hydromorphone 1 Mg Inj) 1 mg IV NOW ONE Stop: 01/14/23 18:16 Last Admin: 01/14/23 18:29 Dose: 1 mg Documented By: ELMER Hydromorphone HCl (Hydromorphone 1 Mg Inj) 1 mg IV NOW ONE Stop: 01/14/23 19:44 Last Admin: 01/14/23 19:59 Dose: 1 mg Documented By: ELMER Hydromorphone HCl (Hydromorphone 2 Mg Inj) 0 mg IV Q5M PRN PRN Reason: Pain, Moderate (4-6) Lidocaine HCl 9 ml/ Sodium (Chloride) 59 mls @ 354 mls/hr IV NOW ONE Stop: 01/14/23 20:33 Last Infusion: 01/14/23 21:10 Dose: 0 mls/hr Documented By: Admin: 01/14/23 20:48 Dose: 354 mls/hr Documented By: AVE Lactated Ringer's (Lactated Ringers) 1,000 mls @ 84 mls/hr IV NOW ONE Stop: 01/15/23 09:30 Last Infusion: 01/14/23 22:53 Dose: 0 mls/hr Documented By: Admin: 01/14/23 21:36 Dose: 84 mls/hr Documented By: OCTAVIO Cefazolin Sodium/Dextrose (Ancef) 100 mls @ 200 mls/hr IV NOW ONE Stop: 01/14/23 22:35 Last Infusion: 01/14/23 21:58 Dose: 0 mls/hr Documented By: Admin: 01/14/23 21:45 Dose: 200 mls/hr Documented By: Ondansetron HCl (Ondansetron 4 Mg/2 Ml Inj) 4 mg IV NOW ONE Stop: 01/14/23 18:16 Last Admin: 01/14/23 18:29 Dose: 4 mg Documented By: ELMER Ondansetron HCl (Ondansetron 4 Mg/2 Ml Inj) 4 mg IV NOW PRN PRN Reason: Nausea And Vomiting Ondansetron HCl (Ondansetron 4 Mg/2 Ml Inj) 4 mg IV Q4H PRN PRN Reason: Nausea And Vomiting Oxycodone/Acetaminophen (Oxycodone/Acetaminophen 5/325 Tablet) 1 tab PO PACUNOW PRN PRN Reason: Mild or Moderate Pain Last Admin: 01/14/23 22:32 Dose: 1 tab Documented By: OCTAVIO Vital Signs Vital signs: Vital Signs - 8 hr 01/14/23 19:00 Pulse Rate 82 Blood Pressure 167/88 H Pulse Oximetry 97 Oxygen Delivery Method Room Air Medical Decision Making Medical Records Medical records reviewed: Yes I reviewed the patient's medical records. Lab Data Lab results reviewed: Yes I reviewed the patient's lab results. 01/14/23 18:24 01/14/23 18:24 Labs: Lab Results 01/14/23 01/14/23 Range/Units 18:24 18:24 WBC 8.8 (4.5-11.0) X10^3/uL RBC 5.33 (4.5-5.9) X10^6/uL Hgb 13.9 (13.5-17.5) g/dL Hct 41.7 (41-53) % MCV 78.2 L (80-100) fL MCH 26.0 (26-34) PG MCHC 33.3 (30-36) % RDW 13.9 (11.6-14.8) % Plt Count 211 (150-400) X10^3/uL Neut % (Auto) 63.3 (50-75) % Lymph % (Auto) 28.1 (25-40) % Mcleod % (Auto) 5.5 (3-14) % Eos % (Auto) 2.2 (2-4) % Baso % (Auto) 0.9 (0-2) % Neut # (Auto) 5600 (0059-2691) /uL Lymph # (Auto) 2500 (2974-7227) /uL Mcleod # (Auto) 500 (0-900) /uL Eos # (Auto) 200 (0-450) /uL Baso # (Auto) 100 (0-100) /uL Sodium 137 (137-145) mmol/L Potassium 4.7 (3.4-5.1) mmol/L Chloride 101 (98-107) mmol/L Carbon Dioxide 24 (22-32) mmol/L BUN 22 H (9-20) mg/dL Creatinine 1.99 H (0.66-1.25) mg/dL Estimated GFR 44 L (>60) mL/min BUN/Creatinine Ratio 11.1 (6-22) Glucose 200 H (70-100) mg/dL Calcium 9.0 (8.4-10.2) mg/dL Imaging Data CT scan - abdomen/pelvis: Radiologist's Impression: PROCEDURE:? CT KIDNEY URETER BLADDER (KUB) ? INDICATIONS:? eval for inpacted stone ? TECHNIQUE:? Axial sections were acquired from the lung bases to the pubic symphysis.? Coronal and sagittal reformats were performed.? For radiation dose reduction, the following was used: ?automated exposure control, adjustment of mA and/or kV according to patient size.? ? COMPARISON:? [facility], CT, KUB - CT (PNL), 10/01/2013, 14:46.? [facility], CT, CT KIDNEY URETER BLADDER (KUB), 11/08/2022, 1:55. ? FINDINGS:? Image quality:? Excellent.? ? Lung bases:? There is a 0.4 cm nodule within the right middle lobe on series 3, image 4. Heart:? Heart is normal in size. ? URINARY: Right Kidney and Ureter: ? There is an obstructing stone within the right ureteropelvic junction measuring up to 0.9 cm with attenuation values of approximately 500-600 Hounsfield units.? There is associated moderate right hydronephrosis with perinephric stranding.? The ureter is nondistended distal to the UPJ.? There are a few, edmar roximately 4-5, additional small nonobstructing right renal stones measuring up to 0.3 cm. ? Left Kidney and Ureter: ? There is a left ureteral stent present.? No hydronephrosis.? There are approximately 5 additional nonobstructing left renal stones measuring up to 0.3 cm.? No definite ureteral stone identified.? ? Bladder:? Normal wall thickness. No stones. ? ? ? ABDOMEN: Liver:? There is diffuse hypoattenuation of the liver consistent with fatty infiltration. ?There is a nodule laterally in the right hepatic lobe measuring 0.8 cm on series 2, image 26.? Inferiorly in right hepatic lobe, there is also a nodule measuring 2.0 cm on series 2, image 40. The findings are similar compared to the prior study of 11/08/2022 a new compared to the prior study of 10/01/2013. Gallbladder:? Within normal limits without calcified gallstones.? ? Biliary ducts:? No biliary ductal dilatation.? ? Pancreas:? Unremarkable.? ? Spleen:? Normal in size.? ? Adrenal Glands:? No adrenal nodules.? ? ? Stomach and Bowel:? Stomach, small bowel loops, and colon are normal in caliber and wall thickness.? The appendix is normal.? There is colonic diverticulosis without acute diverticulitis.? Peritoneum:? No abnormal intraperitoneal fluid.? No free air.? ? Ventral Wall: ? No hernia.? Abdominal Nodes:? No retroperitoneal or mesenteric adenopathy by size criteria.? Vessels:? Aorta and inferior vena cava are normal in size.? ? PELVIS: Pelvic Organs:? Unremarkable.? ? Pelvic Nodes: No enlarged lymph nodes.? Miscellaneous: No inguinal hernias identified. ? ? ? Bones:? Visualized osseous structures demonstrate no suspicious focal lesions. IMPRESSION:? ? 1. Obstructing urinary stone at the right UPJ with moderate right hydronephrosis. ? 2. Multiple additional small bilateral nonobstructing renal stones. ? 3. Hepatic steatosis with 2 nodules redemonstrated in the right hepatic lobe.? The findings are nonspecific and the differential includes neoplastic etiologies or focal fatty sparing.? Recommend further evaluation with a liver protocol MRI.? MDM Narrative Medical decision making narrative: Pain does have a slight bump in his creatinine and a decrease in his GFR today compared to yesterday. A CT scan today does show a large proximal right-sided ureteral stone. Patient is afebrile. I did discuss the case with Dr. Hernandez on-call for Urology who is the patient's urologist. Given his presentation in the fact that we are having a very difficult time controlling the patient's discomfort in his presentation yesterday in the findings in the CT scan today plan will be is to admit the patient to surgery for stent placement. Patient was seen here in the emergency department by Dr. Hernandez. We will admit for further evaluation and treatment. Discharge Plan Departure Patient Disposition: Admitted to Surgery Clinical Impression: Renal colic Admit Date/Time: 01/14/23 20:57 Admit Provider: Peter Hernandez
[2023-01-14] MEDS: LIDOCAINE 2% (PF) 9 ML in SODIUM CHLORIDE 0.9% 50 ML 354 ML IV (20:48)
--- NOTE | 2023-01-14 21:32 | P.CONS_ITS ---
History of Present Illness Consult details Date Patient Seen: 01/14/23 Time Patient Seen: 21:32 Chief complaint: kidney stone pain right ureteral calculus Reason for consult: Right ureteral calculus, elevated creatinine, known stones Narrative: I was contacted by Dr. Shaw of the emergency department regarding this 37-year-old male who is well known to me. Patient has had bilateral stones and interestingly seems to a passed more stones that he had originally. On review of his CT scan he has 1 last stone on the right side. He had been treated by lithotripsy and imaging appeared to show that his stones had passed. He is subsequently passed 3 now maybe 4 additional stones of significant size. At this point he has colic of up in his creatinine in the right ureteral calculus. He will be covered with Ancef and we will proceed with cystoscopy with right ureteral stent placement. Meds Home Medications and Allergies Home Medications Medication Instructions Recorded Confirmed Type lancets 28 gauge (Acti-Salomón #100 ea 12/26/21 01/13/23 Rx Lancets) glipizide 5 mg tablet 5 mg PO DAILY #90 tabs 02/15/22 01/13/23 Rx lancets 33 gauge (OneTouch Delica #100 ea 02/15/22 01/13/23 History Plus Lancet) metformin 500 mg tablet 500 mg PO BID #180 tabs 02/15/22 01/13/23 Rx losartan 50 mg tablet 50 mg PO BID #180 tabs 08/16/22 01/13/23 Rx blood sugar diagnostic (Blood #50 ea 10/24/22 01/13/23 Rx Glucose Test strips) tamsulosin 0.4 mg capsule (Flomax) 0.4 mg PO DAILY #7 caps 11/08/22 01/13/23 Rx levetiracetam 500 mg tablet 1,500 mg PO BID 11/22/22 01/13/23 History (Keppra) phenazopyridine 200 mg tablet 200 mg PO TID PRN Bladder 12/12/22 01/13/23 Rx (Pyridium) irritation #30 tabs phenazopyridine 200 mg tablet 200 mg PO TID PRN Bladder 12/31/22 01/13/23 Rx (Pyridium) irritation #30 tabs sulfamethoxazole 800 1 tab PO BID 3 days #6 tabs 01/13/23 Rx mg-trimethoprim 160 mg tablet (Bactrim DS) Allergies Allergy/AdvReac Type Severity Reaction Status Date / Time No Known Drug Allergies Allergy Verified 01/13/23 18:27 Exam Vital Signs (past 8 hours): - 01/14/23 16:43 01/14/23 19:00 01/14/23 21:05 Temperature 97.8 F Pulse Rate 80 82 88 Respiratory Rate 18 18 Blood Pressure 150/94 H 167/88 H 118/60 Pulse Oximetry 97 97 99 Oxygen Delivery Method Room Air Room Air Room Air Oxygen Flow Rate 97 Oxygen Delivery Method Room Air Oxygen Flow Rate 97 Narrative Exam Narrative: General: This is an awake, alert, oriented, uncomfortable appearing male resting on a gurney. Lungs: Clear full and equal Cardiovascular exam: Regular rate and rhythm without murmur Back: With significant right-sided CVA tenderness to percussion Abdominal exam soft obese without mass Neurologic exam: Grossly intact Objective Labs 01/14/23 18:24 01/14/23 18:24 Labs: Laboratory Results - last 24 hr 01/14/23 01/14/23 18:24 18:24 WBC 8.8 RBC 5.33 Hgb 13.9 Hct 41.7 MCV 78.2 L MCH 26.0 MCHC 33.3 RDW 13.9 Plt Count 211 Neut % (Auto) 63.3 Lymph % (Auto) 28.1 Roane % (Auto) 5.5 Eos % (Auto) 2.2 Baso % (Auto) 0.9 Neut # (Auto) 5600 Lymph # (Auto) 2500 [place] # (Auto) 500 Eos # (Auto) 200 Baso # (Auto) 100 Sodium 137 Potassium 4.7 Chloride 101 Carbon Dioxide 24 BUN 22 H Creatinine 1.99 H Estimated GFR 44 L BUN/Creatinine Ratio 11.1 Glucose 200 H Calcium 9.0 PFSH Medical History (Updated 01/14/23 @ 21:36 by Peter Hernandez MD) Bilateral kidney stones Borderline hyperlipidemia Epilepsy Hematuria History of renal colic Hypertension Increase in creatinine Prediabetes Retained ureteral stent Right ureteral calculus Seizure Type 2 diabetes mellitus Surgical History Anesthesia Hx of cystoscopy (2018) Hx of cystoscopy (11/22/22) Scrotal abscess (~11/17/21) Social History marital status: number of children: 0 household members: significant other occupational status: employed Tobacco & Substance Use Smoking Status: Smoker, status unknown alcohol intake: never Diet and Exercise caffeine: No Type(s) of exercise: weight lifting frequency: 3-4 times per week duration: > 90 minutes/day Assessment & Plan Assessment and plan (1) Renal colic on right side: Status: Acute (2) Increase in creatinine: Status: Acute (3) Retained ureteral stent: Status: Acute (4) Right ureteral calculus: Status: Acute Plan Assessment and plan: Patient with again a right ureteral calculus. On review of his CT scan there are no other stones in the right kidney. He also has a bump in his creatinine and has passed most all of the fragments on the left. Plan is to perform cystoscopy with right ureteral stent placement patient will be covered with Ancef. Time Spent With Patient Time with patient: less than 30 minutes
[2023-01-14] MEDS: LACTATED RINGERS 1,000 ML 84 ML IV (21:36)
[2023-01-14] MEDS: CEFAZOLIN 2 GM/100 ML PREMIX 100 ML IV (21:45)
--- NOTE | 2023-01-14 22:04 | SUR.OPER ---
Lithotomy on padded OR bed, head on pillow, arms secured on padded arm boards at <90 degrees abduction. Legs secured in padded yellow fins stirrups.
--- NOTE | 2023-01-14 22:12 | PM.OP.1 ---
Procedure & Clinicians Procedure: Cystoscopy with right ureteral stent placement Same procedure as scheduled: Yes Indications: This 37-year-old male who is well known to me has had multiple stones. He recently had extracorporeal shockwave lithotripsy in it appeared that he would cleared his fragments and stones and had his stent removed. He would done well for a time but recently passed 2 more stones and it tonight presented to the emergency department for complaint of right ureteral colic which was unremitting and with a bump in his creatinine. He presents this time for cystoscopy with right ureteral stent placement. Surgeon: Peter Hernandez Click Yes if Unassisted: Yes Anesthesia Type: General Operative Notes Findings: Findings: Uncircumcised male, normal meatus, normal urethra with normal mucosa sphincter as well coapted and prostate shows minimal to no obstructive character. Left ureteral stent is in place with minimal encrustation. The bladder shows Pyridium stained urine and there are no other mucosal lesions. Right ureteral orifices in normal position with Pyridium stained efflux. The stone is noted in the proximal 3rd of the ureter. A 7 Brazilian by multi length stent is left in good position without a string. Closure Type: not applicable Specimen(s): none sent Prosthetic devices, grafts, tissues, transplants, or devices: Seven Brazilian by multilink stent placed in right ureteral collecting system without a string there was already a left ureteral stent in place it was left untouched. Estimated Blood Loss (mL): 0 Blood products transfused: none Procedure in detail: Procedure in detail: After informed consent was obtained, the patient was identified and brought to the operating room where he was placed in a supine position on the table. Patient then had anesthesia induced and maintained. Ensuring an adequate level of anesthesia the patient was transitioned to the lithotomy position where he was prepped, draped, prepared for Transurethral procedure. After prepping draping ensuring an adequate level anesthesia and time-out 22 Brazilian cystoscope was passed through the urethra prostate and into the bladder where cystoscopy was performed. The Pyridium stained urine was then washed out. The right ureteral orifices identified and a hybrid wire was passed up and into the collecting system under fluoroscopic visualization. It easily pass the stone the stent was then passed in a coaxial fashion over the wire positioned in the renal pelvis under fluoroscopic visualization and in the bladder under direct vision. The nylon harness was removed and the stent was left in good position. At this point the bladder was were during the scope was removed the patient was awakened having tolerated the procedure well to be transferred to the postanesthesia care unit were after recover he is to be discharged to home. There were no complications the patient will follow-up as previously scheduled. Complications: none Post-operative Condition: stable Disposition: PACU Plan for aftercare: Discharge to home follow-up my office as previously scheduled
[2023-01-14] MEDS: OXYCODONE/ACETAMINOPHEN 5/325 TABLET 1 TAB PO (22:32)
[2023-01-14] MEDS: HYDROCODONE/ACET 5/325 PREPACK 1 BOTTLE MISC (22:34)
== END 2023-01-14 22:58 | disposition home or self-care (01) ==
LOC: ED 20:46 → AC 21:21 → OR 01-15 07:44
PROVIDERS: Emergency Provider Emergency Medicine; PCP Family Medicine; Referring Provider Emergency Medicine; Visit Provider Urology
PROC: (CPT 52332; principal; 2023-01-14 22:00)
DX: N20.0 Calculus of kidney (principal)
CPT/HCPCS: 52332; 36415; 74018; 74176; 76000; 80048; 85025; 96365; 96375; 96376; 99284; J0330; J0690; J1100; J1170; J2405; J2704; J3010

== ENCOUNTER → 2023-01-21 10:59 | Outpatient (CLI) | payer OTHER, MEDICAID, SELFPAY ==
[2023-01-15 08:28] VITALS: BMI 39.8
--- NOTE | 2023-01-21 10:59 | DI.RAD.S_ITS ---
PROCEDURE: XR KUB INDICATIONS: CALCULUS OF URETER TECHNIQUE: One view of the abdomen acquired. COMPARISON: [facility], CT, CT KIDNEY URETER BLADDER (KUB), 01/14/2023, 18:09. [facility], CR, XR KUB, 01/13/2023, 15:43. FINDINGS: Surgical changes and devices: Bilateral renal stents. Bowel: Bowel gas pattern is normal. Soft tissues: No suspicious abdominal calcifications. Visualized solid organ contours appear normal in size. Bones: No suspicious bony lesions. IMPRESSION: Bilateral renal stents. No renal stone by plain film radiograph. Dictated by: Madina Bazan MD, PhD on 01/21/2023 at 13:39 Approved by: Madina Bazan MD, PhD on 01/21/2023 at 13:40
== END ==
PROVIDERS: PCP Family Medicine; Referring Provider Urology; Visit Provider Urology
DX: N20.1 Calculus of ureter (principal); Z96.0 Presence of urogenital implants
CPT/HCPCS: 74018

== ENCOUNTER → 2023-02-03 15:07 | Outpatient (CLI) | payer OTHER, MEDICAID, SELFPAY ==
[2023-01-15 08:28] VITALS: BMI 39.8
[2023-02-03 15:33] LABS: Bilirubin Urine UA 1+ (NEGATIVE); Color Urine UA YELLOW; Glucose Urine UA NEGATIVE (Negative); Ketones Urine UA NEGATIVE (NEGATIVE); Leukocyte Esterase Urine UA 2+ (NEGATIVE); Nitrite Urine UA NEGATIVE (Negative); Occult Blood Urine UA 3+ (Negative); Protein Urine UA 2+ (Negative); Specific Gravity Urine UA 1.025 (1.000-1.035)
[2023-02-03 15:37] LABS: Appearance Urine UA SL CLOUDY; Ictotest Urine Negative (Negative)
[2023-02-03 15:41] LABS: Bacteria Urine Moderate (10-30); RBC Urine >100/HPF (0-5/HPF); Squamous Epithelial Cell Urine 1-5 /HPF (0-5/HPF); WBC Urine 10-30/HPF (0-5/HPF)
[2023-02-03 15:42] LABS: Culture Indicated Urine Specimen Cultured
[2023-02-03 15:57] LABS: Add Manual Diff / Slide Review NO; Basophils Absolute Auto 100 /uL (0-100); Eosinophils Absolute Auto 200 /uL (0-450); Eosinophils Percent Auto 2.2 % (2-4); Hematocrit 40.3 % (41-53); Hemoglobin 13.5 g/dL (13.5-17.5); Lymphocytes Absolute Auto 2500 /uL (1100-4500); Lymphocytes Percent Auto 35.3 % (25-40); Mean Corpuscular HGB Conc 33.4 % (30-36); Mean Corpuscular Hemoglobin 26.1 PG (26-34); Monocytes Absolute Auto 400 /uL (0-900); Monocytes Percent Auto 5.7 % (3-14); Neutrophils Absolute Auto 4000 /uL (1500-7000); Neutrophils Percent Auto 55.8 % (50-75); Platelet Count 194 X10^3/uL (150-400); Red Blood Cell Count 5.17 X10^6/uL (4.5-5.9); Red Cell Distribution Width 14.4 % (11.6-14.8); White Blood Cell Count 7.1 X10^3/uL (4.5-11.0)
[2023-02-03 16:31] LABS: Alanine Aminotransferase 67 IU/L (<50); Albumin 4.3 g/dL (3.5-5.0); Albumin Globulin Ratio 1.3 (1.0-2.8); Alkaline Phosphatase 50 U/L (38-126); Aspartate Aminotransferase 44 IU/L (17-59); BUN Creatinine Ratio 15.8 (6-22); Bilirubin Total 0.5 mg/dL (0.2-1.3); Blood Urea Nitrogen 15 mg/dL (9-20); Calcium 9.1 mg/dL (8.4-10.2); Carbon Dioxide 26 mmol/L (22-32); Chloride 103 mmol/L (98-107); Estimated Glomerular Filt Rate > 60 mL/min (>60); Globulin 3.2 g/dL (1.7-4.1); Glucose 106 mg/dL (70-100); HEMOLYSIS < 15 (0-50); Potassium 3.6 mmol/L (3.4-5.1); Sodium 140 mmol/L (137-145); Total Protein 7.5 g/dL (6.3-8.2)
[2023-02-03 16:53] LABS: TSH w/ Reflex to FT4 2.39 uIU/mL (0.47-4.68)
[2023-02-04 07:09] LABS: Labcorp Hemoglobin (Hb) A1c 8.2 % (4.8-5.6)
== END ==
PROVIDERS: PCP Family Medicine; Referring Provider Family Medicine; Visit Provider Family Medicine
DX: G40.409 Other generalized epilepsy and epileptic syndromes, not intractable, without status epilepticus (principal); I10 Essential (primary) hypertension; E11.9 Type 2 diabetes mellitus without complications; N20.1 Calculus of ureter
CPT/HCPCS: 36415; 80053; 81001; 83036; 84443; 85025; 87077; 87086; 87186

== ENCOUNTER → 2023-02-04 08:05 | Outpatient (CLI) | payer OTHER, MEDICAID, SELFPAY ==
[2023-01-15 08:28] VITALS: BMI 39.8
--- NOTE | 2023-02-04 08:06 | DI.CT.S_ITS ---
PROCEDURE: CT ABDOMEN PELVIS WO CON INDICATIONS: Kidney stones TECHNIQUE: Axial sections were acquired from the lung bases to the pubic symphysis. Coronal and sagittal reformats were performed. For radiation dose reduction, the following was used: automated exposure control, adjustment of mA and/or kV according to patient size. COMPARISON: [facility], CT, CT KIDNEY URETER BLADDER (KUB), 01/14/2023, 18:09. FINDINGS: Lung bases: No pleural effusion. URINARY: A right ureteral stent is present with the proximal pigtail at the upper aspect of the right renal collecting system and the inferior pigtail at the urinary bladder. A 7 millimeter nonobstructing stone is present at the right inferior kidney which was not seen previously in this region on the prior CT, unclear if this represents the stone previously present at the [facility] on that study. No right hydronephrosis. A left ureteral stent is also present, proximal end at the left renal pelvis, distal end at the urinary bladder. A few tiny nonobstructing left renal stones are present. No left hydronephrosis. No bladder stones visualized. ABDOMEN: Liver: Hepatic steatosis present as before. Redemonstrated nodular foci within the right lobe of the liver, hyperdense relative to background steatotic liver, not significantly changed in the interval. Gallbladder: Unremarkable. Biliary ducts: Unremarkable. Pancreas: Unremarkable. Spleen: Unremarkable. Adrenal Glands: Unremarkable. Stomach and Bowel: No bowel obstruction. Peritoneum: No abnormal intraperitoneal fluid. No free air. Abdominal Nodes: No enlarged retroperitoneal or mesenteric lymph nodes. Vessels: Aorta and inferior vena cava are normal in size. PELVIS: Pelvic Organs: Unremarkable. Pelvic Nodes: Unremarkable. Bones: Similar mild superior endplate compression deformity of T12. IMPRESSION: 1. Bilateral ureteral stents are present. No hydroureteronephrosis bilaterally. 2. A 7 millimeter nonobstructing stone is present at the right inferior kidney which was not seen previously in this region on the prior CT, unclear if this represents the stone previously present at the [facility] on that study. 3. Hepatic steatosis with similar indeterminate nodules in the right lobe of the liver. Further evaluation could be performed as per the report of the prior exam. Dictated by: Alber Davenport M.D. on 02/04/2023 at 9:18 Approved by: Alber Davenport M.D. on 02/04/2023 at 9:53
== END ==
PROVIDERS: PCP Family Medicine; Referring Provider Urology; Visit Provider Urology
DX: N20.2 Calculus of kidney with calculus of ureter (principal); K76.0 Fatty (change of) liver, not elsewhere classified; Z96.0 Presence of urogenital implants
CPT/HCPCS: 74176

== ENCOUNTER 2023-02-07 20:12 | Emergency (ER) | payer OTHER, MEDICAID, SELFPAY ==
[2023-01-15 08:28] VITALS: BMI 39.8
[2023-02-07 20:32] VITALS: BP 172/90; PULSE 98; RESP 16; TEMP 36.7; O2SAT 98; BMI 42.4
--- NOTE | 2023-02-07 21:15 | ED.EXTPRO ---
HPI - Extremity Problem General Chief complaint: Extremity Problem,Nontraumatic Stated complaint: Inflamed achilles tendon Time Seen by Provider: 02/07/23 21:05 Source: patient Mode of arrival: Wheelchair History of Present Illness HPI Narrative: 37-year-old male here for evaluation of discomfort to his right Achilles tendon and also on the side of his right foot in the bottom his right foot. He states that it his started to hurt over the past couple days when he is started a new job where he has to stand and walk around quite a bit. He is not want specific injury that caused his discomfort. He has been using topical Aspercreme over the areas but no other pain medication. Related Data Home Medications Medication Instructions Recorded Confirmed lancets 33 gauge (OneTouch Delica #100 ea 02/15/22 02/03/23 Plus Lancet) levetiracetam 500 mg tablet 1,500 mg PO BID 11/22/22 02/03/23 (Keppra) Previous Rx's Medication Instructions Recorded lancets 28 gauge (Acti-Salomón #100 ea 12/26/21 Lancets) metformin 500 mg tablet 500 mg PO BID #180 tabs 02/15/22 losartan 50 mg tablet 50 mg PO BID #180 tabs 08/16/22 blood sugar diagnostic (Blood #50 ea 10/24/22 Glucose Test strips) tamsulosin 0.4 mg capsule (Flomax) 0.4 mg PO DAILY #7 caps 11/08/22 phenazopyridine 200 mg tablet 200 mg PO TID PRN Bladder 12/12/22 (Pyridium) irritation #30 tabs phenazopyridine 200 mg tablet 200 mg PO TID PRN Bladder 12/31/22 (Pyridium) irritation #30 tabs glipizide 5 mg tablet 5 mg PO DAILY #90 tabs 02/04/23 sulfamethoxazole 800 1 tab PO BID #14 tabs 02/05/23 mg-trimethoprim 160 mg tablet (Bactrim DS) Allergies Allergy/AdvReac Type Severity Reaction Status Date / Time No Known Drug Allergies Allergy Verified 02/07/23 20:32 Review of Systems Musculoskeletal Musculoskeletal: Reports system reviewed and no additional complaints, except as documented Integumentary/Breasts Skin/Breast: Reports system reviewed and no additional complaints, except as documented Neurologic Neurologic: Reports system reviewed and no additional complaints, except as documented Patient History Medical History Bilateral kidney stones Borderline hyperlipidemia Epilepsy Hematuria History of renal colic Hypertension Increase in creatinine Prediabetes Retained ureteral stent Right ureteral calculus Seizure Type 2 diabetes mellitus Surgical History Anesthesia Hx of cystoscopy (2018) Hx of cystoscopy (11/22/22) Scrotal abscess (~11/17/21) Social History marital status: number of children: 0 household members: significant other occupational status: employed Smoking Status: Smoker, status unknown alcohol intake: never caffeine: No Type(s) of exercise: weight lifting frequency: 3-4 times per week duration: > 90 minutes/day Smoking Status: Smoker, status unknown tobacco type: vaping alcohol intake frequency: holidays/special occasions only Substance Use Type: does not use Exam Initial Vital Signs Initial Vital Signs: Vital Signs Temperature 98.1 F 02/07/23 20:32 Pulse Rate 98 H 02/07/23 20:32 Respiratory Rate 16 02/07/23 20:32 Blood Pressure 172/90 H 02/07/23 20:32 Pulse Oximetry 98 02/07/23 20:32 Oxygen Delivery Method Room Air 02/07/23 20:32 Cardio Pulses: dorsalis pedis present on the right Skin General: no rashes or lesions noted Neuro Sensory Exam: no sensory deficits noted Extrem Other: [place] has some discomfort at the insertion of the Achilles tendon on the right. The Achilles tendon is intact. He also has discomfort at the base of 5th metatarsal with insertion of the peroneal muscles and also in the bottom of his foot also the insertion. He is no tenderness along the plantar fascia. Course Vital Signs Vital signs: Vital Signs - 8 hr 02/07/23 20:32 Temperature 98.1 F Pulse Rate 98 H Respiratory Rate 16 Blood Pressure 172/90 H Pulse Oximetry 98 Oxygen Delivery Method Room Air MDM - Extremity (Nontraumatic) MDM Narrative Medical decision making narrative: Patient has tenderness along the Achilles tendon and also the insertion sites of the peroneal muscles. Low suspicion for fracture. No specific trauma. His Achilles tendon is intact. No indication for radiologic studies. Is presentations today are consistent with a tendinitis. Will try conservative measures to include heat and ice. Lasted bandage for support. Patient asked for crutches. He was instructed that he can walk on his foot as tolerated. He was given return precautions. He expressed understanding Discharge Plan Departure Patient Disposition: Home Clinical Impression: Tendonitis Instructions: DI for Tendinitis, How To Perform RICE (Rest, Ice, Compress, Elevate), How to Apply an Elastic Wrap on Ankle Activity Restrictions/Additional Instructions: Continue to take all of your medications as directed. I do recommend that you use the last bandage or a ankle brace as needed. The crutches or for your comfort as well. Icing will be helpful in addition to keeping your foot elevated. Return to the emergency department for new symptoms Prescriptions: No Action (DME) lancets [Acti-Salomón Lancets] 28 gauge misc See Rx Instructions .Route Qty: 100 3RF Rx Instructions: Check blood glucose BID (DME) Blood Glucose Test Strip See Rx Instructions .Route Qty: 50 5RF Rx Instructions: check blood glucose twice a day glipizide 5 mg tablet 5 mg PO DAILY Qty: 90 3RF Rx Instructions: Take with dinner sulfamethoxazole-trimethoprim [Bactrim DS] 800-160 mg tablet 1 tab PO BID Qty: 14 0RF Rx Instructions: One tablet by mouth twice daily for seven days losartan 50 mg tablet 50 mg PO BID Qty: 180 3RF Rx Instructions: Half tablet per day for 6 days then advance to 1 full tablet (DME) lancets [OneTouch Delica Plus Lancet] 33 gauge misc See Rx Instructions .ROUTE .MEDSUPPLY Qty: 100 Rx Instructions: As directed metformin 500 mg tablet 500 mg PO BID Qty: 180 3RF levetiracetam [Keppra] 500 mg tablet 1,500 mg PO BID Rx Instructions: You can take 1000mg tablet +500mg tablet po BID phenazopyridine [Pyridium] 200 mg tablet 200 mg PO TID PRN (Reason: Bladder irritation) Qty: 30 1RF tamsulosin [Flomax] 0.4 mg capsule 0.4 mg PO DAILY Qty: 7 0RF phenazopyridine [Pyridium] 200 mg tablet 200 mg PO TID PRN (Reason: Bladder irritation) Qty: 30 0RF Referrals: Karl Mckeon, [Primary Care Provider] - Stand Alone Forms: Patient Portal/API, Work Release Note
== END 2023-02-07 21:35 | disposition home or self-care (01) ==
PROVIDERS: Emergency Provider Emergency Medicine; PCP Family Medicine
DX: M76.61 Achilles tendinitis, right leg (principal)
CPT/HCPCS: 99281; 99282

== ENCOUNTER → 2023-02-10 13:19 | Outpatient (CLI) | payer OTHER, MEDICAID, SELFPAY ==
[2023-01-15 08:28] VITALS: BMI 39.8
--- NOTE | 2023-02-10 13:21 | DI.RAD.S_ITS ---
PROCEDURE: XR KUB INDICATIONS: Kidney stone TECHNIQUE: One view of the abdomen acquired. COMPARISON: [facility], CT, CT ABDOMEN PELVIS WO CON, 02/04/2023, 8:13. [facility], CR, XR KUB, 01/21/2023, 11:11. FINDINGS: Surgical changes and devices: Stable appearance of bilateral ureteral stents. Bowel: Bowel gas pattern is normal. Soft tissues: No suspicious abdominal calcifications. Visualized solid organ contours appear normal in size. Bones: No suspicious bony lesions. IMPRESSION: 1. Stable appearance of bilateral ureteral stents and no definitive radiopaque renal, ureteral or bladder calculi. Dictated by: Miky Mayfield RRA Interpreted: Cele Victor MD on 02/10/2023 at 14:30 Transcribed by: FELICITAS on 02/10/2023 at 14:31 Approved by: Cele Victor M.D. on 02/10/2023 at 17:19
== END ==
PROVIDERS: PCP Family Medicine; Referring Provider Urology; Visit Provider Urology
DX: N20.2 Calculus of kidney with calculus of ureter (principal); N23 Unspecified renal colic; Z96.0 Presence of urogenital implants
CPT/HCPCS: 74018

== ENCOUNTER → 2023-02-19 11:18 | Outpatient (CLI) | payer OTHER, MEDICAID, SELFPAY ==
[2023-01-15 08:28] VITALS: BMI 39.8
--- NOTE | 2023-02-19 11:19 | DI.RAD.S_ITS ---
PROCEDURE: XR KUB INDICATIONS: Kidney stones TECHNIQUE: One view of the abdomen acquired. COMPARISON: [facility], , XR KUB, 02/10/2023, 13:42. FINDINGS: Surgical changes and devices: Bilateral ureterovesicular stents are present. Bowel: Bowel gas pattern is normal. Soft tissues: No suspicious abdominal calcifications. No definitive calcifications are identified overlying the renal shadows or the expected course of the ureters. Visualized solid organ contours appear normal in size. Bones: No suspicious bony lesions. IMPRESSION: Stable interval exam with bilateral ureteral since and nonvisualization of calcifications overlying the shadows or ureteral courses. Dictated by: Cele Victor M.D. on 02/19/2023 at 17:49 Approved by: Cele Victor M.D. on 02/19/2023 at 17:50
== END ==
PROVIDERS: PCP Family Medicine; Referring Provider Urology; Visit Provider Urology
DX: N20.2 Calculus of kidney with calculus of ureter (principal); N23 Unspecified renal colic; Z96.0 Presence of urogenital implants
CPT/HCPCS: 74018

== ENCOUNTER 2023-03-04 08:49 | Day surgery (SDC) | payer OTHER, MEDICAID, SELFPAY ==
[2023-01-15 08:28] VITALS: BMI 39.8
[2023-02-28 10:22] VITALS: BMI 42.4
--- NOTE | 2023-03-04 07:34 | PM.HP.1 ---
History of Present Illness History of Present Illness Date Patient Seen: 03/04/23 Time Patient Seen: 09:50 Chief complaint: Right Extracorporeal Shock Wave Lithotripsy Narrative: This 37-year-old male with a known history of kidney stones had presented to clinic and was noted to have renal colic. He subsequently had imaging that revealed a persistent and or new right-sided renal calculus. He presents at this time for right extracorporeal shockwave lithotripsy. The procedure, risks, alternatives were once again discussed with the patient his questions were answered. The risks to include but not limited to bleeding, infection, injury to surrounding structures, injury to kidney, failure to treat the stone, potential need for future procedures, continued stent irritation, unforeseen and unpredictable consequences in sequelae. Patient voices understanding and acceptance of risks and wishes to proceed. [facility] Medical History Bilateral kidney stones Borderline hyperlipidemia Epilepsy Hematuria History of renal colic Hypertension Increase in creatinine Prediabetes Retained ureteral stent Right ureteral calculus Seizure Type 2 diabetes mellitus Surgical History Anesthesia Hx of cystoscopy (2018) Hx of cystoscopy (11/22/22) Scrotal abscess (~11/17/21) Social History marital status: number of children: 0 household members: significant other occupational status: employed Smoking Status: Former smoker alcohol intake: never caffeine: No Type(s) of exercise: weight lifting frequency: 3-4 times per week duration: > 90 minutes/day Meds Home Medications and Allergies Home Medications Medication Instructions Recorded Confirmed Type lancets 28 gauge (Acti-Salomón #100 ea 12/26/21 02/03/23 Rx Lancets) lancets 33 gauge (OneTouch Delica #100 ea 02/15/22 02/03/23 History Plus Lancet) losartan 50 mg tablet 50 mg PO BID #180 tabs 08/16/22 03/04/23 Rx blood sugar diagnostic (Blood #50 ea 10/24/22 02/03/23 Rx Glucose Test strips) levetiracetam 500 mg tablet 1,500 mg PO BID 11/22/22 03/04/23 History (Keppra) phenazopyridine 200 mg tablet 200 mg PO TID PRN Bladder 12/31/22 03/04/23 Rx (Pyridium) irritation #30 tabs glipizide 5 mg tablet 5 mg PO DAILY #90 tabs 02/04/23 03/04/23 Rx empagliflozin 25 mg tablet 25 mg PO DAILY #90 tabs 02/11/23 03/04/23 Rx (Jardiance) metformin 500 mg tablet 500 mg PO BID #180 tabs 03/03/23 03/04/23 Rx amlodipine 2.5 mg tablet 2.5 mg PO DAILY 03/04/23 03/04/23 History Allergies Allergy/AdvReac Type Severity Reaction Status Date / Time No Known Drug Allergies Allergy Verified 03/04/23 09:06 Review of Systems Review of Systems ROS: Yes All systems reviewed with the patient and are negative except as otherwise documented (And problem list) Exam Narrative Exam Narrative: General: This is an awake, alert, oriented male lying on a gurney in no acute distress. Lungs: Clear full and equal Cardiovascular exam: Regular rate and rhythm without murmur Abdominal exam: Soft, nontender, without palpable mass, obese. Genitourinary exam: Normal male Neurologic exam: Grossly intact Assessment & Plan Assessment and plan (1) Right kidney stone: Status: Inactive Plan Assessment and plan: Right renal calculus plan is right extracorporeal shockwave lithotripsy. Patient is covered with antibiotics and arrives NPO.
[2023-03-04 09:10] VITALS: BMI 42.4
[2023-03-04 09:16] VITALS: BP 156/93; PULSE 88; RESP 17; TEMP 36.2; O2SAT 98
[2023-03-04] MEDS: LACTATED RINGERS 1,000 ML 21 ML IV (09:18)
--- NOTE | 2023-03-04 09:49 | SUR.PREOP ---
Dr Hernandez ordered pyridium to help with post op voiding pain.
[2023-03-04] MEDS: PHENAZOPYRIDINE 100 MG TABLET 200 MG PO (09:53)
[2023-03-04] MEDS: CEFAZOLIN 2 GM/100 ML PREMIX 100 ML IV (10:05)
--- NOTE | 2023-03-04 10:14 | SUR.OPER ---
Supine on padded ESWL TABLE, head on pillow, arms secured on padded arm boards at <90 degrees abduction, legs uncrossed, safety belt at thigh, tape over blanket over lower legs.
--- NOTE | 2023-03-04 10:35 | P.OP_ITS ---
Procedure & Clinicians Procedure: Right extracorporeal shockwave lithotripsy Same procedure as scheduled: Yes Indications: This is a 37-year-old male with a long history of stones who has had right-sided stones unless stones treated. And was found to have yet another right-sided stone presents this time to treat this stone with extracorporeal shockwave lithotripsy. Surgeon: Peter Hernandez Click Yes if Unassisted: Yes Anesthesia Type: General Operative Notes Findings: Findings: The stone is noted in the upper pole or in the upper part of the right kidney. It has a ring-like appearance and at 3:00 p.m. shocks at level 7 appeared completely fragmented to dust. No other stones were noted. Stent appeared in good position on both sides. There was question of a few small fragments on the left and so has elected not to remove the stent but will review that at his follow-up and perhaps remove both stents at the same time. No other abnormalities were noted Closure Type: not applicable Specimen(s): none sent Estimated Blood Loss (mL): 0 Blood products transfused: none Procedure in detail: Procedure in detail: After informed consent was obtained, the patient was identified and brought to the operating room room placed in a supine position on the Lithotripter. Patient then had anesthesia induced to maintain. Ensuring an adequate level of anesthesia and after time-out the stone was targeted via the imaging system and shock waves delivered of to level 7. Periodic reimaging and re localization of the stone was performed to ensure maximal energy delivery to the stone. At 1000 shocks the shockwave head was rotated out a fluoroscopy performed there appeared to be a few remaining fragments therefore the stone was once again targeted and the fragments treated for another 500 shocks for a total of 1500 shocks at level 7 at this point the shockwave head was rotated out and fluoroscopy performed revealing the stone to have been completely fragmented. At this point the patient was awakened taken to the postanesthesia care unit having tolerated the procedure well. Patient is to recover in the postanesthesia care unit there were no complications. Complications: none Post-operative Condition: stable Disposition: PACU Plan for aftercare: Patient to be discharged to home straining his urine save any fragments follow- up my office in approximately 10-14 days.
[2023-03-04 10:38] VITALS: BP 143/92; PULSE 94; RESP 15; TEMP 36.2; O2SAT 98
[2023-03-04 10:43] VITALS: BP 138/93; PULSE 83; RESP 20; O2SAT 98
[2023-03-04 10:48] VITALS: BP 142/92; PULSE 82; RESP 16; O2SAT 98
[2023-03-04 10:53] VITALS: BP 155/94; PULSE 90; RESP 16; O2SAT 99
[2023-03-04 10:58] VITALS: BP 150/95; PULSE 82; RESP 16; O2SAT 98
== END 2023-03-04 11:53 | disposition home or self-care (01) ==
PROVIDERS: PCP Family Medicine; Referring Provider Urology; Visit Provider Urology
PROC: (CPT 50590; principal; 2023-03-04 10:15)
DX: N20.0 Calculus of kidney (principal)
CPT/HCPCS: 50590; 82962; J0690; J1100; J2405; J2704

== ENCOUNTER → 2023-03-28 15:52 | Outpatient (CLI) | payer OTHER, MEDICAID, SELFPAY ==
[2023-01-15 08:28] VITALS: BMI 39.8
--- NOTE | 2023-03-28 15:55 | DI.RAD.S_ITS ---
PROCEDURE: XR FOOT RT MIN 3V INDICATIONS: right foot pain TECHNIQUE: 3 views of the foot were acquired. COMPARISON: None. FINDINGS: Bones: No fractures or dislocations. No suspicious bony lesions. Soft tissues: No tibiotalar joint effusion. Achilles tendon appears normal. IMPRESSION: No acute radiographic findings. If pain persists, followup imaging in 5-7 days is recommended to exclude occult fracture. Dictated by: Aruna Serna M.D. on 03/28/2023 at 17:02 Approved by: Aruna Serna M.D. on 03/28/2023 at 17:03
== END ==
PROVIDERS: PCP Family Medicine; Referring Provider Family Medicine; Visit Provider Family Medicine
DX: M79.671 Pain in right foot (principal); M77.9 Enthesopathy, unspecified
CPT/HCPCS: 73630

== ENCOUNTER → 2023-04-16 09:10 | Outpatient (CLI) | payer OTHER, MEDICAID, SELFPAY ==
[2023-01-15 08:28] VITALS: BMI 39.8
--- NOTE | 2023-04-16 09:11 | DI.RAD.S_ITS ---
PROCEDURE: XR KUB INDICATIONS: kidney stone post lithotripsy TECHNIQUE: One view of the abdomen acquired. COMPARISON: [facility], CR, XR KUB, 02/19/2023, 11:24. [facility], CR, XR KUB, 02/10/2023, 13:42. FINDINGS: Surgical changes and devices: Bilateral ureteral stents in place. Bowel: Bowel gas pattern is normal. Soft tissues: No suspicious abdominal calcifications. Visualized solid organ contours appear normal in size. Bones: No suspicious bony lesions. IMPRESSION: Bilateral ureteral stents in place. No calcifications are seen to suggest renal stones. Dictated by: Dayton Ma M.D. on 04/16/2023 at 13:34 Approved by: Dayton Ma M.D. on 04/16/2023 at 13:35
== END ==
PROVIDERS: PCP Family Medicine; Referring Provider Urology; Visit Provider Urology
DX: N20.2 Calculus of kidney with calculus of ureter (principal); N23 Unspecified renal colic; R31.9 Hematuria, unspecified; Z96.0 Presence of urogenital implants; Z87.442 Personal history of urinary calculi; Z98.890 Other specified postprocedural states
CPT/HCPCS: 74018; 81002

== ENCOUNTER → 2023-04-29 13:52 | Outpatient (CLI) | payer OTHER, SELFPAY ==
[2023-01-15 08:28] VITALS: BMI 39.8
--- NOTE | 2023-04-29 13:52 | DI.CT.S_ITS ---
PROCEDURE: CT ABDOMEN WO CON INDICATIONS: Kidney stones retained stents TECHNIQUE: After the administration of oral contrast, 5 mm thick sections acquired from the diaphragms to the iliac crests. 5 mm coronal and sagittal reformats were then performed. For radiation dose reduction, the following was used: automated exposure control, adjustment of mA and/or kV according to patient size. COMPARISON: [facility], CT, CT KIDNEY URETER BLADDER (KUB), 01/14/2023, 18:09. [facility], CT, CT ABDOMEN PELVIS WO CON, 02/04/2023, 8:13. FINDINGS: Image quality: Excellent. Evaluation of visceral organs is limited due to the lack of intravenous contrast. Lung bases: No suspicious pulmonary nodules or consolidation. No basilar effusion. Heart size is normal. Solid organs: Liver is normal in size. Diffuse hepatic steatosis. Stable hyperdense lesion in the right hepatic lobe measuring 2 cm (2/39), previously 2 cm (2/40). Additional smaller right hepatic lobe lesion is not well seen. Gallbladder decompressed and unremarkable . Pancreas is normal in contours. Spleen is normal in size. No adrenal nodules. Both kidneys are normal in size, without hydronephrosis. Partially visualized bilateral double-J ureteral stents with proximal pigtails appropriately position within the renal pelvis. No hydronephrosis bilaterally. Nonobstructive nephrolith in the left interpolar region measuring 4 mm (2/36). A few additional bilateral sub 4 mm punctate nephroliths. Previously seen right UPJ stone is no longer seen. Right interpolar subcentimeter hypodense lesion is too small to characterize, statistically a cyst (2/35). Peritoneum and bowel: Visualized small and large bowel is normal in caliber, without obstruction. No visualized pneumatosis, pneumoperitoneum or portal venous gas. Normal appendix. Nodes and vessels: No retroperitoneal or mesenteric adenopathy by size criteria. Aorta and inferior vena cava are normal in size. Bones: No suspicious bony lesions. No acute fractures. Stable Schmorl's node at the superior endplate of T12). Mild multilevel degenerative changes of the spine with tiny anterior osteophytosis. Miscellaneous: No ventral hernias. IMPRESSION: Evaluation of the visceral organs is limited due to the lack of intravenous contrast. 1. Interval placement of right double-J ureteral stent and pre-existing left double-J stent. Right UPJ stone is no longer seen and hydronephrosis has resolved. 2. Nonobstructive nephrolith in the left interpolar region measuring 4 mm. A few additional bilateral sub 4 mm punctate nephroliths. 3. Hepatic steatosis with right hepatic lobe lesion measuring 2 cm which is indeterminate. Previously described additional smaller lesion is not well seen on today's exam. Consider MRI (liver mass protocol) for further evaluation. Dictated by: Yvonne Segal M.D. on 04/29/2023 at 15:31 Approved by: Yvonne Segal M.D. on 04/29/2023 at 15:58
== END ==
PROVIDERS: PCP Family Medicine; Referring Provider Urology; Visit Provider Urology
DX: N20.0 Calculus of kidney (principal); Z96.0 Presence of urogenital implants; K76.0 Fatty (change of) liver, not elsewhere classified; K76.9 Liver disease, unspecified
CPT/HCPCS: 74150

== ENCOUNTER → 2023-06-10 16:05 | Outpatient (CLI) | payer OTHER, SELFPAY ==
[2023-01-15 08:28] VITALS: BMI 39.8
[2023-06-10 17:15] LABS: Hemoglobin A1C% w Est Avg Glu 7.2 % (4.0-6.0)
[2023-06-10 17:34] LABS: Alanine Aminotransferase 39 IU/L (<50); Albumin 4.4 g/dL (3.5-5.0); Albumin Globulin Ratio 1.3 (1.0-2.8); Alkaline Phosphatase 60 U/L (38-126); Aspartate Aminotransferase 29 IU/L (17-59); BUN Creatinine Ratio 13.7 (6-22); Bilirubin Total 0.6 mg/dL (0.2-1.3); Blood Urea Nitrogen 13 mg/dL (9-20); Calcium 9.5 mg/dL (8.4-10.2); Carbon Dioxide 27 mmol/L (22-32); Chloride 103 mmol/L (98-107); Cholesterol 164 mg/dL (140-199); Estimated Glomerular Filt Rate > 60 mL/min (>60); Globulin 3.3 g/dL (1.7-4.1); Glucose 98 mg/dL (70-100); HDL Cholesterol 31 mg/dL (40-60); HEMOLYSIS 21 (0-50); LDL Cholesterol Calculated 87 mg/dL (<100); Potassium 3.7 mmol/L (3.4-5.1); Sodium 138 mmol/L (137-145); Total Protein 7.7 g/dL (6.3-8.2); Triglycerides 231 mg/dL (35-150)
[2023-06-10 17:35] LABS: Phosphorous 3.9 mg/dL (2.5-4.5); Uric Acid 7.5 mg/dL (3.5-8.5)
[2023-06-10 18:11] LABS: Creatinine Urine Random 101.6 mg/dL
[2023-06-10 18:37] LABS: Microalbumi Creatinin Ratio Ur 206.6 ug/mg CR (<30)
[2023-06-13 11:50] LABS: Calcium 9.4 mg/dL (8.7-10.2); Parathyroid Hormone, Intact 39 pg/mL (15-65)
== END ==
PROVIDERS: PCP Family Medicine; Referring Provider Urology; Visit Provider Urology
DX: E11.9 Type 2 diabetes mellitus without complications (principal); I10 Essential (primary) hypertension; N20.1 Calculus of ureter; N23 Unspecified renal colic; R31.9 Hematuria, unspecified; N20.0 Calculus of kidney
CPT/HCPCS: 80053; 80061; 82043; 82310; 82570; 83036; 83970; 84100; 84550

== ENCOUNTER → 2024-01-21 08:51 | Outpatient (CLI) | payer OTHER, SELFPAY ==
[2023-01-15 08:28] VITALS: BMI 39.8
[2024-01-21 09:54] LABS: Alanine Aminotransferase 35 IU/L (<50); Albumin 4.5 g/dL (3.5-5.0); Albumin Globulin Ratio 1.4 (1.0-2.8); Alkaline Phosphatase 55 U/L (38-126); Aspartate Aminotransferase 26 IU/L (17-59); BUN Creatinine Ratio 22.5 (6-22); Bilirubin Total 0.6 mg/dL (0.2-1.3); Blood Urea Nitrogen 23 mg/dL (9-20); Calcium 9.3 mg/dL (8.4-10.2); Carbon Dioxide 26 mmol/L (22-32); Chloride 107 mmol/L (98-107); Cholesterol 169 mg/dL (140-199); Estimated Glomerular Filt Rate > 60 mL/min (>60); Globulin 3.3 g/dL (1.7-4.1); Glucose 121 mg/dL (70-100); HDL Cholesterol 38 mg/dL (40-60); HEMOLYSIS 20 (0-50); LDL Cholesterol Calculated 102 mg/dL (<100); Potassium 4.5 mmol/L (3.4-5.1); Sodium 140 mmol/L (137-145); Total Protein 7.8 g/dL (6.3-8.2); Triglycerides 144 mg/dL (35-150)
[2024-01-21 12:36] LABS: Hemoglobin A1C% w Est Avg Glu 6.7 % (4.0-6.0)
== END ==
LOC: LAB 08:52
PROVIDERS: PCP Family Medicine; Referring Provider Family Medicine; Visit Provider Family Medicine
DX: E11.9 Type 2 diabetes mellitus without complications (principal); I10 Essential (primary) hypertension; E78.5 Hyperlipidemia, unspecified
CPT/HCPCS: 36415; 80053; 80061; 83036

== ENCOUNTER 2024-01-26 20:04 | Emergency (ER) | payer OTHER, SELFPAY ==
[2023-01-15 08:28] VITALS: BMI 39.8
[2024-01-26 20:18] VITALS: BP 166/79; PULSE 89; RESP 17; TEMP 36.9; O2SAT 95; BMI 41.3
[2024-01-26 21:26] LABS: Bacteria Urine None Seen; Culture Indicated Urine Cult Not Indicated; RBC Urine None Seen (0-5/HPF); Squamous Epithelial Cell Urine None Seen (0-5/HPF); Urine Volume 10mL (spun); WBC Urine None Seen (0-5/HPF)
--- NOTE | 2024-01-26 22:00 | PC.NURSE ---
Pt ambulatory to room. Pt is afraid that he may have an infection brewing. Has had issue with testicles in the past and was flown to [facility].
[2024-01-26 23:00] VITALS: BP 134/75; PULSE 85; RESP 18; O2SAT 98
--- NOTE | 2024-01-27 00:21 | ED.MALEGU ---
HPI - Male Genitourinary General Chief complaint: Urogenital-Male Stated complaint: poss infection/genital area Time Seen by Provider: 01/27/24 00:18 Source: patient Mode of arrival: Ambulatory History of Present Illness HPI Narrative: Patient is a 38-year-old male history of epilepsy, hypertension hyperlipidemia type 2 diabetes with a well-controlled hemoglobin A1c presenting today with scrotal bump on the right side. 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 He says this is how it started last time although last time according to documents and patient he was febrile tachycardic with significant erythema and swelling. Today he has no testicular pain no abdominal pain no nausea vomiting and he is afebrile. Related Data Home Medications Medication Instructions Recorded Confirmed lancets 33 gauge (OneTouch Delica #100 ea 02/15/22 01/22/24 Plus Lancet) amlodipine 2.5 mg tablet 2.5 mg PO DAILY 03/04/23 01/22/24 Previous Rx's Medication Instructions Recorded lancets 28 gauge (Acti-Salomón #100 ea 12/26/21 Lancets) blood sugar diagnostic (Blood #50 ea 10/24/22 Glucose Test strips) ibuprofen 800 mg tablet 800 mg PO TID #90 tabs 06/10/23 empagliflozin 25 mg tablet 25 mg PO DAILY #90 tabs 07/04/23 (Jardiance) levetiracetam 1,000 mg tablet 1,500 mg (1.5 x 1,000 mg) PO BID 07/04/23 #135 tabs losartan 50 mg tablet 50 mg PO BID #180 tabs 07/04/23 glipizide 5 mg tablet 5 mg PO DAILY #90 tabs 01/20/24 metformin 500 mg tablet 500 mg PO BID #180 tabs 01/20/24 doxycycline hyclate 100 mg capsule 100 mg PO BID #20 caps 01/27/24 Allergies Allergy/AdvReac Type Severity Reaction Status Date / Time No Known Drug Allergies Allergy Verified 01/22/24 14:39 Patient History Medical History History of kidney stones Right foot pain Right ureteral calculus Increase in creatinine Retained ureteral stent History of renal colic Hematuria Bilateral kidney stones Epilepsy Seizure Borderline hyperlipidemia Hypertension Type 2 diabetes mellitus Prediabetes Surgical History H/O lithotripsy Hx of cystoscopy (11/22/22) Hx of cystoscopy (2018) Anesthesia Scrotal abscess (~11/17/21) Social History marital status: number of children: 0 household members: significant other occupational status: employed Smoking Status: Former smoker alcohol intake: never caffeine: No Type(s) of exercise: weight lifting frequency: 3-4 times per week duration: > 90 minutes/day Smoking Status: Former smoker tobacco type: vaping alcohol intake frequency: holidays/special occasions only Substance Use Type: does not use Exam Initial Vital Signs Initial Vital Signs: Vital Signs Temperature 98.5 F 01/26/24 20:18 Pulse Rate 89 01/26/24 20:18 Respiratory Rate 17 01/26/24 20:18 Blood Pressure 166/79 H 01/26/24 20:18 Pulse Oximetry 95 01/26/24 20:18 Oxygen Delivery Method Room Air 01/26/24 20:18 GENERAL: Alert well-appearing 38-year-old male and in no acute distress. HEENT: Head atraumatic,EOMI, pupils reactive, face symmetric, moist mucous membranes CARDIOVASCULAR: Regular rate and rhythm without murmurs, rubs or gallops. RESPIRATORY: Breath sounds equal bilaterally, no wheezes rales or rhonchi. ABDOMEN: Soft, nontender. Normoactive bowel sounds all 4 quadrants. No guarding or rebound. : Nurse Oro present for examination patient right testicle has a 0.25 cm x 0.25 cm area of swelling with no significant erythema or fluctuation no drainage testicle itself is nontender EXTREMITIES: Normal range of motion, no clubbing or edema. Neurovascularly intact NEUROLOGICAL: Alert and oriented x4.Normal gait and speech. SKIN: Warm, dry, no laceration, no petechiae, no rashes or lesions. Course Orders Ordered: ED Orders 01/27/24 00:01 Chlamydia Gonorrhea PCR -URINE Stat Discontinued Medications Doxycycline Hyclate (Doxycycline Hyclate 100 Mg Tablet) 100 mg PO NOW ONE Stop: 01/27/24 00:42 Last Admin: 01/27/24 00:50 Dose: 100 mg Documented By: Vital Signs Vital signs: Vital Signs - 8 hr 01/26/24 23:00 01/27/24 00:36 01/27/24 01:05 Temperature 98.2 F 98.4 F Pulse Rate 85 85 85 Respiratory Rate 18 18 18 Blood Pressure 134/75 133/75 132/78 Pulse Oximetry 98 97 98 Oxygen Delivery Method Room Air Room Air Room Air MDM - Male Genitourinary Lab Data Labs: Lab Results 01/26/24 01/27/24 Range/Units 20:20 00:01 Urine RBC None seen (0-5/HPF) Urine WBC None seen (0-5/HPF) Ur Squamous Epith Cells None seen (0-5/HPF) Urine Bacteria None seen (None) Ur Culture Indicated? Cult not indicated Vol Urine Centrifuged 10ml (spun) Ur Chlamydia DNA (PCR) Not detected N gonorrhoeae DNA (PCR) Not detected Urine Dip Bedside Urine Glucose 1000 mg/dl Bedside Urine Bilirubin - Negative Bedside Urine Ketone - Negative Urine Specific [place] 1.015 Bedside Urine Occult Blood - Negative Bedside Urine pH 6.0 Bedside Urine Protein +/- 15 Bedside Urine Urobilinogen - Negative Bedside Urine Nitrite - Negative Bedside Urine Leukocytes - Negative Esterase MDM Narrative Medical decision making narrative: Patient 38-year-old male with history of Hailee's gangrene presenting today with area on his right testicle. He is afebrile he reports that his glucose has been well controlled in the 100s. Urinalysis it does not show any evidence of infection or glucose. Area is extremely small about 0.25 cm x 0.25 cm there is no significant erythema fluctuation or drainage. No concern for STDs although checking. And it is negative. Testicle itself is nontender. At this time I do not see need for scrotal ultrasound no concern for torsion at this time. I think very reasonable to start him on antibiotics based on his history I also strongly encourage him to check daily and return as needed. Discharge Plan Departure Patient Disposition: Home Clinical Impression: Abscess Instructions: DI for Skin Abscess Activity Restrictions/Additional Instructions: *You have been diagnosed with scrotal abscess *What to do: At this time the area is very small. Do recommend very close monitoring, warm compresses warm bath monitor daily *Continue to take medications as directed Doxycycline 100 mg twice a day for 10 days *Follow up with your primary care provider in 2-3 days or call [phone] *Return to ER if you should have increasing redness swelling pain fever or any new, worsening or concerning symptoms Prescriptions: New doxycycline hyclate 100 mg capsule 100 mg PO BID Qty: 20 0RF No Action (DME) lancets [Acti-Salomón Lancets] 28 gauge misc See Rx Instructions .Route Qty: 100 3RF Rx Instructions: Check blood glucose BID (DME) Blood Glucose Test Strip See Rx Instructions .Route Qty: 50 5RF Rx Instructions: check blood glucose twice a day Jardiance 25 mg tablet 25 mg PO DAILY Qty: 90 3RF Rx Instructions: advanced to 1 full pill daily losartan 50 mg tablet 50 mg PO BID Qty: 180 3RF Rx Instructions: advance to 1 full tablet daily levetiracetam 1,000 mg tablet 1,500 mg PO BID Qty: 135 1RF glipizide 5 mg tablet 5 mg PO DAILY Qty: 90 0RF Rx Instructions: Take with dinner metformin 500 mg tablet 500 mg PO BID Qty: 180 0RF (DME) lancets [OneTouch Delica Plus Lancet] 33 gauge misc See Rx Instructions .ROUTE .MEDSUPPLY Qty: 100 Rx Instructions: As directed ibuprofen 800 mg tablet 800 mg PO TID MDD 2,400mg Qty: 90 0RF Rx Instructions: Take one tablet by mouth every 8 hrs prn pain amlodipine 2.5 mg tablet 2.5 mg PO DAILY Referrals: Karl Mckeon DO [Primary Care Provider] - Stand Alone Forms: Patient Portal/API
[2024-01-27 00:36] VITALS: BP 133/75; PULSE 85; RESP 18; TEMP 36.8; O2SAT 97
[2024-01-27] MEDS: DOXYCYCLINE HYCLATE 100 MG TABLET PO (00:50)
[2024-01-27 01:05] VITALS: BP 132/78; PULSE 85; RESP 18; TEMP 36.9; O2SAT 98
[2024-01-27 02:38] LABS: Urine N gonorrhoeae NOT DETECTED
[2024-01-27 02:43] LABS: Urine Chlamydia NOT DETECTED
== END 2024-01-27 01:06 | disposition home or self-care (01) ==
PROVIDERS: Emergency Provider Emergency Medicine; PCP Family Medicine
DX: N49.2 Inflammatory disorders of scrotum (principal)
CPT/HCPCS: 81003; 81015; 87491; 87591; 99283

== ENCOUNTER 2024-12-03 14:05 | Inpatient (IN) | payer OTHER, SELFPAY ==
[2023-01-15 08:28] VITALS: BMI 39.8
[2024-12-03] VITALS (25 sets, daily range): BP systolic 133–189; BP diastolic 77–118; PULSE 83–112; RESP 10–25; TEMP 36.1–36.6; O2SAT 93–98; BMI 42.4
--- NOTE | 2024-12-03 14:15 | EKG_ITS ---
[address] [address] Test Date: 2024-12-03 Pat Name: Dom Wise Department: Room: Gender: Male [employer] Supervisor: ALEJA : 1985 Requested By: Order Number: [id number] Reading MD: Quoc Hall MD Measurements Intervals [place] Rate: 106 P: 69 HI: 148 QRS: 10 QRSD: 94 T: 37 QT: 332 QTc: 441 Interpretive Statements Sinus tachycardia Inferior infarct , age undetermined Electronically Signed On 12-05-2024 8:38:39 PDT by Quoc Hall MD
--- NOTE | 2024-12-03 14:19 | DI.RAD.S_ITS ---
PROCEDURE: XR CHEST 1V INDICATIONS: Chest Pain TECHNIQUE: One view of the chest was acquired. COMPARISON: None. FINDINGS: Surgical changes and devices: None. Lungs and pleura: Lungs are clear. No pleural effusions or pneumothorax. Mediastinum: Mediastinal contours appear normal. Heart size is normal. Bones and chest wall: No suspicious bony lesions. Overlying soft tissues appear unremarkable. IMPRESSION: No acute pulmonary process. Dictated by: Cele Victor M.D. on 12/03/2024 at 15:08 Approved by: Cele Victor M.D. on 12/03/2024 at 15:08
[2024-12-03] MEDS: ASPIRIN 81 MG CHEW TAB 324 MG PO (14:38)
[2024-12-03 14:46] LABS: Add Manual Diff / Slide Review NO; Basophils Absolute Auto 100 /uL (0-100); Basophils Percent Auto 1.1 % (0-2); Eosinophils Absolute Auto 100 /uL (0-450); Eosinophils Percent Auto 1.7 % (2-4); Hematocrit 43.3 % (41-53); Hemoglobin 14.7 g/dL (13.5-17.5); Lymphocytes Absolute Auto 2500 /uL (1100-4500); Lymphocytes Percent Auto 29.5 % (25-40); Mean Corpuscular Hemoglobin 26.9 PG (26-34); Mean Corpuscular Volume 79.1 fL (80-100); Monocytes Absolute Auto 400 /uL (0-900); Monocytes Percent Auto 4.4 % (3-14); Neutrophils Absolute Auto 5400 /uL (1500-7000); Neutrophils Percent Auto 63.3 % (50-75); Platelet Count 210 X10^3/uL (150-400); Red Blood Cell Count 5.47 X10^6/uL (4.5-5.9); Red Cell Distribution Width 13.5 % (11.6-14.8); White Blood Cell Count 8.6 X10^3/uL (4.5-11.0)
[2024-12-03 14:57] LABS: Alanine Aminotransferase 62 IU/L (<50); Albumin 4.7 g/dL (3.5-5.0); Albumin Globulin Ratio 1.6 (1.0-2.8); Alkaline Phosphatase 53 U/L (38-126); Aspartate Aminotransferase 45 IU/L (17-59); BUN Creatinine Ratio 17.6 (6-22); Bilirubin Total 0.9 mg/dL (0.2-1.3); Blood Urea Nitrogen 18 mg/dL (9-20); Calcium 9.2 mg/dL (8.4-10.2); Carbon Dioxide 27 mmol/L (22-32); Chloride 103 mmol/L (98-107); Creatine Kinase 131 U/L (55-170); Estimated Glomerular Filt Rate > 60 mL/min (>60); Glucose 187 mg/dL (70-99); Lactate (Lactic Acid) 1.7 mmol/L (0.7-2.1); Lipase 369 U/L (23-300); Magnesium 1.4 mg/dL (1.6-2.3); Potassium 4.2 mmol/L (3.4-5.1); Sodium 140 mmol/L (137-145); Total Protein 7.7 g/dL (6.3-8.2)
[2024-12-03 15:07] LABS: NT-proBNP (BNP-Adult 18+) < 20 pg/mL (<125); Troponin I < 0.012 ng/mL (0.01-0.034)
[2024-12-03 15:10] LABS: HEMOLYSIS 60 (0-50)
--- NOTE | 2024-12-03 15:20 | EKG_ITS ---
[address] [address] Test Date: 2024-12-03 Pat Name: Dom Wise Department: Room: Gender: Male [employer] Specialist: BRADY : 1985 Requested By: Order Number: [id number] Reading MD: Quoc Hall MD Measurements Intervals [place] Rate: 95 P: 27 MI: 160 QRS: 10 QRSD: 94 T: 55 QT: 352 QTc: 442 Interpretive Statements Normal sinus rhythm Inferior infarct , age undetermined Cannot rule out Anterior infarct , age undetermined Electronically Signed On 12-05-2024 8:39:48 PDT by Quoc Hall MD
--- NOTE | 2024-12-03 15:31 | ED.CHESTPAIN ---
HPI - Chest Pain General Chief Complaint: Chest Pain Stated Complaint: Chest pain radiating both arms Time Seen by Provider: 12/03/24 15:16 History of Present Illness HPI narrative: Patient is a 39-year-old male history of insulin-dependent diabetes presenting today with chest pain. He reports that for about 1 week he he gets centralized epigastric pain. He says it happens with any kind of minimal activity. Taking out the trash walking up a flight of stairs. He says he must stop whatever activity he is doing for it to go away. He describes as burning sensation sometimes heaviness. Sometimes he can not breathe. He has no prior history of coronary artery disease. He is a nonsmoker. Today it happened to him about 3 times. Related Data Home Medications Medication Instructions Recorded Confirmed lancets 33 gauge (OneTouch Delica #100 ea 02/15/22 08/02/24 Plus Lancet) ibuprofen 800 mg tablet 800 mg PO TID PRN Pain (Scale 12/03/24 12/03/24 Score 1-3) Previous Rx's Medication Instructions Recorded lancets 28 gauge (Acti-Salomón #100 ea 12/26/21 Lancets) blood sugar diagnostic (Blood #50 ea 10/24/22 Glucose Test strips) glipizide 5 mg tablet 5 mg PO DAILY #90 tabs 06/28/24 metformin 500 mg tablet 500 mg PO BID #180 tabs 06/28/24 empagliflozin 25 mg tablet 25 mg PO DAILY #90 tabs 08/02/24 (Jardiance) losartan 50 mg tablet 50 mg PO BID #180 tabs 08/09/24 levetiracetam 1,000 mg tablet 1,500 mg (1.5 x 1,000 mg) PO BID 09/28/24 #135 tabs Allergies Allergy/AdvReac Type Severity Reaction Status Date / Time No Known Drug Allergies Allergy Verified 08/02/24 16:43 Patient History Medical History Bilateral kidney stones Borderline hyperlipidemia Epilepsy Hematuria History of kidney stones History of renal colic Hypertension Increase in creatinine Prediabetes Retained ureteral stent Right foot pain Right ureteral calculus Seizure Type 2 diabetes mellitus Surgical History Anesthesia H/O lithotripsy Hx of cystoscopy (2017) Hx of cystoscopy (11/22/22) Scrotal abscess (~11/17/21) Social History marital status: number of children: 0 household members: significant other occupational status: employed alcohol intake: never caffeine: No Type(s) of exercise: weight lifting frequency: 3-4 times per week duration: > 90 minutes/day tobacco type: vaping alcohol intake frequency: holidays/special occasions only Exam Initial Vital Signs Initial Vital Signs: Vital Signs Pulse Rate 112 H 12/03/24 14:13 Pulse Oximetry 98 12/03/24 14:13 GENERAL: Alert 39-year-old male and in no acute distress. HEENT: Head atraumatic,EOMI, pupils reactive, face symmetric, moist mucous membranes CARDIOVASCULAR: Regular rate and rhythm without murmurs, rubs or gallops. RESPIRATORY: Breath sounds equal bilaterally, no wheezes rales or rhonchi. ABDOMEN: Soft, nontender. Normoactive bowel sounds all 4 quadrants. No guarding or rebound. Negative Mendoza's sign EXTREMITIES: Normal range of motion, no clubbing or edema. Neurovascularly intact NEUROLOGICAL: Alert and oriented x4.Normal gait and speech. Cranial nerves II through XII grossly intact. SKIN: Warm, dry, no laceration, no petechiae, no rashes or lesions. Scores HEART Score Heart Score history: Highly Suspicious Heart Score EKG: Normal Heart Score Age: < 45 years old Heart Score risk factors: 1-2 risk factors Heart Score troponin: < or = to normal limit Heart Score Total: 3 Course Orders Ordered: ED Orders 12/03/24 14:19 XR chest 1V Stat EKG-12 Lead Stat RT Consult Eval and Treat NOW 12/03/24 14:34 Complete Blood Count AUTO DIFF Stat Comprehensive Metabolic Panel Stat Lactate (Lactic Acid) Stat Lipase Stat Magnesium Stat NT-proBNP (BNP-Adult 18+) Stat PTT Partial Thromboplastin Mickey Stat Prothrombin Time INR Stat Troponin & CK Cardiac Panel Stat 12/03/24 15:20 EKG-12 Lead Stat 12/03/24 15:40 US abdomen limited Stat 12/03/24 16:49 Troponin I Stat Aspirin (Aspirin Ec 325 Mg Tablet) 325 mg PO DAILY HANG Morphine Sulfate (Morphine 2 Mg/Ml Inj) 2 mg IV Q5MIN PRN PRN Reason: Chest Pain Naloxone HCl (Naloxone 0.4 Mg/Ml Vial) 0.2 mg IV Q2MIN PRN PRN Reason: Opiate Reversal Nitroglycerin (Nitroglycerin 0.4 Mg Sl Tab) 0.4 mg SL [id number] PRN PRN Reason: Chest Pain Discontinued Medications Al Hydrox/Mg Hydrox/Simethicone (Mag Hydrox/Alum/Simeth 30 Ml Udc) 30 ml PO NOW ONE Stop: 12/03/24 15:32 Last Admin: 12/03/24 17:57 Dose: Not Given Documented By: TORO Aspirin (Aspirin 81 Mg Chew Tab) 324 mg PO NOW ONE Stop: 12/03/24 14:20 Last Admin: 12/03/24 14:38 Dose: 324 mg Documented By: TORO Nitroglycerin (Nitroglycerin 0.4 Mg Sl Tab) 0.4 mg SL NOW ONE Stop: 12/03/24 15:32 Last Admin: 12/03/24 15:37 Dose: 0.4 mg Documented By: TORO Vital Signs Vital signs: Vital Signs - 8 hr 12/03/24 14:13 12/03/24 14:14 12/03/24 14:14 Temperature Pulse Rate 112 H 108 H Respiratory Rate Blood Pressure 189/118 H Pulse Oximetry 98 98 Oxygen Delivery Method 12/03/24 14:20 12/03/24 14:30 12/03/24 15:00 Temperature 97.8 F Pulse Rate 112 H 86 88 Respiratory Rate 20 24 Blood Pressure 189/118 H Pulse Oximetry 98 98 94 Oxygen Delivery Method Room Air 12/03/24 15:16 12/03/24 15:16 12/03/24 15:30 Temperature Pulse Rate 94 H 92 H Respiratory Rate 25 H Blood Pressure 169/95 H Pulse Oximetry 97 97 Oxygen Delivery Method Room Air 12/03/24 15:30 12/03/24 15:37 12/03/24 15:40 Temperature Pulse Rate 95 H 97 H Respiratory Rate Blood Pressure 176/98 H 176/98 H Pulse Oximetry 96 Oxygen Delivery Method 12/03/24 15:40 12/03/24 15:44 12/03/24 15:44 Temperature Pulse Rate 101 H Respiratory Rate 22 Blood Pressure 160/91 H 160/77 H Pulse Oximetry 93 Oxygen Delivery Method Room Air 12/03/24 15:50 12/03/24 15:50 12/03/24 16:00 Temperature Pulse Rate 97 H 96 H Respiratory Rate 10 L Blood Pressure 133/78 Pulse Oximetry 93 95 Oxygen Delivery Method 12/03/24 16:00 12/03/24 16:10 12/03/24 16:10 Temperature Pulse Rate 96 H Respiratory Rate 24 Blood Pressure 146/84 H 142/83 H Pulse Oximetry 96 Oxygen Delivery Method 12/03/24 16:20 12/03/24 16:20 12/03/24 16:30 Temperature Pulse Rate 86 96 H Respiratory Rate Blood Pressure 149/81 H Pulse Oximetry 97 98 Oxygen Delivery Method 12/03/24 16:30 12/03/24 16:40 12/03/24 16:40 Temperature Pulse Rate 85 Respiratory Rate Blood Pressure 170/88 H 155/84 H Pulse Oximetry 96 Oxygen Delivery Method Room Air 12/03/24 16:50 12/03/24 16:50 12/03/24 17:00 Temperature Pulse Rate 84 87 Respiratory Rate 20 Blood Pressure 154/88 H Pulse Oximetry 97 96 Oxygen Delivery Method 12/03/24 17:00 12/03/24 17:10 12/03/24 17:10 Temperature Pulse Rate 93 H Respiratory Rate 20 Blood Pressure 158/90 H 162/95 H Pulse Oximetry 97 Oxygen Delivery Method 12/03/24 17:20 12/03/24 17:20 12/03/24 17:30 Temperature Pulse Rate 86 Respiratory Rate Blood Pressure 165/95 H 166/92 H Pulse Oximetry 97 Oxygen Delivery Method 12/03/24 17:30 12/03/24 17:40 12/03/24 17:40 Temperature Pulse Rate 85 88 Respiratory Rate Blood Pressure 167/90 H Pulse Oximetry 96 96 Oxygen Delivery Method 12/03/24 17:50 12/03/24 17:50 Temperature Pulse Rate 90 Respiratory Rate 21 Blood Pressure 170/92 H Pulse Oximetry 96 Oxygen Delivery Method Room Air MDM - Chest Pain Lab Data 12/03/24 14:34 12/03/24 14:34 Labs: Lab Results 12/03/24 12/03/24 Range/Units 14:34 16:49 WBC 8.6 (4.5-11.0) X10^3/uL RBC 5.47 (4.5-5.9) X10^6/uL Hgb 14.7 (13.5-17.5) g/dL Hct 43.3 (41-53) % MCV 79.1 L (80-100) fL MCH 26.9 (26-34) PG MCHC 34.0 (30-36) % RDW 13.5 (11.6-14.8) % Plt Count 210 (150-400) X10^3/uL Neut % (Auto) 63.3 (50-75) % Lymph % (Auto) 29.5 (25-40) % [place] % (Auto) 4.4 (3-14) % Eos % (Auto) 1.7 L (2-4) % Baso % (Auto) 1.1 (0-2) % Neut # (Auto) 5400 (5103-5763) /uL Lymph # (Auto) 2500 (6443-3674) /uL [place] # (Auto) 400 (0-900) /uL Eos # (Auto) 100 (0-450) /uL Baso # (Auto) 100 (0-100) /uL PT 12.7 H (9.4-12.5) SECONDS INR 1.1 (0.9-1.3) APTT 40 H (25.1-36.5) SECONDS Sodium 140 (137-145) mmol/L Potassium 4.2 (3.4-5.1) mmol/L Chloride 103 (98-107) mmol/L Carbon Dioxide 27 (22-32) mmol/L BUN 18 (9-20) mg/dL Creatinine 1.02 (0.66-1.25) mg/dL Estimated GFR > 60 (>60) mL/min BUN/Creatinine Ratio 17.6 (6-22) Glucose 187 H (70-99) mg/dL Lactate 1.7 (0.7-2.1) mmol/L Calcium 9.2 (8.4-10.2) mg/dL Magnesium 1.4 L (1.6-2.3) mg/dL Total Bilirubin 0.9 (0.2-1.3) mg/dL AST 45 (17-59) IU/L ALT 62 H (<50) IU/L Alkaline Phosphatase 53 (38-126) U/L Total Creatine Kinase 131 (55-170) U/L Troponin I < 0.012 < 0.012 (0.01-0.034) ng/mL NT-Pro-B Natriuret Pep < 20 (<125) pg/mL Total Protein 7.7 (6.3-8.2) g/dL Albumin 4.7 (3.5-5.0) g/dL Globulin 3.0 (1.7-4.1) g/dL Albumin/Globulin Ratio 1.6 (1.0-2.8) Lipase 369 H (23-300) U/L Imaging Data Chest x-ray: Radiologist's Impression: PROCEDURE: XR CHEST 1V INDICATIONS: Chest Pain TECHNIQUE: One view of the chest was acquired. COMPARISON: None. FINDINGS: Surgical changes and devices: None. Lungs and pleura: Lungs are clear. No pleural effusions or pneumothorax. Mediastinum: Mediastinal contours appear normal. Heart size is normal. Bones and chest wall: No suspicious bony lesions. Overlying soft tissues appear unremarkable. IMPRESSION: No acute pulmonary process. Dictated by: Cele Victor M.D. on 12/03/2024 at 15:08 US - abdomen: Radiologist's Impression: PROCEDURE: US ABDOMEN LIMITED INDICATIONS: ELEVATED LIVER LABS TECHNIQUE: Real-time scanning was performed of the abdominal and retroperitoneal organs, with image documentation. COMPARISON: [facility], CT, CT ABDOMEN WO CON, 04/29/2023, 14:01. FINDINGS: Liver: Liver measures 19.6 cm. Steatosis is present. Focus of echogenicity measuring 2.5 x 2.7 x 1.6 cm is present in the right lower lobe. Gallbladder: No gallstones. No wall thickening. No pericholecystic edema. Negative sonographic Mendoza's sign. Biliary ducts: Intrahepatic bile ducts are non-dilated. Extrahepatic bile duct is not well seen. Pancreas: Visualized portions of the pancreas are sonographically normal. Miscellaneous: No free abdominal fluid. IMPRESSION: Complex focus of echogenicity within the liver as above. This appears to correlate to focus of enhancement on prior exam is indeterminate. Evaluation with hepatic MRI is recommended on a nonemergent basis. Dictated by: Cele Victor M.D. on 12/03/2024 at 16:53 Approved by: Cele Victor M.D. on 12/03/2024 at 16:54 ECG Data Attestation: I personally reviewed and interpreted this ECG as follows: Prior ECG tracings: available for review Interpretation: EKGs 1. Sinus rhythm rate 106 NJ interval 138 QRS [address] changes or T-wave inversions very similar compared to previous EKGs he does have Q-waves inferiorly which are similar to previous EKGs in 2022 EKGs 2. Sinus rhythm rate 95 no ischemia no changes MDM Narrative Medical decision making narrative: Patient is a 39-year-old male history of diabetes hypertension presenting to quit chest pain. He reports that he was having chest discomfort worse with exertion better with rest ongoing for about a week. More intense episodes today. Blood work has been reviewed 2- troponin No leukocytosis no anemia Electrolytes within normal limits glucose 187 Lactate 1.7 Bilirubin s liver enzymes within normal limits ALT slightly elevated at 62 lipase 369 EKGs reviewed no new change Imaging reviewed Chest x-ray no acute cardiopulmonary process Ultrasound right upper quadrant no echogenicity within the liver appears to correlate and focus on prior exam Patient does have risk factors of diabetes hypertension with concerning story of chest discomfort with exertion better with rest. His pain was actually relieved with nitroglycerin here in the ED he was also given aspirin. Dr. Casas kindly accepts patient Discharge Plan Departure Patient Disposition: Admitted as Observation Clinical Impression: Chest pain Admit Date/Time: 12/03/24 17:55 Admit Provider: Valdez Casas V
[2024-12-03] MEDS: NITROGLYCERIN 0.4 MG SL TAB SL (15:37)
--- NOTE | 2024-12-03 15:38 | PC.NURSE ---
Patient tells this RN that his chest pain is back, 7/10 substernal pain that is non radiating. Dr Alfaro is aware, repeat EKG and meds ordered see MAR
[2024-12-03 15:39] LABS: INR 1.1 (0.9-1.3); PTT Partial Thromboplastin Tim 40 SECONDS (25.1-36.5); Prothrombin Time 12.7 SECONDS (9.4-12.5)
--- NOTE | 2024-12-03 15:40 | DI.US.S_ITS ---
PROCEDURE: US ABDOMEN LIMITED INDICATIONS: ELEVATED LIVER LABS TECHNIQUE: Real-time scanning was performed of the abdominal and retroperitoneal organs, with image documentation. COMPARISON: [facility], CT, CT ABDOMEN WO CON, 04/29/2023, 14:01. FINDINGS: Liver: Liver measures 19.6 cm. Steatosis is present. Focus of echogenicity measuring 2.5 x 2.7 x 1.6 cm is present in the right lower lobe. Gallbladder: No gallstones. No wall thickening. No pericholecystic edema. Negative sonographic Mendoza's sign. Biliary ducts: Intrahepatic bile ducts are non-dilated. Extrahepatic bile duct is not well seen. Pancreas: Visualized portions of the pancreas are sonographically normal. Miscellaneous: No free abdominal fluid. IMPRESSION: Complex focus of echogenicity within the liver as above. This appears to correlate to focus of enhancement on prior exam is indeterminate. Evaluation with hepatic MRI is recommended on a nonemergent basis. Dictated by: Cele Victor M.D. on 12/03/2024 at 16:53 Approved by: Cele Victor M.D. on 12/03/2024 at 16:54
[2024-12-03 17:18] LABS: Troponin I < 0.012 ng/mL (0.01-0.034)
--- NOTE | 2024-12-03 18:33 | DI.ECHO.S_ITS ---
[facility] : : [address] : : [place] : : [id number] : : Phone: [phone] Echocardiogram Report + + :Name: MABEL FERNANDO Study Date: 12/04/2024 Height: 65 in : :[facility] ReadingLocation: Weight: 255 lb : : Gender: Male BSA: 2.2 m2 : :: 1985 Age: 39 yrs BP: 152/89 mmHg: :Reason For Study: CHEST PAIN : :Ordering Physician: IHSAN, : :BIENVENIDO Performed By: Leonard Richmond : :Referring: BIENVENIDO CHAMPAGNE : + + Interpretation Summary Left ventricular wall thickness is mildly increased. The ejection fraction is estimated to be 60-65%. The distal inferoseptum and inferoapex are hypokinetic. Diastolic function could not be accurately assessed due to unobtainable data. The right ventricle is not well visualized. No significant valvular abnormalities. Pulmonary artery pressures cannot be estimated because of the lack of a measurable TR jet velocity. Procedure: A two-dimensional transthoracic echocardiogram with color flow and Doppler was performed. The study quality was technically difficult. A contrast injection of Definity was performed to improve assessment of LV function. There is no prior echocardiogram noted for this patient. The patient was in normal sinus rhythm during the exam. Left Ventricle: The left ventricle is normal in size. Left ventricular wall thickness is mildly increased. There is no ventricular septal defect visualized. The ejection fraction is estimated to be 60-65%. The distal inferoseptum and inferoapex are hypokinetic. Diastolic function could not be accurately assessed due to unobtainable data. Right Ventricle: The right ventricle is not well visualized. Atria: The left atrial size is normal. Right atrium not well visualized. The interatrial septum is not well visualized. Mitral Valve: The mitral valve leaflets appear normal. There is no evidence of stenosis, fluttering, or prolapse. There is no mitral regurgitation noted. Aortic Valve: The aortic valve is trileaflet. The aortic valve opens well. There is no aortic valve stenosis. No aortic regurgitation is present. Tricuspid Valve: The tricuspid valve is not well visualized, but is grossly normal. No tricuspid regurgitation. Pulmonary artery pressures cannot be estimated because of the lack of a measurable TR jet velocity. Pulmonic Valve: The pulmonic valve leaflets are thin and pliable; valve motion is normal. There is no pulmonic valvular regurgitation. Great Vessels: The aortic root is mildly dilated. The dimensions of the ascending aorta are normal. The pulmonary artery is normal size. The inferior vena cava was not visualized. Pericardium/ Pleura There is no pericardial effusion. MMode/2D Measurements & Calculations LVIDd: 4.8 cm LVOT diam: 2.4 cm LVIDs: 3.2 cm Ao root diam: 3.8 cm FS: 32.6 % asc Aorta Diam: 3.3 cm EPSS: 0.92 cm Ao Arch Diam (Prox Trans): 1.8 cm IVSd: 1.2 cm LVPWd: 1.3 cm LV mobley. diameter/BSA (cm/m^2): 2.2 LV sys. diameter/BSA (cm/m^2): 1.5 LA A2 area: 17.7 cm2 TAPSE: 3.0 cm LA A4 area: 18.1 cm2 LA length (vol): 5.5 cm LA vol: 49.6 ml LA vol index: 22.6 ml/m2 Doppler Measurements & Calculations Ao V2 max: 119.3 cm/sec LVOT Max Ren: 89.7 cm/sec Ao V2 mean: 94.2 cm/sec LV V1 max P.2 mmHg Ao max P.7 mmHg LV V1 VTI: 16.8 cm Ao mean P.7 mmHg ANA MARÍA(I,D): 3.4 cm2 Ao V2 VTI: 22.2 cm ANA MARÍA(V,D): 3.4 cm2 sev ratio: 0.76 ANA MARÍA indexed to BSA (cm^2/m^2): 1.6 MV E max ren: 94.8 cm/sec PA V2 max: 90.7 cm/sec MV A max ren: 2.4 cm/sec PA V2 mean: 59.0 cm/sec MV E/A: 39.5 PA mean P.6 mmHg Med Peak E' Ren: 14.7 cm/sec PA pr(Accel): 58.4 mmHg E/E' med: 6.4 Lat Peak E' Ren: 6.6 cm/sec E/E' lat: 14.4 E/e' average: 10.4 MV dec time: 0.11 sec SV(LVOT): 76.0 ml Reading Physician:12:59 PM
--- NOTE | 2024-12-03 18:36 | PM.HP.IH.1 ---
History of Present Illness History of Present Illness Date Patient Seen: 12/03/24 Time Patient Seen: 18:05 Chief complaint: Chest pain radiating both arms Narrative: 39-year-old man under the primary care of Dr. Quoc Mckeon developed onset of retrosternal chest pain Friday11/27/2024 radiating down both arms, with associated shortness of breath, no nausea or diaphoresis. Pain lasted for about 1.5 hours and was up to 8/10 intensity and occurred with exertion, resolving with rest. He has had pain almost daily since then, for lesser time and lesser intensity, up to 5-6/10 intensity, and often with exertion, though also occurring at rest and during sleep, and lasting 1-2 minutes. There are times he would be able to exert himself without chest discomfort. 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 and waking up at 2:45 a.m. to work at 4:00 a.m.. He has had diabetes for the past couple of years with his last hemoglobin A1c 6.7% on 01/21/2024. He has a history of seizures controlled on medication. He has a history of kidney stones though denies recent symptoms. He reports good compliance with medications. He has no history of tobacco, alcohol or drug use. Family history is unknown. He lives with his girlfriend who he states encouraged him to come in to get checked out. [facility] Medical History Bilateral kidney stones Borderline hyperlipidemia Epilepsy Hematuria History of kidney stones History of renal colic Hypertension Increase in creatinine Prediabetes Retained ureteral stent Right foot pain Right ureteral calculus Seizure Type 2 diabetes mellitus Surgical History Anesthesia H/O lithotripsy Hx of cystoscopy (2018) Hx of cystoscopy (11/22/22) Scrotal abscess (~11/17/21) Social History marital status: number of children: 0 household members: significant other occupational status: employed alcohol intake: never caffeine: No Type(s) of exercise: weight lifting frequency: 3-4 times per week duration: > 90 minutes/day Meds Home Medications and Allergies Home Medications Medication Instructions Recorded Confirmed Type lancets 28 gauge (Acti-Salomón #100 ea 12/26/21 08/02/24 Rx Lancets) lancets 33 gauge (OneTouch Delica #100 ea 02/15/22 08/02/24 History Plus Lancet) blood sugar diagnostic (Blood #50 ea 10/24/22 08/02/24 Rx Glucose Test strips) glipizide 5 mg tablet 5 mg PO DAILY #90 tabs 06/28/24 12/03/24 Rx metformin 500 mg tablet 500 mg PO BID #180 tabs 06/28/24 12/03/24 Rx empagliflozin 25 mg tablet 25 mg PO DAILY #90 tabs 08/02/24 12/03/24 Rx (Jardiance) losartan 50 mg tablet 50 mg PO BID #180 tabs 08/09/24 12/03/24 Rx levetiracetam 1,000 mg tablet 1,500 mg (1.5 x 1,000 mg) PO BID 09/28/24 12/03/24 Rx #135 tabs ibuprofen 800 mg tablet 800 mg PO TID PRN Pain (Scale 12/03/24 12/03/24 History Score 1-3) Allergies Allergy/AdvReac Type Severity Reaction Status Date / Time No Known Drug Allergies Allergy Verified 08/02/24 16:43 Review of Systems Review of Systems ROS: Yes All systems reviewed with the patient and are negative except as otherwise documented Exam Vital Signs (past 8 hours): - 12/03/24 14:13 12/03/24 14:14 12/03/24 14:14 Temperature Pulse Rate 112 H 108 H Respiratory Rate Blood Pressure 189/118 H Pulse Oximetry 98 98 Oxygen Delivery Method 12/03/24 14:20 12/03/24 14:30 12/03/24 15:00 Temperature 97.8 F Pulse Rate 112 H 86 88 Respiratory Rate 20 24 Blood Pressure 189/118 H Pulse Oximetry 98 98 94 Oxygen Delivery Method Room Air 12/03/24 15:16 12/03/24 15:16 12/03/24 15:30 Temperature Pulse Rate 94 H 92 H Respiratory Rate 25 H Blood Pressure 169/95 H Pulse Oximetry 97 97 Oxygen Delivery Method Room Air 12/03/24 15:30 12/03/24 15:37 12/03/24 15:40 Temperature Pulse Rate 95 H 97 H Respiratory Rate Blood Pressure 176/98 H 176/98 H Pulse Oximetry 96 Oxygen Delivery Method 12/03/24 15:40 12/03/24 15:44 12/03/24 15:44 Temperature Pulse Rate 101 H Respiratory Rate 22 Blood Pressure 160/91 H 160/77 H Pulse Oximetry 93 Oxygen Delivery Method Room Air 12/03/24 15:50 12/03/24 15:50 12/03/24 16:00 Temperature Pulse Rate 97 H 96 H Respiratory Rate 10 L Blood Pressure 133/78 Pulse Oximetry 93 95 Oxygen Delivery Method 12/03/24 16:00 12/03/24 16:10 12/03/24 16:10 Temperature Pulse Rate 96 H Respiratory Rate 24 Blood Pressure 146/84 H 142/83 H Pulse Oximetry 96 Oxygen Delivery Method 12/03/24 16:20 12/03/24 16:20 12/03/24 16:30 Temperature Pulse Rate 86 96 H Respiratory Rate Blood Pressure 149/81 H Pulse Oximetry 97 98 Oxygen Delivery Method 12/03/24 16:30 12/03/24 16:40 12/03/24 16:40 Temperature Pulse Rate 85 Respiratory Rate Blood Pressure 170/88 H 155/84 H Pulse Oximetry 96 Oxygen Delivery Method Room Air 12/03/24 16:50 12/03/24 16:50 12/03/24 17:00 Temperature Pulse Rate 84 87 Respiratory Rate 20 Blood Pressure 154/88 H Pulse Oximetry 97 96 Oxygen Delivery Method 12/03/24 17:00 12/03/24 17:10 12/03/24 17:10 Temperature Pulse Rate 93 H Respiratory Rate 20 Blood Pressure 158/90 H 162/95 H Pulse Oximetry 97 Oxygen Delivery Method 12/03/24 17:20 12/03/24 17:20 12/03/24 17:30 Temperature Pulse Rate 86 Respiratory Rate Blood Pressure 165/95 H 166/92 H Pulse Oximetry 97 Oxygen Delivery Method 12/03/24 17:30 12/03/24 17:40 12/03/24 17:40 Temperature Pulse Rate 85 88 Respiratory Rate Blood Pressure 167/90 H Pulse Oximetry 96 96 Oxygen Delivery Method 12/03/24 17:50 12/03/24 17:50 Temperature Pulse Rate 90 Respiratory Rate 21 Blood Pressure 170/92 H Pulse Oximetry 96 Oxygen Delivery Method Room Air Oxygen Delivery Method Room Air Narrative Exam Narrative: GENERAL: This is a well-nourished, well-developed patient, in no apparent distress. HEAD: Atraumatic. Normocephalic. No temporal or scalp tenderness. EYES: Pupils equal round and reactive. Extraocular motions intact. No scleral icterus. No injection or drainage. ENT: Mucous membranes pink and moist. NECK: Trachea midline. No JVD, bruits or lymphadenopathy. Supple, nontender, no meningeal signs. CARDIOVASCULAR: Regular rate and rhythm without murmurs, gallops, or rubs. No chest wall tenderness to palpation. RESPIRATORY: Clear to auscultation. GASTROINTESTINAL: Abdomen soft, non-tender, nondistended. EXTREMITIES: No clubbing, cyanosis, or edema. BACK: Nontender without deformity or crepitance. No flank tenderness. NEUROLOGIC: Alert, oriented, speech fluent, full upper and lower motor strength, no focal deficits evident. DERMATOLOGIC: No rashes or skin lesions. Multiple tattoos. Objective ECG Impression: Normal sinus rhythm at 95 beats per minute, Q-waves inferiorly, no acute ischemic changes. No significant change from 08/19/2022. Imaging US - abdomen: Radiologist's impression: Complex focus of echogenicity within the liver as above. This appears to correlate to focus of enhancement on prior exam is indeterminate. Evaluation with hepatic MRI is recommended on a nonemergent basis. Chest x-ray: Radiologist's impression: No acute pulmonary process. Labs 12/03/24 14:34 12/03/24 14:34 Labs: Laboratory Results - last 24 hr 12/03/24 12/03/24 14:34 16:49 WBC 8.6 RBC 5.47 Hgb 14.7 Hct 43.3 MCV 79.1 L MCH 26.9 MCHC 34.0 RDW 13.5 Plt Count 210 Neut % (Auto) 63.3 Lymph % (Auto) 29.5 [place] % (Auto) 4.4 Eos % (Auto) 1.7 L Baso % (Auto) 1.1 Neut # (Auto) 5400 Lymph # (Auto) 2500 [place] # (Auto) 400 Eos # (Auto) 100 Baso # (Auto) 100 PT 12.7 H INR 1.1 APTT 40 H Sodium 140 Potassium 4.2 Chloride 103 Carbon Dioxide 27 BUN 18 Creatinine 1.02 Estimated GFR > 60 BUN/Creatinine Ratio 17.6 Glucose 187 H Lactate 1.7 Calcium 9.2 Magnesium 1.4 L Total Bilirubin 0.9 AST 45 ALT 62 H Alkaline Phosphatase 53 Total Creatine Kinase 131 Troponin I < 0.012 < 0.012 NT-Pro-B Natriuret Pep < 20 Total Protein 7.7 Albumin 4.7 Globulin 3.0 Albumin/Globulin Ratio 1.6 Lipase 369 H Assessment & Plan Assessment & Plan narrative: 1. Chest pain. Cardiac risk factors include diabetes, hypertension and obesity. Symptoms are atypical with intermittent exertional discomfort but also absence of symptoms with exertion at times in the past week. 2. Diabetes mellitus, type 2. 3. Hypertension. 4. Seizure disorder. 5. History of kidney stones. Plan: -admit as observation -serial cardiac enzymes -check lipids, hemoglobin A1c -echocardiogram -continue routine home medications per protocol Quality MIPS - Admit I confirm the patient?s Advance Care Plan is present, Code status is documented, Surrogate decision maker is in patient?s record [If Yes, STOP here]: Yes [facility] - Meds 'Current medications' to include all prescriptions, [id number] products, herbals, cannabis/cannabidiol products, and vitamin/mineral/dietary (nutritional) supplements. I have utilized all available resources to obtain, update, or review the patient?s current medications. [If Yes, STOP here]: Yes [employer] Document charge(s): No Charge Codes Initial inpatient/observation care: 6[address]00
--- NOTE | 2024-12-03 18:59 | PC.ADMIT ---
[address] Admission Note: Admitted from the ED via wheelchair, patient ambulated to chair in room. Complaints of 2/10 chest pain after ambulation which quickly resolved on its own. No infusions running on arrival. The patient,Dom Wise,39 y/o, was given written information regarding hospital policies, unit procedures and contact persons. Patient's smoking status: . Vital Signs - 8 hr 12/03/24 14:13 12/03/24 14:14 12/03/24 14:14 Temperature Pulse Rate 112 H 108 H Respiratory Rate Blood Pressure 189/118 H Pulse Oximetry 98 98 Oxygen Delivery Method Oxygen Flow Rate 12/03/24 14:20 12/03/24 14:30 12/03/24 15:00 Temperature 97.8 F Pulse Rate 112 H 86 88 Respiratory Rate 20 24 Blood Pressure 189/118 H Pulse Oximetry 98 98 94 Oxygen Delivery Method Room Air Oxygen Flow Rate 12/03/24 15:16 12/03/24 15:16 12/03/24 15:30 Temperature Pulse Rate 94 H 92 H Respiratory Rate 25 H Blood Pressure 169/95 H Pulse Oximetry 97 97 Oxygen Delivery Method Room Air Oxygen Flow Rate 12/03/24 15:30 12/03/24 15:37 12/03/24 15:40 Temperature Pulse Rate 95 H 97 H Respiratory Rate Blood Pressure 176/98 H 176/98 H Pulse Oximetry 96 Oxygen Delivery Method Oxygen Flow Rate 12/03/24 15:40 12/03/24 15:44 12/03/24 15:44 Temperature Pulse Rate 101 H Respiratory Rate 22 Blood Pressure 160/91 H 160/77 H Pulse Oximetry 93 Oxygen Delivery Method Room Air Oxygen Flow Rate 12/03/24 15:50 12/03/24 15:50 12/03/24 16:00 Temperature Pulse Rate 97 H 96 H Respiratory Rate 10 L Blood Pressure 133/78 Pulse Oximetry 93 95 Oxygen Delivery Method Oxygen Flow Rate 12/03/24 16:00 12/03/24 16:10 12/03/24 16:10 Temperature Pulse Rate 96 H Respiratory Rate 24 Blood Pressure 146/84 H 142/83 H Pulse Oximetry 96 Oxygen Delivery Method Oxygen Flow Rate 12/03/24 16:20 12/03/24 16:20 12/03/24 16:30 Temperature Pulse Rate 86 96 H Respiratory Rate Blood Pressure 149/81 H Pulse Oximetry 97 98 Oxygen Delivery Method Oxygen Flow Rate 12/03/24 16:30 12/03/24 16:40 12/03/24 16:40 Temperature Pulse Rate 85 Respiratory Rate Blood Pressure 170/88 H 155/84 H Pulse Oximetry 96 Oxygen Delivery Method Room Air Oxygen Flow Rate 12/03/24 16:50 12/03/24 16:50 12/03/24 17:00 Temperature Pulse Rate 84 87 Respiratory Rate 20 Blood Pressure 154/88 H Pulse Oximetry 97 96 Oxygen Delivery Method Oxygen Flow Rate 12/03/24 17:00 12/03/24 17:10 12/03/24 17:10 Temperature Pulse Rate 93 H Respiratory Rate 20 Blood Pressure 158/90 H 162/95 H Pulse Oximetry 97 Oxygen Delivery Method Oxygen Flow Rate 12/03/24 17:20 12/03/24 17:20 12/03/24 17:30 Temperature Pulse Rate 86 Respiratory Rate Blood Pressure 165/95 H 166/92 H Pulse Oximetry 97 Oxygen Delivery Method Oxygen Flow Rate 12/03/24 17:30 12/03/24 17:40 12/03/24 17:40 Temperature Pulse Rate 85 88 Respiratory Rate Blood Pressure 167/90 H Pulse Oximetry 96 96 Oxygen Delivery Method Oxygen Flow Rate 12/03/24 17:50 12/03/24 17:50 12/03/24 18:39 Temperature 97 F L Pulse Rate 90 83 Respiratory Rate 21 16 Blood Pressure 170/92 H 135/101 H Pulse Oximetry 96 97 Oxygen Delivery Method Room Air Oxygen Flow Rate 0
[2024-12-03 20:26] LABS: Cholesterol 174 mg/dL (140-199); HDL Cholesterol 27 mg/dL (40-60); LDL Cholesterol Calculated 107 mg/dL (<100); Triglycerides 201 mg/dL (35-150)
[2024-12-03 20:29] LABS: Hemoglobin A1C% w Est Avg Glu 8.6 % (4.0-6.0)
[2024-12-03] MEDS: levETIRAcetam 250 MG TABLET 1500 MG PO (21:27)
[2024-12-03] MEDS: LOSARTAN 50 MG TABLET PO (21:33)
[2024-12-03] MEDS: METFORMIN HCL 500 MG TABLET PO (21:34)
[2024-12-03] MEDS: INSULIN LISPRO 100 UNIT/ML 3ML VIAL SUBCUT (21:34)
[2024-12-03] MEDS: MAGNESIUM SULFATE 2 GM/50 ML PIGGYBACK IV (21:36)
[2024-12-04 03:00] VITALS: BP 160/96; PULSE 94; RESP 20; TEMP 36.2; O2SAT 96
[2024-12-04 08:00] VITALS: BP 152/89; PULSE 86; RESP 16; TEMP 35.9; O2SAT 96
[2024-12-04 08:41] VITALS: BP 152/89; PULSE 85
[2024-12-04] MEDS: LOSARTAN 50 MG TABLET PO (08:41)
[2024-12-04] MEDS: METFORMIN HCL 500 MG TABLET PO (08:41)
[2024-12-04] MEDS: ASPIRIN EC 325 MG TABLET PO (08:41)
[2024-12-04] MEDS: levETIRAcetam 250 MG TABLET 1500 MG PO (08:42)
[2024-12-04] MEDS: INSULIN LISPRO 100 UNIT/ML 3ML VIAL SUBCUT ×2 (08:42→12:22)
[2024-12-04 11:57] LABS: Troponin I 0.052 ng/mL (0.01-0.034)
--- NOTE | 2024-12-04 13:15 | P.DS_ITS ---
History of Present Illness History of Present Illness Date Patient Seen: 12/04/24 Time Patient Seen: 07:45 Chief complaint: Chest pain radiating both arms Narrative: 39-year-old man under the primary care of Dr. Quoc Mckeon developed onset of retrosternal chest pain Friday11/27/2024 radiating down both arms, with associated shortness of breath, no nausea or diaphoresis. Pain lasted for about 1.5 hours and was up to 8/10 intensity and occurred with exertion, resolving with rest. He has had pain almost daily since then, for lesser time and lesser intensity, up to 5-6/10 intensity, and often with exertion, though also occurring at rest and during sleep, and lasting 1-2 minutes. There are times he would be able to exert himself without chest discomfort. 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 and waking up at 2:45 a.m. to work at 4:00 a.m.. He has had diabetes for the past couple of years with his last hemoglobin A1c 6.7% on 01/21/2024. He has a history of seizures controlled on medication. He has a history of kidney stones though denies recent symptoms. He reports good compliance with medications. He has no history of tobacco, alcohol or drug use. Family history is unknown. He lives with his girlfriend who he states encouraged him to come in to get checked out. Discharge Providers Provider Date of admission: 12/03/24 17:55 Discharge Date: 12/04/24 Primary care physician: Karl Mckeon DO Discharge provider: Valdez Casas MD Summary Hospital Course Discharge Diagnosis: 1. Acute non-STEMI 2. Diabetes mellitus, type 2. 3. Hypertension. 4. Seizure disorder. 5. History of kidney stones. 6. Severe obesity, body mass index 42.4 kg per m2 Hospital Course: 39-year-old man under the primary care of Dr. Quoc Mckeon was admitted telemetry and monitor with serial cardiac enzymes clinically. He experienced intermittent chest pressure at rest. Troponins remained below the detectable limit until 0800 on 12/04/2024, returning at 0.040. Hemoglobin A1c 8.6%, cholesterol 174, HDL 27, LDL 107, triglycerides 201. He underwent exercise tolerance testing which was notable for absence of ischemic changes despite reproducible severe presenting substernal chest pressure with radiation, resolving at rest, without ischemic EKG changes noted. Repeat troponin following the ETT was 0.052 (upper limit of normal 0.034). Echocardiography reported an inferoseptal and distal septal and apex hypokinesis with preserved ejection fraction. The patient was placed on IV heparin metoprolol and high- dose statin therapy per the non STEMI protocol. Arrangements are currently in progress for transfer to a tertiary care facility for cardiac catheterization and further evaluation and management. The patient at the time of the dictation is chest pain free with normal vital signs and hemodynamically stable. Status at Discharge Cognitive/behavioral status at discharge: oriented Functional status at discharge: independent ambulation Overall status at discharge: patient is not back to baseline Time Spent with Patient Time spent: Greater than 30 minutes Exam Vital Signs (past 8 hours): - 12/04/24 08:00 12/04/24 08:41 Temperature 96.6 F L Pulse Rate 86 85 Respiratory Rate 16 Blood Pressure 152/89 H 152/89 H Pulse Oximetry 96 Oxygen Flow Rate 0 Oxygen Delivery Method Room Air Oxygen Flow Rate 0 Narrative Exam Narrative: GENERAL: This is a well-nourished, well-developed patient, in no apparent distress. HEAD: Atraumatic. Normocephalic. No temporal or scalp tenderness. EYES: Pupils equal round and reactive. Extraocular motions intact. No scleral icterus. No injection or drainage. ENT: Mucous membranes pink and moist. NECK: Trachea midline. No JVD, bruits or lymphadenopathy. Supple, nontender, no meningeal signs. CARDIOVASCULAR: Regular rate and rhythm without murmurs, gallops, or rubs. No chest wall tenderness to palpation. RESPIRATORY: Clear to auscultation. GASTROINTESTINAL: Abdomen soft, non-tender, nondistended. EXTREMITIES: No clubbing, cyanosis, or edema. BACK: Nontender without deformity or crepitance. No flank tenderness. NEUROLOGIC: Alert, oriented, speech fluent, full upper and lower motor strength, no focal deficits evident. DERMATOLOGIC: No rashes or skin lesions. Multiple tattoos. Objective ECG Impression: Normal sinus rhythm at 95 beats per minute, Q-waves inferiorly, no acute ischemic changes. No significant change from 08/19/2022. Exercise tolerance test: The patient was placed on the Elton protocol with maximum heart rate 164 beats per minute (maximum predicted 188 beats per minute, 91% of predicted), achieving 7.0 MEPS, and experiencing 9/10 chest pain radiating to both arms, with no acute ischemic changes throughout the exercise tolerance test, stopping at 5 minutes 50 seconds having achieved target heart rate, and peak blood pressure 188/8, with chest discomfort resolving in the recovery and blood pressure returning to baseline. Imaging US - abdomen: Radiologist's impression: Complex focus of echogenicity within the liver as above. This appears to correlate to focus of enhancement on prior exam is indeterminate. Evaluation with hepatic MRI is recommended on a nonemergent basis. Chest x-ray: Radiologist's impression: No acute pulmonary process. Echo: Radiologist's impression: Left ventricular wall thickness is mildly increased. The ejection fraction is estimated to be 60-65%. The distal inferoseptum and inferoapex are hypokinetic. Diastolic function could not be accurately assessed due to unobtainable data. The right ventricle is not well visualized. No significant valvular abnormalities. Pulmonary artery pressures cannot be estimated because of the lack of a measurable TR jet velocity. Labs 12/03/24 14:34 12/03/24 14:34 Labs: Laboratory Results - last 24 hr 12/03/24 12/03/24 12/03/24 14:20 14:34 16:49 WBC 8.6 RBC 5.47 Hgb 14.7 Hct 43.3 MCV 79.1 L MCH 26.9 MCHC 34.0 RDW 13.5 Plt Count 210 Neut % (Auto) 63.3 Lymph % (Auto) 29.5 [place] % (Auto) 4.4 Eos % (Auto) 1.7 L Baso % (Auto) 1.1 Neut # (Auto) 5400 Lymph # (Auto) 2500 [place] # (Auto) 400 Eos # (Auto) 100 Baso # (Auto) 100 PT 12.7 H INR 1.1 APTT 40 H Sodium 140 Potassium 4.2 Chloride 103 Carbon Dioxide 27 BUN 18 Creatinine 1.02 Estimated GFR > 60 BUN/Creatinine Ratio 17.6 Glucose 187 H Hemoglobin A1c 8.6 H Lactate 1.7 Calcium 9.2 Magnesium 1.4 L Total Bilirubin 0.9 AST 45 ALT 62 H Alkaline Phosphatase 53 Total Creatine Kinase 131 Troponin I < 0.012 < 0.012 NT-Pro-B Natriuret Pep < 20 Total Protein 7.7 Albumin 4.7 Globulin 3.0 Albumin/Globulin Ratio 1.6 Triglycerides Cholesterol LDL Cholesterol, Calc HDL Cholesterol Lipase 369 H 12/03/24 12/04/24 12/04/24 18:33 08:00 11:28 WBC RBC Hgb Hct MCV MCH MCHC RDW Plt Count Neut % (Auto) Lymph % (Auto) [place] % (Auto) Eos % (Auto) Baso % (Auto) Neut # (Auto) Lymph # (Auto) [place] # (Auto) Eos # (Auto) Baso # (Auto) PT INR APTT Sodium Potassium Chloride Carbon Dioxide BUN Creatinine Estimated GFR BUN/Creatinine Ratio Glucose Hemoglobin A1c Lactate Calcium Magnesium Total Bilirubin AST ALT Alkaline Phosphatase Total Creatine Kinase Troponin I 0.040 H 0.052 H NT-Pro-B Natriuret Pep Total Protein Albumin Globulin Albumin/Globulin Ratio Triglycerides 201 H Cholesterol 174 LDL Cholesterol, Calc 107 H HDL Cholesterol 27 L Lipase PFSH Medical History Bilateral kidney stones Borderline hyperlipidemia Epilepsy Hematuria History of kidney stones History of renal colic Hypertension Increase in creatinine Prediabetes Retained ureteral stent Right foot pain Right ureteral calculus Seizure Type 2 diabetes mellitus Surgical History Anesthesia H/O lithotripsy Hx of cystoscopy (2018) Hx of cystoscopy (11/22/22) Scrotal abscess (~11/17/21) Social History marital status: number of children: 0 household members: significant other occupational status: employed alcohol intake: never caffeine: No Type(s) of exercise: weight lifting frequency: 3-4 times per week duration: > 90 minutes/day Discharge Plan Discharge Plan Patient Disposition: Xfer Acute Care Hospital Visit Report/Discharge Packet Stand Alone Forms: Patient Portal/API, Stroke Signs & Symptoms Discharge Data Primary Care Provider: Karl Mckeon Attending Provider: Valdez Casas V Admit Date/Time: 12/03/24 17:55 Quality MIPS - Admit I confirm the patient?s Advance Care Plan is present, Code status is documented, Surrogate decision maker is in patient?s record [If Yes, STOP here]: Yes MIPS - Meds 'Current medications' to include all prescriptions, [id number] products, herbals, cannabis/cannabidiol products, and vitamin/mineral/dietary (nutritional) supplements. I have utilized all available resources to obtain, update, or review the patient?s current medications. [If Yes, STOP here]: Yes MIPS - DC The patient has a history of heart transplant or Left Ventricular Assist Device (LVAD). If yes, STOP here.: No The patient has current or prior documentation of left ventricular ejection fraction (LVEF) less than or equal to 40%, or moderate or severely depressed left ventricular systolic function.: No A. The patient was prescribed or already taking an Angiotensin-Converting Enzyme (BRENTON) Inhibitor, or Angiotensin Receptor Monica (ARB).: No B. The patient was prescribed or already taking a beta-monica. [If Yes to Both A & B, STOP here]: Yes Patient not prescribed/taking BRENTON or ARB, no reason given.: No Patient not prescribed/taking beta-monica, no reason given.: No PROFEE Charge Codes Discharge inpatient/observation: [id number]
[2024-12-04] MEDS: HEPARIN 5,000 UNIT/ML VIAL 7000 UNIT IV (13:20)
[2024-12-04] MEDS: METOPROLOL IR 25 MG TABLET PO (13:21)
[2024-12-04] MEDS: ATORVASTATIN 20 MG TABLET 80 MG PO (13:21)
[2024-12-04 14:37] VITALS: BP 146/90; PULSE 102; RESP 16; TEMP 36.1; O2SAT 95
== END 2024-12-04 15:45 | disposition short-term general hospital (02) | DRG 281 ==
LOC: ED 15:16 → AC 17:55
PROVIDERS: Admitting Provider Internal Medicine; Emergency Provider Emergency Medicine; PCP Family Medicine; Referring Provider Emergency Medicine; Visit Provider Internal Medicine
DX: I21.4 Non-ST elevation (NSTEMI) myocardial infarction (principal); Z68.41 Body mass index [BMI] 40.0-44.9, adult; E66.01 Morbid (severe) obesity due to excess calories; E11.9 Type 2 diabetes mellitus without complications; I10 Essential (primary) hypertension; G40.909 Epilepsy, unspecified, not intractable, without status epilepticus; Z87.442 Personal history of urinary calculi; Z79.84 Long term (current) use of oral hypoglycemic drugs
CPT/HCPCS: 36415; 71045; 76705; 80053; 80061; 82550; 82962; 83036; 83605; 83690; 83735; 83880; 84484; 85025; 85610; 85730; 93005; 93010; 99284; G0378; C8929; J1644; J1815; J3475; Q9957

== ENCOUNTER → 2025-01-19 14:57 | Outpatient (CLI) | payer OTHER, SELFPAY ==
[2024-12-03 18:14] VITALS: BMI 42.4
--- NOTE | 2025-01-19 15:36 | DIAB.INIT ---
Initial Diabetes Education Assessment Name: Dom Wise Date: 01/19/25 Time: 325-4p Dx: Type II Diabetes Provider: Mike Preferred Learning Style: Reyna Fernandes presents for initial Dm visit. Initially diagnosed 5 years ago. unknown FH. Late start to our appt today due to communication issues with registration. Reports his main concern today is getting a CGM. Reports he has SMBG supplies but is getting repeat error messages. Meter is 3-4 years old. Endorses past hx of lows in the 60s, felt tired/fatigued. Lows are rare. States he is open to making diet changes to help manage his Dm. Anthropometrics: Ht: 65 Wt: 249# Physical Activity: Daily walks with girlfriend 30-45 mins, once per week long walk. Free wts daily. Self-Monitoring Blood Glucose: None at this time. Diabetes Medications: 25mg Jardiance 5mg Glipzide 1000mg Metformin BID Pertinent Labs: hgA1c: 8.6% 11/2024 Past Medical History: (Last Updated 12/13/24 @ 16:03 by Karl Mckeon, DO) Bilateral kidney stones Right greater than left Borderline hyperlipidemia Epilepsy Hematuria History of kidney stones History of non-ST elevation myocardial infarction (NSTEMI) History of renal colic Hypertension Increase in creatinine Prediabetes Retained ureteral stent Right foot pain Right ureteral calculus Seizure 1st time July Type 2 diabetes mellitus Intervention: This participant was very receptive. Provided appropriate educational handouts. Discussed the following topics: Completed intake assessment. HgA1c, its correlation to blood glucose numbers, and rationale for goal Importance of self-monitoring, benefits to having meter CGM education, placement, and precautions, and potential cost Created SMART goals for patient self-care and success. Goals: Wear sample CGM x 15 days Bring meter next visit Message RD if wanting rx for FSL3+ Follow-up: BONNIE OCHOA follow-up in 3-4 weeks. Bere Pringle RDN, DON Certified Diabetes Care and Air Quality Specialist P: [phone] Thank you for this referral
== END ==
LOC: DIET 14:57
PROVIDERS: PCP Family Medicine; Referring Provider Family Medicine
DX: E11.9 Type 2 diabetes mellitus without complications (principal); Z71.3 Dietary counseling and surveillance; Z79.84 Long term (current) use of oral hypoglycemic drugs
CPT/HCPCS: G0108

== ENCOUNTER → 2025-03-08 13:55 | Outpatient (CLI) | payer OTHER, SELFPAY ==
[2024-12-03 18:14] VITALS: BMI 42.4
--- NOTE | 2025-03-08 16:02 | DIAB.MNT ---
Initial Diabetes Medical Nutrition Therapy Assessment Name: Dom Wise Date: 03/08/25 Time: 2-315p Dx: Type II Diabetes Dom presents for MNT visit, accompanied by his girlfriend. Initially diagnosed 5 years ago. unknown FH. Dom reports working at [employer]. States he often has pastry in the morning. Endorses grazing on sugar sometimes, particularly in evening, to prevent lows or just as a preference on weekends. Endorses significant diet changers this year in effort to manage his DM, and girlfriend is supportive and on her own wt management journey. Diet recall indicates smaller meals/snacks during the day and larger portions at night. CGM reports indicate some elevations and he endorses some lows in the (also documented in CGM data) of 55-68mg/dl. Endorses some symptoms of lows, ie fatigue. Treats with 24oz of juice and candy, and will sometimes result with elevated BG. Girlfriend worries about lows on walks. Has not started Jardiance. May benefit from reduced Glipizide given weekly lows in evening. Taking 1500mg Metformin BID due to confusion about rx (1000mg BID from [facility] and 500mg BID from PCP reported). Has one FSL that has fallen off before warm up period. Also, has questions about cost. Currently paying $75/month. Diet Recall: wakes at 3p, limited appetite in morning 6-7am: Pastry x1 930a: nothing or sweetened coffee (70g CHO) and breakfast sandwich (30g CHO) on and Saturdays with girlfriend 1p: 4 sandwich OR 2 chx strips OR sandwich with chips 5p: 3 flour tortilla tacos OR 1.5 mac n cheese with chx OR chx on salad OR 2 chili dogs and potatoes OR Burger snack: jelly beans OR small ice cream bar water flavored sf Anthropometrics: Ht: 65 Wt: 249# Physical Activity: Daily walks with girlfriend 30-45 mins, once per week long walk. Free wts daily. Self-Monitoring Blood Glucose: Wearing CGM. Lows not documented in TIR due to brief time in low range and quick treatment. Five lows documented in CGM over 14 days, lowest 57mg/dl. TIR: 0% very high 19% high 81% in range 0% low and very low avmg/dl GMI: 6.8% variance: 24.6% Diabetes Medications: 25mg Jardiance-- not taking 5mg Glipzide BID 1000mg Metformin BID + 500mg BID Pertinent Labs: hgA1c: 8.6% 11/2024 Past Medical History: (Last Updated 12/13/24 @ 16:03 by Karl Mckeon DO) Bilateral kidney stones Right greater than leftBorderline hyperlipidemia Epilepsy Hematuria History of kidney stones History of non-ST elevation myocardial infarction (NSTEMI) History of renal colic Hypertension Increase in creatinine Prediabetes Retained ureteral stent Right foot pain Right ureteral calculus Seizure 1st time JulyType 2 diabetes mellitus Nutrition Rx: Carbohydrates: Meal:45-60g Snack:15-30g Nutrition Diagnosis: - Inconsistent CHO intake r/t nutrition knowledge deficit and limited appetite in the morning then larger portions later in the evening aeb diet recall and pt report Intervention: This participant was very receptive. Provided appropriate educational handouts. Discussed the following topics: Completed intake assessment. Discussed barriers to care. Plate Method, impact of macronutrients on blood sugar, meal timing, carbohydrate counting, pairing macronutrients and spreading out carbohydrates for better blood glucose management Recommended servings for carbohydrates at meals and snacks Brainstormed appropriate meal/snack options based on food preferences Eating out portions and carb content Rule of 15 for tx lows Metformin dosing Glipizide SE Jardiance and Metformin benefits Created SMART goals for patient self-care and success. Goals: Wear sample CGM x 15 days- met Bring meter next visit - not met Message RD if wanting rx for FSL3+- met Reduce Metformin to 1000mg BID until seeing PCP next week- new Consider lower CHO options on Thur/Sat brunch- new Treat lows with Rule of 15- new Try protein shake in the morning- new reduce dinner portions- new Follow-up: BONNIE OCHOA follow-up in 3-4 weeks. Bere Pringle RDN, DON Certified Diabetes Care and Superintendent Land[employer] Operations P: [phone] Thank you for this referral
== END ==
LOC: DIET 13:55
PROVIDERS: PCP Family Medicine; Referring Provider Family Medicine
DX: E11.9 Type 2 diabetes mellitus without complications (principal); Z79.84 Long term (current) use of oral hypoglycemic drugs; Z71.3 Dietary counseling and surveillance
CPT/HCPCS: 97802

== ENCOUNTER → 2025-03-09 10:34 | Outpatient (CLI) | payer OTHER, SELFPAY ==
[2024-12-03 18:14] VITALS: BMI 42.4
[2025-03-09 12:25] LABS: Hemoglobin A1C% w Est Avg Glu 6.9 % (4.0-6.0)
[2025-03-09 12:42] LABS: Alanine Aminotransferase 35 IU/L (<50); Albumin 4.6 g/dL (3.5-5.0); Albumin Globulin Ratio 1.6 (1.0-2.8); Alkaline Phosphatase 62 U/L (38-126); Blood Urea Nitrogen 21 mg/dL (9-20); Calcium 9.3 mg/dL (8.4-10.2); Carbon Dioxide 24 mmol/L (22-32); Chloride 103 mmol/L (98-107); Estimated Glomerular Filt Rate > 60 mL/min (>60); Globulin 2.8 g/dL (1.7-4.1); Glucose 149 mg/dL (70-99); HEMOLYSIS < 15 (0-50); Potassium 4.5 mmol/L (3.4-5.1); Sodium 140 mmol/L (137-145); Total Protein 7.4 g/dL (6.3-8.2); Uric Acid 9.0 mg/dL (3.5-8.5)
[2025-03-09 12:51] LABS: NT-proBNP (BNP-Adult 18+) < 20 pg/mL (<125)
[2025-03-09 13:13] LABS: TSH w/ Reflex to FT4 1.72 uIU/mL (0.47-4.68)
[2025-03-09 16:38] LABS: Microalbumi Creatinin Ratio Ur 380.0 ug/mg CR (<30)
== END ==
PROVIDERS: PCP Family Medicine; Referring Provider Family Medicine; Visit Provider Family Medicine
DX: E11.9 Type 2 diabetes mellitus without complications (principal); I10 Essential (primary) hypertension; I25.2 Old myocardial infarction; E78.5 Hyperlipidemia, unspecified
CPT/HCPCS: 36415; 80053; 82043; 82570; 83036; 83880; 84443; 84550

== ENCOUNTER → 2025-04-05 13:31 | Outpatient (CLI) | payer OTHER, SELFPAY ==
[2024-12-03 18:14] VITALS: BMI 42.4
--- NOTE | 2025-04-22 10:41 | DIAB.MNTFU ---
Follow-up Diabetes Medical Nutrition Therapy Assessment Name: Dom Wise Date: 04/05/25 Time: 210-245p Dx: Type II Diabetes Dom presents for MNT visit, accompanied by his girlfriend. Initially diagnosed 5 years ago. unknown FH. Taking Metformin appropriately now. Noticed with reduced glipizide he is having excessive hyperglycemia. Wanting to try to increase by 1/2 dose, encouraged him to discuss with provider and RD messaged provider Waiting on Jardiance delivery for some time now from insurance. Endorses approval but needs to go through insurance mail pharmacy. has not tried protein shake for morning. Reports he is open to this but wants it to be affordable. Anthropometrics: Ht: 65 Wt: 257# 02/2025 249# 12/2024 Physical Activity: Daily walks with girlfriend 30-45 mins, once per week long walk. Free wts daily. Self-Monitoring Blood Glucose: Wearing CGM. Increased hyperglycemia significantly since last visit. TIR: 4% very high 34% high 62% in range 0% low and very low avmg/dl GMI: 7.4% variance: 24.4% Last TIR: 0% very high 19% high 81% in range 0% low and very low avmg/dl GMI: 6.8% variance: 24.6% Diabetes Medications: 25mg Jardiance-- not taking 5mg Glipzide BID--- now taking 5mg Am only 1000mg Metformin BID + 500mg BID--- not taking 1000mg BID Pertinent Labs: hgA1c: 8.6% 11/2024 Past Medical History: (Last Updated 12/13/24 @ 16:03 by Karl Mckeon DO) Bilateral kidney stones Right greater than leftBorderline hyperlipidemia Epilepsy Hematuria History of kidney stones History of non-ST elevation myocardial infarction (NSTEMI) History of renal colic Hypertension Increase in creatinine Prediabetes Retained ureteral stent Right foot pain Right ureteral calculus Seizure 1st time JulyType 2 diabetes mellitus Nutrition Rx: Carbohydrates: Meal:45-60g Snack:15-30g Nutrition Diagnosis: - Inconsistent CHO intake r/t nutrition knowledge deficit and limited appetite in the morning then larger portions later in the evening aeb diet recall and pt report--- improved/in progress - Nutrition and food related knowledge deficit r/t needing affordable ideas for protein aeb pt report- new Intervention: This participant was very receptive. Provided appropriate educational handouts. Discussed the following topics: CGM review and goals SGLT2i benefits, SE and access via insurance Protein shake options that are affordable Glipizide dosing and discussing with provider, DESI hay PCP Created SMART goals for patient self-care and success. Goals: Reduce Metformin to 1000mg BID until seeing PCP next week- met Consider lower CHO options on Thur/Sat brunch- met Treat lows with Rule of 15- continue Try protein shake in the morning- in progress reduce dinner portions- met Check out protein shake options- new Call insurance regarding SGLT2i access- new Follow-up: BONNIE OCHOA follow-up in 4-6 weeks. Bere Pringle RDN, DON Certified Diabetes Care and Gourmet Coffee Attendant P: [phone] Thank you for this referral
== END ==
LOC: DIET 13:31
PROVIDERS: PCP Family Medicine; Referring Provider Family Medicine
DX: E11.65 Type 2 diabetes mellitus with hyperglycemia (principal); Z71.3 Dietary counseling and surveillance; Z79.84 Long term (current) use of oral hypoglycemic drugs
CPT/HCPCS: 97803